=== PATIENT | female | born 1945 | race African-American/Black ===

== ENCOUNTER 2018-05-08 02:23 | Inpatient (IN) | payer OTHER ==
--- NOTE | 2018-05-08 02:56 | PDOC ---
Attending Attestation - Resident Resident Name: Ashok Azulth - ED Attending Attestation I have performed the following: I have examined & evaluated the patient, The case was reviewed & discussed with the resident, I agree w/resident's findings & plan - HPI HPI: 05/08/18 04:59 Pt had an unwitnessed fall at the [facility]. WBC is slightly elevated UA and chem are pending. CT head and CT facial bones normal - Physicial Exam PE: 05/08/18 05:00 Agree with resident exam - Medical Decision Making 05/08/18 04:58 Patient Name: IRMA BONDS THIS IS A PRELIMINARY REPORT FROM [facility] DATE OF SERVICE: 2018-05-08 03:46:21 IMAGES: [id number] EXAM: FACIAL BONES CT W/O CONTRAST HISTORY: Status post fall COMPARISON: None. FINDINGS: The intraorbital contents are intact. The sinuses and visualized mastoid air cells are well aerated. There is a fracture of the floor of the left orbit without entrapment inferior rectus muscle. This may be an old fracture. No definite acute fractures. The patient is edentulous. There is anterior subluxation of the bilateral temporomandibular joints, without dislocation. IMPRESSION: Suspected old fracture of the floor the left orbit without definite evidence of acute fracture. Anterior subluxation of the bilateral temporomandibular joints 05/08/18 04:59 Patient Name: IRMA BONDS THIS IS A PRELIMINARY REPORT FROM [facility] DATE OF SERVICE: 2018-05-08 03:44:39 IMAGES: [id number] EXAM: HEAD CT WITHOUT CONTRAST HISTORY: Status post fall COMPARISON: None. FINDINGS: The ventricular system is midline and nondilated. There is mild cortical atrophy and small vessel ischemic disease. There is no bleed, mass, extra-axial fluid collection or mass effect. No skull fracture or skull lesion is identified. The visualized paranasal sinuses and mastoid air cells are clear. IMPRESSION: No evidence of acute pathology. 05/08/18 05:00 If labs are normal, pt will go back to the [facility]. 05/08/18 05:00 Pt is receiving 1L NSS bolus 05/08/18 05:18 Pt has cellulitis of her bilateral legs. Pt also has elevated BUN and Cr. I called [facility]; last BUN/Cr done there was on January 25 and her BUN was 21 and cr was 1.2; now BUN and cr are double. 05/08/18 05:19 05/08/18 06:28 Pt will be admitted to the hospitalist.
[2018-05-08] MEDS ORDERED: ACETAMINOPHEN 1000 MG/100 ML VIAL (NON FORMULARY) IVPB ONE (03:20)
[2018-05-08] MEDS ORDERED: SODIUM CHLORIDE 1,000 ML IV STA (03:20)
[2018-05-08] MEDS ORDERED: ACETAMINOPHEN INJECTION 100 ML IVPB ONE (03:28)
[2018-05-08 03:34] LABS: BASO % 1.4 % (0-2.0); HEMATOCRIT 30.6 % (32.4-45.2); HEMOGLOBIN 9.7 GM/dL (10.7-15.3); LYMPH % 33.1 % (8-40); MCH 28.2 pg (25.7-33.7); MCHC 31.9 g/dl (32.0-36.0); MEAN CELL VOLUME 88.4 fl (80-96); NEUT % 53.5 % (42.8-82.8); PLATELET COUNT 302 K/MM3 (134-434); RBC 3.46 M/mm3 (3.60-5.2); WHITE BLOOD COUNT 13.2 K/mm3 (4.0-10.0)
[2018-05-08 04:46] LABS: URINE APPEARANCE CLEAR; URINE BILIRUBIN NEGATIVE (<2.0 mg/dL); URINE GLUCOSE (UA) NEGATIVE (NEGATIVE); URINE KETONE NEGATIVE (NEGATIVE); URINE LEUK ESTERASE NEGATIVE (NEGATIVE); URINE NITRITE NEGATIVE (NEGATIVE); URINE PROTEIN NEGATIVE (NEGATIVE)
[2018-05-08 05:00] LABS: URINE COLOR DK YELLOW
[2018-05-08 05:03] LABS: ALBUMIN 2.4 g/dl (3.4-5.0); ALK PHOS 51 U/L (45-117); ANION GAP 5 MMOL/L (8-16); BILIRUBIN,TOTAL 0.3 mg/dL (0.2-1); BLOOD UREA NITROGEN 38 mg/dL (7-18); CALCIUM 7.5 mg/dL (8.5-10.1); CHLORIDE 108 mmol/L (98-107); CO2 27 mmol/L (21-32); GLUCOSE,RANDOM 108 mg/dL (74-106); POTASSIUM 4.8 mmol/L (3.5-5.1); SGOT/AST 15 U/L (15-37); SGPT/ALT 11 U/L (13-61); SODIUM 140 mmol/L (136-145); TOT PROT 6.4 g/dl (6.4-8.2)
--- NOTE | 2018-05-08 05:10 | PDOC ---
History of Present Illness - General Chief Complaint: Injury Stated Complaint: FALL Time Seen by Provider: 05/08/18 02:55 - History of Present Illness Initial Comments: 72yo F with history of asthma, COPD, DM, HTN, CHF presenting after a fall. Patient brought in from [facility]. Patient had been recently treated for cellulitis in her legs, having finished a course of antibiotics yesterday. She reports that the bindings on her legs were too tight, causing her to fall when getting out of bed. The episode was unwitnessed, but staff came to her aid immediately. Patient denies loss of consciousness, nausea or vomiting. Denies urinary or fecal incontinence during/after the episode. No history of seizures or arrhythmia. She has swelling on her forehead. Endorses shortness of breath which she attributes to her asthma and COPD. Denies fever, chills, chest pain, or abdominal pain. Past History - Past Medical History Allergies/Adverse Reactions: Allergies Allergy/AdvReac Type Severity Reaction Status Date / Time penicillin G Allergy Intermediate Hives Verified 05/08/18 02:35 benzathine Allergy Mild Rash Uncoded 05/08/18 02:35 tomatoes Allergy Mild Rash Uncoded 05/08/18 02:35 Home Medications: Ambulatory Orders Albuterol 0.083% Nebulizer Maribel [Ventolin 0.083% Nebulizer Soln -] 2.5 mg PRN 12/13 Amlodipine Besylate [Norvasc -] 10 mg PO DAILY 10/01/17 Aspirin [Adult Aspirin Regimen] 81 mg PO DAILY 10/01/17 Baclofen 10 mg PO TID 10/01/17 Docusate Sodium [Colace] 100 mg PO HS 10/01/17 Furosemide [Lasix] 40 mg PO DAILY 10/01/17 Gabapentin 100 mg PO BID 10/01/17 Hydralazine HCl 100 mg PO TID 10/01/17 Insulin Lispro Protamin/Lispro [Humalog Mix 75-25 Vial] 36 units SCJ BID Lisinopril 20 mg PO BID 10/01/17 Metoprolol Tartrate 25 mg PO BID 10/01/17 Oxybutynin Chloride [Ditropan Xl] 10 mg PO DAILY 10/01/17 Tiotropium [place] [Spiriva] 18 mcg IH DAILY 10/01/17 Asthma: Yes COPD: Yes CHF: Yes Diabetes: Yes HTN: Yes Psychiatric Problems: Yes - Immunization History Immunization Up to Date: No - Suicide/Smoking/Psychosocial Hx Smoking Status: No Smoking History: Unknown if ever smoked Have you smoked in the past 12 months: No Number of Cigarettes Smoked Daily: 1 Information on smoking cessation initiated: No Hx Alcohol Use: No Drug/Substance Use Hx: No Substance Use Type: None Hx Substance Use Treatment: (UNKNOWN) Review of Systems - Review of Systems Comments:: Constitutional: no fever, no chills HEENT: no throat pain, no dysphagia Cardiovascular: no chest pain, no palpitations Respiratory: no cough, +shortness of breath Gastrointestinal: no abdominal pain, no nausea, no vomiting Genitourinary: no dysuria, no frequency Musculoskeletal: no myalgia, no arthralgia Skin: +forehead swelling, no itching Neurologic: +headache, no dizziness *Physical Exam - Vital Signs Last Vital Signs Temp Pulse Resp BP Pulse Ox 98.9 F 64 18 109/51 L 95 05/08/18 02:35 05/08/18 02:35 05/08/18 02:35 05/08/18 02:35 05/08/18 02:35 - Physical Exam Comments: General: Awake, alert, and fully oriented, in no acute distress Head: Soft tissue swelling on forehead; swollen lower lip Eyes: EOMI, sclera anicteric ENT: Dry mucus membranes Neck: Normal ROM, supple Lungs: Crackles at right lung base Cardio: Regular rhythm, S1 and S2 present Abdomen: Soft, nontender. No guarding, no rebound, no masses Extremities: Normal range of motion, Distal pulses present, Legs very dry and cracking SKIN: Warm, Dry, normal turgor Neurologic: Cranial nerves II through XII grossly intact. Normal speech ED Treatment Course - LABORATORY CBC & Chemistry Diagram: 05/08/18 03:25 05/08/18 04:26 - ADDITIONAL ORDERS Additional order review: Laboratory Results 05/08/18 05/08/18 05/08/18 04:38 04:26 03:25 Sodium 140 Cancelled Potassium 4.8 Cancelled Chloride 108 H Cancelled Carbon Dioxide 27 Cancelled Anion Gap 5 L Cancelled BUN 38 H Cancelled Creatinine 2.0 H Cancelled Creat Clearance w eGFR 24.56 Cancelled Random Glucose 108 H Cancelled Calcium 7.5 L Cancelled Total Bilirubin 0.3 Cancelled AST 15 Cancelled ALT 11 L Cancelled Alkaline Phosphatase 51 Cancelled Troponin I < 0.02 Cancelled Total Protein 6.4 Cancelled Albumin 2.4 L Cancelled Urine Color Dk yellow Urine Appearance Clear Urine pH 5.0 Ur Specific [place] 1.017 Urine Protein Negative Urine Glucose (UA) Negative Urine Ketones Negative Urine Blood Negative Urine Nitrite Negative Urine Bilirubin Negative Urine Urobilinogen 2.0 H Ur Leukocyte Esterase Negative 05/08/18 03:25 RBC 3.46 L MCV 88.4 MCHC 31.9 L RDW 16.0 H MPV 9.0 Neutrophils % 53.5 Lymphocytes % 33.1 D Monocytes % 9.0 Eosinophils % 3.0 D Basophils % 1.4 - RADIOLOGY Radiology Studies Ordered: Category Date Time Status FACIAL BONES CT W/O CONTRAST [CT] Stat CT Scan 05/08/18 03:[address] WITHOUT CONTRAST [CT] Stat CT Scan 05/08/18 03:23 Taken CHEST X-RAY PORTABLE* [RAD] Stat Radiology 05/08/18 03:21 Ordered - Medications Given in the ED: ED Medications Discontinued Medications Generic Name Dose Route Start Last Admin Trade Name Freq PRN Reason Stop Dose Admin Acetaminophen 1,000 mg 05/08/18 03:20 05/08/18 03:24 Ofirmev Injection - IVPB 05/08/18 03:21 1,000 mg ONCE ONE Administration Sodium Chloride 1,000 mls @ 1,000 mls/hr 05/08/18 03:20 05/08/18 03:24 Normal Saline - IV 05/08/18 04:19 1,000 mls/hr ASDIR STA Administration Medical Decision Making - Medical Decision Making 72yo F with history of asthma, COPD, DM, HTN, CHF presenting after a fall. -CT head and face: negative for acute pathology -1L NS, 1g Ofirmev -EKG: rate 66, QTc 452, NSR -Labs: elevated BUN=38 and Cr=2.0 WBC=13.2, UA negative -Dr. De Jesus spoke with [facility] regarding patient's recent lab values, BUN=21, Cr= 1.2 on 01/25/18 -Levaquin ordered for cellulitis -CXR looks worsened with increased pulmonary infiltrates (my impression), indicative of CHF exacerbation -Plan to admit for unwitnessed fall, DEE, CHF exacerbation, cellulitis 05/08/18 05:12 Discussed case with inpatient team who accepted patient for admission under attending, Dr. Sorenson 05/08/18 05:50 *DC/Admit/Observation/Transfer Diagnosis at time of Disposition: Cellulitis, Fall, DEE (acute kidney injury) - Discharge Dispostion Condition at time of disposition: Guarded Decision to Admit order: Yes - Referrals Referrals: Duane Davidson MD [Primary Care Provider] - - Patient Instructions - Post Discharge Activity
--- NOTE | 2018-05-08 06:20 | HP ---
Admitting History and Physical - Primary Care Physician PCP: Duane Davidson - Admission Chief Complaint: s/p Fall History of Present Illness: This is a 72 y/o woman from [facility] with a past medical history of HTN, DM, COPD, Asthma, Cellulitis of B/L lower extremities completed ABX yesterday. Who presents to the ED s/p mechanical fall with facial and body pain. Patient reports having leg bandages that were on tightly making her legs feel weak. She states " I slipped and fell forward hitting my forehead". Patient denies dizziness, CP, palpitations. Patient reports having SOB which is chronic. Patient denies fever, N/V/D, constipation, dysuria. History Source: Patient, Medical Record, Transfer Record Limitations to Obtaining History: No Limitations - Past Medical History Cardiovascular: Yes: HTN Pulmonary: Yes: Asthma, COPD Endocrine: Yes: Diabetes Mellitus - Advance Directives Advance Directives: Yes: Health Care Proxy - Smoking History Smoking history: Unknown if ever smoked Have you smoked in the past 12 months: No Aproximately how many cigarettes per day: 1 - Alcohol/Substance Use Hx Alcohol Use: No History of Substance Use: reports: None - Social History Usual Living Arrangement: Yes: Retirement ADL: Support Services History of Recent Travel: No Home Medications - Allergies Allergies/Adverse Reactions: Allergies Allergy/AdvReac Type Severity Reaction Status Date / Time penicillin G Allergy Intermediate Hives Verified 05/08/18 02:35 benzathine Allergy Mild Rash Uncoded 05/08/18 02:35 tomatoes Allergy Mild Rash Uncoded 05/08/18 02:35 - Home Medications Home Medications: Ambulatory Orders Albuterol 0.083% Nebulizer Maribel [Ventolin 0.083% Nebulizer Soln -] 2.5 mg PRN 12/13 Amlodipine Besylate [Norvasc -] 10 mg PO DAILY 10/01/17 Aspirin [Adult Aspirin Regimen] 81 mg PO DAILY 10/01/17 Baclofen 10 mg PO BID 10/01/17 Docusate Sodium [Colace] 200 mg PO HS 10/01/17 Furosemide [Lasix] 40 mg PO DAILY 10/01/17 Gabapentin 100 mg PO BID 10/01/17 Hydralazine HCl 100 mg PO TID 10/01/17 Insulin Lispro Protamin/Lispro [Humalog Mix 75-25 Vial] 36 units SCJ BID Lisinopril 20 mg PO BID 10/01/17 Metoprolol Tartrate 25 mg PO BID 10/01/17 Oxybutynin Chloride [Ditropan Xl] 10 mg PO DAILY 10/01/17 Tiotropium [place] [Spiriva] 18 mcg IH DAILY 10/01/17 Acetaminophen 650 mg PO Q6H 05/08/18 Acetaminophen W/ Codeine #3 [Tylenol # 3 -] 1 tab PO BID PRN 05/08/18 Fosamprenavir Calcium 70 mg PO WEEKLY 05/08/18 Insulin Lispro [Humalog] 0 unit SQ ASDIR 05/08/18 Menthol [Bengay Ultra Strength] 1 each TP BID 05/08/18 Mineral Oil/Pet Hy-Phl [Aquaphor] 1 applic TP DAILY 05/08/18 Sertraline HCl [Zoloft] 25 mg PO DAILY 05/08/18 Simvastatin 20 mg PO DAILY 05/08/18 Sodium Phosphate,[place]-Dibasic [Fleet Enema] 133 ml RC ASDIR 05/08/18 Vit A/Vitamin D3/E/Aloe V/Zinc [Periguard Ointment] 1 applic TP TID 05/08/18 metFORMIN HCL [Metformin HCl] 500 mg PO BID 05/08/18 Family Disease History - Family Disease History Family History: Unable to Obtain Review of Systems - Review of Systems Constitutional: reports: Chills, Weakness Eyes: reports: No Symptoms HENT: reports: Other (facial pain) Neck: reports: No Symptoms Cardiovascular: reports: Shortness of Breath Respiratory: reports: SOB Gastrointestinal: reports: No Symptoms Genitourinary: reports: No Symptoms Breasts: reports: No Symptoms Reported Musculoskeletal: reports: Extremity Pain Integumentary: reports: Other (venous stasis ulcers) Neurological: reports: Numbness (lower legs/feet), Weakness Endocrine: reports: No Symptoms Hematology/Lymphatic: reports: No Symptoms Psychiatric: reports: No Symptoms Pain Intensity: 5 Physical Examination Vital Signs: Vital Signs Temperature 98.9 F 05/08/18 02:35 Pulse Rate 64 05/08/18 02:35 Respiratory Rate 18 05/08/18 02:35 Blood Pressure 109/51 L 05/08/18 02:35 O2 Sat by Pulse Oximetry (%) 95 05/08/18 02:35 Constitutional: Yes: No Distress, Calm, Obese Eyes: Yes: Conjunctiva Clear, EOM Intact, PERRL HENT: Yes: WNL, Normocephalic, Other (frontal TN, hematoma) Neck: Yes: WNL, Supple, Trachea Midline Cardiovascular: Yes: Pulse Irregular, S1, S2 Respiratory: Yes: Diminished, Rhonchi Gastrointestinal: Yes: Normal Bowel Sounds, Soft, Abdomen, Obese ...Rectal Exam: Yes: Deferred Renal/: Yes: Incontinence Breast(s): Yes: WNL Musculoskeletal: Yes: WNL Edema: Yes (non-pitting to LE) Peripheral Pulses WNL: Yes Integumentary: Yes: Venous Stasis Changes Neurological: Yes: Alert, Oriented, Cran Nerves II-XII Intact ...Motor Strength: WNL Psychiatric: Yes: WNL, Alert, Oriented Labs: CBC, BMP 05/08/18 03:25 05/08/18 04:26 Laboratory Results - last 24 hr 05/08/18 05/08/18 05/08/18 03:25 03:25 04:26 WBC 13.2 H RBC 3.46 L Hgb 9.7 L Hct 30.6 L D MCV 88.4 MCH 28.2 D MCHC 31.9 L RDW 16.0 H Plt Count 302 D MPV 9.0 Absolute Neuts (auto) 7.1 Neutrophils % 53.5 Lymphocytes % 33.1 D Monocytes % 9.0 Eosinophils % 3.0 D Basophils % 1.4 Nucleated RBC % 0 Sodium Cancelled 140 Potassium Cancelled 4.8 Chloride Cancelled 108 H Carbon Dioxide Cancelled 27 Anion Gap Cancelled 5 L BUN Cancelled 38 H Creatinine Cancelled 2.0 H Creat Clearance w eGFR Cancelled 24.56 Random Glucose Cancelled 108 H Calcium Cancelled 7.5 L Total Bilirubin Cancelled 0.3 AST Cancelled 15 ALT Cancelled 11 L Alkaline Phosphatase Cancelled 51 Troponin I Cancelled < 0.02 Total Protein Cancelled 6.4 Albumin Cancelled 2.4 L Urine Color Urine Appearance Urine pH Ur Specific [place] Urine Protein Urine Glucose (UA) Urine Ketones Urine Blood Urine Nitrite Urine Bilirubin Urine Urobilinogen Ur Leukocyte Esterase 05/08/18 04:38 WBC RBC Hgb Hct MCV MCH MCHC RDW Plt Count MPV Absolute Neuts (auto) Neutrophils % Lymphocytes % Monocytes % Eosinophils % Basophils % Nucleated RBC % Sodium Potassium Chloride Carbon Dioxide Anion Gap BUN Creatinine Creat Clearance w eGFR Random Glucose Calcium Total Bilirubin AST ALT Alkaline Phosphatase Troponin I Total Protein Albumin Urine Color Dk yellow Urine Appearance Clear Urine pH 5.0 Ur Specific [place] 1.017 Urine Protein Negative Urine Glucose (UA) Negative Urine Ketones Negative Urine Blood Negative Urine Nitrite Negative Urine Bilirubin Negative Urine Urobilinogen 2.0 H Ur Leukocyte Esterase Negative Current Medications Generic Name Dose Route Start Last Admin Trade Name Freq PRN Reason Stop Dose Admin Albuterol Sulfate 1 amp 05/08/18 07:45 Ventolin 0.083% Nebulizer Soln - NEB Q6H PRN SHORT OF BREATH/WHEEZING Amlodipine Besylate 10 mg 05/08/18 10:00 Norvasc - PO DAILY [facility] Aspirin 81 mg 05/08/18 10:00 Ecotrin - PO DAILY [facility] Baclofen 10 mg 05/08/18 10:00 Lioresal - PO BID [facility] Docusate Sodium 100 mg 05/08/18 10:00 Colace - PO BID [facility] Furosemide 40 mg 05/08/18 10:00 Lasix - PO DAILY [facility] Gabapentin 200 mg 05/08/18 10:00 Neurontin - PO BID [facility] Hydralazine HCl 100 mg 05/08/18 14:00 Apresoline - PO TID [facility] Metoprolol Tartrate 12.5 mg 05/08/18 10:00 Lopressor - PO BID [facility] Solifenacin 5 mg 05/08/18 10:00 Vesicare - PO DAILY [facility] Tiotropium [place] 2 puff 05/08/18 10:00 Spiriva Respimat IH DAILY [facility] Problem List - Problems (1) DEE (acute kidney injury) Code(s): N17.9 - ACUTE KIDNEY FAILURE, UNSPECIFIED (2) Fall Code(s): W19.XXXA - UNSPECIFIED FALL, INITIAL ENCOUNTER (3) Alcohol dependence Code(s): F10.20 - ALCOHOL DEPENDENCE, UNCOMPLICATED (4) HTN (hypertension) Code(s): I10 - ESSENTIAL (PRIMARY) HYPERTENSION (5) Non-pressure chronic ulcer of other part of unspecified lower leg limited to breakdown of skin Code(s): L97.801 - NON-PRS CHR ULCER OTH PRT UNSP LOW LEG LMT TO BRKDWN SKIN (6) Type 2 diabetes mellitus Code(s): E11.9 - TYPE 2 DIABETES MELLITUS WITHOUT COMPLICATIONS (7) Dyslipidemia Code(s): E78.5 - HYPERLIPIDEMIA, UNSPECIFIED Assessment/Plan This is a 72 y/o woman PMHx of Asthma, COPD, HTN, HLD, DM, recent treatment of Cellulitis to B/L legs completed ABX yesterday. Placed in Tele Observation for CHF Exacerbation, DEE, s/p Mechanical Fall for further evaluation of their emergent condition. Plan: 1.Acute CHF Exacerbation: Will place in Tele Observation Cardiac Monitoring Serial Enzymes Appreciate Cardiology consult Chest xray image- cardiomegaly, bibasilar atelectasis awaiting official report NS bolus given in ED Will place on fluid restrictions strict INOs daily weights Continue Lasix cautiously monitor renal function 2.Acute Kidney Injury: Likely due to Dehydration vs CHF vs Medication NS bolus given in ED Monitor BMP 3. Mechanical Fall: Head CT- neg ICH Facial Bones CT- no acute process Fall Precautions 4. Cellulitis of Lower Extermities WBC 13,000 likely inflammatory vs infectious Patient does not appear septic, afebrile not hypotensive Levaquin given for Cellulitis, will defer to ID Appreciate ID consult Blood Cultures x2 ordered for this am Elevate extremities 5. Anemia Likely secondary to Renal Insufficiency vs Hypothyroidism vs former Alcohol Abuse vs GI Bleed Will transfuse if Hgb is < 7.0 Fe, TIBC, Ferritin levels-pending Stool Occult-pending f/u with Hematology outpatient 6. Asthma, COPD: Continue Albuterol Neb Continue Spiriva, Symbicort Peak Flows O2 7. Hypertension: Controlled Monitor BP Continue Norvasc, Metoprolol, Hydralazine with parameters Will hold Lisinopril secondary to DEE Monitor Renal Function 8. Hyperlipidemia: Simvastatin NF changed to Lipitor 10mg Low Cholesterol diet 9. IDDM: Stable BGMs ISS Hold Metformin secondary to DEE FEN Fluid Restriction 1L Replete lytes prn Low Na, Low Cholesterol, Diabetic Diet DVT ppx OOB Heparin SQ Code Status:Full Code, HCP [place] Hogan (brother) [phone] Dispo: Tele Observation Visit type - Emergency Visit Emergency Visit: Yes ED Registration Date: 05/08/18 Care time: The patient presented to the Emergency Department on the above date and was hospitalized for further evaluation of their emergent condition. - New Patient This patient is new to me today: Yes Date on this admission: 05/08/18 - Critical Care Critical Care patient: No
[2018-05-08] MEDS ORDERED: ALBUTEROL SO4 0.083% IH SOL 2.5 MG/3 ML VIAL.NEB. NEB PRN (07:45)
[2018-05-08] MEDS ORDERED: FUROSEMIDE 40 MG TABLET (FP) PO SCH (10:00)
[2018-05-08] MEDS ORDERED: LORATADINE 10 MG TABLET ONE (10:28)
[2018-05-08] MEDS ORDERED: SERTRALINE HCL 50 MG TABLET (FP) ONE (10:28)
[2018-05-08] MEDS ORDERED: HEPARIN NA (PORCINE) 5,000 UNITS/ML 1ML VIAL ONE (10:28)
[2018-05-08] MEDS: DOCUSATE SODIUM 100 MG CAPSULE (FP) PO SCH ×2 (10:43→22:08)
[2018-05-08] MEDS: ASPIRIN COATED 81 MG TABLET.EC PO SCH (10:43)
[2018-05-08] MEDS: LORATADINE 10 MG TABLET PO SCH (10:43)
[2018-05-08] MEDS: BACLOFEN 10 MG TABLET (FP) PO SCH ×2 (10:44→22:08)
[2018-05-08] MEDS: HEPARIN NA (PORCINE) 5,000 UNITS/ML 1ML VIAL SQ SCH ×2 (10:44→22:09)
[2018-05-08] MEDS: amLODIPine BESYLATE 10 MG TABLET (FP) PO SCH (10:44)
[2018-05-08] MEDS: SOLIFENACIN SUCCINATE 5 MG TAB (FP) PO SCH (10:44)
[2018-05-08] MEDS: SERTRALINE HCL 25 MG TABLET (FP) PO SCH (10:44)
[2018-05-08] MEDS: METOPROLOL TARTRATE 25 MG TABLET (FP) PO SCH ×2 (10:44→22:08)
[2018-05-08] MEDS: GABAPENTIN 100 MG CAPSULE (FP) PO SCH ×2 (10:44→22:07)
[2018-05-08] MEDS: BUDESONIDE/FORMETEROL FUMARATE 160/4.5 mcg INHALER IH SCH ×2 (11:28→22:09)
[2018-05-08] MEDS: MINERAL OIL/PET HY-PHL TOPICAL OINTMENT 454 GM JAR TP SCH (11:28)
[2018-05-08] MEDS: TIOTROPIUM BROMIDE 2.5 MCG (SPIRIVA) RESPIMAT INHALER IH SCH (11:28)
[2018-05-08 11:33] LABS: MAGNESIUM 1.9 mg/dL (1.8-2.4); PHOSPHOROUS 4.4 mg/dL (2.5-4.9)
[2018-05-08] MEDS: INSULIN SLIDING SCALE (NOVOLOG) 1 VIAL SQ SCH ×2 (12:26→22:07)
[2018-05-08] MEDS ORDERED: FUROSEMIDE 40 MG/4 ML INJECTABLE VIAL IVPUSH ONE (13:00)
--- NOTE | 2018-05-08 13:05 | CON.CARD ---
Cardiology Consult (text) - Consultation Consultation Note: cc: fall hpi: 72 f hx copd, htn, dm, here s/p fall at NH. Pt was trying to get from bed to wheelchair and chair slid and she fell. No prodrome sxs, no loc. No cp sob palps dizzy loc pnd orthopnea. Chronic le edema. Recent abx for le cellulitis. pmh: per hpi psh: nc social: no tob fam: no premature cad, scd ros: per hpi; no fever nvd gib hematuria dysuria wt loss meds: Home Medications Medication Instructions Recorded Albuterol 0.083% Nebulizer Maribel 2.5 mg PRN 10/01/17 [Ventolin 0.083% Nebulizer Soln -] Amlodipine Besylate [Norvasc -] 10 mg PO DAILY 10/01/17 Aspirin [Adult Aspirin Regimen] 81 mg PO DAILY 10/01/17 Baclofen 10 mg PO BID 10/01/17 Docusate Sodium [Colace] 200 mg PO HS 10/01/17 Furosemide [Lasix] 40 mg PO DAILY 10/01/17 Gabapentin 100 mg PO BID 10/01/17 Hydralazine HCl 100 mg PO TID 10/01/17 Insulin Lispro Protamin/Lispro 36 units SCJ BID 10/01/17 [Humalog Mix 75-25 Vial] Lisinopril 20 mg PO BID 10/01/17 Metoprolol Tartrate 25 mg PO BID 10/01/17 Oxybutynin Chloride [Ditropan Xl] 10 mg PO DAILY 10/01/17 Tiotropium [place] [Spiriva] 18 mcg IH DAILY 10/01/17 Acetaminophen 650 mg PO Q6H 05/08/18 Acetaminophen W/ Codeine #3 1 tab PO BID PRN 05/08/18 [Tylenol # 3 -] Fosamprenavir Calcium 70 mg PO WEEKLY 05/08/18 Insulin Lispro [Humalog] 0 unit SQ ASDIR 05/08/18 Menthol [[place] Ultra Strength] 1 each TP BID 05/08/18 Mineral Oil/Pet Hy-Phl [Aquaphor] 1 applic TP DAILY 05/08/18 Sertraline HCl [Zoloft] 25 mg PO DAILY 05/08/18 Simvastatin 20 mg PO DAILY 05/08/18 Sodium Phosphate,[place]-Dibasic 133 ml RC ASDIR 05/08/18 [Fleet Enema] Vit A/Vitamin D3/E/Aloe V/Zinc 1 applic TP TID 05/08/18 [Periguard Ointment] metFORMIN HCL [Metformin HCl] 500 mg PO BID 05/08/18 pe: Vital Signs Period Temp Pulse Resp BP Sys/Gates Pulse Ox Last 24 Hr 98 F-98.9 F 61-71 18-18 109-123/51-68 95-98 nad no jvd rrr s1s2 no mrg crackles at bases, nl eff aaox3 chronic venous stasis changes le bl, non pitting edema abd nt nd pos bs no jaundice diaphoresis pos dp pt no carotid bruits Laboratory Last Values WBC 13.2 K/mm3 (4.0-10.0) H 05/08/18 03:25 RBC 3.46 M/mm3 (3.60-5.2) L 05/08/18 03:25 Hgb 9.7 GM/dL (10.7-15.3) L 05/08/18 03:25 Hct 30.6 % (32.4-45.2) L D 05/08/18 03:25 MCV 88.4 fl (80-96) 05/08/18 03:25 MCH 28.2 pg (25.7-33.7) D 05/08/18 03:25 MCHC 31.9 g/dl (32.0-36.0) L 05/08/18 03:25 RDW 16.0 % (11.6-15.6) H 05/08/18 03:25 Plt Count 302 K/MM3 (134-434) D 05/08/18 03:25 MPV 9.0 fl (7.5-11.1) 05/08/18 03:25 Absolute Neuts (auto) 7.1 K/mm3 (1.5-8.0) 05/08/18 03:25 Neutrophils % 53.5 % (42.8-82.8) 05/08/18 03:25 Lymphocytes % 33.1 % (8-40) D 05/08/18 03:25 Monocytes % 9.0 % (3.8-10.2) 05/08/18 03:25 Eosinophils % 3.0 % (0-4.5) D 05/08/18 03:25 Basophils % 1.4 % (0-2.0) 05/08/18 03:25 Nucleated RBC % 0 % (0-0) 05/08/18 03:25 Sodium 140 mmol/L (136-145) 05/08/18 04:26 Potassium 4.8 mmol/L (3.5-5.1) 05/08/18 04:26 Chloride 108 mmol/L (98-107) H 05/08/18 04:26 Carbon Dioxide 27 mmol/L (21-32) 05/08/18 04:26 Anion Gap 5 MMOL/L (8-16) L 05/08/18 04:26 BUN 38 mg/dL (7-18) H 05/08/18 04:26 Creatinine 2.0 mg/dL (0.55-1.3) H 05/08/18 04:26 Creat Clearance w eGFR 24.56 (>60) 05/08/18 04:26 POC Glucometer 132.38753 UNITS (80-120) 05/08/18 12:25 Random Glucose 108 mg/dL (74-106) H 05/08/18 04:26 Calcium 7.5 mg/dL (8.5-10.1) L 05/08/18 04:26 Phosphorus 4.4 mg/dL (2.5-4.9) 05/08/18 10:32 Magnesium 1.9 mg/dL (1.8-2.4) 05/08/18 10:32 Ferritin 41.9 ng/ml (8-388) 05/08/18 10:32 Total Bilirubin 0.3 mg/dL (0.2-1) 05/08/18 04:26 AST 15 U/L (15-37) 05/08/18 04:26 ALT 11 U/L (13-61) L 05/08/18 04:26 Alkaline Phosphatase 51 U/L (45-117) 05/08/18 04:26 Troponin I < 0.02 ng/ml (0.00-0.05) 05/08/18 10:32 Total Protein 6.4 g/dl (6.4-8.2) 05/08/18 04:26 Albumin 2.4 g/dl (3.4-5.0) L 05/08/18 04:26 Urine Color Dk yellow 05/08/18 04:38 Urine Appearance Clear 05/08/18 04:38 Urine pH 5.0 (5.0-8.0) 05/08/18 04:38 Ur Specific [place] 1.017 (1.010-1.035) 05/08/18 04:38 Urine Protein Negative (NEGATIVE) 05/08/18 04:38 Urine Glucose (UA) Negative (NEGATIVE) 05/08/18 04:38 Urine Ketones Negative (NEGATIVE) 05/08/18 04:38 Urine Blood Negative (NEGATIVE) 05/08/18 04:38 Urine Nitrite Negative (NEGATIVE) 05/08/18 04:38 Urine Bilirubin Negative (<2.0 mg/dL) 05/08/18 04:38 Urine Urobilinogen 2.0 mg/dL (0.2-1.0) H 05/08/18 04:38 Ur Leukocyte Esterase Negative (NEGATIVE) 05/08/18 04:38 cxr: chf ecg: sr,nl intervals, no ischemci changes mibi 2011: no ischemia, nl lvef echo 03/2014: lvh, nl lv/rv, lae, no sig valve path a/p: 72 f hx copd, htn, dm, here s/p fall [place]. acute diastolic chf: -no signs acs -cr up from baseline but appears volume up with pulm congestion so will give test dose of lasix 40 iv x1 and monitor labs/vol tomorrow -check updated echo htn: -cont home meds hld: -cont statin isabel: -cr 2 now, cr was 1.2 on 12/2017 from [facility] records -possibly cardiorenal, plan as above fall: -mechanical, no indication of cardiac etiology
[2018-05-08] MEDS ORDERED: FUROSEMIDE 40 MG/4 ML INJECTABLE VIAL ONE (14:52)
[2018-05-08] MEDS: hydrALAZINE HCL 50 MG TABLET (FP) PO SCH ×2 (15:00→22:07)
--- NOTE | 2018-05-08 18:28 | CON.ID ---
Consult Consult Specialty:: infectious diseases Reason for Consultation:: cellulitis of the legs - History of Present Illness Chief Complaint: pain in the legs b/l History of Present Illness: 72 y/o woman from [facility] with a past medical history of HTN, DM, COPD, Asthma, Cellulitis of B/L lower extremities completed ABX yesterday. Who presents to the ED s/p mechanical fall with facial and body pain. Patient reports having leg bandages that were on tightly making her legs feel weak. She states " I slipped and fell forward hitting my forehead". Patient denies dizziness, CP, palpitations. Patient reports having SOB which is chronic. Patient denies fever, N/V/D, constipation, dysuria. patient is now c/o of swelling of both legs and tenderness of both legs - History Source History Provided By: Patient Limitations to Obtaining History: Poor Historian - Past Medical History Cardio/Vascular: Yes: HTN Pulmonary: Yes: Asthma, COPD Endocrine: Yes: Diabetes Mellitus - Alcohol/Substance Use Hx Alcohol Use: No History of Substance Use: reports: None - Smoking History Smoking history: Unknown if ever smoked Have you smoked in the past 12 months: No Aproximately how many cigarettes per day: 1 - Social History ADL: Support Services History of Recent Travel: No Home Medications - Allergies Allergies/Adverse Reactions: Allergies Allergy/AdvReac Type Severity Reaction Status Date / Time penicillin G Allergy Intermediate Hives Verified 05/08/18 02:35 benzathine Allergy Mild Rash Uncoded 05/08/18 02:35 tomatoes Allergy Mild Rash Uncoded 05/08/18 02:35 - Home Medications Home Medications: Ambulatory Orders Amlodipine Besylate [Norvasc -] 10 mg PO DAILY 10/01/17 Aspirin [Adult Aspirin Regimen] 81 mg PO DAILY 10/01/17 Docusate Sodium [Colace] 200 mg PO HS 10/01/17 Furosemide [Lasix] 40 mg PO DAILY 10/01/17 Insulin Lispro Protamin/Lispro [Humalog Mix 75-25 Vial] 36 units SCJ BID Oxybutynin Chloride [Ditropan Xl] 10 mg PO DAILY 10/01/17 RX: Albuterol 0.083% Nebulizer Maribel [Ventolin 0.083% Nebulizer Soln -] 2.5 mg PRN 10/01/17 RX: Baclofen 10 mg PO BID 10/01/17 RX: Gabapentin 100 mg PO BID 10/01/17 RX: Hydralazine HCl 100 mg PO TID 10/01/17 RX: Lisinopril 20 mg PO BID 10/01/17 RX: Metoprolol Tartrate 25 mg PO BID 10/01/17 Tiotropium [place] [Spiriva] 18 mcg IH DAILY 10/01/17 Acetaminophen W/ Codeine #3 [Tylenol # 3 -] 1 tab PO BID PRN 05/08/18 Insulin Lispro [Humalog] 0 unit SQ ASDIR 05/08/18 Menthol [Bengay Ultra Strength] 1 each TP BID 05/08/18 Mineral Oil/Pet Hy-Phl [Aquaphor] 1 applic TP DAILY 05/08/18 RX: Acetaminophen 650 mg PO Q6H 05/08/18 RX: Fosamprenavir Calcium 70 mg PO WEEKLY 05/08/18 RX: Simvastatin 20 mg PO DAILY 05/08/18 Sertraline HCl [Zoloft] 25 mg PO DAILY 05/08/18 Sodium Phosphate,Dickens-Dibasic [Fleet Enema] 133 ml RC ASDIR 05/08/18 Vit A/Vitamin D3/E/Aloe V/Zinc [Periguard Ointment] 1 applic TP TID 05/08/18 metFORMIN HCL [Metformin HCl] 500 mg PO BID 05/08/18 Review of Systems - Review of Systems Constitutional: reports: Weakness Eyes: reports: No Symptoms HENT: reports: No Symptoms Neck: reports: No Symptoms Cardiovascular: reports: No Symptoms Respiratory: reports: No Symptoms Gastrointestinal: reports: No Symptoms Genitourinary: reports: No Symptoms Musculoskeletal: reports: Extremity Pain, Muscle Pain Integumentary: reports: Change in Color, Erythema (b/l lower legs) Neurological: reports: No Symptoms Endocrine: reports: No Symptoms Hematology/Lymphatic: reports: No Symptoms Psychiatric: reports: No Symptoms Physical Exam Vital Signs: Vital Signs Temperature 98 F 05/08/18 16:54 Pulse Rate 63 05/08/18 16:54 Respiratory Rate 18 05/08/18 16:54 Blood Pressure 109/60 05/08/18 16:54 O2 Sat by Pulse Oximetry (%) 98 05/08/18 16:54 Constitutional: Yes: Well Nourished, Calm, Mild Distress Eyes: Yes: Conjunctiva Clear HENT: Yes: Atraumatic, Normocephalic Neck: Yes: Supple, Trachea Midline Cardiovascular: Yes: Regular Rate and Rhythm Respiratory: Yes: Regular, CTA Bilaterally Gastrointestinal: Yes: Normal Bowel Sounds, Soft Musculoskeletal: Yes: Muscle Pain Extremities: Yes: Other (b/l swelling of the legs) Integumentary: Yes: Erythema, Other (flaky skin) Wound/Incision: Yes: Clean/Dry Neurological: Yes: Alert, Oriented Psychiatric: Yes: Alert, Oriented Labs: CBC, BMP 05/08/18 03:25 05/08/18 04:26 Imaging - Results Chest X-ray: Report Reviewed, Image Reviewed Cat Scan: Report Reviewed, Image Reviewed Assessment/Plan Problem List - Problems (1) DEE (acute kidney injury) Code(s): N17.9 - ACUTE KIDNEY FAILURE, UNSPECIFIED (2) Fall Code(s): W19.XXXA - UNSPECIFIED FALL, INITIAL ENCOUNTER (3) Cellulitis of both lower extremities Code(s): L03.115 - CELLULITIS OF RIGHT LOWER LIMB; L03.116 - CELLULITIS OF LEFT LOWER LIMB (4) HTN (hypertension) Code(s): I10 - ESSENTIAL (PRIMARY) HYPERTENSION (5) Type 2 diabetes mellitus Code(s): E11.9 - TYPE 2 DIABETES MELLITUS WITHOUT COMPLICATIONS 6 b/l cellulittis of the legs leukocytosis plan will start patient on clinda and zosyn elevation of the legs rest as per the team
[2018-05-08 18:32] VITALS: BMI 35.9
[2018-05-08] MEDS: CLINDAMYCIN 300 MG PREMIX IVPB 300 MG/50 ML BAG IVPB SCH (22:06)
[2018-05-08] MEDS: AZTREONAM 1 GM in DEXTROSE 5%-WATER - 50 ML IVPB SCH (22:07)
[2018-05-08] MEDS: ATORVASTATIN CA 10 MG TABLET (FP) PO SCH (22:08)
[2018-05-08] MEDS: ACETAMINOPHEN 325 MG TABLET (FP) PO PRN (22:08)
[2018-05-09] MEDS: AZTREONAM 1 GM in DEXTROSE 5%-WATER - 50 ML IVPB SCH ×3 (02:59→18:26)
[2018-05-09] MEDS: CLINDAMYCIN 300 MG PREMIX IVPB 300 MG/50 ML BAG IVPB SCH ×3 (02:59→18:26)
[2018-05-09] MEDS: hydrALAZINE HCL 50 MG TABLET (FP) PO SCH ×3 (05:50→22:24)
[2018-05-09 06:47] LABS: BASO % 0.8 % (0-2.0); HEMATOCRIT 29.2 % (32.4-45.2); LYMPH % 39.1 % (8-40); MCH 27.3 pg (25.7-33.7); MCHC 30.9 g/dl (32.0-36.0); MEAN CELL VOLUME 88.4 fl (80-96); MONO % 9.8 % (3.8-10.2); NEUT % 47.3 % (42.8-82.8); PLATELET COUNT 262 K/MM3 (134-434); RDW 16.1 % (11.6-15.6); WHITE BLOOD COUNT 9.8 K/mm3 (4.0-10.0)
[2018-05-09 06:53] LABS: ANION GAP 5 MMOL/L (8-16); BLOOD UREA NITROGEN 44 mg/dL (7-18); CALCIUM 7.5 mg/dL (8.5-10.1); CHLORIDE 110 mmol/L (98-107); CO2 26 mmol/L (21-32); CREATININE 1.6 mg/dL (0.55-1.3); GLUCOSE,RANDOM 102 mg/dL (74-106); POTASSIUM 5.5 mmol/L (3.5-5.1); SODIUM 140 mmol/L (136-145)
[2018-05-09 08:05] LABS: SERUM IRON SATURATION 9 % (15-55); TOTAL IRON BINDING CAPACITY 282 ug/dL (250-450); UIBC 256 ug/dL (118-369)
--- NOTE | 2018-05-09 09:39 | PN ---
Progress Note, Physician Chief Complaint: sob History of Present Illness: no more sob today. had xiphoid area cp for about an hour she thinks, earlier today--worse with breathing, ? acid/burning feature she thinks. legs feel swollen no palpit - Current Medication List Current Medications: Active Medications Acetaminophen (Tylenol -) 650 mg PO Q6H PRN PRN Reason: PAIN OR FEVER Last Admin: 05/08/18 22:08 Dose: 650 mg Albuterol Sulfate (Ventolin 0.083% Nebulizer Soln -) 1 amp NEB Q6H PRN PRN Reason: SHORT OF BREATH/WHEEZING Amlodipine Besylate (Norvasc -) 10 mg PO DAILY [facility] Last Admin: 05/08/18 10:44 Dose: 10 mg Aspirin (Ecotrin -) 81 mg PO DAILY [facility] Last Admin: 05/08/18 10:43 Dose: 81 mg Atorvastatin Calcium (Lipitor -) 10 mg PO HS [facility] Last Admin: 05/08/18 22:08 Dose: 10 mg Baclofen (Lioresal -) 10 mg PO BID [facility] Last Admin: 05/08/18 22:08 Dose: 10 mg Budesonide/Formoterol Fumarate (Symbicort 160/4.5mcg -) 2 puff IH BID [facility] Last Admin: 05/08/18 22:09 Dose: 2 puff Docusate Sodium (Colace -) 100 mg PO BID [facility] Last Admin: 05/08/18 22:08 Dose: 100 mg Emollient Ointment (Aquaphor -) 1 applic TP DAILY [facility] Last Admin: 05/08/18 11:28 Dose: Not Given Gabapentin (Neurontin -) 200 mg PO BID [facility] Last Admin: 05/08/18 22:07 Dose: 200 mg Heparin Sodium (Porcine) (Heparin -) 5,000 unit SQ BID [facility] Last Admin: 05/08/18 22:09 Dose: 5,000 unit Hydralazine HCl (Apresoline -) 100 mg PO TID [facility] Last Admin: 05/09/18 05:50 Dose: 100 mg Aztreonam 1 gm/ Dextrose 50 mls @ 100 mls/hr IVPB Q8H-IV [facility]; Protocol Last Admin: 05/09/18 02:59 Dose: 100 mls/hr Clindamycin Phosphate (Cleocin 300 Mg Premix Ivpb) 300 mg in 50 mls @ 100 mls/ hr IVPB Q8H-IV [facility]; Protocol Last Admin: 05/09/18 02:59 Dose: 100 mls/hr Insulin Aspart (Novolog Vial Sliding Scale -) 1 vial SQ ACHS [facility]; Protocol Last Admin: 05/08/18 22:07 Dose: 2 units Loratadine (Claritin -) 10 mg PO DAILY [facility] Last Admin: 05/08/18 10:43 Dose: 10 mg Metoprolol Tartrate (Lopressor -) 12.5 mg PO BID [facility] Last Admin: 05/08/18 22:08 Dose: 12.5 mg Sertraline HCl (Zoloft -) 25 mg PO DAILY [facility] Last Admin: 05/08/18 10:44 Dose: 25 mg Solifenacin (Vesicare -) 5 mg PO DAILY [facility] Last Admin: 05/08/18 10:44 Dose: 5 mg Tiotropium [place] (Spiriva Respimat) 2 puff IH DAILY [facility] Last Admin: 05/08/18 11:28 Dose: 2 puff - Objective Vital Signs: Vital Signs Temperature 97.9 F 05/09/18 09:00 Pulse Rate 65 05/09/18 09:00 Respiratory Rate 20 05/09/18 09:00 Blood Pressure 122/57 L 05/09/18 09:00 O2 Sat by Pulse Oximetry (%) 96 05/09/18 09:00 Constitutional: Yes: No Distress, Calm, Obese Cardiovascular: Yes: Regular Rate and Rhythm (decr intensity sounds (habitus)), JVD (probable (L neck)), S1, S2. No: Gallop, Murmur Respiratory: Yes: Regular, CTA Bilaterally. No: Accessory Muscle Use, Rales, Wheezes Extremities: No: Cold Edema: No Neurological: Yes: Alert. No: Seizure Psychiatric: No: Agitated Labs: CBC, BMP 05/09/18 05:30 05/09/18 05:30 Assessment/Plan cxr: chf ecg: sr,nl intervals, no ischemci changes mibi 2011: no ischemia, nl lvef echo 03/2014: lvh, nl lv/rv, lae, no sig valve path a/p: 72 f hx copd, htn, dm, here s/p fall at NH. acute diastolic chf: -no signs acs -cr initially up from baseline--given test dose lasix 40 iv x1 on HD#1 and renal fxn improved -bedscale wts only -05/09: sob resolved. suspect JVD present. will repeat lasix 40 iv today, recheck labs and CXR in am (phys exam tds sec to habitus) -check updated echo htn: -bp stable -cont home meds isabel: -cr 2 now, cr was 1.2 on 12/2017 from de records -possibly cardiorenal, plan as above -trend labs daily while diuresing fall: -mechanical, no indication of cardiac etiology D/C TELE
[2018-05-09] MEDS: HEPARIN NA (PORCINE) 5,000 UNITS/ML 1ML VIAL SQ SCH ×2 (10:40→22:24)
[2018-05-09] MEDS: GABAPENTIN 100 MG CAPSULE (FP) PO SCH ×2 (10:41→22:25)
[2018-05-09] MEDS: SOLIFENACIN SUCCINATE 5 MG TAB (FP) PO SCH (10:41)
[2018-05-09] MEDS: METOPROLOL TARTRATE 25 MG TABLET (FP) PO SCH ×2 (10:41→22:24)
[2018-05-09] MEDS: BACLOFEN 10 MG TABLET (FP) PO SCH ×2 (10:43→22:23)
[2018-05-09] MEDS: ASPIRIN COATED 81 MG TABLET.EC PO SCH (10:43)
[2018-05-09] MEDS: SERTRALINE HCL 25 MG TABLET (FP) PO SCH (10:43)
[2018-05-09] MEDS: LORATADINE 10 MG TABLET PO SCH (10:43)
[2018-05-09] MEDS: DOCUSATE SODIUM 100 MG CAPSULE (FP) PO SCH ×2 (10:43→22:23)
[2018-05-09] MEDS: amLODIPine BESYLATE 10 MG TABLET (FP) PO SCH (10:43)
[2018-05-09] MEDS: BUDESONIDE/FORMETEROL FUMARATE 160/4.5 mcg INHALER IH SCH ×2 (11:09→22:34)
[2018-05-09] MEDS: TIOTROPIUM BROMIDE 2.5 MCG (SPIRIVA) RESPIMAT INHALER IH SCH (11:11)
--- NOTE | 2018-05-09 11:31 | CONSULT ---
Consultation: CONSULT REQUEST: Nephrology Resident HISTORY OF PRESENT ILLNESS: 72yo F with h/o HTN, DM, and chronic cellulitis who presented to the hospital from [facility] s/p mechanical fall. Pt was seen here and noted that her cellulitis has not improved despite finishing her ABX course. We were asked to medically evaluate her due to increasing Cr and DEE. Pt reports never being told that she has had renal dysfunction before. She has never been on dialysis and does not take a lot of NSAIDs. She reports currently her legs hurt and that she has no other problems. Denies any fever/chills, shortness of breath, chest pain, discomfort, back pain, abdominal pain, urinary difficulties including polyuria, dysuria, and hematuria. Of note: pt has not been using oxygen [facility]. PMHx: HTN DM COPD Chronic b/l extremity cellulities PSHx: SoHx: Tobacco: Current; smokes 1 cigarette per day as is allowed in [place] Alcohol: Denies Drugs: Denies Lives at [facility] Allergies: Penicillin (angioedema) Tomatoes REVIEW OF SYSTEMS: CONSTITUTIONAL: Absent: fever, chills, diaphoresis, generalized weakness, malaise, loss of appetite HEENT: Absent: throat pain, throat swelling, difficulty swallowing, mouth swelling, ear pain, eye pain, visual changes CARDIOVASCULAR: Absent: chest pain, syncope, palpitations, irregular heart rate, lightheadedness , peripheral edema RESPIRATORY: Absent: cough, shortness of breath, dyspnea with exertion, orthopnea, wheezing GASTROINTESTINAL: Absent: abdominal pain, abdominal distension, nausea, vomiting, diarrhea, constipation GENITOURINARY: Absent: dysuria, frequency, urgency, hesitancy, hematuria, flank pain MUSCULOSKELETAL: Present: Leg pain Absent: myalgia, arthralgia, joint swelling, back pain, neck pain SKIN: Absent: pallor ENDOCRINE: Absent: unexplained weight gain, unexplained weight loss, heat intolerance, cold intolerance NEUROLOGIC: Absent: headache, focal weakness or paresthesias, dizziness, unsteady gait, seizure, mental status changes, bladder or bowel incontinence PSYCHIATRIC: Absent: anxiety, depression, PHYSICAL EXAMINATION Vital Signs - 24 hr 05/08/18 05/08/18 05/08/18 15:00 16:54 18:23 Temperature 98.1 F 98 F 98 F Pulse Rate 85 Pulse Rate [ 63 63 Left Radial] Respiratory 18 18 18 Rate Blood Pressure 127/51 L Blood Pressure 119/60 109/60 [Right Arm] O2 Sat by Pulse 98 98 Oximetry (%) 05/08/18 05/09/18 05/09/18 21:00 01:00 05:00 Temperature 98.2 F 98.9 F 98.1 F Pulse Rate 84 69 72 Pulse Rate [ Left Radial] Respiratory 20 20 20 Rate Blood Pressure 128/54 L 104/43 L 117/58 L Blood Pressure [Right Arm] O2 Sat by Pulse 94 L Oximetry (%) 05/09/18 09:00 Temperature 97.9 F Pulse Rate 65 Pulse Rate [ Left Radial] Respiratory 20 Rate Blood Pressure 122/57 L Blood Pressure [Right Arm] O2 Sat by Pulse 96 Oximetry (%) GENERAL: NAD, awake, alert, and fully oriented, sitting in bed HEENT: NC, facial structure stable, BAN, EOMI, [id number] MM NECK: No JVD, soft, no pain upon palpation LUNGS: CTA bilaterally. No wheezes, and no crackles. No accessory muscle use. On 2LNC HEART: RRR, normal S1 and S2 without murmur ABDOMEN: Soft, obese, NT/ND, normoactive distant bowel sounds, no guarding MUSCULOSKELETAL: No CVA tenderness. UPPER EXTREMITIES: 1+ DP pulses/1+ PT pulses, warm, multiple open areas on b/l lower extremities from cracking skin, no peripheral edema currently. PSYCHIATRIC: Cooperative. Good eye contact. Appropriate mood and affect. SKIN: Warm, b/l venous stasis changes noted to mid lower extremity, as above very dry with cracked areas, some open areas without any purulence or drainage at this time Laboratory Results - last 24 hr 05/09/18 05/09/18 05/09/18 05:30 05:30 05:55 WBC 9.8 RBC 3.30 L Hgb 9.0 L Hct 29.2 L MCV 88.4 MCH 27.3 MCHC 30.9 L RDW 16.1 H Plt Count 262 MPV 9.0 Absolute Neuts (auto) 4.6 Neutrophils % 47.3 Lymphocytes % 39.1 Monocytes % 9.8 Eosinophils % 3.0 Basophils % 0.8 Nucleated RBC % 0 Sodium 140 Potassium 5.5 H Chloride 110 H Carbon Dioxide 26 Anion Gap 5 L BUN 44 H Creatinine 1.6 H Creat Clearance w eGFR 31.78 POC Glucometer 117 Random Glucose 102 Calcium 7.5 L Phosphorus Magnesium Iron TIBC Iron Saturation Ferritin Troponin I Active Medications Generic Name Dose Route Start Last Admin Trade Name Greg PRN Reason Stop Dose Admin Acetaminophen 650 mg 05/08/18 10:00 05/08/18 22:08 Tylenol - PO 650 mg Q6H PRN Administration PAIN OR FEVER Albuterol Sulfate 1 amp 05/08/18 07:45 Ventolin 0.083% Nebulizer Soln - NEB Q6H PRN SHORT OF BREATH/WHEEZING Amlodipine Besylate 10 mg 05/08/18 10:00 05/09/18 10:43 Norvasc - PO 10 mg DAILY [facility] Administration Aspirin 81 mg 05/08/18 10:00 05/09/18 10:43 Ecotrin - PO 81 mg DAILY [facility] Administration Atorvastatin Calcium 10 mg 05/08/18 22:00 05/08/18 22:08 Lipitor - PO 10 mg HS [facility] Administration Baclofen 10 mg 05/08/18 10:00 05/09/18 10:43 Lioresal - PO 10 mg BID [facility] Administration Budesonide/Formoterol Fumarate 2 puff 05/08/18 10:00 05/09/18 11:09 Symbicort 160/4.5mcg - IH 2 puff BID [facility] Administration Docusate Sodium 100 mg 05/08/18 10:00 05/09/18 10:43 Colace - PO 100 mg BID [facility] Administration Emollient Ointment 1 applic 05/08/18 10:00 05/08/18 11:28 Aquaphor - TP Not Given DAILY [facility] Gabapentin 200 mg 05/08/18 10:00 05/09/18 10:41 Neurontin - PO 200 mg BID [facility] Administration Heparin Sodium (Porcine) 5,000 unit 05/08/18 10:00 05/09/18 10:40 Heparin - SQ 5,000 unit BID [facility] Administration Hydralazine HCl 100 mg 05/08/18 14:00 05/09/18 05:50 Apresoline - PO 100 mg TID [facility] Administration Aztreonam 1 gm/ Dextrose 50 mls @ 100 mls/hr 05/08/18 18:45 05/09/18 11:10 IVPB 100 mls/hr Q8H-IV [facility] Administration Protocol Clindamycin Phosphate 300 mg in 50 mls @ 100 mls/hr 05/08/18 18:45 05/09/18 11:10 Cleocin 300 Mg Premix Ivpb IVPB 100 mls/hr Q8H-IV [facility] Administration Protocol Insulin Aspart 1 vial 05/08/18 11:00 05/08/18 22:07 Novolog Vial Sliding Scale - SQ 2 units ACHS [facility] Administration Protocol Loratadine 10 mg 05/08/18 10:00 05/09/18 10:43 Claritin - PO 10 mg DAILY [facility] Administration Metoprolol Tartrate 12.5 mg 05/08/18 10:00 05/09/18 10:41 Lopressor - PO 12.5 mg BID [facility] Administration Sertraline HCl 25 mg 05/08/18 10:00 05/09/18 10:43 Zoloft - PO 25 mg DAILY [facility] Administration Solifenacin 5 mg 05/08/18 10:00 05/09/18 10:41 Vesicare - PO 5 mg DAILY [facility] Administration Tiotropium [place] 2 puff 05/08/18 10:00 05/09/18 11:11 Spiriva Respimat IH 2 puff DAILY [facility] Administration ASSESSMENT/PLAN: Acute renal insufficiency Acute on chronic cellulitis b/l lower extremities HTN COPD DM DEE with high suspicion of pre-renal causes vs. overdiuresis from Lasix home dose vs. CRS Type 1 however cannot r/o other etiologies --Will order Urine Urea and UCr to evaluate FeUrea due to lasix use previously --Suspected pt has been overloaded in the past, however currently seems dry --Renal U/S ordered --Monitor Cr --Will hold lasix for now and monitor daily weights Continue Norvasc 10mg qDaily, Hydralazine 100mg TID, Lopressor 12.5mg BID PO for control of BP as it allows Antibiotics per ID and primary teams; pt is penicillin allergic Dispo: ABX mgmt and awaiting renal studies. Thank you for this consultative opportunity Case discussed with Dr. Akhil Harkins, DO - IM PGY-2 Visit type - Emergency Visit Emergency Visit: Yes ED Registration Date: 05/08/18 Care time: The patient presented to the Emergency Department on the above date and was hospitalized for further evaluation of their emergent condition. - New Patient This patient is new to me today: Yes Date on this admission: 05/09/18 - Critical Care Critical Care patient: No
[2018-05-09] MEDS: MINERAL OIL/PET HY-PHL TOPICAL OINTMENT 454 GM JAR TP SCH (11:38)
--- NOTE | 2018-05-09 11:51 | PN ---
Progress Note (short form) - Note Progress Note: pt seen/ examined chart reviewed awake/ comfortable feels better chronic ill appearance all f/u noted/ appreciated on broad spectrum abx renal consult appreciated and also discussed with Dr. Godoy Vital Signs Temp 97.9 F 05/09/18 09:00 Pulse 65 05/09/18 09:00 Resp 20 05/09/18 09:00 BP 122/57 L 05/09/18 09:00 Pulse Ox 96 05/09/18 09:00 Intake & Output 05/08/18 05/08/18 05/09/18 11:59 23:59 11:59 Intake Total 120 360 400 Output Total 200 Balance 120 160 400 Weight 270 lb 258 lb 258 lb Intake: IVPB 150 Oral 120 360 250 Output: Urine 200 Void 200 Other: Voiding Method Bedpan Bedpan Diaper # Unmeasured Voids Void 3 1 Height 5 ft 11 in 5 ft 11 in Body Mass Index (BMI) 37.6 35.9 Weight Measurement Method [facility]ated by [facility] Measurement Method Est/Stated by Patient Active Medications Acetaminophen (Tylenol -) 650 mg PO Q6H PRN PRN Reason: PAIN OR FEVER Last Admin: 05/08/18 22:08 Dose: 650 mg Albuterol Sulfate (Ventolin 0.083% Nebulizer Soln -) 1 amp NEB Q6H PRN PRN Reason: SHORT OF BREATH/WHEEZING Amlodipine Besylate (Norvasc -) 10 mg PO DAILY [facility] Last Admin: 05/09/18 10:43 Dose: 10 mg Aspirin (Ecotrin -) 81 mg PO DAILY [facility] Last Admin: 05/09/18 10:43 Dose: 81 mg Atorvastatin Calcium (Lipitor -) 10 mg PO HS [facility] Last Admin: 05/08/18 22:08 Dose: 10 mg Baclofen (Lioresal -) 10 mg PO BID [facility] Last Admin: 05/09/18 10:43 Dose: 10 mg Budesonide/Formoterol Fumarate (Symbicort 160/4.5mcg -) 2 puff IH BID [facility] Last Admin: 05/09/18 11:09 Dose: 2 puff Docusate Sodium (Colace -) 100 mg PO BID [facility] Last Admin: 05/09/18 10:43 Dose: 100 mg Emollient Ointment (Aquaphor -) 1 applic TP DAILY [facility] Last Admin: 05/09/18 11:38 Dose: 1 applic Gabapentin (Neurontin -) 200 mg PO BID [facility] Last Admin: 05/09/18 10:41 Dose: 200 mg Heparin Sodium (Porcine) (Heparin -) 5,000 unit SQ BID [facility] Last Admin: 05/09/18 10:40 Dose: 5,000 unit Hydralazine HCl (Apresoline -) 100 mg PO TID [facility] Last Admin: 05/09/18 05:50 Dose: 100 mg Aztreonam 1 gm/ Dextrose 50 mls @ 100 mls/hr IVPB Q8H-IV [facility]; Protocol Last Admin: 05/09/18 11:10 Dose: 100 mls/hr Clindamycin Phosphate (Cleocin 300 Mg Premix Ivpb) 300 mg in 50 mls @ 100 mls/ hr IVPB Q8H-IV [facility]; Protocol Last Admin: 05/09/18 11:10 Dose: 100 mls/hr Insulin Aspart (Novolog Vial Sliding Scale -) 1 vial SQ ACHS [facility]; Protocol Last Admin: 05/08/18 22:07 Dose: 2 units Loratadine (Claritin -) 10 mg PO DAILY [facility] Last Admin: 05/09/18 10:43 Dose: 10 mg Metoprolol Tartrate (Lopressor -) 12.5 mg PO BID [facility] Last Admin: 05/09/18 10:41 Dose: 12.5 mg Sertraline HCl (Zoloft -) 25 mg PO DAILY [facility] Last Admin: 05/09/18 10:43 Dose: 25 mg Solifenacin (Vesicare -) 5 mg PO DAILY [facility] Last Admin: 05/09/18 10:41 Dose: 5 mg Tiotropium [place] (Spiriva Respimat) 2 puff IH DAILY [facility] Last Admin: 05/09/18 11:11 Dose: 2 puff CBC, BMP 05/09/18 05:30 05/09/18 05:30 Microbiology 05/08/18 11:18 Blood Culture - Preliminary Blood - Peripheral Venous NO GROWTH OBTAINED AFTER 24 HOURS, INCUBATION TO CONTINUE FOR 4 DAYS. 05/08/18 10:32 Blood Culture - Preliminary Blood - Peripheral Venous NO GROWTH OBTAINED AFTER 24 HOURS, INCUBATION TO CONTINUE FOR 4 DAYS. 05/08/18 04:38 Urine Culture - Final Urine - Urine Clean Catch Contaminated: Please Repeat Physical Exam Awake/ comfortable. Obese heent-no jvd Lungs- crackles at bases cvs-S1, S2 rrr Abd- soft Ext- , chronic venous stasis, inflamed neuro- Alert/ awake Psych- Calm A/p s/p fall Old orbital depressed fracture Chf exac Arf Cellulitis Anemia Diabetes HTN Meds reviewed Continue lasix Echo pending monitor labs Abx f/u cultures will check u/s legs - r/o dvt Monitor bgm/ bp fall precautions will follow Problem List - Problems (1) DEE (acute kidney injury) Code(s): N17.9 - ACUTE KIDNEY FAILURE, UNSPECIFIED (2) Fall Code(s): W19.XXXA - UNSPECIFIED FALL, INITIAL ENCOUNTER (3) Cellulitis of both lower extremities Code(s): L03.115 - CELLULITIS OF RIGHT LOWER LIMB; L03.116 - CELLULITIS OF LEFT LOWER LIMB (4) HTN (hypertension) Code(s): I10 - ESSENTIAL (PRIMARY) HYPERTENSION (5) Type 2 diabetes mellitus Code(s): E11.9 - TYPE 2 DIABETES MELLITUS WITHOUT COMPLICATIONS
--- NOTE | 2018-05-09 12:01 | ECHO ---
Name: IRMA BONDS Exam:Adult Echocardiogram Study Date: 05/09/2018 09:18 AM Age: 72 yrs Reason For Study: chf Height: 71 in Weight: 270 lb BSA: 2.4 m2 MMode/2D Measurements & Calculations IVSd: 1.3 cm Ao root diam: 3.6 cm LVIDd: 4.7 cm LA dimension: 4.2 cm LVIDs: 2.6 cm ACS: 1.8 cm LVPWd: 1.2 cm IVSs: 1.4 cm LVPWs: 1.4 cm EDV(Teich): 104.9 ml ESV(Teich): 24.3 ml Doppler Measurements & Calculations MV E max ok: 105.1 cm/sec Ao V2 max: 167.0 cm/sec MV A max ok: 110.3 cm/sec Ao max P.2 mmHg MV E/A: 0.95 Ao V2 mean: 119.6 cm/sec Ao mean P.6 mmHg Ao V2 VTI: 36.5 cm Med Peak E' Ok: 2.9 cm/sec Med E/e': 36.0 Lat Peak E' Ok: 3.4 cm/sec Lat E/e': 30.8 Procedure The study was technically adequate with some images being suboptimal in quality. Left Ventricle The left ventricle is normal in size. There is mild concentric left ventricular hypertrophy. The left ventricle is hyperdynamic. Ejection Fraction = >70%. Grade I diastolic dysfunction, (abnormal relaxat ion pattern). Right Ventricle The right ventricle is mildly dilated. The right ventricular systolic function is normal. Atria The left atrium is mildly dilated. Right atrium not well visualized. Mitral Valve There is mild mitral annular calcification. There is trace mitral regurgitation. Tricuspid Valve The tricuspid valve is not well visualized. There is trace tricuspid regurgitation. Aortic Valve There is mild aortic sclerosis.;. The aortic valve opens well. No aortic regurgitation is present. Pulmonic Valve The pulmonic valve is not well visualized. Great Vessels The aortic root is normal size. Pericardium/Pleura There is no pericardial effusion. Interpretation Summary Compared to the prior echo report on 03/2014, there is no significant change. The left ventricle is n ormal in size. The left ventricle is hyperdynamic. Ejection Fraction = >70%. The left atrium is mildly dilated. There is mild concentric left ventricular hypertrophy. The right ventricle is mildly dilated. The right ventricular systolic function is normal. There is trace mitral regurgitation. Grade I diastolic dysfunction, (abnormal relaxation pattern). There is trace tricuspid regurgitation. Abner Schumacher MD 05/09/2018 12:01 PM
[2018-05-09] MEDS ORDERED: FUROSEMIDE 40 MG/4 ML INJECTABLE VIAL IVPUSH ONE ×2 (12:27)
--- NOTE | 2018-05-09 12:27 | PN ---
Teaching Attending Note Name of Resident: Bo Harkins (Renal) ATTENDING PHYSICIAN STATEMENT I saw and evaluated the patient. I reviewed the resident's note and discussed the case with the resident. I agree with the resident's findings and plan as documented. Renal Pt is a 72 year old female with pmhx of CHF, COPD, DM and HTN who presents after a fall. She as found to have elevated creatinine and I was called to evaluate her. She does complain of lower ext edema and does get short of breath at times. She was give an dose of lasix and her renal function improved. pmhx dm htn chf allergies pcn, benzathine, tomatoes ros leg pain family hx denies Current Medications Generic Name Dose Route Start Last Admin Trade Name Freq PRN Reason Stop Dose Admin Acetaminophen 650 mg 05/08/18 10:00 05/08/18 22:08 Tylenol - PO 650 mg Q6H PRN Administration PAIN OR FEVER Albuterol Sulfate 1 amp 05/08/18 07:45 Ventolin 0.083% Nebulizer Soln - NEB Q6H PRN SHORT OF BREATH/WHEEZING Amlodipine Besylate 10 mg 05/08/18 10:00 05/09/18 10:43 Norvasc - PO 10 mg DAILY [facility] Administration Aspirin 81 mg 05/08/18 10:00 05/09/18 10:43 Ecotrin - PO 81 mg DAILY [facility] Administration Atorvastatin Calcium 10 mg 05/08/18 22:00 05/08/18 22:08 Lipitor - PO 10 mg HS [facility] Administration Baclofen 10 mg 05/08/18 10:00 05/09/18 10:43 Lioresal - PO 10 mg BID [facility] Administration Budesonide/Formoterol Fumarate 2 puff 05/08/18 10:00 05/09/18 11:09 Symbicort 160/4.5mcg - IH 2 puff BID [facility] Administration Docusate Sodium 100 mg 05/08/18 10:00 05/09/18 10:43 Colace - PO 100 mg BID [facility] Administration Emollient Ointment 1 applic 05/08/18 10:00 05/09/18 11:38 Aquaphor - TP 1 applic DAILY [facility] Administration Gabapentin 200 mg 05/08/18 10:00 05/09/18 10:41 Neurontin - PO 200 mg BID [facility] Administration Heparin Sodium (Porcine) 5,000 unit 05/08/18 10:00 05/09/18 10:40 Heparin - SQ 5,000 unit BID [facility] Administration Hydralazine HCl 100 mg 05/08/18 14:00 05/09/18 05:50 Apresoline - PO 100 mg TID [facility] Administration Aztreonam 1 gm/ Dextrose 50 mls @ 100 mls/hr 05/08/18 18:45 05/09/18 11:10 IVPB 100 mls/hr Q8H-IV [facility] Administration Protocol Clindamycin Phosphate 300 mg in 50 mls @ 100 mls/hr 05/08/18 18:45 05/09/18 11:10 Cleocin 300 Mg Premix Ivpb IVPB 100 mls/hr Q8H-IV [facility] Administration Protocol Insulin Aspart 1 vial 05/08/18 11:00 05/08/18 22:07 Novolog Vial Sliding Scale - SQ 2 units ACHS [facility] Administration Protocol Loratadine 10 mg 05/08/18 10:00 05/09/18 10:43 Claritin - PO 10 mg DAILY [facility] Administration Metoprolol Tartrate 12.5 mg 05/08/18 10:00 05/09/18 10:41 Lopressor - PO 12.5 mg BID [facility] Administration Sertraline HCl 25 mg 05/08/18 10:00 05/09/18 10:43 Zoloft - PO 25 mg DAILY [facility] Administration Solifenacin 5 mg 05/08/18 10:00 05/09/18 10:41 Vesicare - PO 5 mg DAILY [facility] Administration Tiotropium [place] 2 puff 05/08/18 10:00 05/09/18 11:11 Spiriva Respimat IH 2 puff DAILY [facility] Administration Laboratory Tests 04/03/14 04/05/14 04/10/14 08:20 05:50 01:50 Creatinine 0.7 0.8 0.8 Urine Protein Urine Blood 05/08/18 05/08/18 05/09/18 04:26 04:38 05:30 Creatinine 2.0 H 1.6 H Urine Protein Negative Urine Blood Negative Selected Entries 05/09/18 09:00 Blood Pressure 122/57 L cardio s1s2 reg pulm crackles GI soft, obese est edema, chronic venous stasis, cellulitis neuro awake and alert Impression 1. DEE resolving 2. CHF 3. DM 4. HTN 5. cellulitis 6. COPD 7. hyperkalemia Plan - will give a dose of lasix - lasix will help with potassium - cont to monitor renal function - check renal ultrasound - check echo - follow urine lytes - will follow - low potassium diet Dr Landaverde
[2018-05-09] MEDS: INSULIN SLIDING SCALE (NOVOLOG) 1 VIAL SQ SCH ×4 (12:33→22:25)
--- NOTE | 2018-05-09 15:27 | PN ---
Progress Note, Physician History of Present Illness: legs slightly better still very warm and tender small wound noted on the left leg - Current Medication List Current Medications: Active Medications Acetaminophen (Tylenol -) 650 mg PO Q6H PRN PRN Reason: PAIN OR FEVER Last Admin: 05/08/18 22:08 Dose: 650 mg Albuterol Sulfate (Ventolin 0.083% Nebulizer Soln -) 1 amp NEB Q6H PRN PRN Reason: SHORT OF BREATH/WHEEZING Amlodipine Besylate (Norvasc -) 10 mg PO DAILY [facility] Last Admin: 05/09/18 10:43 Dose: 10 mg Aspirin (Ecotrin -) 81 mg PO DAILY [facility] Last Admin: 05/09/18 10:43 Dose: 81 mg Atorvastatin Calcium (Lipitor -) 10 mg PO HS [facility] Last Admin: 05/08/18 22:08 Dose: 10 mg Baclofen (Lioresal -) 10 mg PO BID [facility] Last Admin: 05/09/18 10:43 Dose: 10 mg Budesonide/Formoterol Fumarate (Symbicort 160/4.5mcg -) 2 puff IH BID [facility] Last Admin: 05/09/18 11:09 Dose: 2 puff Docusate Sodium (Colace -) 100 mg PO BID [facility] Last Admin: 05/09/18 10:43 Dose: 100 mg Emollient Ointment (Aquaphor -) 1 applic TP DAILY [facility] Last Admin: 05/09/18 11:38 Dose: 1 applic Gabapentin (Neurontin -) 200 mg PO BID [facility] Last Admin: 05/09/18 10:41 Dose: 200 mg Heparin Sodium (Porcine) (Heparin -) 5,000 unit SQ BID [facility] Last Admin: 05/09/18 10:40 Dose: 5,000 unit Hydralazine HCl (Apresoline -) 100 mg PO TID [facility] Last Admin: 05/09/18 14:12 Dose: 100 mg Aztreonam 1 gm/ Dextrose 50 mls @ 100 mls/hr IVPB Q8H-IV [facility]; Protocol Last Admin: 05/09/18 11:10 Dose: 100 mls/hr Clindamycin Phosphate (Cleocin 300 Mg Premix Ivpb) 300 mg in 50 mls @ 100 mls/ hr IVPB Q8H-IV [facility]; Protocol Last Admin: 05/09/18 11:10 Dose: 100 mls/hr Insulin Aspart (Novolog Vial Sliding Scale -) 1 vial SQ ACHS [facility]; Protocol Last Admin: 05/09/18 12:33 Dose: Not Given Loratadine (Claritin -) 10 mg PO DAILY [facility] Last Admin: 05/09/18 10:43 Dose: 10 mg Metoprolol Tartrate (Lopressor -) 12.5 mg PO BID [facility] Last Admin: 05/09/18 10:41 Dose: 12.5 mg Sertraline HCl (Zoloft -) 25 mg PO DAILY [facility] Last Admin: 05/09/18 10:43 Dose: 25 mg Solifenacin (Vesicare -) 5 mg PO DAILY [facility] Last Admin: 05/09/18 10:41 Dose: 5 mg Tiotropium [place] (Spiriva Respimat) 2 puff IH DAILY [facility] Last Admin: 05/09/18 11:11 Dose: 2 puff - Objective Vital Signs: Vital Signs Temperature 97.9 F 05/09/18 09:00 Pulse Rate 65 05/09/18 09:00 Respiratory Rate 20 05/09/18 09:00 Blood Pressure 122/57 L 05/09/18 09:00 O2 Sat by Pulse Oximetry (%) 96 05/09/18 09:00 Constitutional: Yes: Calm, Mild Distress Cardiovascular: Yes: S1, S2 Respiratory: Yes: Regular, CTA Bilaterally Gastrointestinal: Yes: Normal Bowel Sounds, Soft Musculoskeletal: Yes: WNL Extremities: Yes: Erythema, Other (pain and tenderness with swelling of both b/ l lower ext) Edema: LLE: 1+, RLE: 1+ Integumentary: Yes: Erythema, Other (tenderness of both lower ext) Wound/Incision: Yes: Clean/Dry Neurological: Yes: Alert, Oriented Psychiatric: Yes: Alert, Oriented Labs: CBC, BMP 05/09/18 05:30 05/09/18 05:30 Assessment/Plan Problem List - Problems (1) DEE (acute kidney injury) Code(s): N17.9 - ACUTE KIDNEY FAILURE, UNSPECIFIED (2) Fall Code(s): W19.XXXA - UNSPECIFIED FALL, INITIAL ENCOUNTER (3) Cellulitis of both lower extremities Code(s): L03.115 - CELLULITIS OF RIGHT LOWER LIMB; L03.116 - CELLULITIS OF LEFT LOWER LIMB (4) HTN (hypertension) Code(s): I10 - ESSENTIAL (PRIMARY) HYPERTENSION (5) Type 2 diabetes mellitus Code(s): E11.9 - TYPE 2 DIABETES MELLITUS WITHOUT COMPLICATIONS 6 b/l cellulittis of the legs plan await for cx results abx elevation of the legs rest as per the team
--- NOTE | 2018-05-09 17:51 | PN ---
Progress Note (short form) - Note Progress Note: Laboratory Tests 05/09/18 12:43 Plasma Potassium 4.[address] Landaverde
[2018-05-09] MEDS ORDERED: PT OWN MED DRAWER 7, Y5N ONE ×2 (18:21→22:42)
[2018-05-09] MEDS: ATORVASTATIN CA 10 MG TABLET (FP) PO SCH (22:23)
[2018-05-09] MEDS: ACETAMINOPHEN 325 MG TABLET (FP) PO PRN (22:30)
[2018-05-09] MEDS ORDERED: ALBUTEROL SO4 0.083% IH SOL 2.5 MG/3 ML VIAL.NEB. NEB PRN (22:59)
[2018-05-10] MEDS: CLINDAMYCIN 300 MG PREMIX IVPB 300 MG/50 ML BAG IVPB SCH ×3 (01:11→17:06)
[2018-05-10] MEDS: AZTREONAM 1 GM in DEXTROSE 5%-WATER - 50 ML IVPB SCH ×3 (02:08→17:06)
[2018-05-10] MEDS: ACETAMINOPHEN 325 MG TABLET (FP) PO PRN ×3 (05:32→22:30)
[2018-05-10] MEDS: hydrALAZINE HCL 50 MG TABLET (FP) PO SCH ×3 (05:33→22:41)
[2018-05-10] MEDS ORDERED: PT OWN MED DRAWER 7, Y5N ONE ×2 (05:43→22:27)
[2018-05-10] MEDS: INSULIN SLIDING SCALE (NOVOLOG) 1 VIAL SQ SCH ×5 (06:10→22:50)
[2018-05-10 07:41] LABS: BASO % 1.1 % (0-2.0); HEMATOCRIT 29.4 % (32.4-45.2); HEMOGLOBIN 9.2 GM/dL (10.7-15.3); LYMPH % 40.8 % (8-40); MCH 27.5 pg (25.7-33.7); MCHC 31.2 g/dl (32.0-36.0); MEAN CELL VOLUME 88.3 fl (80-96); MEAN PLT VOLUME 9.2 fl (7.5-11.1); MONO % 11.3 % (3.8-10.2); NEUT % 42.8 % (42.8-82.8); PLATELET COUNT 243 K/MM3 (134-434); RBC 3.33 M/mm3 (3.60-5.2); RDW 15.7 % (11.6-15.6); WHITE BLOOD COUNT 8.5 K/mm3 (4.0-10.0)
[2018-05-10 07:56] LABS: ALBUMIN 2.4 g/dl (3.4-5.0); ALK PHOS 50 U/L (45-117); ANION GAP 4 MMOL/L (8-16); BILIRUBIN,TOTAL 0.5 mg/dL (0.2-1); BLOOD UREA NITROGEN 42 mg/dL (7-18); CHLORIDE 109 mmol/L (98-107); CO2 25 mmol/L (21-32); CREATININE 1.3 mg/dL (0.55-1.3); GLUCOSE,RANDOM 102 mg/dL (74-106); MAGNESIUM 2.1 mg/dL (1.8-2.4); SGOT/AST 17 U/L (15-37); SGPT/ALT 11 U/L (13-61); SODIUM 139 mmol/L (136-145); TOT PROT 6.4 g/dl (6.4-8.2)
--- NOTE | 2018-05-10 09:26 | PN ---
Progress Note, Physician History of Present Illness: patient still with tenderness in the legs improving swelling has decreased tenderness has also improved wounds dry - Current Medication List Current Medications: Active Medications Acetaminophen (Tylenol -) 650 mg PO Q6H PRN PRN Reason: FEVER Last Admin: 05/10/18 05:32 Dose: 650 mg Albuterol Sulfate (Ventolin 0.083% Nebulizer Soln -) 1 amp NEB Q6H PRN PRN Reason: SHORT OF BREATH/WHEEZING Amlodipine Besylate (Norvasc -) 10 mg PO DAILY [facility] Aspirin (Ecotrin -) 81 mg PO DAILY [facility] Atorvastatin Calcium (Lipitor -) 10 mg PO HS [facility] Baclofen (Lioresal -) 10 mg PO BID [facility] Budesonide/Formoterol Fumarate (Symbicort 160/4.5mcg -) 2 puff IH BID [facility] Docusate Sodium (Colace -) 100 mg PO BID [facility] Emollient Ointment (Aquaphor -) 1 applic TP DAILY [facility] Gabapentin (Neurontin -) 200 mg PO BID [facility] Heparin Sodium (Porcine) (Heparin -) 5,000 unit SQ BID [facility] Hydralazine HCl (Apresoline -) 100 mg PO TID [facility] Last Admin: 05/10/18 05:33 Dose: 100 mg Aztreonam 1 gm/ Dextrose 50 mls @ 100 mls/hr IVPB Q8H-IV [facility]; Protocol Last Admin: 05/10/18 02:08 Dose: 100 mls/hr Clindamycin Phosphate (Cleocin 300 Mg Premix Ivpb) 300 mg in 50 mls @ 100 mls/ hr IVPB Q8H-IV [facility]; Protocol Last Admin: 05/10/18 01:11 Dose: 100 mls/hr Insulin Aspart (Novolog Vial Sliding Scale -) 1 vial SQ ACHS [facility]; Protocol Last Admin: 05/10/18 06:10 Dose: Not Given Loratadine (Claritin -) 10 mg PO DAILY [facility] Metoprolol Tartrate (Lopressor -) 12.5 mg PO BID [facility] Sertraline HCl (Zoloft -) 25 mg PO DAILY [facility] Solifenacin (Vesicare -) 5 mg PO DAILY [facility] Tiotropium [place] (Spiriva Respimat) 2 puff IH DAILY [facility] - Objective Vital Signs: Vital Signs Temperature 98.3 F 05/10/18 08:50 Pulse Rate 57 L 05/10/18 08:50 Respiratory Rate 20 05/10/18 08:50 Blood Pressure 120/55 L 05/10/18 08:50 O2 Sat by Pulse Oximetry (%) 93 L 05/10/18 09:00 Constitutional: Yes: Calm, Mild Distress Neck: Yes: Supple, Trachea Midline Cardiovascular: Yes: Regular Rate and Rhythm Respiratory: Yes: Regular, CTA Bilaterally Gastrointestinal: Yes: Normal Bowel Sounds, Soft Musculoskeletal: Yes: Other Extremities: Yes: Other (b/l cellulitits tenderness) Wound/Incision: Yes: Clean/Dry Neurological: Yes: Alert, Oriented Psychiatric: Yes: Alert, Oriented Labs: CBC, BMP 05/10/18 06:30 05/10/18 06:30 Assessment/Plan Problem List - Problems (1) DEE (acute kidney injury) Code(s): N17.9 - ACUTE KIDNEY FAILURE, UNSPECIFIED (2) Fall Code(s): W19.XXXA - UNSPECIFIED FALL, INITIAL ENCOUNTER (3) Cellulitis of both lower extremities Code(s): L03.115 - CELLULITIS OF RIGHT LOWER LIMB; L03.116 - CELLULITIS OF LEFT LOWER LIMB (4) HTN (hypertension) Code(s): I10 - ESSENTIAL (PRIMARY) HYPERTENSION (5) Type 2 diabetes mellitus Code(s): E11.9 - TYPE 2 DIABETES MELLITUS WITHOUT COMPLICATIONS 6 b/l cellulittis of the legs plan will check vanco level abx elevation of the legs rest as per the team
[2018-05-10] MEDS: TIOTROPIUM BROMIDE 2.5 MCG (SPIRIVA) RESPIMAT INHALER IH SCH (10:39)
[2018-05-10] MEDS: HEPARIN NA (PORCINE) 5,000 UNITS/ML 1ML VIAL SQ SCH ×2 (10:42→22:32)
[2018-05-10] MEDS: BUDESONIDE/FORMETEROL FUMARATE 160/4.5 mcg INHALER IH SCH ×2 (10:42→22:31)
[2018-05-10] MEDS: SOLIFENACIN SUCCINATE 5 MG TAB (FP) PO SCH (10:42)
[2018-05-10] MEDS: GABAPENTIN 100 MG CAPSULE (FP) PO SCH ×2 (10:43→22:29)
[2018-05-10] MEDS: LORATADINE 10 MG TABLET PO SCH (10:44)
[2018-05-10] MEDS: SERTRALINE HCL 25 MG TABLET (FP) PO SCH (10:44)
[2018-05-10] MEDS: ASPIRIN COATED 81 MG TABLET.EC PO SCH (10:44)
[2018-05-10] MEDS: amLODIPine BESYLATE 10 MG TABLET (FP) PO SCH (10:44)
[2018-05-10] MEDS: BACLOFEN 10 MG TABLET (FP) PO SCH ×2 (10:44→22:32)
[2018-05-10] MEDS: METOPROLOL TARTRATE 25 MG TABLET (FP) PO SCH ×2 (10:45→22:31)
[2018-05-10] MEDS: DOCUSATE SODIUM 100 MG CAPSULE (FP) PO SCH ×2 (10:45→22:32)
[2018-05-10] MEDS: MINERAL OIL/PET HY-PHL TOPICAL OINTMENT 454 GM JAR TP SCH (10:45)
[2018-05-10] MEDS: FUROSEMIDE 40 MG/4 ML INJECTABLE VIAL IVPUSH SCH (11:11)
--- NOTE | 2018-05-10 12:07 | PN ---
Progress Note (short form) - Note Progress Note: Progress Note, Physician Chief Complaint: sob History of Present Illness: no sob palps dizzy cp legs feel swollen - Current Medication List Current Medications Generic Name Dose Route Start Last Admin Trade Name Freq PRN Reason Stop Dose Admin Acetaminophen 650 mg 05/09/18 22:59 05/10/18 11:35 Tylenol - PO 650 mg Q6H PRN Administration FEVER Albuterol Sulfate 1 amp 05/09/18 22:59 Ventolin 0.083% Nebulizer Soln - NEB Q6H PRN SHORT OF BREATH/WHEEZING Amlodipine Besylate 10 mg 05/10/18 10:00 05/10/18 10:44 Norvasc - PO 10 mg DAILY [facility] Administration Aspirin 81 mg 05/10/18 10:00 05/10/18 10:44 Ecotrin - PO 81 mg DAILY [facility] Administration Atorvastatin Calcium 10 mg 05/10/18 22:00 Lipitor - PO HS [facility] Baclofen 10 mg 05/10/18 10:00 05/10/18 10:44 Lioresal - PO 10 mg BID [facility] Administration Budesonide/Formoterol Fumarate 2 puff 05/10/18 10:00 05/10/18 10:42 Symbicort 160/4.5mcg - IH 2 puff BID [facility] Administration Docusate Sodium 100 mg 05/10/18 10:00 05/10/18 10:45 Colace - PO 100 mg BID [facility] Administration Emollient Ointment 1 applic 05/10/18 10:00 05/10/18 10:45 Aquaphor - TP 1 applic DAILY [facility] Administration Furosemide 40 mg 05/10/18 10:00 05/10/18 11:11 Lasix Injection - IVPUSH 40 mg DAILY [facility] Administration Gabapentin 200 mg 05/10/18 10:00 05/10/18 10:43 Neurontin - PO 200 mg BID [facility] Administration Heparin Sodium (Porcine) 5,000 unit 05/10/18 10:00 05/10/18 10:42 Heparin - SQ 5,000 unit BID [facility] Administration Hydralazine HCl 100 mg 05/10/18 06:00 05/10/18 05:33 Apresoline - PO 100 mg TID [facility] Administration Aztreonam 1 gm/ Dextrose 50 mls @ 100 mls/hr 05/10/18 02:00 05/10/18 10:39 IVPB 100 mls/hr Q8H-IV [facility] Administration Protocol Clindamycin Phosphate 300 mg in 50 mls @ 100 mls/hr 05/10/18 02:00 05/10/18 10:38 Cleocin 300 Mg Premix Ivpb IVPB 100 mls/hr Q8H-IV [facility] Administration Protocol Insulin Aspart 1 vial 05/10/18 07:00 05/10/18 11:31 Novolog Vial Sliding Scale - SQ 2 units ACHS [facility] Administration Protocol Loratadine 10 mg 05/10/18 10:00 05/10/18 10:44 Claritin - PO 10 mg DAILY [facility] Administration Metoprolol Tartrate 12.5 mg 05/10/18 10:00 05/10/18 10:45 Lopressor - PO Not Given BID [facility] Sertraline HCl 25 mg 05/10/18 10:00 05/10/18 10:44 Zoloft - PO 25 mg DAILY [facility] Administration Solifenacin 5 mg 05/10/18 10:00 05/10/18 10:42 Vesicare - PO 5 mg DAILY [facility] Administration Tiotropium [place] 2 puff 05/10/18 10:00 05/10/18 10:39 Spiriva Respimat IH 2 puff DAILY [facility] Administration - Objective Vital Signs: Vital Signs Period Temp Pulse Resp BP Sys/Gates Pulse Ox Last 24 Hr 97.9 F-99.0 F 57-85 17-20 103-125/38-61 93-98 Constitutional: Yes: No Distress, Calm, Obese Cardiovascular: Yes: Regular Rate and Rhythm (decr intensity sounds (habitus)), JVD (probable (L neck)), S1, S2. No: Gallop, Murmur Respiratory: Yes: Regular, CTA Bilaterally. No: Accessory Muscle Use, Rales, Wheezes Extremities: No: Cold Edema: No Neurological: Yes: Alert. No: Seizure Psychiatric: No: Agitated no jaundice diaphoresis Labs: CBC, BMP 05/10/18 06:30 05/10/18 06:30 Assessment/Plan cxr: chf ecg: sr,nl intervals, no ischemci changes mibi 2011: no ischemia, nl lvef echo 03/2014: lvh, nl lv/rv, lae, no sig valve path echo 04/2018: mild lvh, nl lv, mild rve, nl rv fcn, lae, no sig valve path a/p: 72 f hx copd, htn, dm, here s/p fall at NH. acute diastolic chf: -no signs acs -cr initially up from baseline--given test dose lasix 40 iv x1 on HD#1 and renal fxn improved -bedscale wts only -05/09: sob resolved. suspect JVD present. will repeat lasix 40 iv today, recheck labs and CXR in am (phys exam tds sec to habitus) -05/10: wt down, cr improved, cont iv lasix, daily chem7 htn: -bp stable -cont home meds isabel: -cr 2 on admit, cr was 1.2 on 12/2017 from [place] -possibly cardiorenal, plan as above -trend labs daily while diuresing fall: -mechanical, no indication of cardiac etiology
[2018-05-10 12:10] LABS: ERYTHROCYTE SEDIMENTATION RATE 59 mm/hr (0-30)
--- NOTE | 2018-05-10 12:56 | PN ---
Progress Note (short form) - Note Progress Note: Events noted has pain in legs No diarrhea Spoke with ID Vital Signs - 24 hr 05/09/18 05/09/18 05/09/18 15:49 17:00 21:00 Temperature 97.9 F 98.5 F 99.0 F Pulse Rate 67 62 85 Respiratory 17 20 Rate Blood Pressure 108/51 L 103/38 L 125/51 L O2 Sat by Pulse 98 Oximetry (%) 05/10/18 05/10/18 05/10/18 06:17 08:50 09:00 Temperature 98.6 F 98.3 F Pulse Rate 63 57 L Respiratory 20 20 Rate Blood Pressure 123/61 120/55 L O2 Sat by Pulse 93 L Oximetry (%) Current Medications Generic Name Dose Route Start Last Admin Trade Name Freq PRN Reason Stop Dose Admin Acetaminophen 650 mg 05/09/18 22:59 05/10/18 11:35 Tylenol - PO 650 mg Q6H PRN Administration FEVER Albuterol Sulfate 1 amp 05/09/18 22:59 Ventolin 0.083% Nebulizer Soln - NEB Q6H PRN SHORT OF BREATH/WHEEZING Amlodipine Besylate 10 mg 05/10/18 10:00 05/10/18 10:44 Norvasc - PO 10 mg DAILY [facility] Administration Aspirin 81 mg 05/10/18 10:00 05/10/18 10:44 Ecotrin - PO 81 mg DAILY [facility] Administration Atorvastatin Calcium 10 mg 05/10/18 22:00 Lipitor - PO HS [facility] Baclofen 10 mg 05/10/18 10:00 05/10/18 10:44 Lioresal - PO 10 mg BID [facility] Administration Budesonide/Formoterol Fumarate 2 puff 05/10/18 10:00 05/10/18 10:42 Symbicort 160/4.5mcg - IH 2 puff BID [facility] Administration Docusate Sodium 100 mg 05/10/18 10:00 05/10/18 10:45 Colace - PO 100 mg BID [facility] Administration Emollient Ointment 1 applic 05/10/18 10:00 05/10/18 10:45 Aquaphor - TP 1 applic DAILY [facility] Administration Furosemide 40 mg 05/10/18 10:00 05/10/18 11:11 Lasix Injection - IVPUSH 40 mg DAILY [facility] Administration Gabapentin 200 mg 05/10/18 10:00 05/10/18 10:43 Neurontin - PO 200 mg BID [facility] Administration Heparin Sodium (Porcine) 5,000 unit 05/10/18 10:00 05/10/18 10:42 Heparin - SQ 5,000 unit BID [facility] Administration Hydralazine HCl 100 mg 05/10/18 06:00 05/10/18 05:33 Apresoline - PO 100 mg TID [facility] Administration Aztreonam 1 gm/ Dextrose 50 mls @ 100 mls/hr 05/10/18 02:00 05/10/18 10:39 IVPB 100 mls/hr Q8H-IV [facility] Administration Protocol Clindamycin Phosphate 300 mg in 50 mls @ 100 mls/hr 05/10/18 02:00 05/10/18 10:38 Cleocin 300 Mg Premix Ivpb IVPB 100 mls/hr Q8H-IV [facility] Administration Protocol Insulin Aspart 1 vial 05/10/18 07:00 05/10/18 11:31 Novolog Vial Sliding Scale - SQ 2 units ACHS [facility] Administration Protocol Loratadine 10 mg 05/10/18 10:00 05/10/18 10:44 Claritin - PO 10 mg DAILY [facility] Administration Metoprolol Tartrate 12.5 mg 05/10/18 10:00 05/10/18 10:45 Lopressor - PO Not Given BID [facility] Sertraline HCl 25 mg 05/10/18 10:00 05/10/18 10:44 Zoloft - PO 25 mg DAILY [facility] Administration Solifenacin 5 mg 05/10/18 10:00 05/10/18 10:42 Vesicare - PO 5 mg DAILY [facility] Administration Tiotropium [place] 2 puff 05/10/18 10:00 05/10/18 10:39 Spiriva Respimat IH 2 puff DAILY [facility] Administration Abnormal Lab Results 05/10/18 05/10/18 05/10/18 06:30 06:30 12:00 RBC 3.33 L Hgb 9.2 L Hct 29.4 L MCHC 31.2 L RDW 15.7 H Lymphocytes % 40.8 H Monocytes % 11.3 H ESR 59 H Chloride 109 H Anion Gap 4 L BUN 42 H Calcium 8.0 L ALT 11 L Albumin 2.4 L Urine Creatinine 90.0 H Laboratory Results - last 24 hr 05/09/18 05/09/1805/09/18 12:43 16:19 22:22 WBC RBC Hgb Hct MCV MCH MCHC RDW Plt Count MPV Absolute Neuts (auto) Neutrophils % Lymphocytes % Monocytes % Eosinophils % Basophils % Nucleated RBC % ESR Sodium Potassium Plasma Potassium 4.6 Chloride Carbon Dioxide Anion Gap BUN Creatinine Creat Clearance w eGFR POC Glucometer 137 134 Random Glucose Hemoglobin A1c % Calcium Magnesium Total Bilirubin AST ALT Alkaline Phosphatase Total Protein Albumin Ur Random Urea Nitrogn Urine Creatinine Stool Occult Blood 05/10/18 05/10/18 05/10/18 05:27 06:30 06:30 WBC 8.5 RBC 3.33 L Hgb 9.2 L Hct 29.4 L MCV 88.3 MCH 27.5 MCHC 31.2 L RDW 15.7 H Plt Count 243 MPV 9.2 Absolute Neuts (auto) 3.6 Neutrophils % 42.8 Lymphocytes % 40.8 H Monocytes % 11.3 H Eosinophils % 4.0 Basophils % 1.1 Nucleated RBC % 0 ESR 59 H Sodium 139 Potassium 5.0 Plasma Potassium Chloride 109 H Carbon Dioxide 25 Anion Gap 4 L BUN 42 H Creatinine 1.3 Creat Clearance w eGFR 40.38 POC Glucometer 115 Random Glucose 102 Hemoglobin A1c % Calcium 8.0 L Magnesium 2.1 Total Bilirubin 0.5 AST 17 ALT 11 L Alkaline Phosphatase 50 Total Protein 6.4 Albumin 2.4 L Ur Random Urea Nitrogn Urine Creatinine Stool Occult Blood 05/10/18 05/10/18 05/10/18 06:30 11:27 12:00 WBC RBC Hgb Hct MCV MCH MCHC RDW Plt Count MPV Absolute Neuts (auto) Neutrophils % Lymphocytes % Monocytes % Eosinophils % Basophils % Nucleated RBC % ESR Sodium Potassium Plasma Potassium Chloride Carbon Dioxide Anion Gap BUN Creatinine Creat Clearance w eGFR POC Glucometer 151 Random Glucose Hemoglobin A1c % 5.7 Calcium Magnesium Total Bilirubin AST ALT Alkaline Phosphatase Total Protein Albumin Ur Random Urea Nitrogn Urine Creatinine Stool Occult Blood Positive 05/10/18 05/10/18 12:00 12:00 WBC RBC Hgb Hct MCV MCH MCHC RDW Plt Count MPV Absolute Neuts (auto) Neutrophils % Lymphocytes % Monocytes % Eosinophils % Basophils % Nucleated RBC % ESR Sodium Potassium Plasma Potassium Chloride Carbon Dioxide Anion Gap BUN Creatinine Creat Clearance w eGFR POC Glucometer Random Glucose Hemoglobin A1c % Calcium Magnesium Total Bilirubin AST ALT Alkaline Phosphatase Total Protein Albumin Ur Random Urea Nitrogn 636 Urine Creatinine 90.0 H Stool Occult Blood S1 S2 RRR Lungs clear Abd- soft, obese, Nt edema+, tender+hyperpigmented skin+ PLAN IV antibiotics pain control add bacid continue with meds monitor renal function Problem List - Problems (1) DEE (acute kidney injury) Code(s): N17.9 - ACUTE KIDNEY FAILURE, UNSPECIFIED (2) Cellulitis Code(s): L03.90 - CELLULITIS, UNSPECIFIED (3) Cellulitis of both lower extremities Code(s): L03.115 - CELLULITIS OF RIGHT LOWER LIMB; L03.116 - CELLULITIS OF LEFT LOWER LIMB (4) HTN (hypertension) Code(s): I10 - ESSENTIAL (PRIMARY) HYPERTENSION (5) Type 2 diabetes mellitus Code(s): E11.9 - TYPE 2 DIABETES MELLITUS WITHOUT COMPLICATIONS
[2018-05-10] MEDS ORDERED: INSULIN (NOVOLOG) ASPART 100 UNITS/ML 10ML VIAL ONE (13:24)
[2018-05-10] MEDS: LACTOBACILLUS ACIDOPHILUS 1 TABLET PO SCH (14:49)
[2018-05-10] MEDS ORDERED: traMADol HCL 50 MG TABLET PO ONE (15:30)
--- NOTE | 2018-05-10 16:02 | PN ---
Progress Note, Physician History of Present Illness: Pt seen and examined at bedside. She is awake and appears comfortable. She is off of oxygen. She feels that her breathing is better today. - Current Medication List Current Medications: Active Medications Acetaminophen (Tylenol -) 650 mg PO Q6H PRN PRN Reason: FEVER Last Admin: 05/10/18 11:35 Dose: 650 mg Albuterol Sulfate (Ventolin 0.083% Nebulizer Soln -) 1 amp NEB Q6H PRN PRN Reason: SHORT OF BREATH/WHEEZING Amlodipine Besylate (Norvasc -) 10 mg PO DAILY [facility] Last Admin: 05/10/18 10:44 Dose: 10 mg Aspirin (Ecotrin -) 81 mg PO DAILY [facility] Last Admin: 05/10/18 10:44 Dose: 81 mg Atorvastatin Calcium (Lipitor -) 10 mg PO HS [facility] Baclofen (Lioresal -) 10 mg PO BID [facility] Last Admin: 05/10/18 10:44 Dose: 10 mg Budesonide/Formoterol Fumarate (Symbicort 160/4.5mcg -) 2 puff IH BID [facility] Last Admin: 05/10/18 10:42 Dose: 2 puff Docusate Sodium (Colace -) 100 mg PO BID [facility] Last Admin: 05/10/18 10:45 Dose: 100 mg Emollient Ointment (Aquaphor -) 1 applic TP DAILY [facility] Last Admin: 05/10/18 10:45 Dose: 1 applic Furosemide (Lasix Injection -) 40 mg IVPUSH DAILY [facility] Last Admin: 05/10/18 11:11 Dose: 40 mg Gabapentin (Neurontin -) 200 mg PO BID [facility] Last Admin: 05/10/18 10:43 Dose: 200 mg Heparin Sodium (Porcine) (Heparin -) 5,000 unit SQ BID [facility] Last Admin: 05/10/18 10:42 Dose: 5,000 unit Hydralazine HCl (Apresoline -) 100 mg PO TID [facility] Last Admin: 05/10/18 14:49 Dose: 100 mg Aztreonam 1 gm/ Dextrose 50 mls @ 100 mls/hr IVPB Q8H-IV [facility]; Protocol Last Admin: 05/10/18 10:39 Dose: 100 mls/hr Clindamycin Phosphate (Cleocin 300 Mg Premix Ivpb) 300 mg in 50 mls @ 100 mls/ hr IVPB Q8H-IV [facility]; Protocol Last Admin: 05/10/18 10:38 Dose: 100 mls/hr Insulin Aspart (Novolog Vial Sliding Scale -) 1 vial SQ ACHS [facility]; Protocol Last Admin: 05/10/18 11:31 Dose: 2 units Lactobacillus Acidophilus (Bacid -) 1 tab PO DAILY [facility] Last Admin: 05/10/18 14:49 Dose: 1 tab Loratadine (Claritin -) 10 mg PO DAILY [facility] Last Admin: 05/10/18 10:44 Dose: 10 mg Metoprolol Tartrate (Lopressor -) 12.5 mg PO BID [facility] Last Admin: 05/10/18 10:45 Dose: Not Given Sertraline HCl (Zoloft -) 25 mg PO DAILY [facility] Last Admin: 05/10/18 10:44 Dose: 25 mg Solifenacin (Vesicare -) 5 mg PO DAILY [facility] Last Admin: 05/10/18 10:42 Dose: 5 mg Tiotropium [place] (Spiriva Respimat) 2 puff IH DAILY [facility] Last Admin: 05/10/18 10:39 Dose: 2 puff - Objective Vital Signs: Vital Signs Temperature 98.9 F 05/10/18 14:49 Pulse Rate 60 05/10/18 14:49 Respiratory Rate 20 05/10/18 08:50 Blood Pressure 155/64 05/10/18 14:49 O2 Sat by Pulse Oximetry (%) 93 L 05/10/18 09:00 Constitutional: Yes: Calm Eyes: Yes: Conjunctiva Clear HENT: Yes: Atraumatic Neck: Yes: Supple Cardiovascular: Yes: S1, S2 Respiratory: Yes: Rhonchi, SOB on Exertion Gastrointestinal: Yes: Soft Genitourinary: Yes: WNL Edema: Yes Edema: LLE: 1+, RLE: 1+ Neurological: Yes: Oriented Psychiatric: Yes: Oriented Labs: CBC, BMP 05/10/18 06:30 05/10/18 06:30 Problem List - Problems (1) DEE (acute kidney injury) Code(s): N17.9 - ACUTE KIDNEY FAILURE, UNSPECIFIED (2) Cellulitis Code(s): L03.90 - CELLULITIS, UNSPECIFIED Assessment/Plan Current Medications Generic Name Dose Route Start Last Admin Trade Name Freq PRN Reason Stop Dose Admin Acetaminophen 650 mg 05/09/18 22:59 05/10/18 11:35 Tylenol - PO 650 mg Q6H PRN Administration FEVER Albuterol Sulfate 1 amp 05/09/18 22:59 Ventolin 0.083% Nebulizer Soln - NEB Q6H PRN SHORT OF BREATH/WHEEZING Amlodipine Besylate 10 mg 05/10/18 10:00 05/10/18 10:44 Norvasc - PO 10 mg DAILY [facility] Administration Aspirin 81 mg 05/10/18 10:00 05/10/18 10:44 Ecotrin - PO 81 mg DAILY [facility] Administration Atorvastatin Calcium 10 mg 05/10/18 22:00 Lipitor - PO HS [facility] Baclofen 10 mg 05/10/18 10:00 05/10/18 10:44 Lioresal - PO 10 mg BID [facility] Administration Budesonide/Formoterol Fumarate 2 puff 05/10/18 10:00 05/10/18 10:42 Symbicort 160/4.5mcg - IH 2 puff BID [facility] Administration Docusate Sodium 100 mg 05/10/18 10:00 05/10/18 10:45 Colace - PO 100 mg BID [facility] Administration Emollient Ointment 1 applic 05/10/18 10:00 05/10/18 10:45 Aquaphor - TP 1 applic DAILY [facility] Administration Furosemide 40 mg 05/10/18 10:00 05/10/18 11:11 Lasix Injection - IVPUSH 40 mg DAILY [facility] Administration Gabapentin 200 mg 05/10/18 10:00 05/10/18 10:43 Neurontin - PO 200 mg BID [facility] Administration Heparin Sodium (Porcine) 5,000 unit 05/10/18 10:00 05/10/18 10:42 Heparin - SQ 5,000 unit BID [facility] Administration Hydralazine HCl 100 mg 05/10/18 06:00 05/10/18 14:49 Apresoline - PO 100 mg TID [facility] Administration Aztreonam 1 gm/ Dextrose 50 mls @ 100 mls/hr 05/10/18 02:00 05/10/18 10:39 IVPB 100 mls/hr Q8H-IV [facility] Administration Protocol Clindamycin Phosphate 300 mg in 50 mls @ 100 mls/hr 05/10/18 02:00 05/10/18 10:38 Cleocin 300 Mg Premix Ivpb IVPB 100 mls/hr Q8H-IV [facility] Administration Protocol Insulin Aspart 1 vial 05/10/18 07:00 05/10/18 11:31 Novolog Vial Sliding Scale - SQ 2 units ACHS [facility] Administration Protocol Lactobacillus Acidophilus 1 tab 05/10/18 13:15 05/10/18 14:49 Bacid - PO 1 tab DAILY [facility] Administration Loratadine 10 mg 05/10/18 10:00 05/10/18 10:44 Claritin - PO 10 mg DAILY [facility] Administration Metoprolol Tartrate 12.5 mg 05/10/18 10:00 05/10/18 10:45 Lopressor - PO Not Given BID [facility] Sertraline HCl 25 mg 05/10/18 10:00 05/10/18 10:44 Zoloft - PO 25 mg DAILY [facility] Administration Solifenacin 5 mg 05/10/18 10:00 05/10/18 10:42 Vesicare - PO 5 mg DAILY [facility] Administration Tiotropium [place] 2 puff 05/10/18 10:00 05/10/18 10:39 Spiriva Respimat IH 2 puff DAILY [facility] Administration Impression 1. DEE resolving 2. CHF 3. DM 4. HTN 5. cellulitis 6. COPD 7. hyperkalemia Plan - cont with IV lasix - cxr reviewed - u/s reviewed - likely cardiorenal - repeat labs in am - monitor lytes - low potassium diet
[2018-05-10] MEDS: ATORVASTATIN CA 10 MG TABLET (FP) PO SCH (22:31)
[2018-05-11] MEDS: AZTREONAM 1 GM in DEXTROSE 5%-WATER - 50 ML IVPB SCH ×3 (01:06→17:22)
[2018-05-11] MEDS: CLINDAMYCIN 300 MG PREMIX IVPB 300 MG/50 ML BAG IVPB SCH ×3 (01:56→17:22)
[2018-05-11] MEDS: hydrALAZINE HCL 50 MG TABLET (FP) PO SCH ×3 (05:52→21:12)
[2018-05-11] MEDS: ACETAMINOPHEN 325 MG TABLET (FP) PO PRN ×2 (05:53→18:49)
[2018-05-11] MEDS: INSULIN SLIDING SCALE (NOVOLOG) 1 VIAL SQ SCH ×4 (06:09→21:14)
[2018-05-11 07:58] LABS: BASO % 0.7 % (0-2.0); EOS % 3.8 % (0-4.5); HEMATOCRIT 30.7 % (32.4-45.2); HEMOGLOBIN 9.7 GM/dL (10.7-15.3); LYMPH % 42.3 % (8-40); MCH 27.8 pg (25.7-33.7); MCHC 31.5 g/dl (32.0-36.0); MEAN CELL VOLUME 88.3 fl (80-96); MEAN PLT VOLUME 9.3 fl (7.5-11.1); MONO % 10.6 % (3.8-10.2); NEUT % 42.6 % (42.8-82.8); PLATELET COUNT 266 K/MM3 (134-434); RBC 3.48 M/mm3 (3.60-5.2); RDW 15.7 % (11.6-15.6); WHITE BLOOD COUNT 8.3 K/mm3 (4.0-10.0)
[2018-05-11 08:42] LABS: ANION GAP 6 MMOL/L (8-16); BLOOD UREA NITROGEN 38 mg/dL (7-18); CALCIUM 8.2 mg/dL (8.5-10.1); CHLORIDE 107 mmol/L (98-107); CO2 26 mmol/L (21-32); CREATININE 1.2 mg/dL (0.55-1.3); GLUCOSE,RANDOM 110 mg/dL (74-106); POTASSIUM 5.2 mmol/L (3.5-5.1); SODIUM 138 mmol/L (136-145)
[2018-05-11] MEDS ORDERED: PT OWN MED DRAWER 7, Y5N ONE ×2 (09:12→20:48)
[2018-05-11] MEDS: BACLOFEN 10 MG TABLET (FP) PO SCH ×2 (09:24→21:12)
[2018-05-11] MEDS: amLODIPine BESYLATE 10 MG TABLET (FP) PO SCH (09:24)
[2018-05-11] MEDS: SOLIFENACIN SUCCINATE 5 MG TAB (FP) PO SCH (09:24)
[2018-05-11] MEDS: MINERAL OIL/PET HY-PHL TOPICAL OINTMENT 454 GM JAR TP SCH (09:24)
[2018-05-11] MEDS: GABAPENTIN 100 MG CAPSULE (FP) PO SCH ×2 (09:24→21:14)
[2018-05-11] MEDS: LORATADINE 10 MG TABLET PO SCH (09:24)
[2018-05-11] MEDS: FUROSEMIDE 40 MG/4 ML INJECTABLE VIAL IVPUSH SCH ×2 (09:24→14:28)
[2018-05-11] MEDS: BUDESONIDE/FORMETEROL FUMARATE 160/4.5 mcg INHALER IH SCH ×2 (09:24→21:14)
[2018-05-11] MEDS: ASPIRIN COATED 81 MG TABLET.EC PO SCH (09:24)
[2018-05-11] MEDS: SERTRALINE HCL 25 MG TABLET (FP) PO SCH (09:24)
[2018-05-11] MEDS: DOCUSATE SODIUM 100 MG CAPSULE (FP) PO SCH ×2 (09:24→21:14)
[2018-05-11] MEDS: LACTOBACILLUS ACIDOPHILUS 1 TABLET PO SCH (09:24)
[2018-05-11] MEDS: TIOTROPIUM BROMIDE 2.5 MCG (SPIRIVA) RESPIMAT INHALER IH SCH (09:25)
[2018-05-11] MEDS: METOPROLOL TARTRATE 25 MG TABLET (FP) PO SCH ×2 (09:25→21:12)
[2018-05-11] MEDS: HEPARIN NA (PORCINE) 5,000 UNITS/ML 1ML VIAL SQ SCH ×2 (09:25→21:14)
[2018-05-11] MEDS ORDERED: INSULIN (NOVOLOG) ASPART 100 UNITS/ML 10ML VIAL ONE ×2 (11:29→17:13)
[2018-05-11] MEDS ORDERED: SODIUM POLYSTYRENE SULFONATE 15 GM/60 ML BOTTLE PO ONE (11:35)
--- NOTE | 2018-05-11 11:36 | PN ---
Progress Note (short form) - Note Progress Note: c/o legs to be sore no fever no SOB Vital Signs - 24 hr 05/10/18 05/10/18 05/10/18 14:49 17:10 21:00 Temperature 98.9 F 98.6 F 98.6 F Pulse Rate 60 62 71 Respiratory 18 20 Rate Blood Pressure 155/64 146/68 138/71 O2 Sat by Pulse 94 L Oximetry (%) 05/11/18 05/11/18 05/11/18 02:00 05:43 08:53 Temperature 98.5 F 98.3 F 98.5 F Pulse Rate 61 64 65 Respiratory 17 18 20 Rate Blood Pressure 135/61 140/67 124/42 L O2 Sat by Pulse Oximetry (%) 05/11/18 09:00 Temperature Pulse Rate Respiratory Rate Blood Pressure O2 Sat by Pulse 92 L Oximetry (%) Current Medications Generic Name Dose Route Start Last Admin Trade Name Freq PRN Reason Stop Dose Admin Acetaminophen 650 mg 05/09/18 22:59 05/11/18 05:53 Tylenol - PO 650 mg Q6H PRN Administration FEVER Albuterol Sulfate 1 amp 05/09/18 22:59 Ventolin 0.083% Nebulizer Soln - NEB Q6H PRN SHORT OF BREATH/WHEEZING Amlodipine Besylate 10 mg 05/10/18 10:00 05/11/18 09:24 Norvasc - PO 10 mg DAILY [facility] Administration Aspirin 81 mg 05/10/18 10:00 05/11/18 09:24 Ecotrin - PO 81 mg DAILY [facility] Administration Atorvastatin Calcium 10 mg 05/10/18 22:00 05/10/18 22:31 Lipitor - PO 10 mg HS [facility] Administration Baclofen 10 mg 05/10/18 10:00 05/11/18 09:24 Lioresal - PO 10 mg BID [facility] Administration Budesonide/Formoterol Fumarate 2 puff 05/10/18 10:00 05/11/18 09:24 Symbicort 160/4.5mcg - IH 2 puff BID [facility] Administration Docusate Sodium 100 mg 05/10/18 10:00 05/11/18 09:24 Colace - PO 100 mg BID [facility] Administration Emollient Ointment 1 applic 05/10/18 10:00 05/11/18 09:24 Aquaphor - TP 1 applic DAILY [facility] Administration Furosemide 40 mg 05/10/18 10:00 05/11/18 09:24 Lasix Injection - IVPUSH 40 mg DAILY [facility] Administration Gabapentin 200 mg 05/10/18 10:00 05/11/18 09:24 Neurontin - PO 200 mg BID [facility] Administration Heparin Sodium (Porcine) 5,000 unit 05/10/18 10:00 05/11/18 09:25 Heparin - SQ 5,000 unit BID [facility] Administration Hydralazine HCl 100 mg 05/10/18 06:00 05/11/18 05:52 Apresoline - PO 100 mg TID [facility] Administration Aztreonam 1 gm/ Dextrose 50 mls @ 100 mls/hr 05/10/18 02:00 05/11/18 09:25 IVPB 100 mls/hr Q8H-IV [facility] Administration Protocol Clindamycin Phosphate 300 mg in 50 mls @ 100 mls/hr 05/10/18 02:00 05/11/18 09:24 Cleocin 300 Mg Premix Ivpb IVPB 100 mls/hr Q8H-IV [facility] Administration Protocol Insulin Aspart 1 vial 05/10/18 07:00 05/11/18 06:09 Novolog Vial Sliding Scale - SQ Not Given ACHS [facility] Protocol Lactobacillus Acidophilus 1 tab 05/10/18 13:15 05/11/18 09:24 Bacid - PO 1 tab DAILY [facility] Administration Loratadine 10 mg 05/10/18 10:00 05/11/18 09:24 Claritin - PO 10 mg DAILY [facility] Administration Metoprolol Tartrate 12.5 mg 05/10/18 10:00 05/11/18 09:25 Lopressor - PO Not Given BID [facility] Sertraline HCl 25 mg 05/10/18 10:00 05/11/18 09:24 Zoloft - PO 25 mg DAILY [facility] Administration Sodium Polystyrene Sulfonate 30 gm 05/11/18 11:35 Kayexalate - PO 05/11/18 11:36 ONCE ONE Solifenacin 5 mg 05/10/18 10:00 05/11/18 09:24 Vesicare - PO 5 mg DAILY [facility] Administration Tiotropium [place] 2 puff 05/10/18 10:00 05/11/18 09:25 Spiriva Respimat IH 2 puff DAILY [facility] Administration Laboratory Results - last 24 hr 05/10/18 05/10/18 05/10/18 06:30 11:27 12:00 WBC RBC Hgb Hct MCV MCH MCHC RDW Plt Count MPV Absolute Neuts (auto) Neutrophils % Lymphocytes % Monocytes % Eosinophils % Basophils % Nucleated RBC % ESR 59 H Sodium Potassium Chloride Carbon Dioxide Anion Gap BUN Creatinine Creat Clearance w eGFR POC Glucometer 151 Random Glucose Calcium Ur Random Urea Nitrogn Urine Creatinine Stool Occult Blood Positive 05/10/18 05/10/18 05/10/18 12:00 12:00 17:00 WBC RBC Hgb Hct MCV MCH MCHC RDW Plt Count MPV Absolute Neuts (auto) Neutrophils % Lymphocytes % Monocytes % Eosinophils % Basophils % Nucleated RBC % ESR Sodium Potassium Chloride Carbon Dioxide Anion Gap BUN Creatinine Creat Clearance w eGFR POC Glucometer 142 Random Glucose Calcium Ur Random Urea Nitrogn 636 Urine Creatinine 90.0 H Stool Occult Blood 05/10/18 05/11/18 05/11/18 22:49 05:54 06:30 WBC 8.3 RBC 3.48 L Hgb 9.7 L Hct 30.7 L MCV 88.3 MCH 27.8 MCHC 31.5 L RDW 15.7 H Plt Count 266 MPV 9.3 Absolute Neuts (auto) 3.5 Neutrophils % 42.6 L Lymphocytes % 42.3 H Monocytes % 10.6 H Eosinophils % 3.8 Basophils % 0.7 Nucleated RBC % 0 ESR Sodium Potassium Chloride Carbon Dioxide Anion Gap BUN Creatinine Creat Clearance w eGFR POC Glucometer 132 123 Random Glucose Calcium Ur Random Urea Nitrogn Urine Creatinine Stool Occult Blood 05/11/18 06:30 WBC RBC Hgb Hct MCV MCH MCHC RDW Plt Count MPV Absolute Neuts (auto) Neutrophils % Lymphocytes % Monocytes % Eosinophils % Basophils % Nucleated RBC % ESR Sodium 138 Potassium 5.2 H Chloride 107 Carbon Dioxide 26 Anion Gap 6 L BUN 38 H Creatinine 1.2 Creat Clearance w eGFR 44.29 POC Glucometer Random Glucose 110 H Calcium 8.2 L Ur Random Urea Nitrogn Urine Creatinine Stool Occult Blood S1 S2 RRR Lungs clear Abd- soft, obese, Nt edema+, tender+hyperpigmented skin+, warm+ PLAN IV antibiotics pain control start kayexalate continue with meds monitor renal function Problem List - Problems (1) DEE (acute kidney injury) Code(s): N17.9 - ACUTE KIDNEY FAILURE, UNSPECIFIED (2) Cellulitis Code(s): L03.90 - CELLULITIS, UNSPECIFIED (3) Cellulitis of both lower extremities Code(s): L03.115 - CELLULITIS OF RIGHT LOWER LIMB; L03.116 - CELLULITIS OF LEFT LOWER LIMB (4) HTN (hypertension) Code(s): I10 - ESSENTIAL (PRIMARY) HYPERTENSION (5) Type 2 diabetes mellitus Code(s): E11.9 - TYPE 2 DIABETES MELLITUS WITHOUT COMPLICATIONS
--- NOTE | 2018-05-11 12:06 | PN ---
Progress Note, Physician History of Present Illness: patient stable no new issues leg tenderness better swelling improved - Current Medication List Current Medications: Active Medications Acetaminophen (Tylenol -) 650 mg PO Q6H PRN PRN Reason: FEVER Last Admin: 05/11/18 05:53 Dose: 650 mg Albuterol Sulfate (Ventolin 0.083% Nebulizer Soln -) 1 amp NEB Q6H PRN PRN Reason: SHORT OF BREATH/WHEEZING Amlodipine Besylate (Norvasc -) 10 mg PO DAILY [facility] Last Admin: 05/11/18 09:24 Dose: 10 mg Aspirin (Ecotrin -) 81 mg PO DAILY [facility] Last Admin: 05/11/18 09:24 Dose: 81 mg Atorvastatin Calcium (Lipitor -) 10 mg PO HS [facility] Last Admin: 05/10/18 22:31 Dose: 10 mg Baclofen (Lioresal -) 10 mg PO BID [facility] Last Admin: 05/11/18 09:24 Dose: 10 mg Budesonide/Formoterol Fumarate (Symbicort 160/4.5mcg -) 2 puff IH BID [facility] Last Admin: 05/11/18 09:24 Dose: 2 puff Docusate Sodium (Colace -) 100 mg PO BID [facility] Last Admin: 05/11/18 09:24 Dose: 100 mg Emollient Ointment (Aquaphor -) 1 applic TP DAILY [facility] Last Admin: 05/11/18 09:24 Dose: 1 applic Furosemide (Lasix Injection -) 40 mg IVPUSH DAILY [facility] Last Admin: 05/11/18 09:24 Dose: 40 mg Gabapentin (Neurontin -) 200 mg PO BID [facility] Last Admin: 05/11/18 09:24 Dose: 200 mg Heparin Sodium (Porcine) (Heparin -) 5,000 unit SQ BID [facility] Last Admin: 05/11/18 09:25 Dose: 5,000 unit Hydralazine HCl (Apresoline -) 100 mg PO TID [facility] Last Admin: 05/11/18 05:52 Dose: 100 mg Aztreonam 1 gm/ Dextrose 50 mls @ 100 mls/hr IVPB Q8H-IV [facility]; Protocol Last Admin: 05/11/18 09:25 Dose: 100 mls/hr Clindamycin Phosphate (Cleocin 300 Mg Premix Ivpb) 300 mg in 50 mls @ 100 mls/ hr IVPB Q8H-IV [facility]; Protocol Last Admin: 05/11/18 09:24 Dose: 100 mls/hr Insulin Aspart (Novolog Vial Sliding Scale -) 1 vial SQ ACHS [facility]; Protocol Last Admin: 05/11/18 11:42 Dose: 2 units Lactobacillus Acidophilus (Bacid -) 1 tab PO DAILY [facility] Last Admin: 05/11/18 09:24 Dose: 1 tab Loratadine (Claritin -) 10 mg PO DAILY [facility] Last Admin: 05/11/18 09:24 Dose: 10 mg Metoprolol Tartrate (Lopressor -) 12.5 mg PO BID [facility] Last Admin: 05/11/18 09:25 Dose: Not Given Sertraline HCl (Zoloft -) 25 mg PO DAILY [facility] Last Admin: 05/11/18 09:24 Dose: 25 mg Solifenacin (Vesicare -) 5 mg PO DAILY [facility] Last Admin: 05/11/18 09:24 Dose: 5 mg Tiotropium [place] (Spiriva Respimat) 2 puff IH DAILY [facility] Last Admin: 05/11/18 09:25 Dose: 2 puff - Objective Vital Signs: Vital Signs Temperature 98.5 F 05/11/18 08:53 Pulse Rate 65 05/11/18 08:53 Respiratory Rate 20 05/11/18 08:53 Blood Pressure 124/42 L 05/11/18 08:53 O2 Sat by Pulse Oximetry (%) 92 L 05/11/18 09:00 Constitutional: Yes: Calm, Mild Distress Cardiovascular: Yes: Regular Rate and Rhythm Respiratory: Yes: Regular, CTA Bilaterally Gastrointestinal: Yes: Normal Bowel Sounds, Soft Musculoskeletal: Yes: Other Extremities: Yes: Other Edema: LLE: Trace, RLE: Trace Integumentary: Yes: Erythema (improving b/l legs) Wound/Incision: Yes: Clean/Dry Neurological: Yes: Alert, Oriented Psychiatric: Yes: Alert, Oriented Labs: CBC, BMP 05/11/18 06:30 05/11/18 06:30 Assessment/Plan Problem List - Problems (1) DEE (acute kidney injury) Code(s): N17.9 - ACUTE KIDNEY FAILURE, UNSPECIFIED (2) Fall Code(s): W19.XXXA - UNSPECIFIED FALL, INITIAL ENCOUNTER (3) Cellulitis of both lower extremities Code(s): L03.115 - CELLULITIS OF RIGHT LOWER LIMB; L03.116 - CELLULITIS OF LEFT LOWER LIMB (4) HTN (hypertension) Code(s): I10 - ESSENTIAL (PRIMARY) HYPERTENSION (5) Type 2 diabetes mellitus Code(s): E11.9 - TYPE 2 DIABETES MELLITUS WITHOUT COMPLICATIONS 6 b/l cellulittis of the legs leukocytosis plan continue current abx improving elevation of the legs rest as per the team
--- NOTE | 2018-05-11 12:37 | PN ---
Progress Note, Physician History of Present Illness: Pt seen and examined at bedside. She is awake and alert. She complains of lower ext edema. - Current Medication List Current Medications: Active Medications Acetaminophen (Tylenol -) 650 mg PO Q6H PRN PRN Reason: FEVER Last Admin: 05/11/18 05:53 Dose: 650 mg Albuterol Sulfate (Ventolin 0.083% Nebulizer Soln -) 1 amp NEB Q6H PRN PRN Reason: SHORT OF BREATH/WHEEZING Amlodipine Besylate (Norvasc -) 10 mg PO DAILY [facility] Last Admin: 05/11/18 09:24 Dose: 10 mg Aspirin (Ecotrin -) 81 mg PO DAILY [facility] Last Admin: 05/11/18 09:24 Dose: 81 mg Atorvastatin Calcium (Lipitor -) 10 mg PO HS [facility] Last Admin: 05/10/18 22:31 Dose: 10 mg Baclofen (Lioresal -) 10 mg PO BID [facility] Last Admin: 05/11/18 09:24 Dose: 10 mg Budesonide/Formoterol Fumarate (Symbicort 160/4.5mcg -) 2 puff IH BID [facility] Last Admin: 05/11/18 09:24 Dose: 2 puff Docusate Sodium (Colace -) 100 mg PO BID [facility] Last Admin: 05/11/18 09:24 Dose: 100 mg Emollient Ointment (Aquaphor -) 1 applic TP DAILY [facility] Last Admin: 05/11/18 09:24 Dose: 1 applic Furosemide (Lasix Injection -) 40 mg IVPUSH DAILY [facility] Last Admin: 05/11/18 09:24 Dose: 40 mg Gabapentin (Neurontin -) 200 mg PO BID [facility] Last Admin: 05/11/18 09:24 Dose: 200 mg Heparin Sodium (Porcine) (Heparin -) 5,000 unit SQ BID [facility] Last Admin: 05/11/18 09:25 Dose: 5,000 unit Hydralazine HCl (Apresoline -) 100 mg PO TID [facility] Last Admin: 05/11/18 05:52 Dose: 100 mg Aztreonam 1 gm/ Dextrose 50 mls @ 100 mls/hr IVPB Q8H-IV [facility]; Protocol Last Admin: 05/11/18 09:25 Dose: 100 mls/hr Clindamycin Phosphate (Cleocin 300 Mg Premix Ivpb) 300 mg in 50 mls @ 100 mls/ hr IVPB Q8H-IV [facility]; Protocol Last Admin: 05/11/18 09:24 Dose: 100 mls/hr Insulin Aspart (Novolog Vial Sliding Scale -) 1 vial SQ ACHS [facility]; Protocol Last Admin: 05/11/18 11:42 Dose: 2 units Lactobacillus Acidophilus (Bacid -) 1 tab PO DAILY [facility] Last Admin: 05/11/18 09:24 Dose: 1 tab Loratadine (Claritin -) 10 mg PO DAILY [facility] Last Admin: 05/11/18 09:24 Dose: 10 mg Metoprolol Tartrate (Lopressor -) 12.5 mg PO BID [facility] Last Admin: 05/11/18 09:25 Dose: Not Given Sertraline HCl (Zoloft -) 25 mg PO DAILY [facility] Last Admin: 05/11/18 09:24 Dose: 25 mg Solifenacin (Vesicare -) 5 mg PO DAILY [facility] Last Admin: 05/11/18 09:24 Dose: 5 mg Tiotropium [place] (Spiriva Respimat) 2 puff IH DAILY [facility] Last Admin: 05/11/18 09:25 Dose: 2 puff - Objective Vital Signs: Vital Signs Temperature 98.5 F 05/11/18 08:53 Pulse Rate 65 05/11/18 08:53 Respiratory Rate 20 05/11/18 08:53 Blood Pressure 124/42 L 05/11/18 08:53 O2 Sat by Pulse Oximetry (%) 92 L 05/11/18 09:00 Constitutional: Yes: Calm Eyes: Yes: Conjunctiva Clear HENT: Yes: Atraumatic Neck: Yes: Supple Cardiovascular: Yes: S1, S2 Respiratory: Yes: CTA Bilaterally Gastrointestinal: Yes: Soft, Abdomen, Obese Genitourinary: Yes: WNL Musculoskeletal: Yes: WNL Edema: Yes Edema: LLE: 1+, RLE: 1+ Neurological: Yes: Oriented Psychiatric: Yes: Oriented Labs: CBC, BMP 05/11/18 06:30 05/11/18 06:30 Problem List - Problems (1) DEE (acute kidney injury) Code(s): N17.9 - ACUTE KIDNEY FAILURE, UNSPECIFIED (2) Cellulitis Code(s): L03.90 - CELLULITIS, UNSPECIFIED Assessment/Plan Current Medications Generic Name Dose Route Start Last Admin Trade Name Freq PRN Reason Stop Dose Admin Acetaminophen 650 mg 05/09/18 22:59 05/11/18 05:53 Tylenol - PO 650 mg Q6H PRN Administration FEVER Albuterol Sulfate 1 amp 05/09/18 22:59 Ventolin 0.083% Nebulizer Soln - NEB Q6H PRN SHORT OF BREATH/WHEEZING Amlodipine Besylate 10 mg 05/10/18 10:00 05/11/18 09:24 Norvasc - PO 10 mg DAILY [facility] Administration Aspirin 81 mg 05/10/18 10:00 05/11/18 09:24 Ecotrin - PO 81 mg DAILY [facility] Administration Atorvastatin Calcium 10 mg 05/10/18 22:00 05/10/18 22:31 Lipitor - PO 10 mg HS [facility] Administration Baclofen 10 mg 05/10/18 10:00 05/11/18 09:24 Lioresal - PO 10 mg BID [facility] Administration Budesonide/Formoterol Fumarate 2 puff 05/10/18 10:00 05/11/18 09:24 Symbicort 160/4.5mcg - IH 2 puff BID [facility] Administration Docusate Sodium 100 mg 05/10/18 10:00 05/11/18 09:24 Colace - PO 100 mg BID [facility] Administration Emollient Ointment 1 applic 05/10/18 10:00 05/11/18 09:24 Aquaphor - TP 1 applic DAILY [facility] Administration Furosemide 40 mg 05/10/18 10:00 05/11/18 09:24 Lasix Injection - IVPUSH 40 mg DAILY [facility] Administration Gabapentin 200 mg 05/10/18 10:00 05/11/18 09:24 Neurontin - PO 200 mg BID [facility] Administration Heparin Sodium (Porcine) 5,000 unit 05/10/18 10:00 05/11/18 09:25 Heparin - SQ 5,000 unit BID [facility] Administration Hydralazine HCl 100 mg 05/10/18 06:00 05/11/18 05:52 Apresoline - PO 100 mg TID [facility] Administration Aztreonam 1 gm/ Dextrose 50 mls @ 100 mls/hr 05/10/18 02:00 05/11/18 09:25 IVPB 100 mls/hr Q8H-IV [facility] Administration Protocol Clindamycin Phosphate 300 mg in 50 mls @ 100 mls/hr 05/10/18 02:00 05/11/18 09:24 Cleocin 300 Mg Premix Ivpb IVPB 100 mls/hr Q8H-IV [facility] Administration Protocol Insulin Aspart 1 vial 05/10/18 07:00 05/11/18 11:42 Novolog Vial Sliding Scale - SQ 2 units ACHS [facility] Administration Protocol Lactobacillus Acidophilus 1 tab 05/10/18 13:15 05/11/18 09:24 Bacid - PO 1 tab DAILY [facility] Administration Loratadine 10 mg 05/10/18 10:00 05/11/18 09:24 Claritin - PO 10 mg DAILY [facility] Administration Metoprolol Tartrate 12.5 mg 05/10/18 10:00 05/11/18 09:25 Lopressor - PO Not Given BID [facility] Sertraline HCl 25 mg 05/10/18 10:00 05/11/18 09:24 Zoloft - PO 25 mg DAILY [facility]AW[facility] Administration Solifenacin 5 mg 05/10/18 10:00 05/11/18 09:24 Vesicare - PO 5 mg DAILY SHAWNA Administration Tiotropium [place] 2 puff 05/10/18 10:00 05/11/18 09:25 Spiriva Respimat IH 2 puff DAILY SHAWNA Administration Impression 1. DEE resolving 2. CHF 3. DM 4. HTN 5. cellulitis 6. COPD 7. hyperkalemia Plan - increase lasix to bid dosing, 40 mg bid - repeat labs in am - renal function is stable - likely cardiorenal - monitor lytes - low potassium diet - lasix will also help with potassium
--- NOTE | 2018-05-11 12:47 | EKG ---
Test Reason : Blood Pressure : / mmHG Vent. Rate : 066 BPM Atrial Rate : 066 BPM P-R Int : 162 ms QRS Dur : 076 ms QT Int : 432 ms P-R-T Axes : 067 -02 066 degrees QTc Int : 452 ms POOR DATA QUALITY, INTERPRETATION MAY BE ADVERSELY AFFECTED NORMAL SINUS RHYTHM NORMAL ECG WHEN COMPARED WITH ECG OF 10-APR-2014 02:07, VENT. RATE HAS DECREASED BY 47 BPM NON-SPECIFIC CHANGE IN ST SEGMENT IN LATERAL LEADS Confirmed by PATRICIA LEON, GERALD ([id number]) on 05/11/2018 12:47:02 PM Referred By: Confirmed By:GERALD GOMEZ MD
--- NOTE | 2018-05-11 17:12 | PN ---
Progress Note (short form) - Note Progress Note: Progress Note, Physician Chief Complaint: sob History of Present Illness: no sob palps dizzy cp legs feel swollen but better Current Medications Generic Name Dose Route Start Last Admin Trade Name Freholly PRN Reason Stop Dose Admin Acetaminophen 650 mg 05/09/18 22:59 05/11/18 05:53 Tylenol - PO 650 mg Q6H PRN Administration FEVER Albuterol Sulfate 1 amp 05/09/18 22:59 Ventolin 0.083% Nebulizer Soln - NEB Q6H PRN SHORT OF BREATH/WHEEZING Amlodipine Besylate 10 mg 05/10/18 10:00 05/11/18 09:24 Norvasc - PO 10 mg DAILY [facility] Administration Aspirin 81 mg 05/10/18 10:00 05/11/18 09:24 Ecotrin - PO 81 mg DAILY [facility] Administration Atorvastatin Calcium 10 mg 05/10/18 22:00 05/10/18 22:31 Lipitor - PO 10 mg HS [facility] Administration Baclofen 10 mg 05/10/18 10:00 05/11/18 09:24 Lioresal - PO 10 mg BID [facility] Administration Budesonide/Formoterol Fumarate 2 puff 05/10/18 10:00 05/11/18 09:24 Symbicort 160/4.5mcg - IH 2 puff BID [facility] Administration Docusate Sodium 100 mg 05/10/18 10:00 05/11/18 09:24 Colace - PO 100 mg BID [facility] Administration Emollient Ointment 1 applic 05/10/18 10:00 05/11/18 09:24 Aquaphor - TP 1 applic DAILY [facility] Administration Furosemide 40 mg 05/11/18 14:00 05/11/18 14:28 Lasix Injection - IVPUSH 40 mg BID@0600,1400 [facility] Administration Gabapentin 200 mg 05/10/18 10:00 05/11/18 09:24 Neurontin - PO 200 mg BID [facility] Administration Heparin Sodium (Porcine) 5,000 unit 05/10/18 10:00 05/11/18 09:25 Heparin - SQ 5,000 unit BID [facility] Administration Hydralazine HCl 100 mg 05/10/18 06:00 05/11/18 14:28 Apresoline - PO 100 mg TID [facility] Administration Aztreonam 1 gm/ Dextrose 50 mls @ 100 mls/hr 05/10/18 02:00 05/11/18 09:25 IVPB 100 mls/hr Q8H-IV [facility] Administration Protocol Clindamycin Phosphate 300 mg in 50 mls @ 100 mls/hr 05/10/18 02:00 05/11/18 09:24 Cleocin 300 Mg Premix Ivpb IVPB 100 mls/hr Q8H-IV [facility] Administration Protocol Insulin Aspart 1 vial 05/10/18 07:00 05/11/18 16:56 Novolog Vial Sliding Scale - SQ 2 units ACHS [facility] Administration Protocol Lactobacillus Acidophilus 1 tab 05/10/18 13:15 05/11/18 09:24 Bacid - PO 1 tab DAILY [facility] Administration Loratadine 10 mg 05/10/18 10:00 05/11/18 09:24 Claritin - PO 10 mg DAILY [facility] Administration Metoprolol Tartrate 12.5 mg 05/10/18 10:00 05/11/18 09:25 Lopressor - PO Not Given BID [facility] Sertraline HCl 25 mg 05/10/18 10:00 05/11/18 09:24 Zoloft - PO 25 mg DAILY [facility] Administration Solifenacin 5 mg 05/10/18 10:00 05/11/18 09:24 Vesicare - PO 5 mg DAILY [facility] Administration Tiotropium [place] 2 puff 05/10/18 10:00 05/11/18 09:25 Spiriva Respimat IH 2 puff DAILY [facility] Administration - Objective Vital Signs: Vital Signs Period Temp Pulse Resp BP Sys/Gates Pulse Ox Last 24 Hr 98.3 F-99.0 F 61-71 17-20 124-147/42-71 92-94 Constitutional: Yes: No Distress, Calm, Obese Cardiovascular: Yes: Regular Rate and Rhythm (decr intensity sounds (habitus)), JVD (probable (L neck)), S1, S2. No: Gallop, Murmur Respiratory: Yes: Regular, CTA Bilaterally. No: Accessory Muscle Use, Rales, Wheezes Extremities: No: Cold Edema: No Neurological: Yes: Alert. No: Seizure Psychiatric: No: Agitated no jaundice diaphoresis Labs: CBC, BMP 05/11/18 06:30 05/11/18 06:30 cxr: chf ecg: sr,nl intervals, no ischemci changes mibi 2011: no ischemia, nl lvef echo 03/2014: lvh, nl lv/rv, lae, no sig valve path echo 04/2018: mild lvh, nl lv, mild rve, nl rv fcn, lae, no sig valve path a/p: 72 f hx copd, htn, dm, here s/p fall at NH. acute diastolic chf: -no signs acs -cr initially up from baseline--given test dose lasix 40 iv x1 on HD#1 and renal fxn improved -bedscale wts only -05/09: sob resolved. suspect JVD present. will repeat lasix 40 iv today, recheck labs and CXR in am (phys exam tds sec to habitus) -05/10: wt down, cr improved, cont iv lasix, daily chem7 -05/11: cont iv lasix, cr stable htn: -bp stable -cont home meds isabel: -cr 2 on admit, cr was 1.2 on 12/2017 [facility] -possibly cardiorenal, plan as above -trend labs daily while diuresing fall: -mechanical, no indication of cardiac etiology le cellulitis: -abx per ID
[2018-05-11] MEDS: ATORVASTATIN CA 10 MG TABLET (FP) PO SCH (21:12)
[2018-05-12] MEDS ORDERED: PT OWN MED DRAWER 7, Y5N ONE ×9 (01:11→17:45)
[2018-05-12] MEDS: CLINDAMYCIN 300 MG PREMIX IVPB 300 MG/50 ML BAG IVPB SCH ×3 (01:13→17:43)
[2018-05-12] MEDS: AZTREONAM 1 GM in DEXTROSE 5%-WATER - 50 ML IVPB SCH ×3 (01:46→17:43)
[2018-05-12] MEDS: FUROSEMIDE 40 MG/4 ML INJECTABLE VIAL IVPUSH SCH ×2 (05:50→13:42)
[2018-05-12] MEDS: hydrALAZINE HCL 50 MG TABLET (FP) PO SCH ×4 (05:50→22:00)
[2018-05-12] MEDS: INSULIN SLIDING SCALE (NOVOLOG) 1 VIAL SQ SCH ×4 (06:20→22:14)
[2018-05-12 08:02] LABS: BASO % 1.1 % (0-2.0); EOS % 4.1 % (0-4.5); HEMATOCRIT 32.9 % (32.4-45.2); HEMOGLOBIN 10.2 GM/dL (10.7-15.3); LYMPH % 43.3 % (8-40); MCH 27.4 pg (25.7-33.7); MCHC 31.2 g/dl (32.0-36.0); MEAN PLT VOLUME 9.3 fl (7.5-11.1); MONO % 10.2 % (3.8-10.2); NEUT % 41.3 % (42.8-82.8); PLATELET COUNT 250 K/MM3 (134-434); RBC 3.73 M/mm3 (3.60-5.2); RDW 15.8 % (11.6-15.6); WHITE BLOOD COUNT 7.6 K/mm3 (4.0-10.0)
[2018-05-12 08:21] LABS: ALBUMIN 2.5 g/dl (3.4-5.0); ALK PHOS 53 U/L (45-117); ANION GAP 7 MMOL/L (8-16); BILIRUBIN,TOTAL 0.6 mg/dL (0.2-1); BLOOD UREA NITROGEN 31 mg/dL (7-18); CHLORIDE 106 mmol/L (98-107); CO2 27 mmol/L (21-32); GLUCOSE,RANDOM 106 mg/dL (74-106); POTASSIUM 5.3 mmol/L (3.5-5.1); SGOT/AST 27 U/L (15-37); SGPT/ALT 12 U/L (13-61); SODIUM 140 mmol/L (136-145); TOT PROT 7.1 g/dl (6.4-8.2)
[2018-05-12] MEDS: amLODIPine BESYLATE 10 MG TABLET (FP) PO SCH (09:37)
[2018-05-12] MEDS: ASPIRIN COATED 81 MG TABLET.EC PO SCH (09:37)
[2018-05-12] MEDS: METOPROLOL TARTRATE 25 MG TABLET (FP) PO SCH ×2 (09:37→22:00)
[2018-05-12] MEDS: GABAPENTIN 100 MG CAPSULE (FP) PO SCH ×2 (09:37→21:59)
[2018-05-12] MEDS: SOLIFENACIN SUCCINATE 5 MG TAB (FP) PO SCH (09:37)
[2018-05-12] MEDS: DOCUSATE SODIUM 100 MG CAPSULE (FP) PO SCH ×2 (09:37→23:13)
[2018-05-12] MEDS: BACLOFEN 10 MG TABLET (FP) PO SCH ×2 (09:37→22:00)
[2018-05-12] MEDS: HEPARIN NA (PORCINE) 5,000 UNITS/ML 1ML VIAL SQ SCH ×2 (09:38→22:01)
[2018-05-12] MEDS: TIOTROPIUM BROMIDE 2.5 MCG (SPIRIVA) RESPIMAT INHALER IH SCH (09:38)
[2018-05-12] MEDS: BUDESONIDE/FORMETEROL FUMARATE 160/4.5 mcg INHALER IH SCH ×2 (09:38→23:13)
[2018-05-12] MEDS: SERTRALINE HCL 25 MG TABLET (FP) PO SCH (09:38)
--- NOTE | 2018-05-12 10:44 | PN ---
Progress Note, Physician History of Present Illness: improving still with left ext swelling rt leg looking better - Current Medication List Current Medications: Active Medications Acetaminophen (Tylenol -) 650 mg PO Q6H PRN PRN Reason: FEVER Last Admin: 05/11/18 18:49 Dose: 650 mg Albuterol Sulfate (Ventolin 0.083% Nebulizer Soln -) 1 amp NEB Q6H PRN PRN Reason: SHORT OF BREATH/WHEEZING Amlodipine Besylate (Norvasc -) 10 mg PO DAILY [facility] Last Admin: 05/12/18 09:37 Dose: 10 mg Aspirin (Ecotrin -) 81 mg PO DAILY [facility] Last Admin: 05/12/18 09:37 Dose: 81 mg Atorvastatin Calcium (Lipitor -) 10 mg PO HS [facility] Last Admin: 05/11/18 21:12 Dose: 10 mg Baclofen (Lioresal -) 10 mg PO BID [facility] Last Admin: 05/12/18 09:37 Dose: 10 mg Budesonide/Formoterol Fumarate (Symbicort 160/4.5mcg -) 2 puff IH BID [facility] Last Admin: 05/12/18 09:38 Dose: 2 puff Docusate Sodium (Colace -) 100 mg PO BID [facility] Last Admin: 05/12/18 09:37 Dose: 100 mg Emollient Ointment (Aquaphor -) 1 applic TP DAILY [facility] Last Admin: 05/11/18 09:24 Dose: 1 applic Furosemide (Lasix Injection -) 40 mg IVPUSH BID@0600,1400 [facility] Last Admin: 05/12/18 05:50 Dose: 40 mg Gabapentin (Neurontin -) 200 mg PO BID [facility] Last Admin: 05/12/18 09:37 Dose: 200 mg Heparin Sodium (Porcine) (Heparin -) 5,000 unit SQ BID [facility] Last Admin: 05/12/18 09:38 Dose: 5,000 unit Hydralazine HCl (Apresoline -) 100 mg PO TID [facility] Last Admin: 05/12/18 05:50 Dose: 100 mg Aztreonam 1 gm/ Dextrose 50 mls @ 100 mls/hr IVPB Q8H-IV [facility]; Protocol Last Admin: 05/12/18 09:37 Dose: 100 mls/hr Clindamycin Phosphate (Cleocin 300 Mg Premix Ivpb) 300 mg in 50 mls @ 100 mls/ hr IVPB Q8H-IV [facility]; Protocol Last Admin: 05/12/18 09:17 Dose: 100 mls/hr Insulin Aspart (Novolog Vial Sliding Scale -) 1 vial SQ ACHS [facility]; Protocol Last Admin: 05/12/18 06:20 Dose: Not Given Lactobacillus Acidophilus (Bacid -) 1 tab PO DAILY [facility] Last Admin: 05/11/18 09:24 Dose: 1 tab Loratadine (Claritin -) 10 mg PO DAILY [facility] Last Admin: 05/11/18 09:24 Dose: 10 mg Metoprolol Tartrate (Lopressor -) 12.5 mg PO BID [facility] Last Admin: 05/12/18 09:37 Dose: 12.5 mg Sertraline HCl (Zoloft -) 25 mg PO DAILY [facility] Last Admin: 05/12/18 09:38 Dose: 25 mg Solifenacin (Vesicare -) 5 mg PO DAILY [facility] Last Admin: 05/12/18 09:37 Dose: 5 mg Tiotropium [place] (Spiriva Respimat) 2 puff IH DAILY [facility] Last Admin: 05/12/18 09:38 Dose: 2 puff - Objective Vital Signs: Vital Signs Temperature 98.6 F 05/12/18 05:28 Pulse Rate 60 05/12/18 05:28 Respiratory Rate 20 05/12/18 05:28 Blood Pressure 143/68 05/12/18 05:28 O2 Sat by Pulse Oximetry (%) 94 L 05/11/18 20:36 Constitutional: Yes: No Distress, Calm Cardiovascular: Yes: S1, S2 Respiratory: Yes: Regular, CTA Bilaterally Gastrointestinal: Yes: Normal Bowel Sounds, Soft Musculoskeletal: Yes: Other Edema: LLE: 1+, RLE: 1+ Integumentary: Yes: Erythema, Other Wound/Incision: Yes: Clean/Dry Neurological: Yes: Alert, Oriented Psychiatric: Yes: Alert, Oriented Labs: CBC, BMP 05/12/18 06:30 05/12/18 06:30 Assessment/Plan Problem List - Problems (1) DEE (acute kidney injury) Code(s): N17.9 - ACUTE KIDNEY FAILURE, UNSPECIFIED (2) Fall Code(s): W19.XXXA - UNSPECIFIED FALL, INITIAL ENCOUNTER (3) Cellulitis of both lower extremities Code(s): L03.115 - CELLULITIS OF RIGHT LOWER LIMB; L03.116 - CELLULITIS OF LEFT LOWER LIMB (4) HTN (hypertension) Code(s): I10 - ESSENTIAL (PRIMARY) HYPERTENSION (5) Type 2 diabetes mellitus Code(s): E11.9 - TYPE 2 DIABETES MELLITUS WITHOUT COMPLICATIONS 6 b/l cellulittis of the legs leukocytosis plan continue current abx improving elevation of the legs rest as per the team rt leg coke still cleaner but improved
[2018-05-12] MEDS: LORATADINE 10 MG TABLET PO SCH (10:45)
[2018-05-12] MEDS: LACTOBACILLUS ACIDOPHILUS 1 TABLET PO SCH (10:46)
[2018-05-12] MEDS: MINERAL OIL/PET HY-PHL TOPICAL OINTMENT 454 GM JAR TP SCH (10:49)
--- NOTE | 2018-05-12 11:41 | PN ---
Progress Note (short form) - Note Progress Note: c/o legs to be sore no fever no SOB Vital Signs - 24 hr Vital Signs - 24 hr 05/11/18 05/11/18 05/11/18 12:49 15:19 18:00 Temperature 98.4 F 99.0 F 98.6 F Pulse Rate 66 64 60 Respiratory 20 20 20 Rate Blood Pressure 142/51 L 147/63 129/43 L O2 Sat by Pulse Oximetry (%) 05/11/18 05/12/18 05/12/18 20:36 05:28 09:00 Temperature 98.6 F Pulse Rate 60 Respiratory 20 18 Rate Blood Pressure 143/68 O2 Sat by Pulse 94 L 94 L Oximetry (%) 05/12/18 10:00 Temperature 98.7 F Pulse Rate 68 Respiratory 20 Rate Blood Pressure 141/58 L O2 Sat by Pulse Oximetry (%) Current Medications Generic Name Dose Route Start Last Admin Trade Name Freq PRN Reason Stop Dose Admin Acetaminophen 650 mg 05/09/18 22:59 05/11/18 18:49 Tylenol - PO 650 mg Q6H PRN Administration FEVER Albuterol Sulfate 1 amp 05/09/18 22:59 Ventolin 0.083% Nebulizer Soln - NEB Q6H PRN SHORT OF BREATH/WHEEZING Amlodipine Besylate 10 mg 05/10/18 10:00 05/12/18 09:37 Norvasc - PO 10 mg DAILY [facility] Administration Aspirin 81 mg 05/10/18 10:00 05/12/18 09:37 Ecotrin - PO 81 mg DAILY [facility] Administration Atorvastatin Calcium 10 mg 05/10/18 22:00 05/11/18 21:12 Lipitor - PO 10 mg HS [facility] Administration Baclofen 10 mg 05/10/18 10:00 05/12/18 09:37 Lioresal - PO 10 mg BID [facility] Administration Budesonide/Formoterol Fumarate 2 puff 05/10/18 10:00 05/12/18 09:38 Symbicort 160/4.5mcg - IH 2 puff BID [facility] Administration Docusate Sodium 100 mg 05/10/18 10:00 05/12/18 09:37 Colace - PO 100 mg BID [facility] Administration Emollient Ointment 1 applic 05/10/18 10:00 05/12/18 10:49 Aquaphor - TP 1 applic DAILY [facility] Administration Furosemide 40 mg 05/11/18 14:00 05/12/18 05:50 Lasix Injection - IVPUSH 40 mg BID@0600,1400 [facility] Administration Gabapentin 200 mg 05/10/18 10:00 05/12/18 09:37 Neurontin - PO 200 mg BID [facility] Administration Heparin Sodium (Porcine) 5,000 unit 05/10/18 10:00 05/12/18 09:38 Heparin - SQ 5,000 unit BID [facility] Administration Hydralazine HCl 100 mg 05/10/18 06:00 05/12/18 05:50 Apresoline - PO 100 mg TID [facility] Administration Aztreonam 1 gm/ Dextrose 50 mls @ 100 mls/hr 05/10/18 02:00 05/12/18 09:37 IVPB 100 mls/hr Q8H-IV [facility] Administration Protocol Clindamycin Phosphate 300 mg in 50 mls @ 100 mls/hr 05/10/18 02:00 05/12/18 09:17 Cleocin 300 Mg Premix Ivpb IVPB 100 mls/hr Q8H-IV [facility] Administration Protocol Insulin Aspart 1 vial 05/10/18 07:00 05/12/18 11:29 Novolog Vial Sliding Scale - SQ 2 units ACHS [facility] Administration Protocol Lactobacillus Acidophilus 1 tab 05/10/18 13:15 05/12/18 10:46 Bacid - PO 1 tab DAILY [facility] Administration Loratadine 10 mg 05/10/18 10:00 05/12/18 10:45 Claritin - PO 10 mg DAILY [facility] Administration Metoprolol Tartrate 12.5 mg 05/10/18 10:00 05/12/18 09:37 Lopressor - PO 12.5 mg BID [facility] Administration Sertraline HCl 25 mg 05/10/18 10:00 05/12/18 09:38 Zoloft - PO 25 mg DAILY [facility] Administration Sodium Polystyrene Sulfonate 30 gm 05/12/18 11:42 Kayexalate - PO 05/12/18 11:43 ONCE ONE Solifenacin 5 mg 05/10/18 10:00 05/12/18 09:37 Vesicare - PO 5 mg DAILY [facility] Administration Tiotropium [place] 2 puff 05/10/18 10:00 05/12/18 09:38 Spiriva Respimat IH 2 puff DAILY [facility] Administration Laboratory Results - last 24 hr 11/14/18 11/14/18 11/14/18 11:23 16:53 21:10 WBC RBC Hgb Hct MCV MCH MCHC RDW Plt Count MPV Absolute Neuts (auto) Neutrophils % Lymphocytes % Monocytes % Eosinophils % Basophils % Nucleated RBC % Sodium Potassium Chloride Carbon Dioxide Anion Gap BUN Creatinine Creat Clearance w eGFR POC Glucometer 198 163 144 Random Glucose Calcium Total Bilirubin AST ALT Alkaline Phosphatase Total Protein Albumin 05/12/18 05/12/18 05/12/18 05:48 06:30 06:30 WBC 7.6 RBC 3.73 Hgb 10.2 L Hct 32.9 MCV 88.0 MCH 27.4 MCHC 31.2 L RDW 15.8 H Plt Count 250 MPV 9.3 Absolute Neuts (auto) 3.1 Neutrophils % 41.3 L Lymphocytes % 43.3 H Monocytes % 10.2 Eosinophils % 4.1 Basophils % 1.1 Nucleated RBC % 0 Sodium 140 Potassium 5.3 H Chloride 106 Carbon Dioxide 27 Anion Gap 7 L BUN 31 H Creatinine 1.0 Creat Clearance w eGFR 54.66 POC Glucometer 126 Random Glucose 106 Calcium 8.0 L Total Bilirubin 0.6 AST 27 ALT 12 L Alkaline Phosphatase 53 Total Protein 7.1 Albumin 2.5 L 05/12/18 11:23 WBC RBC Hgb Hct MCV MCH MCHC RDW Plt Count MPV Absolute Neuts (auto) Neutrophils % Lymphocytes % Monocytes % Eosinophils % Basophils % Nucleated RBC % Sodium Potassium Chloride Carbon Dioxide Anion Gap BUN Creatinine Creat Clearance w eGFR POC Glucometer 160 Random Glucose Calcium Total Bilirubin AST ALT Alkaline Phosphatase Total Protein Albumin S1 S2 RRR Lungs clear Abd- soft, obese, Nt edema+, tender+hyperpigmented skin+, warm+ PLAN IV antibiotics pain control kayexalate today on Lasix BID continue with meds monitor renal function Problem List - Problems (1) DEE (acute kidney injury) Code(s): N17.9 - ACUTE KIDNEY FAILURE, UNSPECIFIED (2) Cellulitis Code(s): L03.90 - CELLULITIS, UNSPECIFIED (3) Cellulitis of both lower extremities Code(s): L03.115 - CELLULITIS OF RIGHT LOWER LIMB; L03.116 - CELLULITIS OF LEFT LOWER LIMB (4) HTN (hypertension) Code(s): I10 - ESSENTIAL (PRIMARY) HYPERTENSION (5) Type 2 diabetes mellitus Code(s): E11.9 - TYPE 2 DIABETES MELLITUS WITHOUT COMPLICATIONS
[2018-05-12] MEDS ORDERED: SODIUM POLYSTYRENE SULFONATE 15 GM/60 ML BOTTLE PO ONE (12:30)
[2018-05-12] MEDS ORDERED: METOLAZONE 2.5 MG TABLET (FP) PO ONE (15:58)
--- NOTE | 2018-05-12 15:58 | PN ---
Progress Note, Physician History of Present Illness: Pt seen and examined at bedside. She feels that her breathing is improved. - Current Medication List Current Medications: Active Medications Acetaminophen (Tylenol -) 650 mg PO Q6H PRN PRN Reason: FEVER Last Admin: 05/11/18 18:49 Dose: 650 mg Albuterol Sulfate (Ventolin 0.083% Nebulizer Soln -) 1 amp NEB Q6H PRN PRN Reason: SHORT OF BREATH/WHEEZING Amlodipine Besylate (Norvasc -) 10 mg PO DAILY [facility] Last Admin: 05/12/18 09:37 Dose: 10 mg Aspirin (Ecotrin -) 81 mg PO DAILY [facility] Last Admin: 05/12/18 09:37 Dose: 81 mg Atorvastatin Calcium (Lipitor -) 10 mg PO HS [facility] Last Admin: 05/11/18 21:12 Dose: 10 mg Baclofen (Lioresal -) 10 mg PO BID [facility] Last Admin: 05/12/18 09:37 Dose: 10 mg Budesonide/Formoterol Fumarate (Symbicort 160/4.5mcg -) 2 puff IH BID [facility] Last Admin: 05/12/18 09:38 Dose: 2 puff Docusate Sodium (Colace -) 100 mg PO BID [facility] Last Admin: 05/12/18 09:37 Dose: 100 mg Emollient Ointment (Aquaphor -) 1 applic TP DAILY [facility] Last Admin: 05/12/18 10:49 Dose: 1 applic Furosemide (Lasix Injection -) 40 mg IVPUSH BID@0600,1400 [facility] Last Admin: 05/12/18 05:50 Dose: 40 mg Gabapentin (Neurontin -) 200 mg PO BID [facility] Last Admin: 05/12/18 09:37 Dose: 200 mg Heparin Sodium (Porcine) (Heparin -) 5,000 unit SQ BID [facility] Last Admin: 05/12/18 09:38 Dose: 5,000 unit Hydralazine HCl (Apresoline -) 100 mg PO TID [facility] Last Admin: 05/12/18 13:49 Dose: 100 mg Aztreonam 1 gm/ Dextrose 50 mls @ 100 mls/hr IVPB Q8H-IV [facility]; Protocol Last Admin: 05/12/18 09:37 Dose: 100 mls/hr Clindamycin Phosphate (Cleocin 300 Mg Premix Ivpb) 300 mg in 50 mls @ 100 mls/ hr IVPB Q8H-IV [facility]; Protocol Last Admin: 05/12/18 09:17 Dose: 100 mls/hr Insulin Aspart (Novolog Vial Sliding Scale -) 1 vial SQ ACHS [facility]; Protocol Last Admin: 05/12/18 11:29 Dose: 2 units Lactobacillus Acidophilus (Bacid -) 1 tab PO DAILY [facility] Last Admin: 05/12/18 10:46 Dose: 1 tab Loratadine (Claritin -) 10 mg PO DAILY [facility] Last Admin: 05/12/18 10:45 Dose: 10 mg Metoprolol Tartrate (Lopressor -) 12.5 mg PO BID [facility] Last Admin: 05/12/18 09:37 Dose: 12.5 mg Sertraline HCl (Zoloft -) 25 mg PO DAILY [facility] Last Admin: 05/12/18 09:38 Dose: 25 mg Solifenacin (Vesicare -) 5 mg PO DAILY [facility] Last Admin: 05/12/18 09:37 Dose: 5 mg Tiotropium [place] (Spiriva Respimat) 2 puff IH DAILY [facility] Last Admin: 05/12/18 09:38 Dose: 2 puff - Objective Vital Signs: Vital Signs Temperature 98.5 F 05/12/18 15:46 Pulse Rate 58 L 05/12/18 15:46 Respiratory Rate 20 05/12/18 10:00 Blood Pressure 158/74 05/12/18 15:46 O2 Sat by Pulse Oximetry (%) 94 L 05/12/18 09:00 Constitutional: Yes: Calm Eyes: Yes: Conjunctiva Clear HENT: Yes: Atraumatic Neck: Yes: Supple Cardiovascular: Yes: S1, S2 Respiratory: Yes: CTA Bilaterally Gastrointestinal: Yes: Soft Edema: Yes Edema: LLE: 1+, RLE: 1+ Integumentary: Yes: Venous Stasis Changes Neurological: Yes: Oriented Psychiatric: Yes: Oriented Labs: CBC, BMP 05/12/18 06:30 05/12/18 06:30 Problem List - Problems (1) DEE (acute kidney injury) Code(s): N17.9 - ACUTE KIDNEY FAILURE, UNSPECIFIED (2) Cellulitis Code(s): L03.90 - CELLULITIS, UNSPECIFIED Assessment/Plan Current Medications Generic Name Dose Route Start Last Admin Trade Name Freq PRN Reason Stop Dose Admin Acetaminophen 650 mg 11/12/18 22:59 05/11/18 18:49 Tylenol - PO 650 mg Q6H PRN Administration FEVER Albuterol Sulfate 1 amp 05/09/18 22:59 Ventolin 0.083% Nebulizer Soln - NEB Q6H PRN SHORT OF BREATH/WHEEZING Amlodipine Besylate 10 mg 05/10/18 10:00 05/12/18 09:37 Norvasc - PO 10 mg DAILY [facility] Administration Aspirin 81 mg 05/10/18 10:00 05/12/18 09:37 Ecotrin - PO 81 mg DAILY [facility] Administration Atorvastatin Calcium 10 mg 05/10/18 22:00 05/11/18 21:12 Lipitor - PO 10 mg HS [facility] Administration Baclofen 10 mg 05/10/18 10:00 05/12/18 09:37 Lioresal - PO 10 mg BID [facility] Administration Budesonide/Formoterol Fumarate 2 puff 05/10/18 10:00 05/12/18 09:38 Symbicort 160/4.5mcg - IH 2 puff BID [facility] Administration Docusate Sodium 100 mg 05/10/18 10:00 05/12/18 09:37 Colace - PO 100 mg BID [facility] Administration Emollient Ointment 1 applic 05/10/18 10:00 05/12/18 10:49 Aquaphor - TP 1 applic DAILY [facility] Administration Furosemide 40 mg 05/11/18 14:00 05/12/18 05:50 Lasix Injection - IVPUSH 40 mg BID@0600,1400 [facility] Administration Gabapentin 200 mg 05/10/18 10:00 05/12/18 09:37 Neurontin - PO 200 mg BID [facility] Administration Heparin Sodium (Porcine) 5,000 unit 05/10/18 10:00 05/12/18 09:38 Heparin - SQ 5,000 unit BID [facility] Administration Hydralazine HCl 100 mg 05/10/18 06:00 05/12/18 13:49 Apresoline - PO 100 mg TID [facility] Administration Aztreonam 1 gm/ Dextrose 50 mls @ 100 mls/hr 05/10/18 02:00 05/12/18 09:37 IVPB 100 mls/hr Q8H-IV [facility] Administration Protocol Clindamycin Phosphate 300 mg in 50 mls @ 100 mls/hr 05/10/18 02:00 05/12/18 09:17 Cleocin 300 Mg Premix Ivpb IVPB 100 mls/hr Q8H-IV [facility] Administration Protocol Insulin Aspart 1 vial 05/10/18 07:00 05/12/18 11:29 Novolog Vial Sliding Scale - SQ 2 units ACHS [facility] Administration Protocol Lactobacillus Acidophilus 1 tab 05/10/18 13:15 05/12/18 10:46 Bacid - PO 1 tab DAILY [facility] Administration Loratadine 10 mg 05/10/18 10:00 05/12/18 10:45 Claritin - PO 10 mg DAILY [facility] Administration Metoprolol Tartrate 12.5 mg 05/10/18 10:00 05/12/18 09:37 Lopressor - PO 12.5 mg BID [facility] Administration Sertraline HCl 25 mg 05/10/18 10:00 05/12/18 09:38 Zoloft - PO 25 mg DAILY [facility] Administration Solifenacin 5 mg 05/10/18 10:00 05/12/18 09:37 Vesicare - PO 5 mg DAILY [facility] Administration Tiotropium [place] 2 puff 05/10/18 10:00 05/12/18 09:38 Spiriva Respimat IH 2 puff DAILY [facility] Administration Impression 1. DEE resolving 2. CHF 3. DM 4. HTN 5. cellulitis 6. COPD 7. hyperkalemia Plan - cont lasix IV BID - will also give a dose of metolazone - pt did get kayexyalte for potassium - likely cardiorenal - monitor lytes - low potassium diet
[2018-05-12] MEDS: ATORVASTATIN CA 10 MG TABLET (FP) PO SCH (22:00)
[2018-05-13] MEDS ORDERED: PT OWN MED DRAWER 7, Y5N ONE ×5 (01:49→21:37)
[2018-05-13] MEDS: CLINDAMYCIN 300 MG PREMIX IVPB 300 MG/50 ML BAG IVPB SCH ×3 (01:52→17:02)
[2018-05-13] MEDS: AZTREONAM 1 GM in DEXTROSE 5%-WATER - 50 ML IVPB SCH ×3 (02:29→17:02)
[2018-05-13] MEDS: hydrALAZINE HCL 50 MG TABLET (FP) PO SCH ×3 (05:45→22:17)
[2018-05-13] MEDS: FUROSEMIDE 40 MG/4 ML INJECTABLE VIAL IVPUSH SCH ×2 (05:46→13:15)
[2018-05-13] MEDS: INSULIN SLIDING SCALE (NOVOLOG) 1 VIAL SQ SCH ×4 (06:41→22:25)
[2018-05-13 08:50] LABS: ALBUMIN 2.6 g/dl (3.4-5.0); ALK PHOS 55 U/L (45-117); ANION GAP 8 MMOL/L (8-16); BILIRUBIN,TOTAL 0.3 mg/dL (0.2-1); BLOOD UREA NITROGEN 25 mg/dL (7-18); CALCIUM 8.5 mg/dL (8.5-10.1); CHLORIDE 105 mmol/L (98-107); CO2 26 mmol/L (21-32); GLUCOSE,RANDOM 123 mg/dL (74-106); SGOT/AST 24 U/L (15-37); SGPT/ALT 14 U/L (13-61); SODIUM 139 mmol/L (136-145)
[2018-05-13] MEDS: SERTRALINE HCL 25 MG TABLET (FP) PO SCH (09:33)
[2018-05-13] MEDS: GABAPENTIN 100 MG CAPSULE (FP) PO SCH ×2 (09:33→22:17)
[2018-05-13] MEDS: SOLIFENACIN SUCCINATE 5 MG TAB (FP) PO SCH (09:33)
[2018-05-13] MEDS: METOPROLOL TARTRATE 25 MG TABLET (FP) PO SCH ×2 (09:34→22:18)
[2018-05-13] MEDS: ASPIRIN COATED 81 MG TABLET.EC PO SCH (09:34)
[2018-05-13] MEDS: BACLOFEN 10 MG TABLET (FP) PO SCH ×2 (09:34→22:18)
[2018-05-13] MEDS: LACTOBACILLUS ACIDOPHILUS 1 TABLET PO SCH (09:34)
[2018-05-13] MEDS: LORATADINE 10 MG TABLET PO SCH (09:34)
[2018-05-13] MEDS: TIOTROPIUM BROMIDE 2.5 MCG (SPIRIVA) RESPIMAT INHALER IH SCH (09:35)
[2018-05-13] MEDS: BUDESONIDE/FORMETEROL FUMARATE 160/4.5 mcg INHALER IH SCH ×2 (09:35→22:19)
[2018-05-13] MEDS: DOCUSATE SODIUM 100 MG CAPSULE (FP) PO SCH ×2 (10:00→22:19)
[2018-05-13] MEDS: HEPARIN NA (PORCINE) 5,000 UNITS/ML 1ML VIAL SQ SCH ×2 (10:00→22:19)
[2018-05-13] MEDS: MINERAL OIL/PET HY-PHL TOPICAL OINTMENT 454 GM JAR TP SCH (10:10)
--- NOTE | 2018-05-13 10:38 | PN ---
Progress Note, Physician History of Present Illness: patients legs continue to improve still with swelling tenderness much better - Current Medication List Current Medications: Active Medications Acetaminophen (Tylenol -) 650 mg PO Q6H PRN PRN Reason: FEVER Last Admin: 05/11/18 18:49 Dose: 650 mg Albuterol Sulfate (Ventolin 0.083% Nebulizer Soln -) 1 amp NEB Q6H PRN PRN Reason: SHORT OF BREATH/WHEEZING Amlodipine Besylate (Norvasc -) 10 mg PO DAILY [facility] Last Admin: 05/12/18 09:37 Dose: 10 mg Aspirin (Ecotrin -) 81 mg PO DAILY [facility] Last Admin: 05/13/18 09:34 Dose: 81 mg Atorvastatin Calcium (Lipitor -) 10 mg PO HS [facility] Last Admin: 05/12/18 22:00 Dose: 10 mg Baclofen (Lioresal -) 10 mg PO BID [facility] Last Admin: 05/13/18 09:34 Dose: 10 mg Budesonide/Formoterol Fumarate (Symbicort 160/4.5mcg -) 2 puff IH BID [facility] Last Admin: 05/13/18 09:35 Dose: 2 puff Docusate Sodium (Colace -) 100 mg PO BID [facility] Last Admin: 05/12/18 23:13 Dose: 100 mg Emollient Ointment (Aquaphor -) 1 applic TP DAILY [facility] Last Admin: 05/12/18 10:49 Dose: 1 applic Furosemide (Lasix Injection -) 40 mg IVPUSH BID@0600,1400 [facility] Last Admin: 05/13/18 05:46 Dose: 40 mg Gabapentin (Neurontin -) 200 mg PO BID [facility] Last Admin: 05/13/18 09:33 Dose: 200 mg Heparin Sodium (Porcine) (Heparin -) 5,000 unit SQ BID [facility] Last Admin: 05/12/18 22:01 Dose: 5,000 unit Hydralazine HCl (Apresoline -) 100 mg PO TID [facility] Last Admin: 05/13/18 05:45 Dose: 100 mg Aztreonam 1 gm/ Dextrose 50 mls @ 100 mls/hr IVPB Q8H-IV [facility]; Protocol Last Admin: 05/13/18 09:35 Dose: 100 mls/hr Clindamycin Phosphate (Cleocin 300 Mg Premix Ivpb) 300 mg in 50 mls @ 100 mls/ hr IVPB Q8H-IV [facility]; Protocol Last Admin: 05/13/18 09:34 Dose: 100 mls/hr Insulin Aspart (Novolog Vial Sliding Scale -) 1 vial SQ ACHS [facility]; Protocol Last Admin: 05/13/18 06:41 Dose: Not Given Lactobacillus Acidophilus (Bacid -) 1 tab PO DAILY [facility] Last Admin: 05/13/18 09:34 Dose: 1 tab Loratadine (Claritin -) 10 mg PO DAILY [facility] Last Admin: 05/13/18 09:34 Dose: 10 mg Metoprolol Tartrate (Lopressor -) 12.5 mg PO BID [facility] Last Admin: 05/13/18 09:34 Dose: 12.5 mg Sertraline HCl (Zoloft -) 25 mg PO DAILY [facility] Last Admin: 05/13/18 09:33 Dose: 25 mg Solifenacin (Vesicare -) 5 mg PO DAILY [facility] Last Admin: 05/13/18 09:33 Dose: 5 mg Tiotropium [place] (Spiriva Respimat) 2 puff IH DAILY [facility] Last Admin: 05/13/18 09:35 Dose: 2 puff - Objective Vital Signs: Vital Signs Temperature 98.8 F 05/12/18 21:00 Pulse Rate 69 05/13/18 04:49 Respiratory Rate 20 05/12/18 21:00 Blood Pressure 139/65 05/13/18 04:49 O2 Sat by Pulse Oximetry (%) 94 L 05/12/18 21:00 Constitutional: Yes: No Distress, Calm Cardiovascular: Yes: S1, S2 Respiratory: Yes: Regular, CTA Bilaterally Gastrointestinal: Yes: Normal Bowel Sounds, Soft Musculoskeletal: Yes: WNL Extremities: Yes: Erythema (improving), Other (swelling improving) Neurological: Yes: Alert, Oriented Psychiatric: Yes: Alert, Oriented Labs: CBC, BMP 05/12/18 06:30 05/13/18 07:25 Assessment/Plan Problem List - Problems (1) DEE (acute kidney injury) Code(s): N17.9 - ACUTE KIDNEY FAILURE, UNSPECIFIED (2) Fall Code(s): W19.XXXA - UNSPECIFIED FALL, INITIAL ENCOUNTER (3) Cellulitis of both lower extremities Code(s): L03.115 - CELLULITIS OF RIGHT LOWER LIMB; L03.116 - CELLULITIS OF LEFT LOWER LIMB (4) HTN (hypertension) Code(s): I10 - ESSENTIAL (PRIMARY) HYPERTENSION (5) Type 2 diabetes mellitus Code(s): E11.9 - TYPE 2 DIABETES MELLITUS WITHOUT COMPLICATIONS 6 b/l cellulittis of the legs leukocytosis plan continue current abx improving elevation of the legs rest 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
[2018-05-13] MEDS: amLODIPine BESYLATE 10 MG TABLET (FP) PO SCH (11:47)
--- NOTE | 2018-05-13 11:56 | PN ---
Progress Note (short form) - Note Progress Note: pt seen/ examined chart reviewed awake/ comfortable legs much better Vital Signs Temp 98.8 F 05/12/18 21:00 Pulse 69 05/13/18 04:49 Resp 20 05/13/18 09:00 BP 139/65 05/13/18 04:49 Pulse Ox 94 L 05/13/18 09:00 Intake & Output 05/12/18 05/12/18 05/13/18 11:59 23:59 11:59 Intake Total 305 1125 350 Balance 305 1125 350 Weight 247 lb 230 lb 1 oz 245 lb 2 oz Intake: IVPB 50 100 100 Oral 255 1025 250 Other: Voiding Method Diaper Diaper Incontinent # Unmeasured Voids Void 1 2 1 Bowel Movement No Yes # Bowel Movements 6 Weight Measurement Method Built in Bedscale Built in Bedscale Built in Bedscale Active Medications Acetaminophen (Tylenol -) 650 mg PO Q6H PRN PRN Reason: FEVER Last Admin: 05/11/18 18:49 Dose: 650 mg Albuterol Sulfate (Ventolin 0.083% Nebulizer Soln -) 1 amp NEB Q6H PRN PRN Reason: SHORT OF BREATH/WHEEZING Amlodipine Besylate (Norvasc -) 10 mg PO DAILY [facility] Last Admin: 05/13/18 11:47 Dose: 10 mg Aspirin (Ecotrin -) 81 mg PO DAILY [facility] Last Admin: 05/13/18 09:34 Dose: 81 mg Atorvastatin Calcium (Lipitor -) 10 mg PO HS [facility] Last Admin: 05/12/18 22:00 Dose: 10 mg Baclofen (Lioresal -) 10 mg PO BID [facility] Last Admin: 05/13/18 09:34 Dose: 10 mg Budesonide/Formoterol Fumarate (Symbicort 160/4.5mcg -) 2 puff IH BID [facility] Last Admin: 05/13/18 09:35 Dose: 2 puff Docusate Sodium (Colace -) 100 mg PO BID [facility] Last Admin: 05/13/18 10:00 Dose: 100 mg Emollient Ointment (Aquaphor -) 1 applic TP DAILY [facility] Last Admin: 05/12/18 10:49 Dose: 1 applic Furosemide (Lasix Injection -) 40 mg IVPUSH BID@0600,1400 [facility] Last Admin: 05/13/18 05:46 Dose: 40 mg Gabapentin (Neurontin -) 200 mg PO BID [facility] Last Admin: 05/13/18 09:33 Dose: 200 mg Heparin Sodium (Porcine) (Heparin -) 5,000 unit SQ BID [facility] Last Admin: 05/13/18 10:00 Dose: 5,000 unit Hydralazine HCl (Apresoline -) 100 mg PO TID [facility] Last Admin: 05/13/18 05:45 Dose: 100 mg Aztreonam 1 gm/ Dextrose 50 mls @ 100 mls/hr IVPB Q8H-IV [facility]; Protocol Last Admin: 05/13/18 09:35 Dose: 100 mls/hr Clindamycin Phosphate (Cleocin 300 Mg Premix Ivpb) 300 mg in 50 mls @ 100 mls/ hr IVPB Q8H-IV [facility]; Protocol Last Admin: 05/13/18 09:34 Dose: 100 mls/hr Insulin Aspart (Novolog Vial Sliding Scale -) 1 vial SQ ACHS [facility]; Protocol Last Admin: 05/13/18 06:41 Dose: Not Given Lactobacillus Acidophilus (Bacid -) 1 tab PO DAILY [facility] Last Admin: 05/13/18 09:34 Dose: 1 tab Loratadine (Claritin -) 10 mg PO DAILY [facility] Last Admin: 05/13/18 09:34 Dose: 10 mg Metoprolol Tartrate (Lopressor -) 12.5 mg PO BID [facility] Last Admin: 05/13/18 09:34 Dose: 12.5 mg Sertraline HCl (Zoloft -) 25 mg PO DAILY [facility] Last Admin: 05/13/18 09:33 Dose: 25 mg Solifenacin (Vesicare -) 5 mg PO DAILY [facility] Last Admin: 05/13/18 09:33 Dose: 5 mg Tiotropium [place] (Spiriva Respimat) 2 puff IH DAILY [facility] Last Admin: 05/13/18 09:35 Dose: 2 puff CBC, BMP 05/12/18 06:30 05/13/18 07:25 Microbiology 05/08/18 11:18 Blood Culture - Final Blood - Peripheral Venous NO GROWTH AFTER 5 DAYS INCUBATION 05/08/18 10:32 Blood Culture - Final Blood - Peripheral Venous NO GROWTH AFTER 5 DAYS INCUBATION Physical Exam. Alert/awake S1 S2 RRR Lungs clear Abd- soft, obese, Nt Ext-- Decreased erythema / reddness / swelling PLAN Better IV antibiotics-- as per i/d pain under control continue with meds monitor renal function Physical therapy will follow Problem List - Problems (1) DEE (acute kidney injury) Code(s): N17.9 - ACUTE KIDNEY FAILURE, UNSPECIFIED (2) Fall Code(s): W19.XXXA - UNSPECIFIED FALL, INITIAL ENCOUNTER (3) Cellulitis of both lower extremities Code(s): L03.115 - CELLULITIS OF RIGHT LOWER LIMB; L03.116 - CELLULITIS OF LEFT LOWER LIMB (4) HTN (hypertension) Code(s): I10 - ESSENTIAL (PRIMARY) HYPERTENSION (5) Type 2 diabetes mellitus Code(s): E11.9 - TYPE 2 DIABETES MELLITUS WITHOUT COMPLICATIONS
[2018-05-13] MEDS: ACETAMINOPHEN 325 MG TABLET (FP) PO PRN (13:11)
--- NOTE | 2018-05-13 17:37 | PN ---
Progress Note (short form) - Note Progress Note: 1. DEE resolving 2. CHF 3. DM 4. HTN 5. cellulitis 6. COPD 7. hyperkalemia Current Medications Acetaminophen (Tylenol -) 650 mg PO Q6H PRN PRN Reason: FEVER Last Admin: 05/13/18 13:11 Dose: 650 mg Albuterol Sulfate (Ventolin 0.083% Nebulizer Soln -) 1 amp NEB Q6H PRN PRN Reason: SHORT OF BREATH/WHEEZING Amlodipine Besylate (Norvasc -) 10 mg PO DAILY [facility] Last Admin: 05/13/18 11:47 Dose: 10 mg Aspirin (Ecotrin -) 81 mg PO DAILY [facility] Last Admin: 05/13/18 09:34 Dose: 81 mg Atorvastatin Calcium (Lipitor -) 10 mg PO HS [facility] Last Admin: 05/12/18 22:00 Dose: 10 mg Baclofen (Lioresal -) 10 mg PO BID [facility] Last Admin: 05/13/18 09:34 Dose: 10 mg Budesonide/Formoterol Fumarate (Symbicort 160/4.5mcg -) 2 puff IH BID [facility] Last Admin: 05/13/18 09:35 Dose: 2 puff Docusate Sodium (Colace -) 100 mg PO BID [facility] Last Admin: 05/13/18 10:00 Dose: 100 mg Emollient Ointment (Aquaphor -) 1 applic TP DAILY [facility] Last Admin: 05/13/18 10:10 Dose: 1 applic Furosemide (Lasix Injection -) 40 mg IVPUSH BID@0600,1400 [facility] Last Admin: 05/13/18 13:15 Dose: 40 mg Gabapentin (Neurontin -) 200 mg PO BID [facility] Last Admin: 05/13/18 09:33 Dose: 200 mg Heparin Sodium (Porcine) (Heparin -) 5,000 unit SQ BID [facility] Last Admin: 05/13/18 10:00 Dose: 5,000 unit Hydralazine HCl (Apresoline -) 100 mg PO TID [facility] Last Admin: 05/13/18 13:13 Dose: 100 mg Aztreonam 1 gm/ Dextrose 50 mls @ 100 mls/hr IVPB Q8H-IV [facility]; Protocol Last Admin: 05/13/18 17:02 Dose: 100 mls/hr Clindamycin Phosphate (Cleocin 300 Mg Premix Ivpb) 300 mg in 50 mls @ 100 mls/ hr IVPB Q8H-IV [facility]; Protocol Last Admin: 05/13/18 17:02 Dose: 100 mls/hr Insulin Aspart (Novolog Vial Sliding Scale -) 1 vial SQ ACHS [facility]; Protocol Last Admin: 05/13/18 17:03 Dose: 2 units Lactobacillus Acidophilus (Bacid -) 1 tab PO DAILY [facility] Last Admin: 05/13/18 09:34 Dose: 1 tab Loratadine (Claritin -) 10 mg PO DAILY [facility] Last Admin: 05/13/18 09:34 Dose: 10 mg Metoprolol Tartrate (Lopressor -) 12.5 mg PO BID [facility] Last Admin: 05/13/18 09:34 Dose: 12.5 mg Sertraline HCl (Zoloft -) 25 mg PO DAILY [facility] Last Admin: 05/13/18 09:33 Dose: 25 mg Solifenacin (Vesicare -) 5 mg PO DAILY [facility] Last Admin: 05/13/18 09:33 Dose: 5 mg Tiotropium [place] (Spiriva Respimat) 2 puff IH DAILY [facility] Last Admin: 05/13/18 09:35 Dose: 2 puff Last Vital Signs Temp Pulse Resp BP Pulse Ox 98.7 F 61 20 152/53 L 94 L 05/13/18 13:55 05/13/18 13:55 05/13/18 09:00 05/13/18 13:55 05/13/18 09:00 CBC, BMP 05/12/18 06:30 05/13/18 07:25
[2018-05-13] MEDS ORDERED: INSULIN (NOVOLOG) ASPART 100 UNITS/ML 10ML VIAL ONE (21:37)
[2018-05-13] MEDS: ATORVASTATIN CA 10 MG TABLET (FP) PO SCH (22:19)
[2018-05-14] MEDS ORDERED: PT OWN MED DRAWER 7, Y5N ONE ×4 (01:40→21:28)
[2018-05-14] MEDS: AZTREONAM 1 GM in DEXTROSE 5%-WATER - 50 ML IVPB SCH ×3 (01:45→17:08)
[2018-05-14] MEDS: CLINDAMYCIN 300 MG PREMIX IVPB 300 MG/50 ML BAG IVPB SCH ×3 (01:45→17:08)
[2018-05-14] MEDS: ACETAMINOPHEN 325 MG TABLET (FP) PO PRN (03:36)
[2018-05-14] MEDS: FUROSEMIDE 40 MG/4 ML INJECTABLE VIAL IVPUSH SCH ×2 (06:47→14:40)
[2018-05-14] MEDS: hydrALAZINE HCL 50 MG TABLET (FP) PO SCH ×3 (06:47→21:44)
[2018-05-14] MEDS: INSULIN SLIDING SCALE (NOVOLOG) 1 VIAL SQ SCH ×4 (06:49→21:44)
[2018-05-14] MEDS: MINERAL OIL/PET HY-PHL TOPICAL OINTMENT 454 GM JAR TP SCH (10:00)
[2018-05-14] MEDS: HEPARIN NA (PORCINE) 5,000 UNITS/ML 1ML VIAL SQ SCH ×2 (10:00→21:44)
[2018-05-14] MEDS: SERTRALINE HCL 25 MG TABLET (FP) PO SCH (10:04)
[2018-05-14] MEDS: BACLOFEN 10 MG TABLET (FP) PO SCH ×2 (10:04→21:44)
[2018-05-14] MEDS: GABAPENTIN 100 MG CAPSULE (FP) PO SCH ×2 (10:04→21:43)
[2018-05-14] MEDS: LORATADINE 10 MG TABLET PO SCH (10:04)
[2018-05-14] MEDS: DOCUSATE SODIUM 100 MG CAPSULE (FP) PO SCH ×2 (10:05→21:44)
[2018-05-14] MEDS: ASPIRIN COATED 81 MG TABLET.EC PO SCH (10:05)
[2018-05-14] MEDS: amLODIPine BESYLATE 10 MG TABLET (FP) PO SCH (10:05)
[2018-05-14] MEDS: METOPROLOL TARTRATE 25 MG TABLET (FP) PO SCH ×2 (10:05→21:43)
[2018-05-14] MEDS: LACTOBACILLUS ACIDOPHILUS 1 TABLET PO SCH (10:06)
[2018-05-14] MEDS: SOLIFENACIN SUCCINATE 5 MG TAB (FP) PO SCH (10:10)
[2018-05-14] MEDS ORDERED: INSULIN (NOVOLOG) ASPART 100 UNITS/ML 10ML VIAL ONE ×2 (11:47→21:26)
[2018-05-14] MEDS: BUDESONIDE/FORMETEROL FUMARATE 160/4.5 mcg INHALER IH SCH ×2 (11:57→21:43)
[2018-05-14] MEDS: TIOTROPIUM BROMIDE 2.5 MCG (SPIRIVA) RESPIMAT INHALER IH SCH (11:57)
--- NOTE | 2018-05-14 12:24 | PN ---
Progress Note (short form) - Note Progress Note: legs better, decreased pain no fever no SOB Vital Signs - 24 hr 05/13/18 05/13/18 05/13/18 13:55 17:00 19:09 Temperature 98.7 F 98.7 F 98.8 F Pulse Rate 61 61 74 Respiratory 20 Rate Blood Pressure 152/53 L 152/53 L 146/76 O2 Sat by Pulse Oximetry (%) 05/13/18 05/14/18 05/14/18 21:00 06:00 09:22 Temperature 98.7 F 98.7 F Pulse Rate 66 77 Respiratory 18 Rate Blood Pressure 148/62 104/50 L O2 Sat by Pulse 97 93 L Oximetry (%) Current Medications Generic Name Dose Route Start Last Admin Trade Name Freq PRN Reason Stop Dose Admin Acetaminophen 650 mg 05/09/18 22:59 05/14/18 03:36 Tylenol - PO 650 mg Q6H PRN Administration FEVER Albuterol Sulfate 1 amp 05/09/18 22:59 Ventolin 0.083% Nebulizer Soln - NEB Q6H PRN SHORT OF BREATH/WHEEZING Amlodipine Besylate 10 mg 05/10/18 10:00 05/14/18 10:05 Norvasc - PO 10 mg DAILY [facility] Administration Aspirin 81 mg 05/10/18 10:00 05/14/18 10:05 Ecotrin - PO 81 mg DAILY [facility] Administration Atorvastatin Calcium 10 mg 05/10/18 22:00 05/13/18 22:19 Lipitor - PO 10 mg HS [facility] Administration Baclofen 10 mg 05/10/18 10:00 05/14/18 10:04 Lioresal - PO 10 mg BID [facility] Administration Budesonide/Formoterol Fumarate 2 puff 05/10/18 10:00 05/14/18 11:57 Symbicort 160/4.5mcg - IH Not Given BID [facility] Docusate Sodium 100 mg 05/10/18 10:00 05/14/18 10:05 Colace - PO 100 mg BID [facility] Administration Emollient Ointment 1 applic 05/10/18 10:00 05/14/18 10:00 Aquaphor - TP 1 applic DAILY [facility] Administration Furosemide 40 mg 05/11/18 14:00 05/14/18 06:47 Lasix Injection - IVPUSH 40 mg BID@0600,1400 [facility] Administration Gabapentin 200 mg 05/10/18 10:00 05/14/18 10:04 Neurontin - PO 200 mg BID [facility] Administration Heparin Sodium (Porcine) 5,000 unit 05/10/18 10:00 05/14/18 10:00 Heparin - SQ 5,000 unit BID [facility] Administration Hydralazine HCl 100 mg 05/10/18 06:00 05/14/18 06:47 Apresoline - PO 100 mg TID [facility] Administration Aztreonam 1 gm/ Dextrose 50 mls @ 100 mls/hr 05/10/18 02:00 05/14/18 10:06 IVPB 100 mls/hr Q8H-IV [facility] Administration Protocol Clindamycin Phosphate 300 mg in 50 mls @ 100 mls/hr 05/10/18 02:00 05/14/18 10:06 Cleocin 300 Mg Premix Ivpb IVPB 100 mls/hr Q8H-IV [facility] Administration Protocol Insulin Aspart 1 vial 05/10/18 07:00 05/14/18 11:54 Novolog Vial Sliding Scale - SQ 2 units ACHS [facility] Administration Protocol Lactobacillus Acidophilus 1 tab 05/10/18 13:15 05/14/18 10:06 Bacid - PO 1 tab DAILY [facility] Administration Loratadine 10 mg 05/10/18 10:00 05/14/18 10:04 Claritin - PO 10 mg DAILY [facility] Administration Metoprolol Tartrate 12.5 mg 05/10/18 10:00 05/14/18 10:05 Lopressor - PO 12.5 mg BID [facility] Administration Sertraline HCl 25 mg 05/10/18 10:00 05/14/18 10:04 Zoloft - PO 25 mg DAILY [facility] Administration Solifenacin 5 mg 05/10/18 10:00 05/14/18 10:10 Vesicare - PO 5 mg DAILY [facility] Administration Tiotropium [place] 2 puff 05/10/18 10:00 05/14/18 11:57 Spiriva Respimat IH Not Given DAILY [facility] Laboratory Results - last 24 hr 05/13/18 05/13/18 05/14/18 16:46 22:23 06:46 POC Glucometer 160 158 136 05/14/18 11:10 POC Glucometer 170 S1 S2 RRR Lungs clear Abd- soft, obese, Nt edema+, tender+hyperpigmented skin+, warm+ PLAN IV antibiotics pain control recheck BMP on Lasix BID continue with meds monitor renal function Problem List - Problems (1) DEE (acute kidney injury) Code(s): N17.9 - ACUTE KIDNEY FAILURE, UNSPECIFIED (2) Cellulitis Code(s): L03.90 - CELLULITIS, UNSPECIFIED (3) Cellulitis of both lower extremities Code(s): L03.115 - CELLULITIS OF RIGHT LOWER LIMB; L03.116 - CELLULITIS OF LEFT LOWER LIMB (4) HTN (hypertension) Code(s): I10 - ESSENTIAL (PRIMARY) HYPERTENSION (5) Type 2 diabetes mellitus Code(s): E11.9 - TYPE 2 DIABETES MELLITUS WITHOUT COMPLICATIONS
[2018-05-14 13:44] LABS: ANION GAP 7 MMOL/L (8-16); BLOOD UREA NITROGEN 33 mg/dL (7-18); CALCIUM 8.3 mg/dL (8.5-10.1); CHLORIDE 102 mmol/L (98-107); CO2 30 mmol/L (21-32); CREATININE 1.2 mg/dL (0.55-1.3); GLUCOSE,RANDOM 128 mg/dL (74-106); POTASSIUM 3.5 mmol/L (3.5-5.1); SODIUM 139 mmol/L (136-145)
--- NOTE | 2018-05-14 13:49 | PN ---
Progress Note, Physician History of Present Illness: improving legs better pain and swelling better tenderness better - Current Medication List Current Medications: Active Medications Acetaminophen (Tylenol -) 650 mg PO Q6H PRN PRN Reason: FEVER Last Admin: 05/14/18 03:36 Dose: 650 mg Albuterol Sulfate (Ventolin 0.083% Nebulizer Soln -) 1 amp NEB Q6H PRN PRN Reason: SHORT OF BREATH/WHEEZING Amlodipine Besylate (Norvasc -) 10 mg PO DAILY [facility] Last Admin: 05/14/18 10:05 Dose: 10 mg Aspirin (Ecotrin -) 81 mg PO DAILY [facility] Last Admin: 05/14/18 10:05 Dose: 81 mg Atorvastatin Calcium (Lipitor -) 10 mg PO HS [facility] Last Admin: 05/13/18 22:19 Dose: 10 mg Baclofen (Lioresal -) 10 mg PO BID [facility] Last Admin: 05/14/18 10:04 Dose: 10 mg Budesonide/Formoterol Fumarate (Symbicort 160/4.5mcg -) 2 puff IH BID [facility] Last Admin: 05/14/18 11:57 Dose: Not Given Docusate Sodium (Colace -) 100 mg PO BID [facility] Last Admin: 05/14/18 10:05 Dose: 100 mg Emollient Ointment (Aquaphor -) 1 applic TP DAILY [facility] Last Admin: 05/14/18 10:00 Dose: 1 applic Furosemide (Lasix Injection -) 40 mg IVPUSH BID@0600,1400 [facility] Last Admin: 05/14/18 06:47 Dose: 40 mg Gabapentin (Neurontin -) 200 mg PO BID [facility] Last Admin: 05/14/18 10:04 Dose: 200 mg Heparin Sodium (Porcine) (Heparin -) 5,000 unit SQ BID [facility] Last Admin: 05/14/18 10:00 Dose: 5,000 unit Hydralazine HCl (Apresoline -) 100 mg PO TID [facility] Last Admin: 05/14/18 06:47 Dose: 100 mg Aztreonam 1 gm/ Dextrose 50 mls @ 100 mls/hr IVPB Q8H-IV [facility]; Protocol Last Admin: 05/14/18 10:06 Dose: 100 mls/hr Clindamycin Phosphate (Cleocin 300 Mg Premix Ivpb) 300 mg in 50 mls @ 100 mls/ hr IVPB Q8H-IV [facility]; Protocol Last Admin: 05/14/18 10:06 Dose: 100 mls/hr Insulin Aspart (Novolog Vial Sliding Scale -) 1 vial SQ ACHS [facility]; Protocol Last Admin: 05/14/18 11:54 Dose: 2 units Lactobacillus Acidophilus (Bacid -) 1 tab PO DAILY [facility] Last Admin: 05/14/18 10:06 Dose: 1 tab Loratadine (Claritin -) 10 mg PO DAILY [facility] Last Admin: 05/14/18 10:04 Dose: 10 mg Metoprolol Tartrate (Lopressor -) 12.5 mg PO BID [facility] Last Admin: 05/14/18 10:05 Dose: 12.5 mg Sertraline HCl (Zoloft -) 25 mg PO DAILY [facility] Last Admin: 05/14/18 10:04 Dose: 25 mg Solifenacin (Vesicare -) 5 mg PO DAILY [facility] Last Admin: 05/14/18 10:10 Dose: 5 mg Tiotropium [place] (Spiriva Respimat) 2 puff IH DAILY [facility] Last Admin: 05/14/18 11:57 Dose: Not Given - Objective Vital Signs: Vital Signs Temperature 98.7 F 05/14/18 09:22 Pulse Rate 77 05/14/18 09:22 Respiratory Rate 18 05/14/18 09:22 Blood Pressure 104/50 L 05/14/18 09:22 O2 Sat by Pulse Oximetry (%) 93 L 05/14/18 09:22 Constitutional: Yes: No Distress, Calm Cardiovascular: Yes: S1, S2 Respiratory: Yes: Regular, CTA Bilaterally Gastrointestinal: Yes: Normal Bowel Sounds, Soft Musculoskeletal: Yes: Other Extremities: Yes: Other Edema: LLE: 1+, RLE: 1+ Integumentary: Yes: Erythema (improving) Neurological: Yes: Alert, Oriented Psychiatric: Yes: Alert, Oriented Labs: CBC, BMP 05/12/18 06:30 05/14/18 12:50 Assessment/Plan Problem List - Problems (1) DEE (acute kidney injury) Code(s): N17.9 - ACUTE KIDNEY FAILURE, UNSPECIFIED (2) Fall Code(s): W19.XXXA - UNSPECIFIED FALL, INITIAL ENCOUNTER (3) Cellulitis of both lower extremities Code(s): L03.115 - CELLULITIS OF RIGHT LOWER LIMB; L03.116 - CELLULITIS OF LEFT LOWER LIMB (4) HTN (hypertension) Code(s): I10 - ESSENTIAL (PRIMARY) HYPERTENSION (5) Type 2 diabetes mellitus Code(s): E11.9 - TYPE 2 DIABETES MELLITUS WITHOUT COMPLICATIONS 6 b/l cellulittis of the legs leukocytosis plan continue current abx improving elevation of the legs rest as per the team rt leg flaker tender but improved will be able to switch to oral by wednesday if continues to improve
--- NOTE | 2018-05-14 15:09 | PN ---
Progress Note (short form) - Note Progress Note: 1. DEE resolving 2. CHF 3. DM 4. HTN 5. cellulitis 6. COPD 7. hyperkalemia Current Medications Acetaminophen (Tylenol -) 650 mg PO Q6H PRN PRN Reason: FEVER Last Admin: 05/14/18 03:36 Dose: 650 mg Albuterol Sulfate (Ventolin 0.083% Nebulizer Soln -) 1 amp NEB Q6H PRN PRN Reason: SHORT OF BREATH/WHEEZING Amlodipine Besylate (Norvasc -) 10 mg PO DAILY [facility] Last Admin: 05/14/18 10:05 Dose: 10 mg Aspirin (Ecotrin -) 81 mg PO DAILY [facility] Last Admin: 05/14/18 10:05 Dose: 81 mg Atorvastatin Calcium (Lipitor -) 10 mg PO HS [facility] Last Admin: 05/13/18 22:19 Dose: 10 mg Baclofen (Lioresal -) 10 mg PO BID [facility] Last Admin: 05/14/18 10:04 Dose: 10 mg Budesonide/Formoterol Fumarate (Symbicort 160/4.5mcg -) 2 puff IH BID [facility] Last Admin: 05/14/18 11:57 Dose: Not Given Docusate Sodium (Colace -) 100 mg PO BID [facility] Last Admin: 05/14/18 10:05 Dose: 100 mg Emollient Ointment (Aquaphor -) 1 applic TP DAILY [facility] Last Admin: 05/14/18 10:00 Dose: 1 applic Furosemide (Lasix Injection -) 40 mg IVPUSH BID@0600,1400 [facility] Last Admin: 05/14/18 14:40 Dose: 40 mg Gabapentin (Neurontin -) 200 mg PO BID [facility] Last Admin: 05/14/18 10:04 Dose: 200 mg Heparin Sodium (Porcine) (Heparin -) 5,000 unit SQ BID [facility] Last Admin: 05/14/18 10:00 Dose: 5,000 unit Hydralazine HCl (Apresoline -) 100 mg PO TID [facility] Last Admin: 05/14/18 14:40 Dose: 100 mg Aztreonam 1 gm/ Dextrose 50 mls @ 100 mls/hr IVPB Q8H-IV [facility]; Protocol Last Admin: 05/14/18 10:06 Dose: 100 mls/hr Clindamycin Phosphate (Cleocin 300 Mg Premix Ivpb) 300 mg in 50 mls @ 100 mls/ hr IVPB Q8H-IV [facility]; Protocol Last Admin: 05/14/18 10:06 Dose: 100 mls/hr Insulin Aspart (Novolog Vial Sliding Scale -) 1 vial SQ ACHS [facility]; Protocol Last Admin: 05/14/18 11:54 Dose: 2 units Lactobacillus Acidophilus (Bacid -) 1 tab PO DAILY [facility] Last Admin: 05/14/18 10:06 Dose: 1 tab Loratadine (Claritin -) 10 mg PO DAILY [facility] Last Admin: 05/14/18 10:04 Dose: 10 mg Metoprolol Tartrate (Lopressor -) 12.5 mg PO BID [facility] Last Admin: 05/14/18 10:05 Dose: 12.5 mg Sertraline HCl (Zoloft -) 25 mg PO DAILY [facility] Last Admin: 05/14/18 10:04 Dose: 25 mg Solifenacin (Vesicare -) 5 mg PO DAILY [facility] Last Admin: 05/14/18 10:10 Dose: 5 mg Tiotropium [place] (Spiriva Respimat) 2 puff IH DAILY [facility] Last Admin: 05/14/18 11:57 Dose: Not Given Last Vital Signs Temp Pulse Resp BP Pulse Ox 98.7 F 77 18 104/50 L 93 L 05/14/18 09:22 05/14/18 09:22 05/14/18 09:22 05/14/18 09:22 05/14/18 09:22 BMP 05/14/18 12:50 CBC, BMP 05/12/18 06:30 05/13/18 07:25 cardiorenal stable serum creat
[2018-05-14] MEDS: ATORVASTATIN CA 10 MG TABLET (FP) PO SCH (21:44)
[2018-05-15] MEDS: CLINDAMYCIN 300 MG PREMIX IVPB 300 MG/50 ML BAG IVPB SCH ×3 (02:38→17:37)
[2018-05-15] MEDS: AZTREONAM 1 GM in DEXTROSE 5%-WATER - 50 ML IVPB SCH ×3 (02:38→17:38)
[2018-05-15] MEDS: FUROSEMIDE 40 MG/4 ML INJECTABLE VIAL IVPUSH SCH ×2 (06:06→14:30)
[2018-05-15] MEDS: hydrALAZINE HCL 50 MG TABLET (FP) PO SCH ×3 (06:06→21:16)
[2018-05-15] MEDS: INSULIN SLIDING SCALE (NOVOLOG) 1 VIAL SQ SCH ×4 (06:08→22:17)
[2018-05-15] MEDS ORDERED: INSULIN (NOVOLOG) ASPART 100 UNITS/ML 10ML VIAL ONE ×2 (06:27→20:36)
[2018-05-15 08:49] LABS: ANION GAP 10 MMOL/L (8-16); BLOOD UREA NITROGEN 40 mg/dL (7-18); CALCIUM 8.4 mg/dL (8.5-10.1); CHLORIDE 101 mmol/L (98-107); CO2 28 mmol/L (21-32); CREATININE 1.3 mg/dL (0.55-1.3); GLUCOSE,RANDOM 125 mg/dL (74-106); POTASSIUM 3.9 mmol/L (3.5-5.1); SODIUM 138 mmol/L (136-145)
[2018-05-15] MEDS: TIOTROPIUM BROMIDE 2.5 MCG (SPIRIVA) RESPIMAT INHALER IH SCH (10:00)
[2018-05-15] MEDS: HEPARIN NA (PORCINE) 5,000 UNITS/ML 1ML VIAL SQ SCH ×2 (10:00→21:16)
[2018-05-15] MEDS: MINERAL OIL/PET HY-PHL TOPICAL OINTMENT 454 GM JAR TP SCH (10:00)
[2018-05-15] MEDS: BUDESONIDE/FORMETEROL FUMARATE 160/4.5 mcg INHALER IH SCH ×2 (10:00→21:17)
[2018-05-15] MEDS: DOCUSATE SODIUM 100 MG CAPSULE (FP) PO SCH ×2 (11:00→21:16)
[2018-05-15] MEDS: ASPIRIN COATED 81 MG TABLET.EC PO SCH (11:00)
[2018-05-15] MEDS: BACLOFEN 10 MG TABLET (FP) PO SCH ×2 (11:00→21:16)
[2018-05-15] MEDS: SERTRALINE HCL 25 MG TABLET (FP) PO SCH (11:00)
[2018-05-15] MEDS: amLODIPine BESYLATE 10 MG TABLET (FP) PO SCH (11:00)
[2018-05-15] MEDS: GABAPENTIN 100 MG CAPSULE (FP) PO SCH ×2 (11:00→21:16)
[2018-05-15] MEDS: LACTOBACILLUS ACIDOPHILUS 1 TABLET PO SCH (11:00)
[2018-05-15] MEDS: LORATADINE 10 MG TABLET PO SCH (11:00)
[2018-05-15] MEDS: METOPROLOL TARTRATE 25 MG TABLET (FP) PO SCH ×2 (11:01→21:16)
[2018-05-15] MEDS: SOLIFENACIN SUCCINATE 5 MG TAB (FP) PO SCH (11:02)
--- NOTE | 2018-05-15 13:07 | PN ---
Progress Note, Physician History of Present Illness: legs continue to improve still has pain better erythema and tenderness definitively decreased patient comfortable - Current Medication List Current Medications: Active Medications Acetaminophen (Tylenol -) 650 mg PO Q6H PRN PRN Reason: FEVER Last Admin: 05/14/18 03:36 Dose: 650 mg Amlodipine Besylate (Norvasc -) 10 mg PO DAILY [facility] Last Admin: 05/15/18 11:00 Dose: 10 mg Aspirin (Ecotrin -) 81 mg PO DAILY [facility] Last Admin: 05/15/18 11:00 Dose: 81 mg Atorvastatin Calcium (Lipitor -) 10 mg PO HS [facility] Last Admin: 05/14/18 21:44 Dose: 10 mg Baclofen (Lioresal -) 10 mg PO BID [facility] Last Admin: 05/15/18 11:00 Dose: 10 mg Budesonide/Formoterol Fumarate (Symbicort 160/4.5mcg -) 2 puff IH BID [facility] Last Admin: 05/14/18 21:43 Dose: 2 puff Docusate Sodium (Colace -) 100 mg PO BID [facility] Last Admin: 05/15/18 11:00 Dose: 100 mg Emollient Ointment (Aquaphor -) 1 applic TP DAILY [facility] Last Admin: 05/14/18 10:00 Dose: 1 applic Furosemide (Lasix Injection -) 40 mg IVPUSH BID@0600,1400 [facility] Last Admin: 05/15/18 06:06 Dose: 40 mg Gabapentin (Neurontin -) 200 mg PO BID [facility] Last Admin: 05/15/18 11:00 Dose: 200 mg Heparin Sodium (Porcine) (Heparin -) 5,000 unit SQ BID [facility] Last Admin: 05/14/18 21:44 Dose: 5,000 unit Hydralazine HCl (Apresoline -) 100 mg PO TID [facility] Last Admin: 05/15/18 06:06 Dose: 100 mg Aztreonam 1 gm/ Dextrose 50 mls @ 100 mls/hr IVPB Q8H-IV [facility]; Protocol Last Admin: 05/15/18 11:02 Dose: 100 mls/hr Clindamycin Phosphate (Cleocin 300 Mg Premix Ivpb) 300 mg in 50 mls @ 100 mls/ hr IVPB Q8H-IV [facility]; Protocol Last Admin: 05/15/18 11:00 Dose: 100 mls/hr Insulin Aspart (Novolog Vial Sliding Scale -) 1 vial SQ ACHS [facility]; Protocol Last Admin: 05/15/18 12:30 Dose: 2 units Lactobacillus Acidophilus (Bacid -) 1 tab PO DAILY [facility] Last Admin: 05/15/18 11:00 Dose: 1 tab Loratadine (Claritin -) 10 mg PO DAILY [facility] Last Admin: 05/15/18 11:00 Dose: 10 mg Metoprolol Tartrate (Lopressor -) 12.5 mg PO BID [facility] Last Admin: 05/15/18 11:01 Dose: 12.5 mg Sertraline HCl (Zoloft -) 25 mg PO DAILY [facility] Last Admin: 05/15/18 11:00 Dose: 25 mg Solifenacin (Vesicare -) 5 mg PO DAILY [facility] Last Admin: 05/15/18 11:02 Dose: 5 mg Tiotropium Aurora (Spiriva Respimat) 2 puff IH DAILY [facility] Last Admin: 05/14/18 11:57 Dose: Not Given - Objective Vital Signs: Vital Signs Temperature 98.0 F 05/15/18 06:00 Pulse Rate 71 05/15/18 06:00 Respiratory Rate 18 05/15/18 06:00 Blood Pressure 136/62 05/15/18 06:00 O2 Sat by Pulse Oximetry (%) 95 05/14/18 22:00 Constitutional: Yes: No Distress, Calm Cardiovascular: Yes: Regular Rate and Rhythm Respiratory: Yes: Regular, CTA Bilaterally Gastrointestinal: Yes: Normal Bowel Sounds, Soft Musculoskeletal: Yes: Other Extremities: Yes: Other Neurological: Yes: Alert, Oriented Psychiatric: Yes: Alert, Oriented Labs: CBC, BMP 05/12/18 06:30 05/15/18 07:30 Assessment/Plan Problem List - Problems (1) DEE (acute kidney injury) Code(s): N17.9 - ACUTE KIDNEY FAILURE, UNSPECIFIED (2) Fall Code(s): W19.XXXA - UNSPECIFIED FALL, INITIAL ENCOUNTER (3) Cellulitis of both lower extremities Code(s): L03.115 - CELLULITIS OF RIGHT LOWER LIMB; L03.116 - CELLULITIS OF LEFT LOWER LIMB (4) HTN (hypertension) Code(s): I10 - ESSENTIAL (PRIMARY) HYPERTENSION (5) Type 2 diabetes mellitus Code(s): E11.9 - TYPE 2 DIABETES MELLITUS WITHOUT COMPLICATIONS 6 b/l cellulittis of the legs leukocytosis plan continue current abx improving elevation of the legs rest as per the team rt leg stitch bonding machine tender helper but improved will be able to switch to oral tomorrow
--- NOTE | 2018-05-15 16:24 | PN ---
Progress Note (short form) - Note Progress Note: 1. DEE resolving 2. CHF 3. DM 4. HTN 5. cellulitis 6. COPD 7. hyperkalemia Current Medications Acetaminophen (Tylenol -) 650 mg PO Q6H PRN PRN Reason: FEVER Last Admin: 05/14/18 03:36 Dose: 650 mg Amlodipine Besylate (Norvasc -) 10 mg PO DAILY [facility] Last Admin: 05/15/18 11:00 Dose: 10 mg Aspirin (Ecotrin -) 81 mg PO DAILY [facility] Last Admin: 05/15/18 11:00 Dose: 81 mg Atorvastatin Calcium (Lipitor -) 10 mg PO HS [facility] Last Admin: 05/14/18 21:44 Dose: 10 mg Baclofen (Lioresal -) 10 mg PO BID [facility] Last Admin: 05/15/18 11:00 Dose: 10 mg Budesonide/Formoterol Fumarate (Symbicort 160/4.5mcg -) 2 puff IH BID [facility] Last Admin: 05/15/18 10:00 Dose: Not Given Docusate Sodium (Colace -) 100 mg PO BID [facility] Last Admin: 05/15/18 11:00 Dose: 100 mg Emollient Ointment (Aquaphor -) 1 applic TP DAILY [facility] Last Admin: 05/15/18 10:00 Dose: 1 applic Furosemide (Lasix Injection -) 40 mg IVPUSH BID@0600,1400 [facility] Last Admin: 05/15/18 14:30 Dose: 40 mg Gabapentin (Neurontin -) 200 mg PO BID [facility] Last Admin: 05/15/18 11:00 Dose: 200 mg Heparin Sodium (Porcine) (Heparin -) 5,000 unit SQ BID [facility] Last Admin: 05/15/18 10:00 Dose: 5,000 unit Hydralazine HCl (Apresoline -) 100 mg PO TID [facility] Last Admin: 05/15/18 14:30 Dose: 100 mg Aztreonam 1 gm/ Dextrose 50 mls @ 100 mls/hr IVPB Q8H-IV [facility]; Protocol Last Admin: 05/15/18 11:02 Dose: 100 mls/hr Clindamycin Phosphate (Cleocin 300 Mg Premix Ivpb) 300 mg in 50 mls @ 100 mls/ hr IVPB Q8H-IV [facility]; Protocol Last Admin: 05/15/18 11:00 Dose: 100 mls/hr Insulin Aspart (Novolog Vial Sliding Scale -) 1 vial SQ ACHS [facility]; Protocol Last Admin: 05/15/18 12:30 Dose: 2 units Lactobacillus Acidophilus (Bacid -) 1 tab PO DAILY [facility] Last Admin: 05/15/18 11:00 Dose: 1 tab Loratadine (Claritin -) 10 mg PO DAILY [facility] Last Admin: 05/15/18 11:00 Dose: 10 mg Metoprolol Tartrate (Lopressor -) 12.5 mg PO BID [facility] Last Admin: 05/15/18 11:01 Dose: 12.5 mg Sertraline HCl (Zoloft -) 25 mg PO DAILY [facility] Last Admin: 05/15/18 11:00 Dose: 25 mg Solifenacin (Vesicare -) 5 mg PO DAILY [facility] Last Admin: 05/15/18 11:02 Dose: 5 mg Tiotropium [place] (Spiriva Respimat) 2 puff IH DAILY [facility] Last Admin: 05/15/18 10:00 Dose: Not Given Last Vital Signs Temp Pulse Resp BP Pulse Ox 98.8 F 62 20 116/46 L 96 05/15/18 14:00 05/15/18 14:00 05/15/18 14:00 05/15/18 14:00 05/15/18 09:00 alert in nad no sob lying flat Lungs clear Heart reg Abd soft nontender Ext no edema CBC, BMP 05/15/18 07:30 BMP 05/14/18 12:50 CBC, BMP 05/12/18 06:30 05/13/18 07:25 cardiorenal s/p DEE Prerenal azotemia stable serum creat Continue to monitor eenal function here no new intervention
[2018-05-15] MEDS: ATORVASTATIN CA 10 MG TABLET (FP) PO SCH (21:16)
--- NOTE | 2018-05-15 23:32 | PN ---
Progress Note (short form) - Note Progress Note: legs better, decreased pain no fever Vital Signs - 24 hr 05/15/18 05/15/18 05/15/18 02:00 06:00 09:00 Temperature 98.1 F 98.0 F Pulse Rate 60 71 Respiratory 18 18 Rate Blood Pressure 133/52 L 136/62 O2 Sat by Pulse 96 Oximetry (%) 05/15/18 05/15/18 05/15/18 10:00 14:00 18:00 Temperature 98.5 F 98.8 F 98.4 F Pulse Rate 63 62 62 Respiratory 20 20 20 Rate Blood Pressure 115/60 116/46 L 116/46 L O2 Sat by Pulse Oximetry (%) 05/15/18 21:23 Temperature 98.0 F Pulse Rate 72 Respiratory 19 Rate Blood Pressure 136/62 O2 Sat by Pulse Oximetry (%) Current Medications Generic Name Dose Route Start Last Admin Trade Name Freq PRN Reason Stop Dose Admin Acetaminophen 650 mg 05/09/18 22:59 05/14/18 03:36 Tylenol - PO 650 mg Q6H PRN Administration FEVER Amlodipine Besylate 10 mg 05/10/18 10:00 05/15/18 11:00 Norvasc - PO 10 mg DAILY [facility] Administration Aspirin 81 mg 05/10/18 10:00 05/15/18 11:00 Ecotrin - PO 81 mg DAILY [facility] Administration Atorvastatin Calcium 10 mg 05/10/18 22:00 05/15/18 21:16 Lipitor - PO 10 mg HS [facility] Administration Baclofen 10 mg 05/10/18 10:00 05/15/18 21:16 Lioresal - PO 10 mg BID [facility] Administration Budesonide/Formoterol Fumarate 2 puff 05/10/18 10:00 05/15/18 21:17 Symbicort 160/4.5mcg - IH Not Given BID [facility] Docusate Sodium 100 mg 05/10/18 10:00 05/15/18 21:16 Colace - PO 100 mg BID [facility] Administration Emollient Ointment 1 applic 05/10/18 10:00 05/15/18 10:00 Aquaphor - TP 1 applic DAILY [facility] Administration Furosemide 40 mg 05/11/18 14:00 05/15/18 14:30 Lasix Injection - IVPUSH 40 mg BID@0600,1400 [facility] Administration Gabapentin 200 mg 05/10/18 10:00 05/15/18 21:16 Neurontin - PO 200 mg BID [facility] Administration Heparin Sodium (Porcine) 5,000 unit 05/10/18 10:00 05/15/18 21:16 Heparin - SQ 5,000 unit BID [facility] Administration Hydralazine HCl 100 mg 05/10/18 06:00 05/15/18 21:16 Apresoline - PO 100 mg TID [facility] Administration Aztreonam 1 gm/ Dextrose 50 mls @ 100 mls/hr 05/10/18 02:00 05/15/18 17:38 IVPB 100 mls/hr Q8H-IV [facility] Administration Protocol Clindamycin Phosphate 300 mg in 50 mls @ 100 mls/hr 05/10/18 02:00 05/15/18 17:37 Cleocin 300 Mg Premix Ivpb IVPB 100 mls/hr Q8H-IV [facility] Administration Protocol Insulin Aspart 1 vial 05/10/18 07:00 05/15/18 22:17 Novolog Vial Sliding Scale - SQ 2 units ACHS [facility] Administration Protocol Lactobacillus Acidophilus 1 tab 05/10/18 13:15 05/15/18 11:00 Bacid - PO 1 tab DAILY [facility] Administration Loratadine 10 mg 05/10/18 10:00 05/15/18 11:00 Claritin - PO 10 mg DAILY [facility] Administration Metoprolol Tartrate 12.5 mg 05/10/18 10:00 05/15/18 21:16 Lopressor - PO 12.5 mg BID [facility] Administration Sertraline HCl 25 mg 05/10/18 10:00 05/15/18 11:00 Zoloft - PO 25 mg DAILY [facility] Administration Solifenacin 5 mg 05/10/18 10:00 05/15/18 11:02 Vesicare - PO 5 mg DAILY [facility] Administration Tiotropium [place] 2 puff 05/10/18 10:00 05/15/18 10:00 Spiriva Respimat IH Not Given DAILY [facility] Laboratory Results - last 24 hr 05/15/18 05/15/18 05/15/18 06:07 07:30 12:33 Sodium 138 Potassium 3.9 Chloride 101 Carbon Dioxide 28 Anion Gap 10 BUN 40 H Creatinine 1.3 Creat Clearance w eGFR 40.38 POC Glucometer 127 169 Random Glucose 125 H Calcium 8.4 L 05/15/18 05/15/18 17:09 22:17 Sodium Potassium Chloride Carbon Dioxide Anion Gap BUN Creatinine Creat Clearance w eGFR POC Glucometer 117 160 Random Glucose Calcium S1 S2 RRR Lungs clear Abd- soft, obese, Nt edema+, tender+hyperpigmented skin+, warm+ PLAN IV antibiotics pain control clinically better on Lasix BID continue with meds monitor renal function Problem List - Problems (1) DEE (acute kidney injury) Code(s): N17.9 - ACUTE KIDNEY FAILURE, UNSPECIFIED (2) Cellulitis Code(s): L03.90 - CELLULITIS, UNSPECIFIED (3) Cellulitis of both lower extremities Code(s): L03.115 - CELLULITIS OF RIGHT LOWER LIMB; L03.116 - CELLULITIS OF LEFT LOWER LIMB (4) HTN (hypertension) Code(s): I10 - ESSENTIAL (PRIMARY) HYPERTENSION (5) Type 2 diabetes mellitus Code(s): E11.9 - TYPE 2 DIABETES MELLITUS WITHOUT COMPLICATIONS
[2018-05-16] MEDS: CLINDAMYCIN 300 MG PREMIX IVPB 300 MG/50 ML BAG IVPB SCH ×3 (01:56→17:10)
[2018-05-16] MEDS: AZTREONAM 1 GM in DEXTROSE 5%-WATER - 50 ML IVPB SCH ×3 (02:25→17:10)
[2018-05-16] MEDS: hydrALAZINE HCL 50 MG TABLET (FP) PO SCH ×3 (05:50→21:41)
[2018-05-16] MEDS: FUROSEMIDE 40 MG/4 ML INJECTABLE VIAL IVPUSH SCH ×2 (05:50→14:49)
[2018-05-16] MEDS: INSULIN SLIDING SCALE (NOVOLOG) 1 VIAL SQ SCH ×4 (06:13→23:02)
[2018-05-16] MEDS ORDERED: PT OWN MED DRAWER 7, Y5N ONE (06:20)
[2018-05-16] MEDS ORDERED: INSULIN (NOVOLOG) ASPART 100 UNITS/ML 10ML VIAL ONE ×2 (06:20→11:28)
--- NOTE | 2018-05-16 10:14 | PN ---
Progress Note (short form) - Note Progress Note: pt seen/ examined chart reviewed awake/ comfortable no distress afebrile +ve oozing blood from the legs Vital Signs Temp 98.4 F 05/16/18 09:27 Pulse 69 05/16/18 09:27 Resp 20 05/16/18 09:27 BP 132/54 L 05/16/18 09:27 Pulse Ox 94 L 05/15/18 22:00 Intake & Output 05/15/18 05/15/18 05/16/18 11:59 23:59 11:59 Intake Total 100 750 100 Balance 100 750 100 Weight 245 lb 2 oz 242 lb Intake: IVPB 100 150 100 Oral 600 Other: Voiding Method Toilet # Unmeasured Voids Void 4 3 Bowel Movement No No Weight Measurement Method Built in Bedscale Built in Bedscale Active Medications Acetaminophen (Tylenol -) 650 mg PO Q6H PRN PRN Reason: FEVER Last Admin: 05/14/18 03:36 Dose: 650 mg Amlodipine Besylate (Norvasc -) 10 mg PO DAILY [facility] Last Admin: 05/15/18 11:00 Dose: 10 mg Aspirin (Ecotrin -) 81 mg PO DAILY [facility] Last Admin: 05/15/18 11:00 Dose: 81 mg Atorvastatin Calcium (Lipitor -) 10 mg PO HS [facility] Last Admin: 05/15/18 21:16 Dose: 10 mg Baclofen (Lioresal -) 10 mg PO BID [facility] Last Admin: 05/15/18 21:16 Dose: 10 mg Budesonide/Formoterol Fumarate (Symbicort 160/4.5mcg -) 2 puff IH BID [facility] Last Admin: 05/15/18 21:17 Dose: Not Given Docusate Sodium (Colace -) 100 mg PO BID [facility] Last Admin: 05/15/18 21:16 Dose: 100 mg Emollient Ointment (Aquaphor -) 1 applic TP DAILY [facility] Last Admin: 05/15/18 10:00 Dose: 1 applic Furosemide (Lasix Injection -) 40 mg IVPUSH BID@0600,1400 [facility] Last Admin: 05/16/18 05:50 Dose: 40 mg Gabapentin (Neurontin -) 200 mg PO BID [facility] Last Admin: 05/15/18 21:16 Dose: 200 mg Heparin Sodium (Porcine) (Heparin -) 5,000 unit SQ BID [facility] Last Admin: 05/15/18 21:16 Dose: 5,000 unit Hydralazine HCl (Apresoline -) 100 mg PO TID [facility] Last Admin: 05/16/18 05:50 Dose: 100 mg Aztreonam 1 gm/ Dextrose 50 mls @ 100 mls/hr IVPB Q8H-IV [facility]; Protocol Last Admin: 05/16/18 02:25 Dose: 100 mls/hr Clindamycin Phosphate (Cleocin 300 Mg Premix Ivpb) 300 mg in 50 mls @ 100 mls/ hr IVPB Q8H-IV [facility]; Protocol Last Admin: 05/16/18 01:56 Dose: 100 mls/hr Insulin Aspart (Novolog Vial Sliding Scale -) 1 vial SQ ACHS [facility]; Protocol Last Admin: 05/16/18 06:13 Dose: Not Given Lactobacillus Acidophilus (Bacid -) 1 tab PO DAILY [facility] Last Admin: 05/15/18 11:00 Dose: 1 tab Loratadine (Claritin -) 10 mg PO DAILY [facility] Last Admin: 05/15/18 11:00 Dose: 10 mg Metoprolol Tartrate (Lopressor -) 12.5 mg PO BID [facility] Last Admin: 05/15/18 21:16 Dose: 12.5 mg Sertraline HCl (Zoloft -) 25 mg PO DAILY [facility] Last Admin: 05/15/18 11:00 Dose: 25 mg Solifenacin (Vesicare -) 5 mg PO DAILY [facility] Last Admin: 05/15/18 11:02 Dose: 5 mg Tiotropium [place] (Spiriva Respimat) 2 puff IH DAILY [facility] Last Admin: 05/15/18 10:00 Dose: Not Given CBC, BMP 05/12/18 06:30 05/15/18 07:30 Physical Exam Awake/ comfortable S1 S2 RRR Lungs clear Abd- soft, obese, Nt edema+, tender+hyperpigmented skin+, warm+ + oozing blood from legs PLAN IV antibiotics-- per i/d local care pain control continue with meds monitor renal function f/u labs today monitor bgm will follow Problem List - Problems (1) DEE (acute kidney injury) Code(s): N17.9 - ACUTE KIDNEY FAILURE, UNSPECIFIED (2) Fall Code(s): W19.XXXA - UNSPECIFIED FALL, INITIAL ENCOUNTER (3) Cellulitis of both lower extremities Code(s): L03.115 - CELLULITIS OF RIGHT LOWER LIMB; L03.116 - CELLULITIS OF LEFT LOWER LIMB (4) HTN (hypertension) Code(s): I10 - ESSENTIAL (PRIMARY) HYPERTENSION (5) Type 2 diabetes mellitus Code(s): E11.9 - TYPE 2 DIABETES MELLITUS WITHOUT COMPLICATIONS
[2018-05-16] MEDS: BUDESONIDE/FORMETEROL FUMARATE 160/4.5 mcg INHALER IH SCH ×2 (10:52→21:42)
[2018-05-16] MEDS: METOPROLOL TARTRATE 25 MG TABLET (FP) PO SCH ×2 (10:53→21:40)
[2018-05-16] MEDS: TIOTROPIUM BROMIDE 2.5 MCG (SPIRIVA) RESPIMAT INHALER IH SCH (10:53)
[2018-05-16] MEDS: LORATADINE 10 MG TABLET PO SCH (11:01)
[2018-05-16] MEDS: SERTRALINE HCL 25 MG TABLET (FP) PO SCH (11:01)
[2018-05-16] MEDS: ASPIRIN COATED 81 MG TABLET.EC PO SCH (11:01)
[2018-05-16] MEDS: DOCUSATE SODIUM 100 MG CAPSULE (FP) PO SCH ×2 (11:01→21:41)
[2018-05-16] MEDS: amLODIPine BESYLATE 10 MG TABLET (FP) PO SCH (11:01)
[2018-05-16] MEDS: SOLIFENACIN SUCCINATE 5 MG TAB (FP) PO SCH (11:01)
[2018-05-16] MEDS: HEPARIN NA (PORCINE) 5,000 UNITS/ML 1ML VIAL SQ SCH ×2 (11:01→21:41)
[2018-05-16] MEDS: LACTOBACILLUS ACIDOPHILUS 1 TABLET PO SCH (11:01)
[2018-05-16] MEDS: GABAPENTIN 100 MG CAPSULE (FP) PO SCH ×2 (11:01→21:41)
[2018-05-16] MEDS: BACLOFEN 10 MG TABLET (FP) PO SCH ×2 (11:01→21:41)
[2018-05-16] MEDS: MINERAL OIL/PET HY-PHL TOPICAL OINTMENT 454 GM JAR TP SCH (11:02)
[2018-05-16 11:12] LABS: BASO % 0.7 % (0-2.0); EOS % 3.6 % (0-4.5); HEMATOCRIT 31.4 % (32.4-45.2); HEMOGLOBIN 10.5 GM/dL (10.7-15.3); LYMPH % 32.5 % (8-40); MCH 28.8 pg (25.7-33.7); MCHC 33.4 g/dl (32.0-36.0); MEAN CELL VOLUME 86.1 fl (80-96); MEAN PLT VOLUME 8.7 fl (7.5-11.1); MONO % 12.3 % (3.8-10.2); NEUT % 50.9 % (42.8-82.8); PLATELET COUNT 286 K/MM3 (134-434); RBC 3.64 M/mm3 (3.60-5.2); RDW 15.7 % (11.6-15.6); WHITE BLOOD COUNT 9.4 K/mm3 (4.0-10.0)
--- NOTE | 2018-05-16 11:20 | PN ---
Progress Note, Physician History of Present Illness: stable legs still swollen erythema has decreased tenderness has decreased - Current Medication List Current Medications: Active Medications Acetaminophen (Tylenol -) 650 mg PO Q6H PRN PRN Reason: FEVER Last Admin: 05/14/18 03:36 Dose: 650 mg Amlodipine Besylate (Norvasc -) 10 mg PO DAILY [facility] Last Admin: 05/16/18 11:01 Dose: 10 mg Aspirin (Ecotrin -) 81 mg PO DAILY [facility] Last Admin: 05/16/18 11:01 Dose: 81 mg Atorvastatin Calcium (Lipitor -) 10 mg PO HS [facility] Last Admin: 05/15/18 21:16 Dose: 10 mg Baclofen (Lioresal -) 10 mg PO BID [facility] Last Admin: 05/16/18 11:01 Dose: 10 mg Budesonide/Formoterol Fumarate (Symbicort 160/4.5mcg -) 2 puff IH BID [facility] Last Admin: 05/16/18 10:52 Dose: 2 puff Docusate Sodium (Colace -) 100 mg PO BID [facility] Last Admin: 05/16/18 11:01 Dose: 100 mg Emollient Ointment (Aquaphor -) 1 applic TP DAILY [facility] Last Admin: 05/16/18 11:02 Dose: 1 applic Furosemide (Lasix Injection -) 40 mg IVPUSH BID@0600,1400 [facility] Last Admin: 05/16/18 05:50 Dose: 40 mg Gabapentin (Neurontin -) 200 mg PO BID [facility] Last Admin: 05/16/18 11:01 Dose: 200 mg Heparin Sodium (Porcine) (Heparin -) 5,000 unit SQ BID [facility] Last Admin: 05/16/18 11:01 Dose: 5,000 unit Hydralazine HCl (Apresoline -) 100 mg PO TID [facility] Last Admin: 05/16/18 05:50 Dose: 100 mg Aztreonam 1 gm/ Dextrose 50 mls @ 100 mls/hr IVPB Q8H-IV [facility]; Protocol Last Admin: 05/16/18 10:52 Dose: 100 mls/hr Clindamycin Phosphate (Cleocin 300 Mg Premix Ivpb) 300 mg in 50 mls @ 100 mls/ hr IVPB Q8H-IV [facility]; Protocol Last Admin: 05/16/18 10:52 Dose: 100 mls/hr Insulin Aspart (Novolog Vial Sliding Scale -) 1 vial SQ ACHS [facility]; Protocol Last Admin: 05/16/18 06:13 Dose: Not Given Lactobacillus Acidophilus (Bacid -) 1 tab PO DAILY [facility] Last Admin: 05/16/18 11:01 Dose: 1 tab Loratadine (Claritin -) 10 mg PO DAILY [facility] Last Admin: 05/16/18 11:01 Dose: 10 mg Metoprolol Tartrate (Lopressor -) 12.5 mg PO BID [facility] Last Admin: 05/16/18 10:53 Dose: 12.5 mg Sertraline HCl (Zoloft -) 25 mg PO DAILY [facility] Last Admin: 05/16/18 11:01 Dose: 25 mg Solifenacin (Vesicare -) 5 mg PO DAILY [facility] Last Admin: 05/16/18 11:01 Dose: 5 mg Tiotropium [place] (Spiriva Respimat) 2 puff IH DAILY [facility] Last Admin: 05/16/18 10:53 Dose: 2 puff - Objective Vital Signs: Vital Signs Temperature 98.4 F 05/16/18 09:27 Pulse Rate 69 05/16/18 09:27 Respiratory Rate 20 05/16/18 09:27 Blood Pressure 132/54 L 05/16/18 09:27 O2 Sat by Pulse Oximetry (%) 94 L 05/15/18 22:00 Constitutional: Yes: No Distress, Calm Cardiovascular: Yes: Regular Rate and Rhythm Respiratory: Yes: Regular, CTA Bilaterally Gastrointestinal: Yes: Normal Bowel Sounds, Soft Musculoskeletal: Yes: WNL Extremities: Yes: Erythema (resolved), Other Neurological: Yes: Alert, Oriented Psychiatric: Yes: Alert, Oriented Labs: CBC, BMP 05/16/18 10:59 Assessment/Plan Problem List - Problems (1) DEE (acute kidney injury) Code(s): N17.9 - ACUTE KIDNEY FAILURE, UNSPECIFIED (2) Fall Code(s): W19.XXXA - UNSPECIFIED FALL, INITIAL ENCOUNTER (3) Cellulitis of both lower extremities Code(s): L03.115 - CELLULITIS OF RIGHT LOWER LIMB; L03.116 - CELLULITIS OF LEFT LOWER LIMB (4) HTN (hypertension) Code(s): I10 - ESSENTIAL (PRIMARY) HYPERTENSION (5) Type 2 diabetes mellitus Code(s): E11.9 - TYPE 2 DIABETES MELLITUS WITHOUT COMPLICATIONS 6 b/l cellulittis of the legs leukocytosis plan will stop iv continue oral clinda elevation of the legs rest as per the team
[2018-05-16 12:15] LABS: ALBUMIN 2.7 g/dl (3.4-5.0); ALK PHOS 55 U/L (45-117); ANION GAP 10 MMOL/L (8-16); BILIRUBIN,TOTAL 0.4 mg/dL (0.2-1); BLOOD UREA NITROGEN 50 mg/dL (7-18); CALCIUM 8.2 mg/dL (8.5-10.1); CHLORIDE 99 mmol/L (98-107); CO2 27 mmol/L (21-32); CREATININE 1.4 mg/dL (0.55-1.3); GLUCOSE,RANDOM 170 mg/dL (74-106); POTASSIUM 3.7 mmol/L (3.5-5.1); SGOT/AST 29 U/L (15-37); SGPT/ALT 19 U/L (13-61); SODIUM 137 mmol/L (136-145); TOT PROT 7.3 g/dl (6.4-8.2)
--- NOTE | 2018-05-16 16:19 | PN ---
Progress Note, Physician History of Present Illness: Pt seen and examined at bedside. She is awake and appears comfortable. She feels that her lower ext edema is starting to improve. - Current Medication List Current Medications: Active Medications Acetaminophen (Tylenol -) 650 mg PO Q6H PRN PRN Reason: FEVER Last Admin: 05/14/18 03:36 Dose: 650 mg Amlodipine Besylate (Norvasc -) 10 mg PO DAILY [facility] Last Admin: 05/16/18 11:01 Dose: 10 mg Aspirin (Ecotrin -) 81 mg PO DAILY [facility] Last Admin: 05/16/18 11:01 Dose: 81 mg Atorvastatin Calcium (Lipitor -) 10 mg PO HS [facility] Last Admin: 05/15/18 21:16 Dose: 10 mg Baclofen (Lioresal -) 10 mg PO BID [facility] Last Admin: 05/16/18 11:01 Dose: 10 mg Budesonide/Formoterol Fumarate (Symbicort 160/4.5mcg -) 2 puff IH BID [facility] Last Admin: 05/16/18 10:52 Dose: 2 puff Docusate Sodium (Colace -) 100 mg PO BID [facility] Last Admin: 05/16/18 11:01 Dose: 100 mg Emollient Ointment (Aquaphor -) 1 applic TP DAILY [facility] Last Admin: 05/16/18 11:02 Dose: 1 applic Furosemide (Lasix Injection -) 40 mg IVPUSH BID@0600,1400 [facility] Last Admin: 05/16/18 14:49 Dose: 40 mg Gabapentin (Neurontin -) 200 mg PO BID [facility] Last Admin: 05/16/18 11:01 Dose: 200 mg Heparin Sodium (Porcine) (Heparin -) 5,000 unit SQ BID [facility] Last Admin: 05/16/18 11:01 Dose: 5,000 unit Hydralazine HCl (Apresoline -) 100 mg PO TID [facility] Last Admin: 05/16/18 14:49 Dose: 100 mg Aztreonam 1 gm/ Dextrose 50 mls @ 100 mls/hr IVPB Q8H-IV [facility]; Protocol Last Admin: 05/16/18 10:52 Dose: 100 mls/hr Clindamycin Phosphate (Cleocin 300 Mg Premix Ivpb) 300 mg in 50 mls @ 100 mls/ hr IVPB Q8H-IV [facility]; Protocol Last Admin: 05/16/18 10:52 Dose: 100 mls/hr Insulin Aspart (Novolog Vial Sliding Scale -) 1 vial SQ ACHS [facility]; Protocol Last Admin: 05/16/18 11:40 Dose: 4 units Lactobacillus Acidophilus (Bacid -) 1 tab PO DAILY [facility] Last Admin: 05/16/18 11:01 Dose: 1 tab Loratadine (Claritin -) 10 mg PO DAILY [facility] Last Admin: 05/16/18 11:01 Dose: 10 mg Metoprolol Tartrate (Lopressor -) 12.5 mg PO BID [facility] Last Admin: 05/16/18 10:53 Dose: 12.5 mg Sertraline HCl (Zoloft -) 25 mg PO DAILY [facility] Last Admin: 05/16/18 11:01 Dose: 25 mg Solifenacin (Vesicare -) 5 mg PO DAILY [facility] Last Admin: 05/16/18 11:01 Dose: 5 mg Tiotropium [place] (Spiriva Respimat) 2 puff IH DAILY [facility] Last Admin: 05/16/18 10:53 Dose: 2 puff - Objective Vital Signs: Vital Signs Temperature 98.6 F 05/16/18 15:14 Pulse Rate 62 05/16/18 15:14 Respiratory Rate 20 05/16/18 15:14 Blood Pressure 137/57 L 05/16/18 15:14 O2 Sat by Pulse Oximetry (%) 92 L 05/16/18 09:00 Constitutional: Yes: Calm Eyes: Yes: Conjunctiva Clear HENT: Yes: Atraumatic Cardiovascular: Yes: S1, S2 Respiratory: Yes: CTA Bilaterally Gastrointestinal: Yes: Soft Genitourinary: Yes: WNL Musculoskeletal: Yes: Muscle Weakness Edema: Yes Edema: LLE: 1+, RLE: 1+ Neurological: Yes: Oriented Psychiatric: Yes: Oriented Labs: CBC, BMP 05/16/18 10:59 05/16/18 10:59 Problem List - Problems (1) DEE (acute kidney injury) Code(s): N17.9 - ACUTE KIDNEY FAILURE, UNSPECIFIED (2) Cellulitis Code(s): L03.90 - CELLULITIS, UNSPECIFIED Assessment/Plan Current Medications Generic Name Dose Route Start Last Admin Trade Name Freq PRN Reason Stop Dose Admin Acetaminophen 650 mg 05/09/18 22:59 05/14/18 03:36 Tylenol - PO 650 mg Q6H PRN Administration FEVER Amlodipine Besylate 10 mg 05/10/18 10:00 05/16/18 11:01 Norvasc - PO 10 mg DAILY [facility] Administration Aspirin 81 mg 05/10/18 10:00 05/16/18 11:01 Ecotrin - PO 81 mg DAILY [facility] Administration Atorvastatin Calcium 10 mg 05/10/18 22:00 05/15/18 21:16 Lipitor - PO 10 mg HS [facility] Administration Baclofen 10 mg 05/10/18 10:00 05/16/18 11:01 Lioresal - PO 10 mg BID [facility] Administration Budesonide/Formoterol Fumarate 2 puff 05/10/18 10:00 05/16/18 10:52 Symbicort 160/4.5mcg - IH 2 puff BID [facility] Administration Docusate Sodium 100 mg 05/10/18 10:00 05/16/18 11:01 Colace - PO 100 mg BID [facility] Administration Emollient Ointment 1 applic 05/10/18 10:00 05/16/18 11:02 Aquaphor - TP 1 applic DAILY [facility] Administration Furosemide 40 mg 05/11/18 14:00 05/16/18 14:49 Lasix Injection - IVPUSH 40 mg BID@0600,1400 [facility] Administration Gabapentin 200 mg 05/10/18 10:00 05/16/18 11:01 Neurontin - PO 200 mg BID [facility] Administration Heparin Sodium (Porcine) 5,000 unit 05/10/18 10:00 05/16/18 11:01 Heparin - SQ 5,000 unit BID [facility] Administration Hydralazine HCl 100 mg 05/10/18 06:00 05/16/18 14:49 Apresoline - PO 100 mg TID [facility] Administration Aztreonam 1 gm/ Dextrose 50 mls @ 100 mls/hr 05/10/18 02:00 05/16/18 10:52 IVPB 100 mls/hr Q8H-IV [facility] Administration Protocol Clindamycin Phosphate 300 mg in 50 mls @ 100 mls/hr 05/10/18 02:00 05/16/18 10:52 Cleocin 300 Mg Premix Ivpb IVPB 100 mls/hr Q8H-IV [facility] Administration Protocol Insulin Aspart 1 vial 05/10/18 07:00 05/16/18 11:40 Novolog Vial Sliding Scale - SQ 4 units ACHS [facility] Administration Protocol Lactobacillus Acidophilus 1 tab 05/10/18 13:15 05/16/18 11:01 Bacid - PO 1 tab DAILY [facility] Administration Loratadine 10 mg 05/10/18 10:00 05/16/18 11:01 Claritin - PO 10 mg DAILY [facility] Administration Metoprolol Tartrate 12.5 mg 05/10/18 10:00 05/16/18 10:53 Lopressor - PO 12.5 mg BID [facility] Administration Sertraline HCl 25 mg 05/10/18 10:00 05/16/18 11:01 Zoloft - PO 25 mg DAILY [facility] Administration Solifenacin 5 mg 05/10/18 10:00 05/16/18 11:01 Vesicare - PO 5 mg DAILY [facility] Administration Tiotropium [place] 2 puff 05/10/18 10:00 05/16/18 10:53 Spiriva Respimat IH 2 puff DAILY [facility] Administration Impression 1. DEE resolving 2. CHF 3. DM 4. HTN 5. cellulitis 6. COPD 7. hyperkalemia Plan - cont lasix - repeat labs in am - monitor lytes - monitor volume status - discussed diet with pt - skin care to legs
--- NOTE | 2018-05-16 18:03 | PN ---
Progress Note (short form) - Note Progress Note: Chief Complaint: sob History of Present Illness: no sob palps dizzy cp. edema improving Current Medications Acetaminophen (Tylenol -) 650 mg PO Q6H PRN PRN Reason: FEVER Last Admin: 05/14/18 03:36 Dose: 650 mg Amlodipine Besylate (Norvasc -) 10 mg PO DAILY [facility] Last Admin: 05/16/18 11:01 Dose: 10 mg Aspirin (Ecotrin -) 81 mg PO DAILY [facility] Last Admin: 05/16/18 11:01 Dose: 81 mg Atorvastatin Calcium (Lipitor -) 10 mg PO HS [facility] Last Admin: 05/15/18 21:16 Dose: 10 mg Baclofen (Lioresal -) 10 mg PO BID [facility] Last Admin: 05/16/18 11:01 Dose: 10 mg Budesonide/Formoterol Fumarate (Symbicort 160/4.5mcg -) 2 puff IH BID [facility] Last Admin: 05/16/18 10:52 Dose: 2 puff Docusate Sodium (Colace -) 100 mg PO BID [facility] Last Admin: 05/16/18 11:01 Dose: 100 mg Emollient Ointment (Aquaphor -) 1 applic TP DAILY [facility] Last Admin: 05/16/18 11:02 Dose: 1 applic Furosemide (Lasix Injection -) 40 mg IVPUSH BID@0600,1400 [facility] Last Admin: 05/16/18 14:49 Dose: 40 mg Gabapentin (Neurontin -) 200 mg PO BID [facility] Last Admin: 05/16/18 11:01 Dose: 200 mg Heparin Sodium (Porcine) (Heparin -) 5,000 unit SQ BID [facility] Last Admin: 05/16/18 11:01 Dose: 5,000 unit Hydralazine HCl (Apresoline -) 100 mg PO TID [facility] Last Admin: 05/16/18 14:49 Dose: 100 mg Aztreonam 1 gm/ Dextrose 50 mls @ 100 mls/hr IVPB Q8H-IV [facility]; Protocol Last Admin: 05/16/18 17:10 Dose: 100 mls/hr Clindamycin Phosphate (Cleocin 300 Mg Premix Ivpb) 300 mg in 50 mls @ 100 mls/ hr IVPB Q8H-IV [facility]; Protocol Last Admin: 05/16/18 17:10 Dose: 100 mls/hr Insulin Aspart (Novolog Vial Sliding Scale -) 1 vial SQ ACHS [facility]; Protocol Last Admin: 05/16/18 16:38 Dose: 2 units Lactobacillus Acidophilus (Bacid -) 1 tab PO DAILY [facility] Last Admin: 05/16/18 11:01 Dose: 1 tab Loratadine (Claritin -) 10 mg PO DAILY [facility] Last Admin: 05/16/18 11:01 Dose: 10 mg Metoprolol Tartrate (Lopressor -) 12.5 mg PO BID [facility] Last Admin: 05/16/18 10:53 Dose: 12.5 mg Sertraline HCl (Zoloft -) 25 mg PO DAILY [facility] Last Admin: 05/16/18 11:01 Dose: 25 mg Solifenacin (Vesicare -) 5 mg PO DAILY [facility] Last Admin: 05/16/18 11:01 Dose: 5 mg Tiotropium [place] (Spiriva Respimat) 2 puff IH DAILY [facility] Last Admin: 05/16/18 10:53 Dose: 2 puff - Objective Vital Signs: Vital Signs Period Temp Pulse Resp BP Sys/Gates Pulse Ox Last 24 Hr 98.0 F-98.6 F 60-72 19-20 130-138/54-62 92-94 Constitutional: Yes: No Distress, Calm, Obese Cardiovascular: Yes: Regular Rate and Rhythm (decr intensity sounds (habitus)), +JVD, S1, S2. No: Gallop, Murmur Respiratory: Yes: Regular, CTA Bilaterally. No: Accessory Muscle Use, Rales, Wheezes Extremities: No: Cold Edema: No Neurological: Yes: Alert. No: Seizure Psychiatric: No: Agitated no jaundice diaphoresis cxr: chf ecg: sr,nl intervals, no ischemci changes mibi 2011: no ischemia, nl lvef echo 03/2014: lvh, nl lv/rv, lae, no sig valve path echo 04/2018: mild lvh, nl lv, mild rve, nl rv fcn, lae, no sig valve path a/p: 72 f hx copd, htn, dm, here s/p fall at NH. acute diastolic chf: -no signs acs -cr initially up from baseline--given test dose lasix 40 iv x1 on HD#1 and renal fxn improved -bedscale wts only -05/09: sob resolved. suspect JVD present. will repeat lasix 40 iv today, recheck labs and CXR in am (phys exam tds sec to habitus) -05/10: wt down, cr improved, cont iv lasix, daily chem7 -05/11: cont iv lasix, cr stable -05/16: Cr stable, improving edema however still with edema on exam, JVD. continue lasix 40 mg IV BID htn: -bp stable -cont home meds isabel: -cr 2 on admit, cr was 1.2 on 12/2017 [place] -possibly cardiorenal, plan as above -trend labs daily while diuresing - renal following fall: -mechanical, no indication of cardiac etiology le cellulitis: -abx per ID
[2018-05-16] MEDS: ATORVASTATIN CA 10 MG TABLET (FP) PO SCH (21:40)
[2018-05-17] MEDS: ACETAMINOPHEN 325 MG TABLET (FP) PO PRN (05:56)
[2018-05-17] MEDS: FUROSEMIDE 40 MG/4 ML INJECTABLE VIAL IVPUSH SCH (05:57)
[2018-05-17] MEDS: hydrALAZINE HCL 50 MG TABLET (FP) PO SCH ×2 (05:57→13:26)
[2018-05-17] MEDS: INSULIN SLIDING SCALE (NOVOLOG) 1 VIAL SQ SCH ×3 (06:04→17:18)
[2018-05-17] MEDS ORDERED: PT OWN MED DRAWER 7, Y5N ONE (09:38)
[2018-05-17] MEDS: SERTRALINE HCL 25 MG TABLET (FP) PO SCH (09:41)
[2018-05-17] MEDS: GABAPENTIN 100 MG CAPSULE (FP) PO SCH (09:41)
[2018-05-17] MEDS: METOPROLOL TARTRATE 25 MG TABLET (FP) PO SCH (09:42)
[2018-05-17] MEDS: amLODIPine BESYLATE 10 MG TABLET (FP) PO SCH (09:42)
[2018-05-17] MEDS: SOLIFENACIN SUCCINATE 5 MG TAB (FP) PO SCH (09:42)
[2018-05-17] MEDS: LACTOBACILLUS ACIDOPHILUS 1 TABLET PO SCH (09:42)
[2018-05-17] MEDS: ASPIRIN COATED 81 MG TABLET.EC PO SCH (09:42)
[2018-05-17] MEDS: LORATADINE 10 MG TABLET PO SCH (09:42)
[2018-05-17] MEDS: BACLOFEN 10 MG TABLET (FP) PO SCH (09:42)
[2018-05-17] MEDS: HEPARIN NA (PORCINE) 5,000 UNITS/ML 1ML VIAL SQ SCH (09:43)
[2018-05-17] MEDS: DOCUSATE SODIUM 100 MG CAPSULE (FP) PO SCH (09:43)
[2018-05-17] MEDS: MINERAL OIL/PET HY-PHL TOPICAL OINTMENT 454 GM JAR TP SCH (09:47)
[2018-05-17] MEDS: TIOTROPIUM BROMIDE 2.5 MCG (SPIRIVA) RESPIMAT INHALER IH SCH (10:50)
[2018-05-17] MEDS: BUDESONIDE/FORMETEROL FUMARATE 160/4.5 mcg INHALER IH SCH (10:55)
[2018-05-17] MEDS ORDERED: INSULIN (NOVOLOG) ASPART 100 UNITS/ML 10ML VIAL ONE ×2 (11:48→17:16)
--- NOTE | 2018-05-17 12:04 | PN ---
Problem List - Problems (1) DEE (acute kidney injury) Code(s): N17.9 - ACUTE KIDNEY FAILURE, UNSPECIFIED (2) Cellulitis Code(s): L03.90 - CELLULITIS, UNSPECIFIED (3) Cellulitis of both lower extremities Code(s): L03.115 - CELLULITIS OF RIGHT LOWER LIMB; L03.116 - CELLULITIS OF LEFT LOWER LIMB (4) HTN (hypertension) Code(s): I10 - ESSENTIAL (PRIMARY) HYPERTENSION (5) Type 2 diabetes mellitus Code(s): E11.9 - TYPE 2 DIABETES MELLITUS WITHOUT COMPLICATIONS
--- NOTE | 2018-05-17 12:15 | DS ---
Physical Examination Vital Signs: Vital Signs Temperature 99.0 F 05/17/18 05:50 Pulse Rate 75 05/17/18 05:50 Respiratory Rate 18 05/17/18 05:50 Blood Pressure 146/69 05/17/18 05:50 O2 Sat by Pulse Oximetry (%) 95 05/16/18 21:00 Constitutional: Yes: No Distress, Calm Cardiovascular: Yes: Regular Rate and Rhythm Respiratory: Yes: CTA Bilaterally Gastrointestinal: Yes: Normal Bowel Sounds, Soft, Abdomen, Obese. No: Tenderness Extremities: Yes: Other (warm, tender+, decreased) Edema: Yes (decreased) Labs: CBC, BMP 05/16/18 10:59 05/16/18 10:59 Discharge Summary Reason For Visit: ACUTE KIDNEY INJURY,ACUTE ON CHRONIC CONGESTIVE HE Current Active Problems DEE (acute kidney injury) (Acute) Cellulitis (Acute) Fall (Acute) Hospital Course: Admitted for CHF, cellulitis Seen by cardiology, ID and Renal Started on IV lasix BID and IV antibiotics cultures negative labs better clinically stable completed antibiotics Lasix changed to PO stable for dc to [facility] Condition: Improved - Instructions Referrals: Duane Davidson MD [Primary Care Provider] - Disposition: CARE HOME FACILITY - Home Medications Comprehensive Discharge Medication List: Ambulatory Orders Albuterol 0.083% Nebulizer Maribel [Ventolin 0.083% Nebulizer Soln -] 2.5 mg PRN 12/13 Amlodipine Besylate [Norvasc -] 10 mg PO DAILY 10/01/17 Aspirin [Adult Aspirin Regimen] 81 mg PO DAILY 10/01/17 Baclofen 10 mg PO BID 10/01/17 Docusate Sodium [Colace] 200 mg PO HS 10/01/17 Furosemide [Lasix] 40 mg PO DAILY 10/01/17 Gabapentin 100 mg PO BID 10/01/17 Hydralazine HCl 100 mg PO TID 10/01/17 Insulin Lispro Protamin/Lispro [Humalog Mix 75-25 Vial] 36 units SCJ BID Lisinopril 20 mg PO BID 10/01/17 Metoprolol Tartrate 25 mg PO BID 10/01/17 Oxybutynin Chloride [Ditropan Xl] 10 mg PO DAILY 10/01/17 Tiotropium [place] [Spiriva] 18 mcg IH DAILY 10/01/17 Acetaminophen 650 mg PO Q6H 05/08/18 Acetaminophen W/ Codeine #3 [Tylenol # 3 -] 1 tab PO BID PRN 05/08/18 Fosamprenavir Calcium 70 mg PO WEEKLY 05/08/18 Insulin Lispro [Humalog] 0 unit SQ ASDIR 05/08/18 Menthol [[place]ay Ultra Strength] 1 each TP BID 05/08/18 Mineral Oil/Pet Hy-Phl [Aquaphor] 1 applic TP DAILY 05/08/18 Sertraline HCl [Zoloft] 25 mg PO DAILY 05/08/18 Simvastatin 20 mg PO DAILY 05/08/18 Sodium Phosphate,[place]-Dibasic [Fleet Enema] 133 ml RC ASDIR 05/08/18 Vit A/Vitamin D3/E/Aloe V/Zinc [Periguard Ointment] 1 applic TP TID 05/08/18 metFORMIN HCL [Metformin HCl] 500 mg PO BID 05/08/18
--- NOTE | 2018-05-17 12:56 | PN ---
Progress Note, Physician History of Present Illness: stable legs still swollen erythema has decreased tenderness has decreased - Current Medication List Current Medications: Active Medications Acetaminophen (Tylenol -) 650 mg PO Q6H PRN PRN Reason: FEVER Last Admin: 05/17/18 05:56 Dose: 650 mg Amlodipine Besylate (Norvasc -) 10 mg PO DAILY [facility] Last Admin: 05/17/18 09:42 Dose: 10 mg Aspirin (Ecotrin -) 81 mg PO DAILY [facility] Last Admin: 05/17/18 09:42 Dose: 81 mg Atorvastatin Calcium (Lipitor -) 10 mg PO HS [facility] Last Admin: 05/16/18 21:40 Dose: 10 mg Baclofen (Lioresal -) 10 mg PO BID [facility] Last Admin: 05/17/18 09:42 Dose: 10 mg Budesonide/Formoterol Fumarate (Symbicort 160/4.5mcg -) 2 puff IH BID [facility] Last Admin: 05/16/18 21:42 Dose: 2 puff Clindamycin HCl (Cleocin -) 300 mg PO TID [facility] Docusate Sodium (Colace -) 100 mg PO BID [facility] Last Admin: 05/17/18 09:43 Dose: 100 mg Emollient Ointment (Aquaphor -) 1 applic TP DAILY [facility] Last Admin: 05/17/18 09:47 Dose: 1 applic Furosemide (Lasix -) 40 mg PO DAILY [facility] Gabapentin (Neurontin -) 200 mg PO BID [facility] Last Admin: 05/17/18 09:41 Dose: 200 mg Hydralazine HCl (Apresoline -) 100 mg PO TID [facility] Last Admin: 05/17/18 05:57 Dose: 100 mg Insulin Aspart (Novolog Vial Sliding Scale -) 1 vial SQ ACHS [facility]; Protocol Last Admin: 05/17/18 11:49 Dose: 2 units Lactobacillus Acidophilus (Bacid -) 1 tab PO DAILY [facility] Last Admin: 05/17/18 09:42 Dose: 1 tab Loratadine (Claritin -) 10 mg PO DAILY [facility] Last Admin: 05/17/18 09:42 Dose: 10 mg Metoprolol Tartrate (Lopressor -) 12.5 mg PO BID [facility] Last Admin: 05/17/18 09:42 Dose: 12.5 mg Sertraline HCl (Zoloft -) 25 mg PO DAILY [facility] Last Admin: 05/17/18 09:41 Dose: 25 mg Solifenacin (Vesicare -) 5 mg PO DAILY [facility] Last Admin: 05/17/18 09:42 Dose: 5 mg Tiotropium [place] (Spiriva Respimat) 2 puff IH DAILY [facility] Last Admin: 05/16/18 10:53 Dose: 2 puff - Objective Vital Signs: Vital Signs Temperature 98.1 F 05/17/18 09:00 Pulse Rate 66 05/17/18 09:00 Respiratory Rate 18 05/17/18 09:00 Blood Pressure 133/57 L 05/17/18 09:00 O2 Sat by Pulse Oximetry (%) 98 05/17/18 09:00 Constitutional: Yes: Calm, Mild Distress Cardiovascular: Yes: S1, S2 Respiratory: Yes: Regular, CTA Bilaterally Gastrointestinal: Yes: Normal Bowel Sounds, Soft Musculoskeletal: Yes: WNL Extremities: Yes: Other Integumentary: Yes: Venous Stasis Changes, Other Neurological: Yes: Alert, Oriented Psychiatric: Yes: Alert, Oriented Labs: CBC, BMP 05/16/18 10:59 05/16/18 10:59 Assessment/Plan Problem List - Problems (1) DEE (acute kidney injury) Code(s): N17.9 - ACUTE KIDNEY FAILURE, UNSPECIFIED (2) Fall Code(s): W19.XXXA - UNSPECIFIED FALL, INITIAL ENCOUNTER (3) Cellulitis of both lower extremities Code(s): L03.115 - CELLULITIS OF RIGHT LOWER LIMB; L03.116 - CELLULITIS OF LEFT LOWER LIMB (4) HTN (hypertension) Code(s): I10 - ESSENTIAL (PRIMARY) HYPERTENSION (5) Type 2 diabetes mellitus Code(s): E11.9 - TYPE 2 DIABETES MELLITUS WITHOUT COMPLICATIONS 6 b/l cellulittis of the legs leukocytosis plan will stop iv continue oral clinda elevation of the legs rest as per the team
--- NOTE | 2018-05-17 13:34 | PN ---
Progress Note, Physician History of Present Illness: Pt seen and examined at bedside. She feels that her edema is improving. - Current Medication List Current Medications: Active Medications Acetaminophen (Tylenol -) 650 mg PO Q6H PRN PRN Reason: FEVER Last Admin: 05/17/18 05:56 Dose: 650 mg Amlodipine Besylate (Norvasc -) 10 mg PO DAILY [facility] Last Admin: 05/17/18 09:42 Dose: 10 mg Aspirin (Ecotrin -) 81 mg PO DAILY [facility] Last Admin: 05/17/18 09:42 Dose: 81 mg Atorvastatin Calcium (Lipitor -) 10 mg PO HS [facility] Last Admin: 05/16/18 21:40 Dose: 10 mg Baclofen (Lioresal -) 10 mg PO BID [facility] Last Admin: 05/17/18 09:42 Dose: 10 mg Budesonide/Formoterol Fumarate (Symbicort 160/4.5mcg -) 2 puff IH BID [facility] Last Admin: 05/17/18 10:55 Dose: 2 puff Clindamycin HCl (Cleocin -) 300 mg PO TID [facility] Last Admin: 05/17/18 13:25 Dose: 300 mg Docusate Sodium (Colace -) 100 mg PO BID [facility] Last Admin: 05/17/18 09:43 Dose: 100 mg Emollient Ointment (Aquaphor -) 1 applic TP DAILY [facility] Last Admin: 05/17/18 09:47 Dose: 1 applic Furosemide (Lasix -) 40 mg PO DAILY [facility] Gabapentin (Neurontin -) 200 mg PO BID [facility] Last Admin: 05/17/18 09:41 Dose: 200 mg Hydralazine HCl (Apresoline -) 100 mg PO TID [facility] Last Admin: 05/17/18 13:26 Dose: 100 mg Insulin Aspart (Novolog Vial Sliding Scale -) 1 vial SQ ACHS [facility]; Protocol Last Admin: 05/17/18 11:49 Dose: 2 units Lactobacillus Acidophilus (Bacid -) 1 tab PO DAILY [facility] Last Admin: 05/17/18 09:42 Dose: 1 tab Loratadine (Claritin -) 10 mg PO DAILY [facility] Last Admin: 05/17/18 09:42 Dose: 10 mg Metoprolol Tartrate (Lopressor -) 12.5 mg PO BID [facility] Last Admin: 05/17/18 09:42 Dose: 12.5 mg Sertraline HCl (Zoloft -) 25 mg PO DAILY [facility] Last Admin: 05/17/18 09:41 Dose: 25 mg Solifenacin (Vesicare -) 5 mg PO DAILY [facility] Last Admin: 05/17/18 09:42 Dose: 5 mg Tiotropium [place] (Spiriva Respimat) 2 puff IH DAILY [facility] Last Admin: 05/17/18 10:50 Dose: 2 puff - Objective Vital Signs: Vital Signs Temperature 98.1 F 05/17/18 09:00 Pulse Rate 66 05/17/18 09:00 Respiratory Rate 18 05/17/18 09:00 Blood Pressure 133/57 L 05/17/18 09:00 O2 Sat by Pulse Oximetry (%) 98 05/17/18 09:00 Constitutional: Yes: Calm Eyes: Yes: Conjunctiva Clear HENT: Yes: Atraumatic Neck: Yes: Supple Cardiovascular: Yes: S1, S2 Respiratory: Yes: CTA Bilaterally Gastrointestinal: Yes: Normal Bowel Sounds, Soft Genitourinary: Yes: WNL Musculoskeletal: Yes: WNL Edema: Yes Edema: LLE: Trace, RLE: Trace Neurological: Yes: Oriented Psychiatric: Yes: Oriented Labs: CBC, BMP 05/16/18 10:59 05/16/18 10:59 Problem List - Problems (1) DEE (acute kidney injury) Code(s): N17.9 - ACUTE KIDNEY FAILURE, UNSPECIFIED (2) Cellulitis Code(s): L03.90 - CELLULITIS, UNSPECIFIED Assessment/Plan Current Medications Generic Name Dose Route Start Last Admin Trade Name Freq PRN Reason Stop Dose Admin Acetaminophen 650 mg 05/09/18 22:59 05/17/18 05:56 Tylenol - PO 650 mg Q6H PRN Administration FEVER Amlodipine Besylate 10 mg 05/10/18 10:00 05/17/18 09:42 Norvasc - PO 10 mg DAILY [facility] Administration Aspirin 81 mg 05/10/18 10:00 05/17/18 09:42 Ecotrin - PO 81 mg DAILY [facility] Administration Atorvastatin Calcium 10 mg 05/10/18 22:00 05/16/18 21:40 Lipitor - PO 10 mg HS [facility] Administration Baclofen 10 mg 05/10/18 10:00 05/17/18 09:42 Lioresal - PO 10 mg BID [facility] Administration Budesonide/Formoterol Fumarate 2 puff 05/10/18 10:00 05/17/18 10:55 Symbicort 160/4.5mcg - IH 2 puff BID [facility] Administration Clindamycin HCl 300 mg 05/17/18 14:00 05/17/18 13:25 Cleocin - PO 300 mg TID [facility] Administration Docusate Sodium 100 mg 05/10/18 10:00 05/17/18 09:43 Colace - PO 100 mg BID [facility] Administration Emollient Ointment 1 applic 05/10/18 10:00 05/17/18 09:47 Aquaphor - TP 1 applic DAILY [facility] Administration Furosemide 40 mg 05/18/18 10:00 Lasix - PO DAILY [facility] Gabapentin 200 mg 05/10/18 10:00 05/17/18 09:41 Neurontin - PO 200 mg BID [facility] Administration Hydralazine HCl 100 mg 05/10/18 06:00 05/17/18 13:26 Apresoline - PO 100 mg TID [facility] Administration Insulin Aspart 1 vial 05/10/18 07:00 05/17/18 11:49 Novolog Vial Sliding Scale - SQ 2 units ACHS [facility] Administration Protocol Lactobacillus Acidophilus 1 tab 05/10/18 13:15 05/17/18 09:42 Bacid - PO 1 tab DAILY [facility] Administration Loratadine 10 mg 05/10/18 10:00 05/17/18 09:42 Claritin - PO 10 mg DAILY [facility] Administration Metoprolol Tartrate 12.5 mg 05/10/18 10:00 05/17/18 09:42 Lopressor - PO 12.5 mg BID [facility] Administration Sertraline HCl 25 mg 05/10/18 10:00 05/17/18 09:41 Zoloft - PO 25 mg DAILY [facility] Administration Solifenacin 5 mg 05/10/18 10:00 05/17/18 09:42 Vesicare - PO 5 mg DAILY [facility] Administration Tiotropium [place] 2 puff 05/10/18 10:00 05/17/18 10:50 Spiriva Respimat IH 2 puff DAILY [facility] Administration Impression 1. DEE resolving 2. CHF 3. DM 4. HTN 5. cellulitis 6. COPD 7. hyperkalemia Plan - volume status is improving - cont with lasix - repeat labs in am - will need outpt follow up if discharged - discussed low salt diet and fluid intake with pt at length - skin care to legs
[2018-05-17] MEDS ORDERED: CLINDAMYCIN HCL 150 MG CAPSULE (FP) PO SCH (14:00)
[2018-05-17 14:13] VITALS: BP 136/57; PULSE 65; TEMP 98
--- NOTE | 2018-05-17 17:04 | PN ---
Progress Note, Physician Chief Complaint: sob, swelling History of Present Illness: legs still swollen. sob improving no cp, palpit - Current Medication List Current Medications: Active Medications Acetaminophen (Tylenol -) 650 mg PO Q6H PRN PRN Reason: FEVER Last Admin: 05/17/18 05:56 Dose: 650 mg Amlodipine Besylate (Norvasc -) 10 mg PO DAILY [facility] Last Admin: 05/17/18 09:42 Dose: 10 mg Aspirin (Ecotrin -) 81 mg PO DAILY [facility] Last Admin: 05/17/18 09:42 Dose: 81 mg Atorvastatin Calcium (Lipitor -) 10 mg PO HS [facility] Last Admin: 05/16/18 21:40 Dose: 10 mg Baclofen (Lioresal -) 10 mg PO BID [facility] Last Admin: 05/17/18 09:42 Dose: 10 mg Budesonide/Formoterol Fumarate (Symbicort 160/4.5mcg -) 2 puff IH BID [facility] Last Admin: 05/17/18 10:55 Dose: 2 puff Clindamycin HCl (Cleocin -) 300 mg PO TID [facility] Last Admin: 05/17/18 13:25 Dose: 300 mg Docusate Sodium (Colace -) 100 mg PO BID [facility] Last Admin: 05/17/18 09:43 Dose: 100 mg Emollient Ointment (Aquaphor -) 1 applic TP DAILY [facility] Last Admin: 05/17/18 09:47 Dose: 1 applic Furosemide (Lasix -) 40 mg PO DAILY [facility] Gabapentin (Neurontin -) 200 mg PO BID [facility] Last Admin: 05/17/18 09:41 Dose: 200 mg Hydralazine HCl (Apresoline -) 100 mg PO TID [facility] Last Admin: 05/17/18 13:26 Dose: 100 mg Insulin Aspart (Novolog Vial Sliding Scale -) 1 vial SQ ACHS [facility]; Protocol Last Admin: 05/17/18 11:49 Dose: 2 units Lactobacillus Acidophilus (Bacid -) 1 tab PO DAILY [facility] Last Admin: 05/17/18 09:42 Dose: 1 tab Loratadine (Claritin -) 10 mg PO DAILY [facility] Last Admin: 05/17/18 09:42 Dose: 10 mg Metoprolol Tartrate (Lopressor -) 12.5 mg PO BID [facility] Last Admin: 05/17/18 09:42 Dose: 12.5 mg Sertraline HCl (Zoloft -) 25 mg PO DAILY [facility] Last Admin: 05/17/18 09:41 Dose: 25 mg Solifenacin (Vesicare -) 5 mg PO DAILY [facility] Last Admin: 05/17/18 09:42 Dose: 5 mg Tiotropium [place] (Spiriva Respimat) 2 puff IH DAILY [facility] Last Admin: 05/17/18 10:50 Dose: 2 puff - Objective Vital Signs: Vital Signs Temperature 98.0 F 05/17/18 14:00 Pulse Rate 65 05/17/18 14:00 Respiratory Rate 20 05/17/18 14:00 Blood Pressure 136/57 L 05/17/18 14:00 O2 Sat by Pulse Oximetry (%) 98 05/17/18 09:00 Constitutional: Yes: No Distress, Calm, Obese Cardiovascular: Yes: Regular Rate and Rhythm, S1, S2. No: Gallop, Murmur Respiratory: Yes: Regular, CTA Bilaterally, Rales. No: Accessory Muscle Use, Wheezes Extremities: No: Cold Edema: Yes (trace pretib) Peripheral Pulses: Right Dorsalis Pedis: 0 Neurological: Yes: Alert. No: Seizure Psychiatric: No: Agitated Labs: CBC, BMP 05/16/18 10:59 05/16/18 10:59 Assessment/Plan cxr: chf ecg: sr,nl intervals, no ischemci changes mibi 2011: no ischemia, nl lvef echo 03/2014: lvh, nl lv/rv, lae, no sig valve path echo 04/2018: mild lvh, nl lv, mild rve, nl rv fcn, lae, no sig valve path a/p: 72 f hx copd, htn, dm, here s/p fall at NH. acute diastolic chf: -no signs acs -cr initially up from baseline--given test dose lasix 40 iv x1 on HD#1 and renal fxn improved -bedscale wts only -05/09: sob resolved. suspect JVD present. will repeat lasix 40 iv today, recheck labs and CXR in am (phys exam tds sec to habitus) -05/10: wt down, cr improved, cont iv lasix, daily chem7 -05/11: cont iv lasix, cr stable -05/16: Cr stable, improving edema however still with edema on exam, JVD. continue lasix 40 mg IV BID -05/17: sx's improving not resolved. bedscale wts only. same lasix. rpt CXR in am. assess sob with oob/ambulation. bmp in am htn: -bp stable -cont home meds isabel: -cr 2 on admit, cr was 1.2 on 12/2017 from tx records -possibly cardiorenal, plan as above -trend labs daily while diuresing -renal following fall: -mechanical, no indication of cardiac etiology le cellulitis: -abx per ID
[2018-05-18] MEDS ORDERED: FUROSEMIDE 40 MG TABLET (FP) PO SCH (10:00)
== END 2018-05-17 18:32 | DRG 682 ==
LOC: JER 02:23 → JERBED 05:31 → J4W 18:28 → OBSVTOIN 05-09 12:56 → J6S 05-09 22:56
PROVIDERS: ADMIT Internal Medicine; ATTEND Internal Medicine
DX: N17.9 Acute kidney failure, unspecified (principal); I50.31 Acute diastolic (congestive) heart failure; L03.116 Cellulitis of left lower limb; L03.115 Cellulitis of right lower limb; J44.9 Chronic obstructive pulmonary disease, unspecified; I11.0 Hypertensive heart disease with heart failure; E11.9 Type 2 diabetes mellitus without complications; D64.9 Anemia, unspecified; E78.5 Hyperlipidemia, unspecified; F17.210 Nicotine dependence, cigarettes, uncomplicated; E66.9 Obesity, unspecified; E87.5 Hyperkalemia; Z88.0 Allergy status to penicillin; S02.82XD Fracture of other specified skull and facial bones, left side, subsequent encounter for fracture with routine healing; W18.39XA Other fall on same level, initial encounter; Y92.098 Other place in other non-institutional residence as the place of occurrence of the external cause; Z68.34 Body mass index [BMI] 34.0-34.9, adult
CPT/HCPCS: 36415; 70450-TC; 70486-TC; 71045-TC-FY; 76775-TC; 80048; 80053; 81003; 82272; 82570; 82728; 82962; 83036; 83540; 83550; 83735; 84100; 84132; 84484; 84540; 85025; 85651; 87040; 87081; 87086; 93005; 93010; 93306-TC; 93970-TC; 97116-GP; 97161-GP; 99285-25; G0378; J0131; J0475; J1644; J7030

== ENCOUNTER 2018-07-08 17:05 | Inpatient (IN) | payer OTHER ==
[2018-07-08] MEDS ORDERED: ASPIRIN 81 MG CHEWABLE TABLETS PO ONE (19:16)
--- NOTE | 2018-07-08 19:16 | PDOC ---
History of Present Illness - General Chief Complaint: Chest Pain Stated Complaint: CHEST PAIN Time Seen by Provider: 07/08/18 18:57 History Source: Patient Exam Limitations: No Limitations - History of Present Illness Initial Comments: 72 y/o F from [facility] with a past medical history of FL's, HTN, DM, COPD, Asthma, Cellulitis of B/L lower extremities, and CHF presents to the ER with 1 day of left sided chest pain rated as 10/10 which she describes as pressure like in nature. The pain does not radiate to her face, arms, jaw, or back. The pain came on while she was at rest but she says she has had multiple heart attacks in the past and her current pain feels similar to how they felt in the past. The pain is not associated with any nausea, vomiting, or diaphoresis. She states she is also having some shortness of breath and difficulty breathing. She does not feel like she is having an asthma exacerbation. Never been intubated or gone to ICU for asthma. She states that she had a COPD exacerbation recently but is not sure of the date. She also has significant lower extremity pain, redness, and swelling which she states is much worse than her usual state. She denies recent fevers, chills, infections, abdominal pain, headache, nausea, vomiting, diarrhea, constipation, dysuria, frequency, urgency. PCP: Duane Davidson PSH: Appendectomy, tonsillectomy Social Hx: Smokes 1 cigarette per day, denies drinking, or other substance usage. Former heavy smoker. Allergies: Penicillin, tomatoes Past History - Past Medical History Allergies/Adverse Reactions: Allergies Allergy/AdvReac Type Severity Reaction Status Date / Time penicillin G Allergy Intermediate Hives Verified 07/08/18 17:20 benzathine Allergy Mild Rash Uncoded 07/08/18 17:20 tomatoes Allergy Mild Rash Uncoded 07/08/18 17:20 Home Medications: Ambulatory Orders Acetaminophen W/ Codeine #3 [Tylenol # 3 -] 1 tab PO Q4H 07/08/18 Acetaminophen [Acetaminophen ER] 650 mg PO QID 07/08/18 Albuterol 0.083% Nebulizer Maribel [Ventolin 0.083%] 1 neb NEB QID 07/08/18 Amlodipine Besylate [Norvasc -] 10 mg PO DAILY 07/08/18 Aspirin 81 mg PO DAILY 07/08/18 Baclofen 10 mg PO BID 07/08/18 Budesonide/Formeterol Fumarate [SYMBICORT 160/4.5mcg -] 1 inh PO BID 07/08/18 Docusate Sodium [Colace] 100 mg PO DAILY 07/08/18 Furosemide [Lasix] 40 mg PO DAILY 07/08/18 Gabapentin 100 mg PO BID 07/08/18 Hydralazine HCl 100 mg PO TID 07/08/18 Insulin Lispro [Humalog] 100 unit SQ ASDIR 07/08/18 Metoprolol Tartrate 25 mg PO DAILY 07/08/18 Mineral Oil/Pet Hy-Phl [Aquaphor] 1 applic TP DAILY 07/08/18 Oxybutynin Chloride [Ditropan Xl] 10 mg PO DAILY 07/08/18 Sertraline HCl [Zoloft] 25 mg PO DAILY 07/08/18 Simvastatin 20 mg PO DAILY 07/08/18 Sodium Phosphate,[place]-Dibasic [Fleet Enema] 133 ml RC TID 07/08/18 Tiotropium [place] [Spiriva] 1 inh PO DAILY 07/08/18 Vit A/Vitamin D3/E/Aloe V/Zinc [Periguard Ointment] 100 gm TP TID 07/08/18 Asthma: Yes COPD: Yes CHF: Yes Diabetes: Yes HTN: Yes Psychiatric Problems: Yes - Immunization History Immunization Up to Date: No - Suicide/Smoking/Psychosocial Hx Smoking Status: No Smoking History: Former smoker Have you smoked in the past 12 months: No Number of Cigarettes Smoked Daily: 1 Information on smoking cessation initiated: No 'Breaking Loose' booklet given: 05/08/18 Hx Alcohol Use: No Drug/Substance Use Hx: No Substance Use Type: None Hx Substance Use Treatment: No Review of Systems - Review of Systems Able to Perform ROS?: Yes Comments:: CONSTITUTIONAL: Present: Fatigue Absent: fever, no chills EYES: Absent: visual changes ENT: Absent: ear pain, no sore throat CARDIOVASCULAR: Present: Chest pain Absent: no palpitations RESPIRATORY: Present: cough, no SOB GI: Absent: abdominal pain, no nausea, no vomiting, no constipation, no diarrhea GENITOURINARY: Absent: dysuria, no frequency, no hematuria MUSKULOSKELETAL: Present: Back pain, arthralgia Absent: no myalgia SKIN: Present: rash NEURO: Absent: headache *Physical Exam - Vital Signs Last Vital Signs Temp Pulse Resp BP Pulse Ox 98.5 F 63 22 H 134/76 100 07/08/18 17:20 07/08/18 17:20 07/08/18 17:20 07/08/18 17:20 07/08/18 17:20 - Physical Exam General Appearance: Yes: Nourished, Appropriately Dressed, Disheveled, Obese. No: Apparent Distress HEENT: positive: EOMI, MATTHEW, Normal Voice. negative: Normal ENT Inspection ( Swollen lips and tongue) Neck: positive: Supple. negative: Rigid, Lymphadenopathy (R), Lymphadenopathy ( L) Respiratory/Chest: positive: Lungs Clear, Respiratory Distress, Rapid RR, Decreased Breath Sounds, Wheezing. negative: Normal Breath Sounds, Accessory Muscle Use, Labored Respiration, Crackles, Rales, Rhonchi, Stridor Cardiovascular: positive: Regular Rhythm, Regular Rate, S1, S2, Edema. negative : JVD Vascular Pulses: Dorsalis-Pedis (R): 1+, Doralis-Pedis (L): 1+ Gastrointestinal/Abdominal: positive: Normal Bowel Sounds. negative: Flat, Distended, Guarding, Rebound, Tenderness Rectal Exam: positive: deferred Lymphatic: negative: Adenopathy Musculoskeletal: positive: Normal Inspection, Decreased Range of Motion. negative: CVA Tenderness Extremity: positive: Delayed Capillary Refill, Pedal Edema, Swelling, Calf Tenderness, Erythema, Inflammation. 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 negative: Confused, Disoriented Moderate Sedation - Procedure Monitoring Vital Signs: Procedure Monitoring Vital Signs Temperature 98.5 F 07/08/18 17:20 Pulse Rate 63 07/08/18 17:20 Respiratory Rate 22 H 07/08/18 17:20 Blood Pressure 134/76 07/08/18 17:20 O2 Sat by Pulse Oximetry (%) 100 07/08/18 17:20 ED Treatment Course - LABORATORY CBC & Chemistry Diagram: 07/08/18 21:24 07/08/18 21:24 - ADDITIONAL ORDERS Additional order review: Laboratory Results 07/08/18 07/08/1807/08/19 21:24 21:24 20:47 PT with INR 13.30 H INR 1.13 H PTT (Actin FS) 36.7 H Sodium Cancelled 142 Potassium Cancelled 4.7 Chloride Cancelled 108 H Carbon Dioxide Cancelled 29 Anion Gap Cancelled 5 L BUN Cancelled 27 H Creatinine Cancelled 1.1 Creat Clearance w eGFR Cancelled 48.96 Random Glucose Cancelled 60 L Calcium Cancelled 7.7 L Magnesium 2.2 Total Bilirubin Cancelled 0.4 AST Cancelled 23 ALT Cancelled 12 L Alkaline Phosphatase Cancelled 71 Troponin I Cancelled 0.02 B-Natriuretic Peptide Cancelled 5774.1 H Total Protein Cancelled 7.1 Albumin Cancelled 2.7 L 07/08/18 20:47 PT with INR Cancelled INR Cancelled PTT (Actin FS) Cancelled Sodium Potassium Chloride Carbon Dioxide Anion Gap BUN Creatinine Creat Clearance w eGFR Random Glucose Calcium Magnesium Total Bilirubin AST ALT Alkaline Phosphatase Troponin I B-Natriuretic Peptide Total Protein Albumin 07/08/18 07/08/18 21:24 20:47 RBC 2.93 L 3.02 L MCV 80.2 80.6 MCHC 31.6 L 31.2 L RDW 18.1 H 18.2 H MPV 7.9 8.6 Neutrophils % 59.3 61.8 D Lymphocytes % 28.4 26.5 Monocytes % 9.7 8.8 Eosinophils % 1.8 1.6 Basophils % 0.8 1.3 - RADIOLOGY Radiology Studies Ordered: Category Date Time Status CHEST X-RAY PORTABLE* [RAD] Stat Radiology 07/08/18 19:16 Completed - Medications Given in the ED: ED Medications Discontinued Medications Generic Name Dose Route Start Last Admin Trade Name Freq PRN Reason Stop Dose Admin Aspirin 162 mg 07/08/18 19:16 07/08/18 20:10 Asa - PO 07/08/18 19:17 162 mg ONCE ONE Administration Medical Decision Making - Medical Decision Making 72 y/o F from [facility] with a past medical history of FL's, HTN, DM, COPD, Asthma, Cellulitis of B/L lower extremities, and CHF presents to the ER with 1 day of left sided chest pain rated as 10/10 which she describes as pressure like in nature. The pain does not radiate to her face, arms, jaw, or back. The pain came on while she was at rest but she says she has had multiple heart attacks in the past and her current pain feels similar to how they felt in the past. The pain is not associated with any nausea, vomiting, or diaphoresis. She states she is also having some shortness of breath and difficulty breathing. She does not feel like she is having an asthma exacerbation. Never been intubated or gone to ICU for asthma. She states that she had a COPD exacerbation recently but is not sure of the date. She also has significant lower extremity pain, redness, and swelling which she states is much worse than her usual state. Vitals wnl other than tachypnea to 22 DDx IBNLT: ACS, FL, Asthma/OPD exacerbation, cellulitis, CHF, PNA, UTI, pleural effusion. Plan: Labs, CXR, EKG, analgesia, cardiac monitoring, oxygen, re-assess. BNP elevated, she is having SOB, CXR shows congestion. I suspect she is suffering from CHF. - Will start patient on lasix and admit her for further care. Patient is also stating she is in extreme leg pain. It is erythematous, edemetous and painful to touch. It is difficult to assess how much of this is chronic venous stasis dermatitis vs cellulitis. Will give patient one dose on vancomycin in ED. *DC/Admit/Observation/Transfer Diagnosis at time of Disposition: CHF (congestive heart failure), Venous insufficiency - Discharge Dispostion Decision to Admit order: Yes Decision to Admit order Date/Time: Decision to Admit Order Category Date Time Status Decision to Admit to Hospital Routine Admission 07/08/18 23:01 Active - Referrals Referrals: Duane Davidson MD [Primary Care Provider] - - Patient Instructions - Post Discharge Activity
[2018-07-08] MEDS ORDERED: ASPIRIN 81 MG CHEWABLE TABLETS ONE (19:52)
[2018-07-08 21:07] LABS: BASO % 1.3 % (0-2.0); EOS % 1.6 % (0-4.5); HEMATOCRIT 24.3 % (32.4-45.2); HEMOGLOBIN 7.6 GM/dL (10.7-15.3); LYMPH % 26.5 % (8-40); MCH 25.1 pg (25.7-33.7); MCHC 31.2 g/dl (32.0-36.0); MEAN CELL VOLUME 80.6 fl (80-96); MEAN PLT VOLUME 8.6 fl (7.5-11.1); MONO % 8.8 % (3.8-10.2); NEUT % 61.8 % (42.8-82.8); PLATELET COUNT 386 K/MM3 (134-434); RBC 3.02 M/mm3 (3.60-5.2); RDW 18.2 % (11.6-15.6); WHITE BLOOD COUNT 11.2 K/mm3 (4.0-10.0)
[2018-07-08 21:33] LABS: BASO % 0.8 % (0-2.0); EOS % 1.8 % (0-4.5); HEMATOCRIT 23.5 % (32.4-45.2); HEMOGLOBIN 7.4 GM/dL (10.7-15.3); LYMPH % 28.4 % (8-40); MCH 25.3 pg (25.7-33.7); MCHC 31.6 g/dl (32.0-36.0); MEAN CELL VOLUME 80.2 fl (80-96); MEAN PLT VOLUME 7.9 fl (7.5-11.1); MONO % 9.7 % (3.8-10.2); NEUT % 59.3 % (42.8-82.8); PLATELET COUNT 403 K/MM3 (134-434); RBC 2.93 M/mm3 (3.60-5.2); RDW 18.1 % (11.6-15.6); WHITE BLOOD COUNT 11.5 K/mm3 (4.0-10.0)
[2018-07-08 21:54] LABS: INR 1.13 (0.83-1.09); PROTHROMBIN TIME (PATIENT) 13.3 SEC (9.7-13.0)
[2018-07-08 21:57] LABS: ACTIVATED PTT 36.7 SECONDS (25.2-36.5)
[2018-07-08 22:22] LABS: ALBUMIN 2.7 g/dl (3.4-5.0); ALK PHOS 71 U/L (45-117); ANION GAP 5 MMOL/L (8-16); BILIRUBIN,TOTAL 0.4 mg/dL (0.2-1); BLOOD UREA NITROGEN 27 mg/dL (7-18); CALCIUM 7.7 mg/dL (8.5-10.1); CHLORIDE 108 mmol/L (98-107); CO2 29 mmol/L (21-32); CREATININE 1.1 mg/dL (0.55-1.3); GLUCOSE,RANDOM 60 mg/dL (74-106); MAGNESIUM 2.2 mg/dL (1.8-2.4); N-TERMINAL BNP 5774.1 pg/ml (5-125); POTASSIUM 4.7 mmol/L (3.5-5.1); SGOT/AST 23 U/L (15-37); SGPT/ALT 12 U/L (13-61); SODIUM 142 mmol/L (136-145); TOT PROT 7.1 g/dl (6.4-8.2)
--- NOTE | 2018-07-08 22:52 | PDOC ---
Attending Attestation - Resident Resident Name: Nahum Hedrick - ED Attending Attestation I have performed the following: I have examined & evaluated the patient, The case was reviewed & discussed with the resident, I agree w/resident's findings & plan, Exceptions are as noted - HPI HPI: 07/08/18 22:48 The patient is a 72 year old Male with a significant past medical history of NM' s, HTN, DM, COPD, Asthma, Cellulitis of B/L lower extremities, and CHF who presents to the ER from [facility] with 1 day of left sided chest pain and associated SOB. He reports the pain is localized to the left chest, 10/10 in severity, and pressure-like. She states her current pain does not feel like her prior NM. Pt also reports significant lower extremity pain, redness, and swelling which she states is much worse than her usual state. She denies recent fevers, chills, infections, abdominal pain, headache, nausea, vomiting, diarrhea, constipation, dysuria, frequency, urgency. PCP: Duane Davidson PSH: Appendectomy, tonsillectomy Social Hx: Smokes 1 cigarette per day, denies drinking, or other substance usage. Former heavy smoker. Allergies: Penicillin, tomatoes - Physicial Exam PE: 07/08/18 22:50 GENERAL: Awake, alert, and fully oriented, in no acute distress. HEAD: No signs of trauma EYES: PERRLA, EOMI, sclera anicteric, conjunctiva clear ENT: Auricles normal inspection, hearing grossly normal, nares patent, oropharynx clear without exudates. Moist mucosa NECK: Nontender, no stepoffs, Normal ROM, supple, no lymphadenopathy, JVD, or masses LUNGS: + diffuse rhonchi, no wheezing HEART: Regular rate and rhythm, normal S1 and S2, no murmurs, rubs or gallops ABDOMEN: Soft, nontender, normoactive bowel sounds. No guarding, no rebound. No masses EXTREMITIES: + 2 PE BLE, + erythema, No clubbing or cyanosis. No cords NEUROLOGICAL: Cranial nerves II through XII intact. 5/5 strength and sensation in all extremities, Normal speech, normal gait, normal cerebellar function SKIN: Warm, Dry, normal turgor, no rashes or lesions noted. - Medical Decision Making 07/08/18 22:51 72 F with CP and SOB. Clinically appears volume overloaded. Pt with no ischemic changes on EKG to suggest ACS. Pt also appears to have lower extremity cellulitis. - Labs, trop, BNP - CXR - Diuresis - Abx 07/08/18 23:56 Pt admitted to hospitalist
[2018-07-08] MEDS ORDERED: FUROSEMIDE 40 MG/4 ML INJECTABLE VIAL IVPUSH ONE (22:53)
[2018-07-08] MEDS ORDERED: VANCOMYCIN 1,000 MG in DEXTROSE 5%-WATER - 250 ML IVPB ONE (22:59)
[2018-07-08] MEDS ORDERED: FUROSEMIDE 40 MG/4 ML INJECTABLE VIAL ONE (23:07)
[2018-07-08] MEDS ORDERED: METOPROLOL TARTRATE 50 MG TABLET (FP) ONE (23:07)
[2018-07-08] MEDS ORDERED: VANCOMYCIN 1 GRAM (PRE-DOCKED) 1,000 MG/250 ML BAG IVPB ONE (23:07)
--- NOTE | 2018-07-09 00:47 | HP ---
CHIEF COMPLAINT: PCP: Dr Davidson (Seen by Dr. Tucker here; patient of [facility]) HISTORY OF PRESENT ILLNESS: Seen and examined; thank you Dr. Tucker for allowing us to help take care of your patient. Patient presents from [facility] with a CC of 1 day of L-sided CP and SOB reminiscent of her asthma exacerbation; she is concerned she is having a AL as this is the same sx she aparently had in the past. She furthermore has chronic LE edema and is listed on EMR as seeing Dr. Dominguez for this. No recent arterial duplex studies; was on a course of PO clindamycin with Dr. Breen during her last admission in April. She is hemodynamically stable and afebrile. Given lasix in ER as BNP is elevated alongside a dose of vanco. She is afebrile and though the legs have risk for being infected appear to be much more consistent with PAD picture, especially given their b/l symmetry. No documented followup with ID, etc. She is CP free at this juncture. Saw Dr. 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, PAD, DM on MTF, HTN, Falls PAST SURGICAL HISTORY: Reviewed Social History: Smoking: Yes; allowed to at [place] Alcohol: Denies Drugs: Denies Family History: Asked and noncontributory Allergies penicillin G Allergy (Intermediate, Verified 07/08/18 17:20) Hives benzathine Allergy (Mild, Uncoded 07/08/18 17:20) Rash tomatoes Allergy (Mild, Uncoded 07/08/18 17:20) Rash HOME MEDICATIONS: Home Medications Medication Instructions Recorded Acetaminophen W/ Codeine #3 1 tab PO Q4H 07/08/18 [Tylenol # 3 -] Acetaminophen [Acetaminophen ER] 650 mg PO QID 07/08/18 Albuterol 0.083% Nebulizer Maribel 1 neb NEB QID 07/08/18 [Ventolin 0.083%] Amlodipine Besylate [Norvasc -] 10 mg PO DAILY 07/08/18 Aspirin 81 mg PO DAILY 07/08/18 Baclofen 10 mg PO BID 07/08/18 Budesonide/Formeterol Fumarate 1 inh PO BID 07/08/18 [SYMBICORT 160/4.5mcg -] Docusate Sodium [Colace] 100 mg PO DAILY 07/08/18 Furosemide [Lasix] 40 mg PO DAILY 07/08/18 Gabapentin 100 mg PO BID 07/08/18 Hydralazine HCl 100 mg PO TID 07/08/18 Insulin Lispro [Humalog] 100 unit SQ ASDIR 07/08/18 Metoprolol Tartrate 25 mg PO DAILY 07/08/18 Mineral Oil/Pet Hy-Phl [Aquaphor] 1 applic TP DAILY 07/08/18 Oxybutynin Chloride [Ditropan Xl] 10 mg PO DAILY 07/08/18 Sertraline HCl [Zoloft] 25 mg PO DAILY 07/08/18 Simvastatin 20 mg PO DAILY 07/08/18 Sodium Phosphate,[place]-Dibasic 133 ml RC TID 07/08/18 [Fleet Enema] Tiotropium [place] [Spiriva] 1 inh PO DAILY 07/08/18 Vit A/Vitamin D3/E/Aloe V/Zinc 100 gm TP TID 07/08/18 [Periguard Ointment] REVIEW OF SYSTEMS 10 sys ROS done and negative aside from HPI PHYSICAL EXAMINATION Vital Signs - 24 hr 07/08/18 17:20 Temperature 98.5 F Pulse Rate 63 Respiratory 22 H Rate Blood Pressure 134/76 O2 Sat by Pulse 100 Oximetry (%) GENERAL: Awake, alert, and fully oriented, in no acute distress. HEAD: Normal with no signs of trauma. EYES: Pupils equal, round and reactive to light, extraocular movements intact, EARS, NOSE, THROAT: Ears normal, nares patent, oropharynx clear without exudates NECK: Normal range of motion, supple without lymphadenopathy, JVD, or masses. LUNGS: Breath sounds equal, scattered crackles b/l HEART: Regular rate and rhythm, normal S1 and S2 without murmur, rub or gallop. ABDOMEN: Soft, nontender, not distended, normoactive bowel sound MUSCULOSKELETAL: Normal range of motion at all joints. NEUROLOGICAL: Cranial nerves II-XII intact. Normal speech. Normal gait. PSYCHIATRIC: Cooperative. Good eye contact. Appropriate mood and affect. SKIN: Warm, dry, normal turgor, no rashes or lesions noted, normal capillary refill. Stereotyped PVD/PAD changes on b/l LE symmetrical and tender to palpatation but no reji induration more consistent with a vascular disease picture Laboratory Results - last 24 hr 07/08/18 07/08/18 07/08/18 20:47 20:47 20:47 WBC 11.2 H RBC 3.02 L Hgb 7.6 L Hct 24.3 L D MCV 80.6 MCH 25.1 L D MCHC 31.2 L RDW 18.2 H Plt Count 386 D MPV 8.6 Absolute Neuts (auto) 6.9 Neutrophils % 61.8 D Lymphocytes % 26.5 Monocytes % 8.8 Eosinophils % 1.6 Basophils % 1.3 Nucleated RBC % 0 PT with INR Cancelled INR Cancelled PTT (Actin FS) Cancelled Sodium 142 Potassium 4.7 Chloride 108 H Carbon Dioxide 29 Anion Gap 5 L BUN 27 H Creatinine 1.1 Creat Clearance w eGFR 48.96 Random Glucose 60 L Calcium 7.7 L Magnesium 2.2 Total Bilirubin 0.4 AST 23 ALT 12 L Alkaline Phosphatase 71 Troponin I 0.02 B-Natriuretic Peptide 5774.1 H Total Protein 7.1 Albumin 2.7 L Blood Type Antibody Screen 07/08/18 07/08/18 07/08/18 21:24 21:24 21:24 WBC 11.5 H RBC 2.93 L Hgb 7.4 L Hct 23.5 L MCV 80.2 MCH 25.3 L MCHC 31.6 L RDW 18.1 H Plt Count 403 MPV 7.9 Absolute Neuts (auto) 6.8 Neutrophils % 59.3 Lymphocytes % 28.4 Monocytes % 9.7 Eosinophils % 1.8 Basophils % 0.8 Nucleated RBC % 0 PT with INR INR PTT (Actin FS) Sodium Cancelled Potassium Cancelled Chloride Cancelled Carbon Dioxide Cancelled Anion Gap Cancelled BUN Cancelled Creatinine Cancelled Creat Clearance w eGFR Cancelled Random Glucose Cancelled Calcium Cancelled Magnesium Total Bilirubin Cancelled AST Cancelled ALT Cancelled Alkaline Phosphatase Cancelled Troponin I Cancelled B-Natriuretic Peptide Cancelled Total Protein Cancelled Albumin Cancelled Blood Type A POSITIVE Antibody Screen Negative 07/08/18 21:24 WBC RBC Hgb Hct MCV MCH MCHC RDW Plt Count MPV Absolute Neuts (auto) Neutrophils % Lymphocytes % Monocytes % Eosinophils % Basophils % Nucleated RBC % PT with INR 13.30 H INR 1.13 H PTT (Actin FS) 36.7 H Sodium Potassium Chloride Carbon Dioxide Anion Gap BUN Creatinine Creat Clearance w eGFR Random Glucose Calcium Magnesium Total Bilirubin AST ALT Alkaline Phosphatase Troponin I B-Natriuretic Peptide Total Protein Albumin Blood Type Antibody Screen MIBI 2011 reviewed 04/2018 reviewed: LVH and nl LV with mild lve, lae Venous dopplers done 04/2018; no DVT; reviewed CXR reviewed with progressive CHF/Infiltrative changes CT chest pending ASSESSMENT/PLAN: Mrs. Yeung presents with CP/SOB and elevated BNP. She has acute on chronic LE pain. She is an active smoker with known COPD and has known D-CHF. She has been seen here by Dr. Breen, Dr. Nunez/Dr. Joseph in the past. She sees Dr. Dominguez as an OP for her legs. 1) Acute SOB -May be multifactorial; CXR changes noted; furthermore there is risks for COPD exacerbations with active smoking. D-CHF with elevated BNP compared to prior issues. -Checking CT chest with IV contrast to better elucidate. No fevers or productive sputum so less likely PNA. -Monitoring on telemetry; will discuss each factor separately 2) D-CHF exacerbation -Noted elevated BNP and prior CV history with increased effusion size, etc. -Monitor BMP and optimize elytes, QD weights, strict is and os. Monitor on telemetry -Consulting Cardiology; hold PO lasix and place on IV lasix 40 QD. Further management deferred to CV. Could be playing a role in her CP -04/2018 echo reviewed; will not reorder at this juncture 3) Acute COPD exacerbation -Given smoking history, etc. -ATC duonebs q6h, placing her on solumedrol 60 q8h, incentive spirometry. PRN albuterol -Consulting pulmonary; will need OP PFTs, etc. 4) Chest pain with h/o CAD -Trending troponin, admitting to telemetry, consulted CV. Will defer further workup and treatment to their service -Continue home CAD medications (ASA, statin, BB). 5) Chronic LE changes with acute pain, ?Cellulitis -Less likely cellulitis but has been actively infected in the past and was seen by Dr. Breen for this. She tolerated PO clinda. Would avoid vancomycin given her underlying CKD. -Placing on PO clinda and will consult Dr. Breen to see her. -Checking peripheral arterial dopplers to ensure no worsening vascular disease -She sees Dr. Dominguez in the past; will have him see her for wound care 6) CKD -Avoid nephrotoxins; QD BMP and check Is and Os 7) DM with hypoglycemia -60s in the ER; PO intervention -AC+HS with low SSI; hold home MTF 8) Peripheral Vascular disease -04/2018 venous dopplers reviewed; checking arterial dopplers 9) Hx HTN -Continue her norvasc, hydralazine, MT 25 BID. Need to check with her pharmacy if she is still gettng Lpril 20 (was on DC meds but not on rec completed today) FENA -PO; 2L restriction -PRN replete; optimize Mg and K -CV diet -As tolerated with fall precautions Full Code (HCP brother) Visit type - Emergency Visit Emergency Visit: Yes ED Registration Date: 07/08/18 Care time: The patient presented to the Emergency Department on the above date and was hospitalized for further evaluation of their emergent condition. - New Patient This patient is new to me today: Yes Date on this admission: 07/18/18 - Critical Care Critical Care patient: No
[2018-07-09 01:03] LABS: URINE APPEARANCE SLCLOUDY; URINE BILIRUBIN NEGATIVE (<2.0 mg/dL); URINE COLOR YELLOW; URINE GLUCOSE (UA) NEGATIVE (NEGATIVE); URINE KETONE NEGATIVE (NEGATIVE); URINE LEUK ESTERASE 2+ (NEGATIVE); URINE NITRITE NEGATIVE (NEGATIVE); URINE PROTEIN NEGATIVE (NEGATIVE); URINE UROBILINOGEN NEGATIVE mg/dL (0.2-1.0)
[2018-07-09 01:06] LABS: EPI CELLS MODERATE /HPF (FEW); URINE HYALINE CAST 6 /lpf; URINE MUCUS RARE
[2018-07-09 01:36] LABS: MAGNESIUM 2.2 mg/dL (1.8-2.4)
[2018-07-09] MEDS: hydrALAZINE HCL 50 MG TABLET (FP) PO SCH ×3 (06:00→23:34)
[2018-07-09] MEDS: INSULIN SLIDING SCALE (NOVOLOG) 1 VIAL SQ SCH ×4 (07:57→22:35)
[2018-07-09] MEDS ORDERED: ALBUTEROL SO4 0.083% IH SOL 2.5 MG/3 ML VIAL.NEB. NEB ONE (07:58)
[2018-07-09] MEDS: ALBUTEROL SO4 0.083% IH SOL 2.5 MG/3 ML VIAL.NEB. NEB SCH ×2 (07:58→12:32)
--- NOTE | 2018-07-09 08:37 | EKG ---
Test Reason : Blood Pressure : / mmHG Vent. Rate : 073 BPM Atrial Rate : 073 BPM P-R Int : 154 ms QRS Dur : 084 ms QT Int : 426 ms P-R-T Axes : 000 156 110 degrees QTc Int : 469 ms SUSPECT ARM LEAD REVERSAL, INTERPRETATION ASSUMES NO REVERSAL NORMAL SINUS RHYTHM LOW VOLTAGE QRS LATERAL INFARCT (CITED ON OR BEFORE 08-JUL-2018) ABNORMAL ECG WHEN COMPARED WITH ECG OF 08-JUL-2018 17:49, QRS AXIS SHIFTED RIGHT QUESTIONABLE CHANGE IN INITIAL FORCES OF LATERAL LEADS Confirmed by PATRICIA LEON, GERALD ([id number]) on 07/09/2018 8:37:21 AM Referred By: Confirmed By:GERALD GOMEZ MD
--- NOTE | 2018-07-09 08:41 | EKG ---
Test Reason : Blood Pressure : / mmHG Vent. Rate : 064 BPM Atrial Rate : 064 BPM P-R Int : 152 ms QRS Dur : 076 ms QT Int : 456 ms P-R-T Axes : 045 003 081 degrees QTc Int : 470 ms NORMAL SINUS RHYTHM ANTERIOR INFARCT , AGE UNDETERMINED ABNORMAL ECG WHEN COMPARED WITH ECG OF 08-MAY-2018 04:50, NO SIGNIFICANT CHANGE WAS FOUND Confirmed by PATRICIA LEON, GERALD ([id number]) on 07/09/2018 8:41:37 AM Referred By: Confirmed By:GERALD GOMEZ MD
[2018-07-09] MEDS: DOCUSATE SODIUM 100 MG CAPSULE (FP) PO SCH (09:49)
[2018-07-09] MEDS: ASPIRIN 81 MG CHEWABLE TABLETS PO SCH (09:49)
[2018-07-09] MEDS: BACLOFEN 10 MG TABLET (FP) PO SCH ×2 (09:49→23:34)
[2018-07-09] MEDS: TIOTROPIUM BROMIDE 2.5 MCG (SPIRIVA) RESPIMAT INHALER IH SCH (09:50)
[2018-07-09] MEDS: BUDESONIDE/FORMETEROL FUMARATE 160/4.5 mcg INHALER IH SCH (09:50)
[2018-07-09] MEDS: SOLIFENACIN SUCCINATE 5 MG TAB (FP) PO SCH (09:50)
[2018-07-09] MEDS: GABAPENTIN 100 MG CAPSULE (FP) PO SCH ×2 (09:50→23:34)
[2018-07-09] MEDS: METOPROLOL TARTRATE 25 MG TABLET (FP) PO SCH (09:50)
[2018-07-09] MEDS: amLODIPine BESYLATE 10 MG TABLET (FP) PO SCH (09:50)
[2018-07-09] MEDS: SERTRALINE HCL 25 MG TABLET (FP) PO SCH (09:50)
[2018-07-09] MEDS ORDERED: FUROSEMIDE 40 MG/4 ML INJECTABLE VIAL ONE (09:51)
[2018-07-09] MEDS: FUROSEMIDE 40 MG/4 ML INJECTABLE VIAL IVPUSH SCH (10:03)
--- NOTE | 2018-07-09 10:51 | CON.CARD ---
Cardiology Consult (text) - Consultation Consultation Note: cc: sob, cp hpi: 72 f hx copd, htn, dm, here with sob, cp. Central sharp cp, intermittent, at rest. Worse with deep breaths and palpation. Also with sob. No palps dizzy loc pnd orthopnea. Chronic le edema. pmh: per hpi psh: nc social: no tob fam: no premature cad, scd ros: per hpi; no fever nvd gib hematuria dysuria wt loss meds: Home Medications Medication Instructions Recorded Acetaminophen W/ Codeine #3 1 tab PO Q4H 07/08/18 [Tylenol # 3 -] Acetaminophen [Acetaminophen ER] 650 mg PO QID 07/08/18 Albuterol 0.083% Nebulizer Maribel 1 neb NEB QID 07/08/18 [Ventolin 0.083%] Amlodipine Besylate [Norvasc -] 10 mg PO DAILY 07/08/18 Aspirin 81 mg PO DAILY 07/08/18 Baclofen 10 mg PO BID 07/08/18 Budesonide/Formeterol Fumarate 1 inh PO BID 07/08/18 [SYMBICORT 160/4.5mcg -] Docusate Sodium [Colace] 100 mg PO DAILY 07/08/18 Furosemide [Lasix] 40 mg PO DAILY 07/08/18 Gabapentin 100 mg PO BID 07/08/18 Hydralazine HCl 100 mg PO TID 07/08/18 Insulin Lispro [Humalog] 100 unit SQ ASDIR 07/08/18 Metoprolol Tartrate 25 mg PO DAILY 07/08/18 Mineral Oil/Pet Hy-Phl [Aquaphor] 1 applic TP DAILY 07/08/18 Oxybutynin Chloride [Ditropan Xl] 10 mg PO DAILY 07/08/18 Sertraline HCl [Zoloft] 25 mg PO DAILY 07/08/18 Simvastatin 20 mg PO DAILY 07/08/18 Sodium Phosphate,[place]-Dibasic 133 ml RC TID 07/08/18 [Fleet Enema] Tiotropium [place] [Spiriva] 1 inh PO DAILY 07/08/18 Vit A/Vitamin D3/E/Aloe V/Zinc 100 gm TP TID 07/08/18 [Periguard Ointment] Current Medications Generic Name Dose Route Start Last Admin Trade Name Freq PRN Reason Stop Dose Admin Acetaminophen 650 mg 07/09/18 10:00 Tylenol - PO Q6H PRN PAIN LEVEL 1-5 OR FEVER Albuterol Sulfate 1 amp 07/09/18 08:00 07/09/18 07:58 Ventolin 0.083% Nebulizer Soln - NEB 1 amp RQID [facility] Administration Amlodipine Besylate 10 mg 07/09/18 10:00 07/09/18 09:50 Norvasc - PO 10 mg DAILY [facility] Administration Aspirin 81 mg 07/09/18 10:00 07/09/18 09:49 Asa - PO 81 mg DAILY [facility] Administration Atorvastatin Calcium 10 mg 07/09/18 22:00 Lipitor - PO HS [facility] Baclofen 10 mg 07/09/18 10:00 07/09/18 09:49 Lioresal - PO 10 mg BID [facility] Administration Budesonide/Formoterol Fumarate 1 puff 07/09/18 10:00 07/09/18 09:50 Symbicort 160/4.5mcg - IH Not Given BID [facility] Docusate Sodium 100 mg 07/09/18 10:00 07/09/18 09:49 Colace - PO 100 mg DAILY [facility] Administration Furosemide 40 mg 07/09/18 10:00 07/09/18 10:03 Lasix Injection - IVPUSH 40 mg DAILY [facility] Administration Gabapentin 100 mg 07/09/18 10:00 07/09/18 09:50 Neurontin - PO 100 mg BID [facility] Administration Hydralazine HCl 100 mg 07/09/18 06:00 07/09/18 06:00 Apresoline - PO 100 mg TID [facility] Administration Insulin Aspart 1 vial 07/09/18 07:00 07/09/18 07:57 Novolog Vial Sliding Scale - SQ Not Given ACHS [facility] Protocol Metoprolol Tartrate 25 mg 07/09/18 10:00 07/09/18 09:50 Lopressor - PO 25 mg DAILY [facility] Administration Sertraline HCl 25 mg 07/09/18 10:00 07/09/18 09:50 Zoloft - PO 25 mg DAILY [facility] Administration Solifenacin 5 mg 07/09/18 10:00 07/09/18 09:50 Vesicare - PO 5 mg DAILY [facility] Administration Tiotropium [place] 2 puff 07/09/18 10:00 07/09/18 09:50 Spiriva Respimat IH Not Given DAILY [facility] pe: Vital Signs Period Temp Pulse Resp BP Sys/Gates Pulse Ox Last 24 Hr 98.4 F-98.5 F 63-83 18-22 134-151/56-76 94-100 nad no jvd rrr s1s2 no mrg crackles at bases, nl eff aaox3 chronic venous stasis changes le bl, non pitting edema abd nt nd pos bs no jaundice diaphoresis pos dp pt no carotid bruits +chest wall tenderness Laboratory Last Values WBC 11.5 K/mm3 (4.0-10.0) H 07/08/18 21:24 RBC 2.93 M/mm3 (3.60-5.2) L 07/08/18 21:24 Hgb 7.4 GM/dL (10.7-15.3) L 07/08/18 21:24 Hct 23.5 % (32.4-45.2) L 07/08/18 21:24 MCV 80.2 fl (80-96) 07/08/18 21:24 MCH 25.3 pg (25.7-33.7) L 07/08/18 21:24 MCHC 31.6 g/dl (32.0-36.0) L 07/08/18 21:24 RDW 18.1 % (11.6-15.6) H 07/08/18 21:24 Plt Count 403 K/MM3 (134-434) 07/08/18 21:24 MPV 7.9 fl (7.5-11.1) 07/08/18 21:24 Absolute Neuts (auto) 6.8 K/mm3 (1.5-8.0) 07/08/18 21:24 Neutrophils % 59.3 % (42.8-82.8) 07/08/18 21:24 Lymphocytes % 28.4 % (8-40) 07/08/18 21:24 Monocytes % 9.7 % (3.8-10.2) 07/08/18 21:24 Eosinophils % 1.8 % (0-4.5) 07/08/18 21:24 Basophils % 0.8 % (0-2.0) 07/08/18 21:24 Nucleated RBC % 0 % (0-0) 07/08/18 21:24 PT with INR 13.30 SEC (9.7-13.0) H 07/08/18 21:24 INR 1.13 (0.83-1.09) H 07/08/18 21:24 PTT (Actin FS) 36.7 SECONDS (25.2-36.5) H 07/08/18 21:24 Sodium Cancelled 07/08/18 21:24 Potassium Cancelled 07/08/18 21:24 Chloride Cancelled 07/08/18 21:24 Carbon Dioxide Cancelled 07/08/18 21:24 Anion Gap Cancelled 07/08/18 21:24 BUN Cancelled 07/08/18 21:24 Creatinine Cancelled 07/08/18 21:24 Creat Clearance w eGFR Cancelled 07/08/18 21:24 POC Glucometer 221.30222 UNITS (80-120) 07/09/18 07:45 Random Glucose Cancelled 07/08/18 21:24 Calcium Cancelled 07/08/18 21:24 Magnesium 2.2 mg/dL (1.8-2.4) 07/09/18 00:43 Total Bilirubin Cancelled 07/08/18 21:24 AST Cancelled 07/08/18 21:24 ALT Cancelled 07/08/18 21:24 Alkaline Phosphatase Cancelled 07/08/18 21:24 Creatine Kinase 146 IU/L (26-192) 07/09/18 00:43 Troponin I < 0.02 ng/ml (0.00-0.05) 07/09/18 00:43 B-Natriuretic Peptide Cancelled 07/08/18 21:24 Total Protein Cancelled 07/08/18 21:24 Albumin Cancelled 07/08/18 21:24 Urine Color Yellow 07/09/18 00:43 Urine Appearance Slcloudy 07/09/18 00:43 Urine pH 5.0 (5.0-8.0) 07/09/18 00:43 Ur Specific [place] 1.010 (1.010-1.035) 07/09/18 00:43 Urine Protein Negative (NEGATIVE) 07/09/18 00:43 Urine Glucose (UA) Negative (NEGATIVE) 07/09/18 00:43 Urine Ketones Negative (NEGATIVE) 07/09/18 00:43 Urine Blood Negative (NEGATIVE) 07/09/18 00:43 Urine Nitrite Negative (NEGATIVE) 07/09/18 00:43 Urine Bilirubin Negative (<2.0 mg/dL) 07/09/18 00:43 Urine Urobilinogen Negative mg/dL (0.2-1.0) 07/09/18 00:43 Ur Leukocyte Esterase 2+ (NEGATIVE) H 07/09/18 00:43 Urine WBC (Auto) 36 /hpf (3-5) 07/09/18 00:43 Urine RBC (Auto) 1 /hpf (0-3) 07/09/18 00:43 Ur Epithelial Cells Moderate /HPF (FEW) 07/09/18 00:43 Hyaline Casts 6 /lpf 07/09/18 00:43 Urine Mucus Rare 07/09/18 00:43 Blood Type A POSITIVE 07/09/18 00:43 Antibody Screen Negative 07/08/18 21:24 cxr: chf ecg: sr,nl intervals, no ischemic changes mibi 2011: no ischemia, nl lvef echo 03/2014: lvh, nl lv/rv, lae, no sig valve path echo 04/2018: mild lvh, nl lv, mild rve, nl rv fcn, lae, no sig valve path a/p: 72 f hx copd, htn, dm, here with sob, cp. acute diastolic chf, sob: -cont lasix 40 iv qd -monitor daily wt, cr, lytes htn: -bp stable -cont home meds cp: -atypical cp -ecg benign -trops negx3 -no signs acs -seems more msk
--- NOTE | 2018-07-09 12:39 | PN ---
Progress Note (short form) - Note Progress Note: pt seen/ examined in er chart reviewed. awake. chronic ill appearance no distress obese denies cp mild sob + Vital Signs Temp 98.4 F 07/09/18 06:09 Pulse 83 07/09/18 10:10 Resp 18 07/09/18 10:10 BP 151/56 L 07/09/18 10:10 Pulse Ox 96 07/09/18 10:10 Intake & Output 07/08/18 07/09/18 07/09/18 23:59 11:59 23:59 Weight 253 lb Other: Voiding Method Bedpan Height 5 ft 11 in Body Mass Index (BMI) 35.2 Weight Measurement Method Est/Stated by Patient Active Medications Acetaminophen (Tylenol -) 650 mg PO Q6H PRN PRN Reason: PAIN LEVEL 1-5 OR FEVER Albuterol Sulfate (Ventolin 0.083% Nebulizer Soln -) 1 amp NEB RQID [facility] Last Admin: 07/09/18 12:32 Dose: 1 amp Amlodipine Besylate (Norvasc -) 10 mg PO DAILY [facility] Last Admin: 07/09/18 09:50 Dose: 10 mg Aspirin (Asa -) 81 mg PO DAILY [facility] Last Admin: 07/09/18 09:49 Dose: 81 mg Atorvastatin Calcium (Lipitor -) 10 mg PO HS [facility] Baclofen (Lioresal -) 10 mg PO BID [facility] Last Admin: 07/09/18 09:49 Dose: 10 mg Budesonide/Formoterol Fumarate (Symbicort 160/4.5mcg -) 1 puff IH BID [facility] Last Admin: 07/09/18 09:50 Dose: Not Given Docusate Sodium (Colace -) 100 mg PO DAILY [facility] Last Admin: 07/09/18 09:49 Dose: 100 mg Enoxaparin Sodium (Lovenox -) 40 mg SQ DAILY [facility] Furosemide (Lasix Injection -) 40 mg IVPUSH DAILY [facility] Last Admin: 07/09/18 10:03 Dose: 40 mg Gabapentin (Neurontin -) 100 mg PO BID [facility] Last Admin: 07/09/18 09:50 Dose: 100 mg Hydralazine HCl (Apresoline -) 100 mg PO TID [facility] Last Admin: 07/09/18 06:00 Dose: 100 mg Insulin Aspart (Novolog Vial Sliding Scale -) 1 vial SQ ACHS [facility]; Protocol Last Admin: 07/09/18 11:32 Dose: Not Given Insulin Detemir (Levemir Vial) 10 units SQ HS [facility] Metoprolol Tartrate (Lopressor -) 25 mg PO DAILY [facility] Last Admin: 07/09/18 09:50 Dose: 25 mg Sertraline HCl (Zoloft -) 25 mg PO DAILY [facility] Last Admin: 07/09/18 09:50 Dose: 25 mg Solifenacin (Vesicare -) 5 mg PO DAILY [facility] Last Admin: 07/09/18 09:50 Dose: 5 mg Tiotropium [place] (Spiriva Respimat) 2 puff IH DAILY [facility] Last Admin: 07/09/18 09:50 Dose: Not Given CBC, BMP 07/08/18 21:24 07/08/18 21:24 cxr - noted/reviewed Physical Exam. awake/ obese/ no distress/ chronic ill appearance . heent- no jvd lungs- diminished cvs- s1, s2 rrr abd- soft/ obese ext- chronic venous stasis neuro- aox3 A/P Meds / labs reviewed will transfuse decrease in h/h no obvious bleeding will transfuse as pt mildly sob check stool for occult blood iv antibiotics - per i/d add basal insulin pulmonary/ i/d to follow cardiology consult noted may transfer to floor Dvt prophylaxis will follow Problem List - Problems (1) Anemia Code(s): D64.9 - ANEMIA, UNSPECIFIED (2) CHF (congestive heart failure) Code(s): I50.9 - HEART FAILURE, UNSPECIFIED (3) COPD (chronic obstructive pulmonary disease) Code(s): J44.9 - CHRONIC OBSTRUCTIVE PULMONARY DISEASE, UNSPECIFIED (4) Venous insufficiency Code(s): I87.2 - VENOUS INSUFFICIENCY (CHRONIC) (PERIPHERAL) (5) HTN (hypertension) Code(s): I10 - ESSENTIAL (PRIMARY) HYPERTENSION (6) Type 2 diabetes mellitus Code(s): E11.9 - TYPE 2 DIABETES MELLITUS WITHOUT COMPLICATIONS
--- NOTE | 2018-07-09 15:27 | CON.ID ---
Consult Consult Specialty:: infectious diseases Referred by:: [facility] Reason for Consultation:: sepsis,chest pain - History of Present Illness Chief Complaint: leg hurts History of Present Illness: Patient presents from [facility] with a CC of 1 day of L-sided CP and SOB r she is concerned she is having a WA as this is the same sx she apparently had in the past. patient came in with the above symptoms but now says her main issues her legs are bothering her and they are pain ful patient otherwise has no complaints now patient was given vanco in the er - History Source History Provided By: Patient Limitations to Obtaining History: No Limitations - Past Medical History Cardio/Vascular: Yes: HTN Pulmonary: Yes: Asthma, COPD Endocrine: Yes: Diabetes Mellitus - Alcohol/Substance Use Hx Alcohol Use: No History of Substance Use: reports: None - Smoking History Smoking history: Former smoker Have you smoked in the past 12 months: No Aproximately how many cigarettes per day: 1 - Social History ADL: Support Services History of Recent Travel: No Home Medications - Allergies Allergies/Adverse Reactions: Allergies Allergy/AdvReac Type Severity Reaction Status Date / Time penicillin G Allergy Intermediate Hives Verified 07/08/18 17:20 benzathine Allergy Mild Rash Uncoded 07/08/18 17:20 tomatoes Allergy Mild Rash Uncoded 07/08/18 17:20 - Home Medications Home Medications: Ambulatory Orders Acetaminophen W/ Codeine #3 [Tylenol # 3 -] 1 tab PO Q4H 07/08/18 Acetaminophen [Acetaminophen ER] 650 mg PO QID 07/08/18 Albuterol 0.083% Nebulizer Maribel [Ventolin 0.083%] 1 neb NEB QID 07/08/18 Amlodipine Besylate [Norvasc -] 10 mg PO DAILY 07/08/18 Aspirin 81 mg PO DAILY 07/08/18 Baclofen 10 mg PO BID 07/08/18 Budesonide/Formeterol Fumarate [SYMBICORT 160/4.5mcg -] 1 inh PO BID 07/08/18 Docusate Sodium [Colace] 100 mg PO DAILY 07/08/18 Furosemide [Lasix] 40 mg PO DAILY 07/08/18 Gabapentin 100 mg PO BID 07/08/18 Hydralazine HCl 100 mg PO TID 07/08/18 Insulin Lispro [Humalog] 100 unit SQ ASDIR 07/08/18 Metoprolol Tartrate 25 mg PO DAILY 07/08/18 Mineral Oil/Pet Hy-Phl [Aquaphor] 1 applic TP DAILY 07/08/18 Oxybutynin Chloride [Ditropan Xl] 10 mg PO DAILY 07/08/18 Sertraline HCl [Zoloft] 25 mg PO DAILY 07/08/18 Simvastatin 20 mg PO DAILY 07/08/18 Sodium Phosphate,[place]-Dibasic [Fleet Enema] 133 ml RC TID 07/08/18 Tiotropium [place] [Spiriva] 1 inh PO DAILY 07/08/18 Vit A/Vitamin D3/E/Aloe V/Zinc [Periguard Ointment] 100 gm TP TID 07/08/18 Review of Systems - Review of Systems Constitutional: reports: No Symptoms Eyes: reports: No Symptoms HENT: reports: No Symptoms Neck: reports: No Symptoms Cardiovascular: reports: Chest Pain Respiratory: reports: SOB Gastrointestinal: reports: No Symptoms Genitourinary: reports: No Symptoms Musculoskeletal: reports: Other Integumentary: reports: Other Neurological: reports: No Symptoms Endocrine: reports: No Symptoms Hematology/Lymphatic: reports: No Symptoms Psychiatric: reports: No Symptoms Physical Exam Vital Signs: Vital Signs Temperature 98.4 F 07/09/18 06:09 Pulse Rate 83 07/09/18 10:10 Respiratory Rate 18 07/09/18 10:10 Blood Pressure 151/56 L 07/09/18 10:10 O2 Sat by Pulse Oximetry (%) 96 07/09/18 10:10 Constitutional: Yes: Well Nourished, No Distress, Calm Cardiovascular: Yes: Regular Rate and Rhythm Respiratory: Yes: Regular, CTA Bilaterally Gastrointestinal: Yes: Normal Bowel Sounds, Soft Musculoskeletal: Yes: WNL Extremities: Yes: Erythema (mild on both legs), Other Neurological: Yes: Alert, Oriented Psychiatric: Yes: Alert Labs: CBC, BMP 07/08/18 21:24 07/08/18 21:24 Imaging - Results Chest X-ray: Report Reviewed, Image Reviewed X-ray: Report Reviewed, Image Reviewed Cat Scan: Report Reviewed, Image Reviewed Ultrasound: Report Reviewed, Image Reviewed Assessment/Plan Problem List - Problems (1) Anemia Code(s): D64.9 - ANEMIA, UNSPECIFIED (2) CHF (congestive heart failure) Code(s): I50.9 - HEART FAILURE, UNSPECIFIED (3) COPD (chronic obstructive pulmonary disease) Code(s): J44.9 - CHRONIC OBSTRUCTIVE PULMONARY DISEASE, UNSPECIFIED (4) Venous insufficiency Code(s): I87.2 - VENOUS INSUFFICIENCY (CHRONIC) (PERIPHERAL) (5) HTN (hypertension) Code(s): I10 - ESSENTIAL (PRIMARY) HYPERTENSION (6) Type 2 diabetes mellitus Code(s): E11.9 - TYPE 2 DIABETES MELLITUS WITHOUT COMPLICATIONS 7 mild cellulitis of the leg plan will stop vanco will cover with azactam leg rest rest as per the team
--- NOTE | 2018-07-09 18:06 | PN ---
Progress Note (short form) - Note Progress Note: PULMONARY CONSULTATION DICTATED 07/09/18 IMP ACUTE HYPOXEMIC RESPIRATORY FAILURE ACUTE ON CHRONIC CHF RUL PNEUMONIA CHEST PAIN ANEMIA COPD ASHD S/P NV HTN DM CKD LIKELY OSAS PLAN LASIX ABX INHALED BRONCHODILATORS O2 DAILY WT NORMAL TRANSFUSION PROTOCOL MONITOR LYTES,RENAL FUNCTION ECHO F/U CHEST X-RAYS F/U CHEST CT 4-[address] THOMAS Problem List - Problems (1) COPD (chronic obstructive pulmonary disease) Code(s): J44.9 - CHRONIC OBSTRUCTIVE PULMONARY DISEASE, UNSPECIFIED (2) CHF (congestive heart failure) Code(s): I50.9 - HEART FAILURE, UNSPECIFIED (3) Venous insufficiency Code(s): I87.2 - VENOUS INSUFFICIENCY (CHRONIC) (PERIPHERAL) (4) HTN (hypertension) Code(s): I10 - ESSENTIAL (PRIMARY) HYPERTENSION (5) Diabetes Code(s): E11.9 - TYPE 2 DIABETES MELLITUS WITHOUT COMPLICATIONS (6) Dyslipidemia Code(s): E78.5 - HYPERLIPIDEMIA, UNSPECIFIED (7) Pneumonia Code(s): J18.9 - PNEUMONIA, UNSPECIFIED ORGANISM (8) Tobacco abuse Code(s): Z72.0 - TOBACCO USE (9) Tobacco abuse counseling Code(s): Z71.6 - TOBACCO ABUSE COUNSELING (10) Anemia Code(s): D64.9 - ANEMIA, UNSPECIFIED
[2018-07-09] MEDS: AZTREONAM 1 GM in DEXTROSE 5%-WATER - 50 ML IVPB SCH (18:07)
--- NOTE | 2018-07-09 18:29 | CONS ---
DATE OF CONSULTATION: 07/09/2018 REFERRING PHYSICIAN: Cassie Tucker MD HISTORY: The patient is a 72-year-old black female with extensive past medical history that includes ASHD status post IA, hypertension, COPD, diabetes mellitus , diastolic heart failure, cellulitis, bilateral lower extremity edema, CHF resident of [facility] transferred to [facility] with the complaint of a 1-day history of left-sided chest pain associated with shortness of breath. The patient states that she had a fever and a cough, which was nonproductive. She denies any nausea, vomiting, or diaphoresis. She stated on admission chest pain was 10/10 in severity and pressure like. On admission, she underwent a CTA of the chest, which revealed no evidence of pulmonary emboli and large pulmonary arteries consistent with pulmonary hypertension, mild cardiomegaly as well as patchy right upper lobe infiltrate, bibasilar infiltrates, and small bibasilar pleural effusions. On admission, in the ER she was treated with antibiotics as well as IV Lasix with good clinical response. This patient has a history of tobacco use. She previously smoked 3 packs per day and currently smokes a few cigarettes a day. She denies any recent weight loss or night sweats. She denies hemoptysis. She denies any history of occupational exposure to chemicals or fumes. PAST MEDICAL HISTORY: Again includes diastolic heart failure, COPD, ASHD status post IA, chronic kidney disease, PAD, diabetes, hypertension. REVIEW OF SYSTEMS: Positive dyspnea, positive orthopnea, positive chest pain. No fever, no chills, no hemoptysis, no abdominal pain. Positive lower extremity edema. CURRENT MEDICATIONS: Include Lovenox, Neurontin, Zoloft, Spiriva, albuterol, Lopressor, Norvasc, Apresoline, Vesicare, Lipitor, Lasix, and aspirin. PHYSICAL EXAMINATION: General: The patient is a morbidly obese black female well developed, awake, alert in no acute respiratory distress. Vital Signs: She is afebrile. Blood pressure is 131/70, respiratory rate 18, O2 saturation 96% on 3 L. HEENT: Normocephalic and atraumatic. Neck: Supple. Heart: Regular with S1, S2. Chest: bilateral crackles. Abdomen: Soft. Bowel sounds positive. Extremities: Bilateral lower extremity edema. LABORATORIES: WBC 11.5, hemoglobin 7.4, hematocrit 23.5, BUN 27, creatinine 1.1 , BNP 5777. Chest CT reveals patchy infiltrate right upper lobe, bilateral pleural effusions , possible bilateral patchy lower lobe infiltrates. IMPRESSION: 1. Acute hypoxemic respiratory failure secondary to likely multiple factors. 2. Acute on chronic congestive heart failure. 3. Right upper lobe opacity, bibasilar infiltrates likely pneumonia 4. Severe anemia. 5. Chronic kidney disease. 6. Peripheral vascular disease. 7. Chronic obstructive pulmonary disease. 8. Hypertension. 9. Likely obstructive sleep apnea. PLAN: IV Lasix. Supplemental O2. Inhaled bronchodilators. Antibiotic therapy. Obtain follow up chest CT in 4-6 weeks to document resolution of infiltrates. Obtain sleep screen. Normal transfusion protocol. Strict inputs and outputs. Daily weighs.Echocardiogram TEETEE THOMAS M.D. PATRICK/[id number] MTDD
[2018-07-09 18:59] LABS: BASO % 1.1 % (0-2.0); EOS % 1.6 % (0-4.5); HEMATOCRIT 24.2 % (32.4-45.2); HEMOGLOBIN 7.6 GM/dL (10.7-15.3); LYMPH % 22.9 % (8-40); MCH 25.2 pg (25.7-33.7); MCHC 31.2 g/dl (32.0-36.0); MEAN CELL VOLUME 80.6 fl (80-96); MEAN PLT VOLUME 8.2 fl (7.5-11.1); MONO % 10.3 % (3.8-10.2); NEUT % 64.1 % (42.8-82.8); PLATELET COUNT 365 K/MM3 (134-434); RBC 3.01 M/mm3 (3.60-5.2); RDW 18.4 % (11.6-15.6); WHITE BLOOD COUNT 10.1 K/mm3 (4.0-10.0)
[2018-07-09] MEDS: INSULIN (LEVEMIR) 100 UNITS/ML UNITS SQ SCH (22:34)
[2018-07-09] MEDS ORDERED: BACLOFEN 10 MG TABLET (FP) ONE (23:12)
[2018-07-09] MEDS ORDERED: GABAPENTIN 100 MG CAPSULE (FP) ONE ×2 (23:12→23:13)
[2018-07-09] MEDS ORDERED: ATORVASTATIN CA 10 MG TABLET (FP) ONE (23:12)
[2018-07-09] MEDS ORDERED: hydrALAZINE HCL 25 MG TABLET (FP) ONE (23:12)
[2018-07-09] MEDS: ATORVASTATIN CA 10 MG TABLET (FP) PO SCH (23:34)
[2018-07-10] MEDS: BUDESONIDE/FORMETEROL FUMARATE 160/4.5 mcg INHALER IH SCH ×3 (00:21→23:00)
[2018-07-10] MEDS: AZTREONAM 1 GM in DEXTROSE 5%-WATER - 50 ML IVPB SCH ×3 (02:27→18:18)
[2018-07-10] MEDS: INSULIN SLIDING SCALE (NOVOLOG) 1 VIAL SQ SCH ×4 (06:39→22:59)
[2018-07-10] MEDS: hydrALAZINE HCL 50 MG TABLET (FP) PO SCH ×3 (06:50→22:58)
[2018-07-10 08:26] LABS: BASO % 0.6 % (0-2.0); EOS % 1.3 % (0-4.5); HEMATOCRIT 23.7 % (32.4-45.2); HEMOGLOBIN 7.5 GM/dL (10.7-15.3); LYMPH % 24.6 % (8-40); MCH 25.3 pg (25.7-33.7); MCHC 31.6 g/dl (32.0-36.0); MEAN CELL VOLUME 79.9 fl (80-96); MEAN PLT VOLUME 8.3 fl (7.5-11.1); MONO % 9.9 % (3.8-10.2); NEUT % 63.6 % (42.8-82.8); PLATELET COUNT 372 K/MM3 (134-434); RBC 2.96 M/mm3 (3.60-5.2); WHITE BLOOD COUNT 10.3 K/mm3 (4.0-10.0)
[2018-07-10 08:38] LABS: ALBUMIN 2.7 g/dl (3.4-5.0); ALK PHOS 72 U/L (45-117); ANION GAP 6 MMOL/L (8-16); BILIRUBIN,TOTAL 0.4 mg/dL (0.2-1); BLOOD UREA NITROGEN 27 mg/dL (7-18); CALCIUM 7.7 mg/dL (8.5-10.1); CHLORIDE 106 mmol/L (98-107); CHOLESTEROL 80 mg/dL (50-200); CO2 28 mmol/L (21-32); CREATININE 1.3 mg/dL (0.55-1.3); GLUCOSE,RANDOM 150 mg/dL (74-106); HDL CHOLESTEROL 37 mg/dL (40-60); POTASSIUM 4.7 mmol/L (3.5-5.1); SGOT/AST 16 U/L (15-37); SGPT/ALT 13 U/L (13-61); SODIUM 140 mmol/L (136-145); TOT PROT 7.1 g/dl (6.4-8.2); TRIGLYCERIDES 85 mg/dL (0-150)
--- NOTE | 2018-07-10 11:06 | PN ---
Progress Note (short form) - Note Progress Note: s: no cp sob palps dizzy o: Vital Signs Period Temp Pulse Resp BP Sys/Gates Pulse Ox Last 24 Hr 98 F-98.6 F 60-75 18-19 116-145/52-98 100-100 nad no jvd rrr s1s2 no mrg crackles at bases, nl eff chronic venous stasis changes le bl, non pitting edema abd nt nd pos bs no jaundice diaphoresis pos dp pt no carotid bruits +chest wall tenderness Current Medications Generic Name Dose Route Start Last Admin Trade Name Freq PRN Reason Stop Dose Admin Acetaminophen 650 mg 07/09/18 10:00 Tylenol - PO Q6H PRN PAIN LEVEL 1-5 OR FEVER Albuterol Sulfate 1 amp 07/09/18 08:00 07/09/18 12:32 Ventolin 0.083% Nebulizer Soln - NEB 1 amp RQID [facility] Administration Amlodipine Besylate 10 mg 07/09/18 10:00 07/09/18 09:50 Norvasc - PO 10 mg DAILY [facility] Administration Aspirin 81 mg 07/09/18 10:00 07/09/18 09:49 Asa - PO 81 mg DAILY [facility] Administration Atorvastatin Calcium 10 mg 07/09/18 22:00 07/09/18 23:34 Lipitor - PO 10 mg HS [facility] Administration Baclofen 10 mg 07/09/18 10:00 07/09/18 23:34 Lioresal - PO 10 mg BID [facility] Administration Budesonide/Formoterol Fumarate 1 puff 07/09/18 10:00 07/10/18 00:21 Symbicort 160/4.5mcg - IH 1 puff BID [facility] Administration Docusate Sodium 100 mg 07/09/18 10:00 07/09/18 09:49 Colace - PO 100 mg DAILY [facility] Administration Enoxaparin Sodium 40 mg 07/10/18 10:00 Lovenox - SQ DAILY [facility] Furosemide 40 mg 07/09/18 10:00 07/09/18 10:03 Lasix Injection - IVPUSH 40 mg DAILY [facility] Administration Gabapentin 100 mg 07/09/18 10:00 07/09/18 23:34 Neurontin - PO 100 mg BID [facility] Administration Hydralazine HCl 100 mg 07/09/18 06:00 07/10/18 06:50 Apresoline - PO 100 mg TID [facility] Administration Aztreonam 1 gm/ Dextrose 50 mls @ 100 mls/hr 07/09/18 18:00 07/10/18 02:27 IVPB 100 mls/hr Q8H-IV [facility] Administration Insulin Aspart 1 vial 07/09/18 07:00 07/10/18 06:39 Novolog Vial Sliding Scale - SQ Not Given ACHS [facility] Protocol Insulin Detemir 10 units 07/09/18 22:00 07/09/18 22:34 Levemir Vial SQ Not Given HS [facility] Metoprolol Tartrate 25 mg 07/09/18 10:00 07/09/18 09:50 Lopressor - PO 25 mg DAILY [facility] Administration Sertraline HCl 25 mg 07/09/18 10:00 07/09/18 09:50 Zoloft - PO 25 mg DAILY [facility] Administration Solifenacin 5 mg 07/09/18 10:00 07/09/18 09:50 Vesicare - PO 5 mg DAILY [facility] Administration Tiotropium [place] 2 puff 07/09/18 10:00 07/09/18 09:50 Spiriva Respimat IH Not Given DAILY [facility] CBC, BMP 07/10/18 08:00 07/10/18 08:00 cxr: chf ecg: sr,nl intervals, no ischemic changes mibi 2011: no ischemia, nl lvef echo 03/2014: lvh, nl lv/rv, lae, no sig valve path echo 04/2018: mild lvh, nl lv, mild rve, nl rv fcn, lae, no sig valve path a/p: 72 f hx copd, htn, dm, here with sob, cp. acute diastolic chf, sob: -cont lasix 40 iv qd -monitor daily wt, cr, lytes htn: -bp stable -cont home meds cp: -atypical cp -ecg benign -trops negx3 -no signs acs -seems more msk
[2018-07-10] MEDS: ASPIRIN 81 MG CHEWABLE TABLETS PO SCH (11:20)
[2018-07-10] MEDS: DOCUSATE SODIUM 100 MG CAPSULE (FP) PO SCH (11:21)
[2018-07-10] MEDS: FUROSEMIDE 40 MG/4 ML INJECTABLE VIAL IVPUSH SCH (11:21)
[2018-07-10] MEDS: METOPROLOL TARTRATE 25 MG TABLET (FP) PO SCH (11:22)
[2018-07-10] MEDS: ENOXAPARIN NA (PORCINE) 40 MG/0.4 ML DISP.SYRIN SQ SCH (11:22)
[2018-07-10] MEDS: BACLOFEN 10 MG TABLET (FP) PO SCH ×2 (11:22→22:58)
[2018-07-10] MEDS: amLODIPine BESYLATE 10 MG TABLET (FP) PO SCH (11:23)
[2018-07-10] MEDS: GABAPENTIN 100 MG CAPSULE (FP) PO SCH ×2 (11:23→22:58)
[2018-07-10] MEDS: TIOTROPIUM BROMIDE 2.5 MCG (SPIRIVA) RESPIMAT INHALER IH SCH (11:23)
[2018-07-10] MEDS: SERTRALINE HCL 25 MG TABLET (FP) PO SCH (11:24)
[2018-07-10] MEDS: SOLIFENACIN SUCCINATE 5 MG TAB (FP) PO SCH (11:24)
--- NOTE | 2018-07-10 13:39 | PN ---
Progress Note, Physician History of Present Illness: stable still continues to c/o of leg pain - Current Medication List Current Medications: Active Medications Acetaminophen (Tylenol -) 650 mg PO Q6H PRN PRN Reason: PAIN LEVEL 1-5 OR FEVER Albuterol Sulfate (Ventolin 0.083% Nebulizer Soln -) 1 amp NEB RQID [facility] Last Admin: 07/09/18 12:32 Dose: 1 amp Amlodipine Besylate (Norvasc -) 10 mg PO DAILY [facility] Last Admin: 07/10/18 11:23 Dose: 10 mg Aspirin (Asa -) 81 mg PO DAILY [facility] Last Admin: 07/10/18 11:20 Dose: 81 mg Atorvastatin Calcium (Lipitor -) 10 mg PO HS [facility] Last Admin: 07/09/18 23:34 Dose: 10 mg Baclofen (Lioresal -) 10 mg PO BID [facility] Last Admin: 07/10/18 11:22 Dose: 10 mg Budesonide/Formoterol Fumarate (Symbicort 160/4.5mcg -) 1 puff IH BID [facility] Last Admin: 07/10/18 11:23 Dose: 1 puff Docusate Sodium (Colace -) 100 mg PO DAILY [facility] Last Admin: 07/10/18 11:21 Dose: 100 mg Enoxaparin Sodium (Lovenox -) 40 mg SQ DAILY [facility] Last Admin: 07/10/18 11:22 Dose: 40 mg Furosemide (Lasix Injection -) 40 mg IVPUSH DAILY [facility] Last Admin: 07/10/18 11:21 Dose: 40 mg Gabapentin (Neurontin -) 100 mg PO BID [facility] Last Admin: 07/10/18 11:23 Dose: 100 mg Hydralazine HCl (Apresoline -) 100 mg PO TID [facility] Last Admin: 07/10/18 06:50 Dose: 100 mg Aztreonam 1 gm/ Dextrose 50 mls @ 100 mls/hr IVPB Q8H-IV [facility] Last Admin: 07/10/18 11:21 Dose: 100 mls/hr Insulin Aspart (Novolog Vial Sliding Scale -) 1 vial SQ ACHS [facility]; Protocol Last Admin: 07/10/18 12:15 Dose: Not Given Insulin Detemir (Levemir Vial) 10 units SQ HS [facility] Last Admin: 07/09/18 22:34 Dose: Not Given Metoprolol Tartrate (Lopressor -) 25 mg PO DAILY [facility] Last Admin: 07/10/18 11:22 Dose: 25 mg Sertraline HCl (Zoloft -) 25 mg PO DAILY [facility] Last Admin: 07/10/18 11:24 Dose: 25 mg Solifenacin (Vesicare -) 5 mg PO DAILY [facility] Last Admin: 07/10/18 11:24 Dose: 5 mg Tiotropium [place] (Spiriva Respimat) 2 puff IH DAILY [facility] Last Admin: 07/10/18 11:23 Dose: Not Given - Objective Vital Signs: Vital Signs Temperature 98 F 07/10/18 06:00 Pulse Rate 75 07/10/18 06:00 Respiratory Rate 18 07/10/18 06:00 Blood Pressure 145/52 L 07/10/18 06:00 O2 Sat by Pulse Oximetry (%) 100 07/10/18 00:00 Constitutional: Yes: No Distress, Calm Cardiovascular: Yes: S1, S2 Respiratory: Yes: Regular, CTA Bilaterally Gastrointestinal: Yes: Normal Bowel Sounds, Soft Musculoskeletal: Yes: WNL Extremities: Yes: Erythema (improved), Other Neurological: Yes: Alert, Oriented Psychiatric: Yes: Alert, Oriented Labs: CBC, BMP 07/10/18 08:00 07/10/18 08:00 INR, PTT INR 1.13 (0.83-1.09) H 07/08/18 21:24 Assessment/Plan Problem List - Problems (1) Anemia Code(s): D64.9 - ANEMIA, UNSPECIFIED (2) CHF (congestive heart failure) Code(s): I50.9 - HEART FAILURE, UNSPECIFIED (3) COPD (chronic obstructive pulmonary disease) Code(s): J44.9 - CHRONIC OBSTRUCTIVE PULMONARY DISEASE, UNSPECIFIED (4) Venous insufficiency Code(s): I87.2 - VENOUS INSUFFICIENCY (CHRONIC) (PERIPHERAL) (5) HTN (hypertension) Code(s): I10 - ESSENTIAL (PRIMARY) HYPERTENSION (6) Type 2 diabetes mellitus Code(s): E11.9 - TYPE 2 DIABETES MELLITUS WITHOUT COMPLICATIONS 7 mild cellulitis of the leg plan continue current mgmt will see how the patient does tomorrow might change him to oral rest as per the team
--- NOTE | 2018-07-10 13:54 | PN ---
Progress Note, Physician History of Present Illness: pulmonary alert,still c/o sob,-cp - Current Medication List Current Medications: Active Medications Acetaminophen (Tylenol -) 650 mg PO Q6H PRN PRN Reason: PAIN LEVEL 1-5 OR FEVER Albuterol Sulfate (Ventolin 0.083% Nebulizer Soln -) 1 amp NEB RQID [facility] Last Admin: 07/09/18 12:32 Dose: 1 amp Amlodipine Besylate (Norvasc -) 10 mg PO DAILY [facility] Last Admin: 07/10/18 11:23 Dose: 10 mg Aspirin (Asa -) 81 mg PO DAILY [facility] Last Admin: 07/10/18 11:20 Dose: 81 mg Atorvastatin Calcium (Lipitor -) 10 mg PO HS [facility] Last Admin: 07/09/18 23:34 Dose: 10 mg Baclofen (Lioresal -) 10 mg PO BID [facility] Last Admin: 07/10/18 11:22 Dose: 10 mg Budesonide/Formoterol Fumarate (Symbicort 160/4.5mcg -) 1 puff IH BID [facility] Last Admin: 07/10/18 11:23 Dose: 1 puff Docusate Sodium (Colace -) 100 mg PO DAILY [facility] Last Admin: 07/10/18 11:21 Dose: 100 mg Enoxaparin Sodium (Lovenox -) 40 mg SQ DAILY [facility] Last Admin: 07/10/18 11:22 Dose: 40 mg Furosemide (Lasix Injection -) 40 mg IVPUSH DAILY [facility] Last Admin: 07/10/18 11:21 Dose: 40 mg Gabapentin (Neurontin -) 100 mg PO BID [facility] Last Admin: 07/10/18 11:23 Dose: 100 mg Hydralazine HCl (Apresoline -) 100 mg PO TID [facility] Last Admin: 07/10/18 06:50 Dose: 100 mg Aztreonam 1 gm/ Dextrose 50 mls @ 100 mls/hr IVPB Q8H-IV [facility] Last Admin: 07/10/18 11:21 Dose: 100 mls/hr Insulin Aspart (Novolog Vial Sliding Scale -) 1 vial SQ ACHS [facility]; Protocol Last Admin: 07/10/18 12:15 Dose: Not Given Insulin Detemir (Levemir Vial) 10 units SQ HS [facility] Last Admin: 07/09/18 22:34 Dose: Not Given Metoprolol Tartrate (Lopressor -) 25 mg PO DAILY [facility] Last Admin: 07/10/18 11:22 Dose: 25 mg Sertraline HCl (Zoloft -) 25 mg PO DAILY [facility] Last Admin: 07/10/18 11:24 Dose: 25 mg Solifenacin (Vesicare -) 5 mg PO DAILY [facility] Last Admin: 07/10/18 11:24 Dose: 5 mg Tiotropium [place] (Spiriva Respimat) 2 puff IH DAILY [facility] Last Admin: 07/10/18 11:23 Dose: Not Given - Objective Vital Signs: Vital Signs Temperature 98 F 07/10/18 06:00 Pulse Rate 75 07/10/18 06:00 Respiratory Rate 18 07/10/18 06:00 Blood Pressure 145/52 L 07/10/18 06:00 O2 Sat by Pulse Oximetry (%) 100 07/10/18 00:00 Constitutional: Yes: Calm, Obese Eyes: Yes: WNL HENT: Yes: WNL Neck: Yes: WNL Cardiovascular: Yes: Regular Rate and Rhythm, S1, S2 Respiratory: Yes: Rales (bibasilar rales) Gastrointestinal: Yes: Normal Bowel Sounds, Soft Extremities: Yes: WNL Edema: Yes Labs: CBC, BMP 07/10/18 08:00 07/10/18 08:00 INR, PTT INR 1.13 (0.83-1.09) H 07/08/18 21:24 Problem List - Problems (1) COPD (chronic obstructive pulmonary disease) Code(s): J44.9 - CHRONIC OBSTRUCTIVE PULMONARY DISEASE, UNSPECIFIED (2) CHF (congestive heart failure) Code(s): I50.9 - HEART FAILURE, UNSPECIFIED (3) Venous insufficiency Code(s): I87.2 - VENOUS INSUFFICIENCY (CHRONIC) (PERIPHERAL) (4) HTN (hypertension) Code(s): I10 - ESSENTIAL (PRIMARY) HYPERTENSION (5) Diabetes Code(s): E11.9 - TYPE 2 DIABETES MELLITUS WITHOUT COMPLICATIONS (6) Dyslipidemia Code(s): E78.5 - HYPERLIPIDEMIA, UNSPECIFIED (7) Pneumonia Code(s): J18.9 - PNEUMONIA, UNSPECIFIED ORGANISM (8) Tobacco abuse Code(s): Z72.0 - TOBACCO USE (9) Tobacco abuse counseling Code(s): Z71.6 - TOBACCO ABUSE COUNSELING (10) Anemia Code(s): D64.9 - ANEMIA, UNSPECIFIED Assessment/Plan IMP ACUTE HYPOXEMIC RESPIRATORY FAILURE ACUTE ON CHRONIC CHF RUL PNEUMONIA CHEST PAIN ANEMIA COPD ASHD S/P CT HTN DM CKD LIKELY OSAS PLAN LASIX ABX PER ID INHALED BRONCHODILATORS O2 DAILY WT NORMAL TRANSFUSION PROTOCOL MONITOR LYTES,RENAL FUNCTION ECHO F/U CHEST X-RAYS F/U CHEST CT 4-[address] THOMAS Problem List - Problems (1) COPD (chronic obstructive pulmonary disease) Code(s): J44.9 - CHRONIC OBSTRUCTIVE PULMONARY DISEASE, UNSPECIFIED (2) CHF (congestive heart failure) Code(s): I50.9 - HEART FAILURE, UNSPECIFIED (3) Venous insufficiency Code(s): I87.2 - VENOUS INSUFFICIENCY (CHRONIC) (PERIPHERAL) (4) HTN (hypertension) Code(s): I10 - ESSENTIAL (PRIMARY) HYPERTENSION (5) Diabetes Code(s): E11.9 - TYPE 2 DIABETES MELLITUS WITHOUT COMPLICATIONS (6) Dyslipidemia Code(s): E78.5 - HYPERLIPIDEMIA, UNSPECIFIED (7) Pneumonia Code(s): J18.9 - PNEUMONIA, UNSPECIFIED ORGANISM (8) Tobacco abuse Code(s): Z72.0 - TOBACCO USE (9) Tobacco abuse counseling Code(s): Z71.6 - TOBACCO ABUSE COUNSELING (10) Anemia Code(s): D64.9 - ANEMIA, UNSPECIFIED
--- NOTE | 2018-07-10 14:18 | PN ---
Progress Note (short form) - Note Progress Note: pt seen/ examined in er awaiting bed no new issues all f/u noted Discussed with Dr Willett also today Ct chest - Pneumonia/ chf On abx stool for occult blood pending. Pt did not get transfusion -- apparently per new policy of Er = Attending has to take consent while pt in er awake. chronic ill appearance no distress obese denies cp Vital Signs Temp 98 F 07/10/18 06:00 Pulse 75 07/10/18 06:00 Resp 18 07/10/18 06:00 BP 145/52 L 07/10/18 06:00 Pulse Ox 100 07/10/18 00:00 Intake & Output 07/09/18 07/10/18 07/10/18 23:59 11:59 23:59 Other: Voiding Method Bedpan Bedpan Active Medications Acetaminophen (Tylenol -) 650 mg PO Q6H PRN PRN Reason: PAIN LEVEL 1-5 OR FEVER Albuterol Sulfate (Ventolin 0.083% Nebulizer Soln -) 1 amp NEB RQID [facility] Last Admin: 07/09/18 12:32 Dose: 1 amp Amlodipine Besylate (Norvasc -) 10 mg PO DAILY [facility] Last Admin: 07/10/18 11:23 Dose: 10 mg Aspirin (Asa -) 81 mg PO DAILY [facility] Last Admin: 07/10/18 11:20 Dose: 81 mg Atorvastatin Calcium (Lipitor -) 10 mg PO HS [facility] Last Admin: 07/09/18 23:34 Dose: 10 mg Baclofen (Lioresal -) 10 mg PO BID [facility] Last Admin: 07/10/18 11:22 Dose: 10 mg Budesonide/Formoterol Fumarate (Symbicort 160/4.5mcg -) 1 puff IH BID [facility] Last Admin: 07/10/18 11:23 Dose: 1 puff Docusate Sodium (Colace -) 100 mg PO DAILY [facility] Last Admin: 07/10/18 11:21 Dose: 100 mg Enoxaparin Sodium (Lovenox -) 40 mg SQ DAILY [facility] Last Admin: 07/10/18 11:22 Dose: 40 mg Furosemide (Lasix Injection -) 40 mg IVPUSH DAILY [facility] Last Admin: 07/10/18 11:21 Dose: 40 mg Gabapentin (Neurontin -) 100 mg PO BID [facility] Last Admin: 07/10/18 11:23 Dose: 100 mg Hydralazine HCl (Apresoline -) 100 mg PO TID [facility] Last Admin: 07/10/18 13:57 Dose: 100 mg Aztreonam 1 gm/ Dextrose 50 mls @ 100 mls/hr IVPB Q8H-IV [facility] Last Admin: 07/10/18 11:21 Dose: 100 mls/hr Insulin Aspart (Novolog Vial Sliding Scale -) 1 vial SQ ACHS [facility]; Protocol Last Admin: 07/10/18 12:15 Dose: Not Given Insulin Detemir (Levemir Vial) 10 units SQ HS [facility] Last Admin: 07/09/18 22:34 Dose: Not Given Metoprolol Tartrate (Lopressor -) 25 mg PO DAILY [facility] Last Admin: 07/10/18 11:22 Dose: 25 mg Sertraline HCl (Zoloft -) 25 mg PO DAILY [facility] Last Admin: 07/10/18 11:24 Dose: 25 mg Solifenacin (Vesicare -) 5 mg PO DAILY [facility] Last Admin: 07/10/18 11:24 Dose: 5 mg Tiotropium [place] (Spiriva Respimat) 2 puff IH DAILY [facility] Last Admin: 07/10/18 11:23 Dose: Not Given CBC, BMP 07/10/18 08:00 07/10/18 08:00 ct chest - reviewed Stool occult blood -- pending Physical Exam. awake/ obese/ no distress/ chronic ill appearance . heent- no jvd lungs- diminished cvs- s1, s2 rrr abd- soft/ obese ext- chronic venous stasis neuro- aox3 A/P Meds / labs reviewed will transfuse decrease in h/h no obvious bleeding check stool for occult blood iv antibiotics - per i/d monitor bgm pulmonary/ i/d / cardiology on case may transfer to floor Dvt prophylaxis will consult gi also will follow Problem List - Problems (1) Anemia Code(s): D64.9 - ANEMIA, UNSPECIFIED (2) CHF (congestive heart failure) Code(s): I50.9 - HEART FAILURE, UNSPECIFIED (3) COPD (chronic obstructive pulmonary disease) Code(s): J44.9 - CHRONIC OBSTRUCTIVE PULMONARY DISEASE, UNSPECIFIED (4) Venous insufficiency Code(s): I87.2 - VENOUS INSUFFICIENCY (CHRONIC) (PERIPHERAL) (5) HTN (hypertension) Code(s): I10 - ESSENTIAL (PRIMARY) HYPERTENSION (6) Type 2 diabetes mellitus Code(s): E11.9 - TYPE 2 DIABETES MELLITUS WITHOUT COMPLICATIONS
[2018-07-10] MEDS ORDERED: PT OWN MED DRAWER 7, Y5N ONE ×2 (18:32→22:56)
[2018-07-10] MEDS ORDERED: FUROSEMIDE 40 MG/4 ML INJECTABLE VIAL IVPUSH ONE (18:56)
[2018-07-10] MEDS: ALBUTEROL SO4 0.083% IH SOL 2.5 MG/3 ML VIAL.NEB. NEB SCH ×3 (19:00→23:26)
[2018-07-10] MEDS: ACETAMINOPHEN 325 MG TABLET (FP) PO PRN (22:58)
[2018-07-10] MEDS: ATORVASTATIN CA 10 MG TABLET (FP) PO SCH (22:58)
[2018-07-10] MEDS: INSULIN (LEVEMIR) 100 UNITS/ML UNITS SQ SCH (22:59)
[2018-07-11] MEDS: AZTREONAM 1 GM in DEXTROSE 5%-WATER - 50 ML IVPB SCH ×4 (02:53→19:05)
[2018-07-11] MEDS: INSULIN SLIDING SCALE (NOVOLOG) 1 VIAL SQ SCH ×4 (06:16→21:50)
[2018-07-11] MEDS: hydrALAZINE HCL 50 MG TABLET (FP) PO SCH ×3 (06:16→21:50)
[2018-07-11] MEDS ORDERED: INSULIN (NOVOLOG) ASPART 100 UNITS/ML 10ML VIAL ONE (06:43)
[2018-07-11] MEDS ORDERED: PT OWN MED DRAWER 7, Y5N ONE ×3 (06:43→13:26)
[2018-07-11] MEDS: ALBUTEROL SO4 0.083% IH SOL 2.5 MG/3 ML VIAL.NEB. NEB SCH ×4 (07:15→21:20)
[2018-07-11] MEDS: ASPIRIN 81 MG CHEWABLE TABLETS PO SCH (09:37)
[2018-07-11] MEDS: DOCUSATE SODIUM 100 MG CAPSULE (FP) PO SCH (09:37)
[2018-07-11] MEDS: GABAPENTIN 100 MG CAPSULE (FP) PO SCH ×3 (09:37→21:50)
[2018-07-11] MEDS: SOLIFENACIN SUCCINATE 5 MG TAB (FP) PO SCH (09:37)
[2018-07-11] MEDS: METOPROLOL TARTRATE 25 MG TABLET (FP) PO SCH (09:37)
[2018-07-11] MEDS: SERTRALINE HCL 25 MG TABLET (FP) PO SCH (09:37)
[2018-07-11] MEDS: BACLOFEN 10 MG TABLET (FP) PO SCH ×2 (09:38→21:50)
[2018-07-11] MEDS: amLODIPine BESYLATE 10 MG TABLET (FP) PO SCH (09:38)
[2018-07-11] MEDS: FUROSEMIDE 40 MG/4 ML INJECTABLE VIAL IVPUSH SCH (09:38)
[2018-07-11] MEDS: ENOXAPARIN NA (PORCINE) 40 MG/0.4 ML DISP.SYRIN SQ SCH (09:38)
--- NOTE | 2018-07-11 12:05 | PN ---
Progress Note (short form) - Note Progress Note: pt seen/ examined c/c -- legs sore overall looks and feels better got one unit of prbcs last night. denies cp. breathing stable and better no obvious bleeding stool / ob - still pending Vital Signs Temp 98.1 F 07/11/18 06:00 Pulse 64 07/11/18 06:00 Resp 20 07/11/18 06:00 BP 135/60 07/11/18 06:00 Pulse Ox 94 L 07/10/18 21:00 Intake & Output 07/10/18 07/11/18 07/11/18 23:59 11:59 23:59 Intake Total 890 425 Balance 890 425 Weight 286 lb 2 oz 279 lb Intake: IVPB 50 75 Oral 840 Packed Cells 350 Other: Voiding Method Diaper # Unmeasured Voids Void 2 2 Bowel Movement No Weight Measurement Method Built in Bedscale Built in Bedscale Active Medications Acetaminophen (Tylenol -) 650 mg PO Q6H PRN PRN Reason: PAIN LEVEL 1-5 OR FEVER Last Admin: 07/10/18 22:58 Dose: 650 mg Albuterol Sulfate (Ventolin 0.083% Nebulizer Soln -) 1 amp NEB RQID [facility] Last Admin: 07/11/18 11:20 Dose: 1 amp Amlodipine Besylate (Norvasc -) 10 mg PO DAILY [facility] Last Admin: 07/11/18 09:38 Dose: 10 mg Aspirin (Asa -) 81 mg PO DAILY [facility] Last Admin: 07/11/18 09:37 Dose: 81 mg Atorvastatin Calcium (Lipitor -) 10 mg PO HS [facility] Last Admin: 07/10/18 22:58 Dose: 10 mg Baclofen (Lioresal -) 10 mg PO BID [facility] Last Admin: 07/11/18 09:38 Dose: 10 mg Budesonide/Formoterol Fumarate (Symbicort 160/4.5mcg -) 1 puff IH BID [facility] Last Admin: 07/10/18 23:00 Dose: Not Given Docusate Sodium (Colace -) 100 mg PO DAILY [facility] Last Admin: 07/11/18 09:37 Dose: 100 mg Enoxaparin Sodium (Lovenox -) 40 mg SQ DAILY [facility] Last Admin: 07/11/18 09:38 Dose: 40 mg Furosemide (Lasix Injection -) 40 mg IVPUSH DAILY [facility] Last Admin: 07/11/18 09:38 Dose: 40 mg Gabapentin (Neurontin -) 100 mg PO TID [facility] Hydralazine HCl (Apresoline -) 100 mg PO TID [facility] Last Admin: 07/11/18 06:16 Dose: 100 mg Aztreonam 1 gm/ Dextrose 50 mls @ 100 mls/hr IVPB Q8H-IV [facility] Last Admin: 07/11/18 09:38 Dose: 100 mls/hr Insulin Aspart (Novolog Vial Sliding Scale -) 1 vial SQ ACHS [facility]; Protocol Last Admin: 07/11/18 06:16 Dose: Not Given Insulin Detemir (Levemir Vial) 10 units SQ HS [facility] Last Admin: 07/10/18 22:59 Dose: 10 units Metoprolol Tartrate (Lopressor -) 25 mg PO DAILY [facility] Last Admin: 07/11/18 09:37 Dose: 25 mg Sertraline HCl (Zoloft -) 25 mg PO DAILY [facility] Last Admin: 07/11/18 09:37 Dose: 25 mg Solifenacin (Vesicare -) 5 mg PO DAILY [facility] Last Admin: 07/11/18 09:37 Dose: 5 mg Tiotropium [place] (Spiriva Respimat) 2 puff IH DAILY [facility] Last Admin: 07/10/18 11:23 Dose: Not Given CBC, BMP 07/10/18 08:00 07/10/18 08:00 Labs for today - ordered. Physical Exam. awake/ obese/ no distress/ chronic ill appearance . heent- no jvd lungs- diminished at bases cvs- s1, s2 rrr abd- soft/ obese ext- chronic venous stasis neuro- aox3 A/P Better Meds / labs reviewed monitor labs no obvious bleeding check stool for occult blood iv antibiotics - per i/d monitor bgm pulmonary/ i/d / cardiology on case Dvt prophylaxis will consult gi also will follow daily oob - chair Problem List - Problems (1) Anemia Code(s): D64.9 - ANEMIA, UNSPECIFIED (2) CHF (congestive heart failure) Code(s): I50.9 - HEART FAILURE, UNSPECIFIED (3) COPD (chronic obstructive pulmonary disease) Code(s): J44.9 - CHRONIC OBSTRUCTIVE PULMONARY DISEASE, UNSPECIFIED (4) Venous insufficiency Code(s): I87.2 - VENOUS INSUFFICIENCY (CHRONIC) (PERIPHERAL) (5) HTN (hypertension) Code(s): I10 - ESSENTIAL (PRIMARY) HYPERTENSION (6) Type 2 diabetes mellitus Code(s): E11.9 - TYPE 2 DIABETES MELLITUS WITHOUT COMPLICATIONS
--- NOTE | 2018-07-11 13:03 | PN ---
Progress Note (short form) - Note Progress Note: PULMONARY States breathing slightly improved. +nonproductive cough. No fevers or chills. Vital Signs Period Temp Pulse Resp BP Sys/Gates Pulse Ox Last 24 Hr 98 F-99.8 F 64-77 16-20 114-152/49-63 94-98 Gen: NAD at rest Heart: RRR Lung: decreased breath sounds at the bases Abd: soft, nontender Ext: no edema CBC, BMP 07/10/18 08:00 07/10/18 08:00 Active Medications Acetaminophen (Tylenol -) 650 mg PO Q6H PRN PRN Reason: PAIN LEVEL 1-5 OR FEVER Last Admin: 07/10/18 22:58 Dose: 650 mg Albuterol Sulfate (Ventolin 0.083% Nebulizer Soln -) 1 amp NEB RQID [facility] Last Admin: 07/11/18 11:20 Dose: 1 amp Amlodipine Besylate (Norvasc -) 10 mg PO DAILY [facility] Last Admin: 07/11/18 09:38 Dose: 10 mg Aspirin (Asa -) 81 mg PO DAILY [facility] Last Admin: 07/11/18 09:37 Dose: 81 mg Atorvastatin Calcium (Lipitor -) 10 mg PO HS [facility] Last Admin: 07/10/18 22:58 Dose: 10 mg Baclofen (Lioresal -) 10 mg PO BID [facility] Last Admin: 07/11/18 09:38 Dose: 10 mg Budesonide/Formoterol Fumarate (Symbicort 160/4.5mcg -) 1 puff IH BID [facility] Last Admin: 07/10/18 23:00 Dose: Not Given Docusate Sodium (Colace -) 100 mg PO DAILY [facility] Last Admin: 07/11/18 09:37 Dose: 100 mg Enoxaparin Sodium (Lovenox -) 40 mg SQ DAILY [facility] Last Admin: 07/11/18 09:38 Dose: 40 mg Furosemide (Lasix Injection -) 40 mg IVPUSH DAILY [facility] Last Admin: 07/11/18 09:38 Dose: 40 mg Gabapentin (Neurontin -) 100 mg PO TID [facility] Hydralazine HCl (Apresoline -) 100 mg PO TID [facility] Last Admin: 07/11/18 06:16 Dose: 100 mg Aztreonam 1 gm/ Dextrose 50 mls @ 100 mls/hr IVPB Q8H-IV [facility] Last Admin: 07/11/18 09:38 Dose: 100 mls/hr Insulin Aspart (Novolog Vial Sliding Scale -) 1 vial SQ ACHS [facility]; Protocol Last Admin: 07/11/18 06:16 Dose: Not Given Insulin Detemir (Levemir Vial) 10 units SQ HS [facility] Last Admin: 07/10/18 22:59 Dose: 10 units Metoprolol Tartrate (Lopressor -) 25 mg PO DAILY [facility] Last Admin: 07/11/18 09:37 Dose: 25 mg Sertraline HCl (Zoloft -) 25 mg PO DAILY [facility] Last Admin: 07/11/18 09:37 Dose: 25 mg Solifenacin (Vesicare -) 5 mg PO DAILY [facility] Last Admin: 07/11/18 09:37 Dose: 5 mg Tiotropium [place] (Spiriva Respimat) 2 puff IH DAILY [facility] Last Admin: 07/10/18 11:23 Dose: Not Given A/P Acute Hypoxic Respiratory Failure Pneumonia Acute on Chronic Diastolic Heart Failure COPD CAD HTN DM CKD - continue antibiotics - lasix as needed - monitor urine output, creatinine - inhaled bronchodilators - O2 to keep SpO2 >90% - outpt PFTs, PSG - DVT prophylaxis
[2018-07-11 13:28] LABS: BASO % 0.6 % (0-2.0); EOS % 1.7 % (0-4.5); HEMATOCRIT 24.3 % (32.4-45.2); HEMOGLOBIN 7.7 GM/dL (10.7-15.3); LYMPH % 22.2 % (8-40); MCH 25.5 pg (25.7-33.7); MCHC 31.7 g/dl (32.0-36.0); MEAN CELL VOLUME 80.2 fl (80-96); MEAN PLT VOLUME 8.3 fl (7.5-11.1); MONO % 9.5 % (3.8-10.2); PLATELET COUNT 337 K/MM3 (134-434); RBC 3.03 M/mm3 (3.60-5.2); RDW 18.4 % (11.6-15.6); WHITE BLOOD COUNT 9.1 K/mm3 (4.0-10.0)
--- NOTE | 2018-07-11 13:35 | PN ---
Progress Note, Physician History of Present Illness: says she is improving' leg pain has improved ct scan seen and results noted b/l infiltrate - Current Medication List Current Medications: Active Medications Acetaminophen (Tylenol -) 650 mg PO Q6H PRN PRN Reason: PAIN LEVEL 1-5 OR FEVER Last Admin: 07/10/18 22:58 Dose: 650 mg Albuterol Sulfate (Ventolin 0.083% Nebulizer Soln -) 1 amp NEB RQID [facility] Last Admin: 07/11/18 11:20 Dose: 1 amp Amlodipine Besylate (Norvasc -) 10 mg PO DAILY [facility] Last Admin: 07/11/18 09:38 Dose: 10 mg Aspirin (Asa -) 81 mg PO DAILY [facility] Last Admin: 07/11/18 09:37 Dose: 81 mg Atorvastatin Calcium (Lipitor -) 10 mg PO HS [facility] Last Admin: 07/10/18 22:58 Dose: 10 mg Baclofen (Lioresal -) 10 mg PO BID [facility] Last Admin: 07/11/18 09:38 Dose: 10 mg Budesonide/Formoterol Fumarate (Symbicort 160/4.5mcg -) 1 puff IH BID [facility] Last Admin: 07/10/18 23:00 Dose: Not Given Docusate Sodium (Colace -) 100 mg PO DAILY [facility] Last Admin: 07/11/18 09:37 Dose: 100 mg Doxycycline Hyclate (Vibramycin -) 100 mg PO BID@1000,1800 [facility] Enoxaparin Sodium (Lovenox -) 40 mg SQ DAILY [facility] Last Admin: 07/11/18 09:38 Dose: 40 mg Furosemide (Lasix Injection -) 40 mg IVPUSH DAILY [facility] Last Admin: 07/11/18 09:38 Dose: 40 mg Gabapentin (Neurontin -) 100 mg PO TID [facility] Hydralazine HCl (Apresoline -) 100 mg PO TID [facility] Last Admin: 07/11/18 06:16 Dose: 100 mg Insulin Aspart (Novolog Vial Sliding Scale -) 1 vial SQ [facility]; Protocol Last Admin: 07/11/18 06:16 Dose: Not Given Insulin Detemir (Levemir Vial) 10 units SQ [facility] Last Admin: 07/10/18 22:59 Dose: 10 units Metoprolol Tartrate (Lopressor -) 25 mg PO DAILY [facility] Last Admin: 07/11/18 09:37 Dose: 25 mg Sertraline HCl (Zoloft -) 25 mg PO DAILY [facility] Last Admin: 07/11/18 09:37 Dose: 25 mg Solifenacin (Vesicare -) 5 mg PO DAILY [facility] Last Admin: 07/11/18 09:37 Dose: 5 mg Tiotropium [place] (Spiriva Respimat) 2 puff IH DAILY [facility] Last Admin: 07/10/18 11:23 Dose: Not Given - Objective Vital Signs: Vital Signs Temperature 98.5 F 07/11/18 10:00 Pulse Rate 70 07/11/18 10:00 Respiratory Rate 20 07/11/18 10:00 Blood Pressure 152/54 L 07/11/18 10:00 O2 Sat by Pulse Oximetry (%) 94 L 07/11/18 09:00 Constitutional: Yes: No Distress, Calm Cardiovascular: Yes: S1, S2 Respiratory: Yes: Regular, On Nasal O2, Rhonchi Gastrointestinal: Yes: Normal Bowel Sounds, Soft Musculoskeletal: Yes: WNL Extremities: Yes: WNL Neurological: Yes: Alert, Oriented Psychiatric: Yes: Alert, Oriented Labs: CBC, BMP 07/11/18 12:20 INR, PTT INR 1.13 (0.83-1.09) H 07/08/18 21:24 Assessment/Plan Problem List - Problems (1) Anemia Code(s): D64.9 - ANEMIA, UNSPECIFIED (2) CHF (congestive heart failure) Code(s): I50.9 - HEART FAILURE, UNSPECIFIED (3) COPD (chronic obstructive pulmonary disease) Code(s): J44.9 - CHRONIC OBSTRUCTIVE PULMONARY DISEASE, UNSPECIFIED (4) Venous insufficiency Code(s): I87.2 - VENOUS INSUFFICIENCY (CHRONIC) (PERIPHERAL) (5) HTN (hypertension) Code(s): I10 - ESSENTIAL (PRIMARY) HYPERTENSION (6) Type 2 diabetes mellitus Code(s): E11.9 - TYPE 2 DIABETES MELLITUS WITHOUT COMPLICATIONS 7 mild cellulitis of the leg 8 pneumonia plan will continue currnt abx incentive fly will consider changing to oral in a day or so rest as per the team
[2018-07-11] MEDS: BUDESONIDE/FORMETEROL FUMARATE 160/4.5 mcg INHALER IH SCH ×2 (13:39→21:51)
[2018-07-11] MEDS: TIOTROPIUM BROMIDE 2.5 MCG (SPIRIVA) RESPIMAT INHALER IH SCH (13:40)
[2018-07-11 14:09] LABS: ALBUMIN 2.6 g/dl (3.4-5.0); ALK PHOS 67 U/L (45-117); ANION GAP 4 MMOL/L (8-16); BILIRUBIN,TOTAL 0.5 mg/dL (0.2-1); BLOOD UREA NITROGEN 31 mg/dL (7-18); CALCIUM 7.5 mg/dL (8.5-10.1); CHLORIDE 104 mmol/L (98-107); CO2 29 mmol/L (21-32); CREATININE 1.8 mg/dL (0.55-1.3); GLUCOSE,RANDOM 147 mg/dL (74-106); POTASSIUM 4.7 mmol/L (3.5-5.1); SGOT/AST 14 U/L (15-37); SGPT/ALT 12 U/L (13-61); SODIUM 138 mmol/L (136-145)
--- NOTE | 2018-07-11 14:35 | PN ---
Progress Note (short form) - Note Progress Note: Progress Note: s: no cp sob palps dizzy. edema stable. sob improved o: Vital Signs Period Temp Pulse Resp BP Sys/Gates Pulse Ox Last 24 Hr 98 F-99.8 F 64-77 16-20 114-152/49-63 94-98 nad no jvd rrr s1s2 no mrg CTAB, nl eff chronic venous stasis changes le bl, non pitting edema abd nt nd pos bs no jaundice diaphoresis pos dp pt no carotid bruits +chest wall tenderness Current Medications Acetaminophen (Tylenol -) 650 mg PO Q6H PRN PRN Reason: PAIN LEVEL 1-5 OR FEVER Last Admin: 07/10/18 22:58 Dose: 650 mg Albuterol Sulfate (Ventolin 0.083% Nebulizer Soln -) 1 amp NEB RQID [facility] Last Admin: 07/11/18 11:20 Dose: 1 amp Amlodipine Besylate (Norvasc -) 10 mg PO DAILY [facility] Last Admin: 07/11/18 09:38 Dose: 10 mg Aspirin (Asa -) 81 mg PO DAILY [facility] Last Admin: 07/11/18 09:37 Dose: 81 mg Atorvastatin Calcium (Lipitor -) 10 mg PO HS [facility] Last Admin: 07/10/18 22:58 Dose: 10 mg Baclofen (Lioresal -) 10 mg PO BID [facility] Last Admin: 07/11/18 09:38 Dose: 10 mg Budesonide/Formoterol Fumarate (Symbicort 160/4.5mcg -) 1 puff IH BID [facility] Last Admin: 07/11/18 13:39 Dose: 1 puff Docusate Sodium (Colace -) 100 mg PO DAILY [facility] Last Admin: 07/11/18 09:37 Dose: 100 mg Enoxaparin Sodium (Lovenox -) 40 mg SQ DAILY [facility] Last Admin: 07/11/18 09:38 Dose: 40 mg Furosemide (Lasix Injection -) 40 mg IVPUSH DAILY [facility] Last Admin: 07/11/18 09:38 Dose: 40 mg Gabapentin (Neurontin -) 100 mg PO TID [facility] Last Admin: 07/11/18 13:39 Dose: 100 mg Hydralazine HCl (Apresoline -) 100 mg PO TID [facility] Last Admin: 07/11/18 13:39 Dose: 100 mg Aztreonam 1 gm/ Dextrose 50 mls @ 100 mls/hr IVPB Q8H-IV [facility]; Protocol Insulin Aspart (Novolog Vial Sliding Scale -) 1 vial SQ ACHS [facility]; Protocol Last Admin: 07/11/18 06:16 Dose: Not Given Insulin Detemir (Levemir Vial) 10 units SQ HS [facility] Last Admin: 07/10/18 22:59 Dose: 10 units Metoprolol Tartrate (Lopressor -) 25 mg PO DAILY [facility] Last Admin: 07/11/18 09:37 Dose: 25 mg Sertraline HCl (Zoloft -) 25 mg PO DAILY [facility] Last Admin: 07/11/18 09:37 Dose: 25 mg Solifenacin (Vesicare -) 5 mg PO DAILY [facility] Last Admin: 07/11/18 09:37 Dose: 5 mg Tiotropium [place] (Spiriva Respimat) 2 puff IH DAILY [facility] Last Admin: 07/11/18 13:40 Dose: 2 puff cxr: chf ecg: sr,nl intervals, no ischemic changes mibi 2011: no ischemia, nl lvef echo 03/2014: lvh, nl lv/rv, lae, no sig valve path echo 04/2018: mild lvh, nl lv, mild rve, nl rv fcn, lae, no sig valve path a/p: 72 f hx copd, htn, dm, here with sob, cp. acute diastolic chf, sob: - 07/09-13 on lasix 40 mg IV daily - 07/11 Cr inc 1.3->1.8, weight down (bedscale), edema stable with sob improving - hold lasix in AM, monitor Cr -monitor daily wt, cr, lytes htn: -bp stable -cont home meds cp: -atypical cp -ecg benign -trops negx3 -no signs acs -seems more msk
--- NOTE | 2018-07-11 16:05 | CON.GI ---
Consult Consult Specialty:: GI Referred by:: Medicine Reason for Consultation:: anemia - History of Present Illness Chief Complaint: chest pain/SOB History of Present Illness: 72F with h/o CAD/MA, CKD, PAD, DM, HTN, admitted for chest pain and trouble breathing, being treated for PNA and acute diastolic CHF exacerbation. GI consulted for anemia. Per review of record, patient has had hgb in 7's this hospitalization, with MCV 80. Patient denies ever having a colonoscopy. Reports eating well, no N/V, no abdominal pain, normal daily bm without blood. Denies FHx CRC. - History Source History Provided By: Patient Limitations to Obtaining History: No Limitations - Past Medical History Cardio/Vascular: Yes: HTN Pulmonary: Yes: Asthma, COPD ...: No Endocrine: Yes: Diabetes Mellitus - Past Surgical History Past Surgical History: Yes: Appendectomy - Alcohol/Substance Use Hx Alcohol Use: No History of Substance Use: reports: None - Smoking History Smoking history: Former smoker Have you smoked in the past 12 months: No Aproximately how many cigarettes per day: 1 - Social History ADL: Support Services History of Recent Travel: No Home Medications - Allergies Allergies/Adverse Reactions: Allergies Allergy/AdvReac Type Severity Reaction Status Date / Time penicillin G Allergy Intermediate Hives Verified 07/08/18 17:20 benzathine Allergy Mild Rash Uncoded 07/08/18 17:20 tomatoes Allergy Mild Rash Uncoded 07/08/18 17:20 - Home Medications Home Medications: Ambulatory Orders Acetaminophen W/ Codeine #3 [Tylenol # 3 -] 1 tab PO Q4H 07/08/18 Acetaminophen [Acetaminophen ER] 650 mg PO QID 07/08/18 Albuterol 0.083% Nebulizer [place] [Ventolin 0.083%] 1 neb NEB QID 07/08/18 Amlodipine Besylate [Norvasc -] 10 mg PO DAILY 07/08/18 Aspirin 81 mg PO DAILY 07/08/18 Baclofen 10 mg PO BID 07/08/18 Budesonide/Formeterol Fumarate [SYMBICORT 160/4.5mcg -] 1 inh PO BID 07/08/18 Docusate Sodium [Colace] 100 mg PO DAILY 07/08/18 Furosemide [Lasix] 40 mg PO DAILY 07/08/18 Gabapentin 100 mg PO BID 07/08/18 Hydralazine HCl 100 mg PO TID 07/08/18 Insulin Lispro [Humalog] 100 unit SQ ASDIR 07/08/18 Metoprolol Tartrate 25 mg PO DAILY 07/08/18 Mineral Oil/Pet Hy-Phl [Aquaphor] 1 applic TP DAILY 07/08/18 Oxybutynin Chloride [Ditropan Xl] 10 mg PO DAILY 07/08/18 Sertraline HCl [Zoloft] 25 mg PO DAILY 07/08/18 Simvastatin 20 mg PO DAILY 07/08/18 Sodium Phosphate,[place]-Dibasic [Fleet Enema] 133 ml RC TID 07/08/18 Tiotropium [place] [Spiriva] 1 inh PO DAILY 07/08/18 Vit A/Vitamin D3/E/Aloe V/Zinc [Periguard Ointment] 100 gm TP TID 07/08/18 Review of Systems - Review of Systems Constitutional: reports: No Symptoms Eyes: reports: No Symptoms Cardiovascular: reports: Chest Pain Respiratory: reports: SOB Gastrointestinal: reports: No Symptoms. denies: Abdominal Pain, Constipation, Diarrhea, Nausea, Rectal Bleeding, Vomiting Musculoskeletal: reports: No Symptoms Neurological: reports: No Symptoms Hematology/Lymphatic: reports: No Symptoms Physical Exam-GI Vital Signs: Vital Signs Temperature 98.5 F 07/11/18 10:00 Pulse Rate 70 07/11/18 10:00 Respiratory Rate 20 07/11/18 10:00 Blood Pressure 152/54 L 07/11/18 10:00 O2 Sat by Pulse Oximetry (%) 94 L 07/11/18 09:00 Constitutional: Yes: Well Nourished, No Distress Eyes: Yes: Conjunctiva Clear Cardiovascular: Yes: Regular Rate and Rhythm Respiratory: Yes: Rales (bibasilar crackles) Gastrointestinal Inspection: Yes: Scars (RLQ healed scar) ...Auscultate: Yes: Normoactive Bowel Sounds ...Palpate: Yes: Soft, Other (obese). No: Tenderness ...Rectal Exam: Yes: Deferred Musculoskeletal: Yes: WNL Edema: Yes Integumentary: Yes: Venous Stasis Changes Neurological: Yes: WNL, Alert, Oriented Labs: CBC, BMP 07/11/18 12:20 07/11/18 12:20 INR, PTT INR 1.13 (0.83-1.09) H 07/08/18 21:24 Assessment/Plan Borderline microcytic anemia - likely iron deficient, concern for occult GI bleeding, for which there are multiple possible etiologies, including polyp, ectasia, neoplasm, ulcer, etc. Patient still looks volume overloaded at this time. - would check Fe, TIBC, % sat, ferritin, to confirm iron deficiency - if iron deficient, once optimized from a cardiac standpoint, would perform colonoscopy +/- EGD for further evaluation. Will need cardiac clearance for any endoscopic procedures.
[2018-07-11] MEDS ORDERED: DOXYCYCLINE HYCLATE 100 MG CAPSULE PO SCH (18:00)
[2018-07-11] MEDS: INSULIN (LEVEMIR) 100 UNITS/ML UNITS SQ SCH (21:50)
[2018-07-11] MEDS: ATORVASTATIN CA 10 MG TABLET (FP) PO SCH (21:50)
[2018-07-12] MEDS ORDERED: PT OWN MED DRAWER 7, Y5N ONE (01:29)
[2018-07-12] MEDS: AZTREONAM 1 GM in DEXTROSE 5%-WATER - 50 ML IVPB SCH ×3 (01:48→19:30)
[2018-07-12] MEDS: GABAPENTIN 100 MG CAPSULE (FP) PO SCH ×3 (05:55→22:16)
[2018-07-12] MEDS: hydrALAZINE HCL 50 MG TABLET (FP) PO SCH ×3 (05:55→22:15)
[2018-07-12] MEDS: INSULIN SLIDING SCALE (NOVOLOG) 1 VIAL SQ SCH ×4 (06:04→22:16)
[2018-07-12] MEDS: ALBUTEROL SO4 0.083% IH SOL 2.5 MG/3 ML VIAL.NEB. NEB SCH ×4 (08:00→21:24)
[2018-07-12 08:34] LABS: BASO % 0.5 % (0-2.0); EOS % 1.3 % (0-4.5); HEMATOCRIT 26.5 % (32.4-45.2); HEMOGLOBIN 8.3 GM/dL (10.7-15.3); LYMPH % 23.4 % (8-40); MCH 25.3 pg (25.7-33.7); MCHC 31.2 g/dl (32.0-36.0); MEAN PLT VOLUME 8.2 fl (7.5-11.1); MONO % 9.9 % (3.8-10.2); NEUT % 64.9 % (42.8-82.8); PLATELET COUNT 348 K/MM3 (134-434); RBC 3.28 M/mm3 (3.60-5.2); RDW 18.6 % (11.6-15.6); WHITE BLOOD COUNT 11.7 K/mm3 (4.0-10.0)
[2018-07-12 08:59] LABS: ALBUMIN 2.8 g/dl (3.4-5.0); ALK PHOS 73 U/L (45-117); ANION GAP 6 MMOL/L (8-16); BILIRUBIN,TOTAL 0.4 mg/dL (0.2-1); BLOOD UREA NITROGEN 36 mg/dL (7-18); CALCIUM 7.7 mg/dL (8.5-10.1); CHLORIDE 106 mmol/L (98-107); CO2 27 mmol/L (21-32); CREATININE 1.9 mg/dL (0.55-1.3); GLUCOSE,RANDOM 129 mg/dL (74-106); POTASSIUM 4.9 mmol/L (3.5-5.1); SGOT/AST 19 U/L (15-37); SGPT/ALT 14 U/L (13-61); SODIUM 139 mmol/L (136-145); TOT PROT 7.3 g/dl (6.4-8.2)
--- NOTE | 2018-07-12 09:23 | PN ---
Progress Note (short form) - Note Progress Note: events noted pt seen/ examined denies chest pain and SOB no obvious bleeding Vital Signs - 24 hr 07/11/18 07/11/18 07/11/18 10:00 21:00 22:00 Temperature 98.5 F 98.2 F Pulse Rate 70 76 Respiratory 20 20 20 Rate Blood Pressure 152/54 L 132/54 L O2 Sat by Pulse 94 L Oximetry (%) 07/12/18 07/12/18 05:50 08:37 Temperature 99.2 F 98.7 F Pulse Rate 74 78 Respiratory 20 22 H Rate Blood Pressure 145/85 145/60 O2 Sat by Pulse Oximetry (%) Current Medications Generic Name Dose Route Start Last Admin Trade Name Freq PRN Reason Stop Dose Admin Acetaminophen 650 mg 07/09/18 10:00 07/10/18 22:58 Tylenol - PO 650 mg Q6H PRN Administration PAIN LEVEL 1-5 OR FEVER Albuterol Sulfate 1 amp 07/09/18 08:00 07/11/18 21:20 Ventolin 0.083% Nebulizer Soln - NEB 1 amp RQID [facility] Administration Amlodipine Besylate 10 mg 07/09/18 10:00 07/11/18 09:38 Norvasc - PO 10 mg DAILY [facility] Administration Aspirin 81 mg 07/09/18 10:00 07/11/18 09:37 Asa - PO 81 mg DAILY [facility] Administration Atorvastatin Calcium 10 mg 07/09/18 22:00 07/11/18 21:50 Lipitor - PO 10 mg HS [facility] Administration Baclofen 10 mg 07/09/18 10:00 07/11/18 21:50 Lioresal - PO 10 mg BID [facility] Administration Budesonide/Formoterol Fumarate 1 puff 07/09/18 10:00 07/11/18 21:51 Symbicort 160/4.5mcg - IH 1 puff BID [facility] Administration Docusate Sodium 100 mg 07/09/18 10:00 07/11/18 09:37 Colace - PO 100 mg DAILY [facility] Administration Enoxaparin Sodium 40 mg 07/10/18 10:00 07/11/18 09:38 Lovenox - SQ 40 mg DAILY [facility] Administration Gabapentin 100 mg 07/11/18 14:00 07/12/18 05:55 Neurontin - PO 100 mg TID [facility] Administration Hydralazine HCl 100 mg 07/09/18 06:00 07/12/18 05:55 Apresoline - PO 100 mg TID [facility] Administration Aztreonam 1 gm/ Dextrose 50 mls @ 100 mls/hr 07/11/18 18:00 07/12/18 01:48 IVPB 100 mls/hr Q8H-IV [facility] Administration Protocol Insulin Aspart 1 vial 07/09/18 07:00 07/12/18 06:04 Novolog Vial Sliding Scale - SQ Not Given ACHS [facility] Protocol Insulin Detemir 10 units 07/09/18 22:00 07/11/18 21:50 Levemir Vial SQ 10 units HS [facility] Administration Metoprolol Tartrate 25 mg 07/09/18 10:00 07/11/18 09:37 Lopressor - PO 25 mg DAILY [facility] Administration Sertraline HCl 25 mg 07/09/18 10:00 07/11/18 09:37 Zoloft - PO 25 mg DAILY [facility] Administration Solifenacin 5 mg 07/09/18 10:00 07/11/18 09:37 Vesicare - PO 5 mg DAILY [facility] Administration Tiotropium [place] 2 puff 07/09/18 10:00 07/11/18 13:40 Spiriva Respimat IH 2 puff DAILY [facility] Administration Laboratory Results - last 24 hr 07/11/18 07/11/18 07/11/18 12:20 12:20 17:47 WBC 9.1 RBC 3.03 L Hgb 7.7 L Hct 24.3 L MCV 80.2 MCH 25.5 L MCHC 31.7 L RDW 18.4 H Plt Count 337 MPV 8.3 Absolute Neuts (auto) 6.0 Neutrophils % 66.0 Lymphocytes % 22.2 Monocytes % 9.5 Eosinophils % 1.7 Basophils % 0.6 Nucleated RBC % 0 Sodium 138 Potassium 4.7 Chloride 104 Carbon Dioxide 29 Anion Gap 4 L BUN 31 H Creatinine 1.8 H Creat Clearance w eGFR 27.74 POC Glucometer 232 Random Glucose 147 H Calcium 7.5 L Ferritin Total Bilirubin 0.5 AST 14 L ALT 12 L Alkaline Phosphatase 67 Total Protein 7.0 Albumin 2.6 L 07/11/18 07/12/18 07/12/18 21:49 05:54 07:10 WBC RBC Hgb Hct MCV MCH MCHC RDW Plt Count MPV Absolute Neuts (auto) Neutrophils % Lymphocytes % Monocytes % Eosinophils % Basophils % Nucleated RBC % Sodium 139 Potassium 4.9 Chloride 106 Carbon Dioxide 27 Anion Gap 6 L BUN 36 H Creatinine 1.9 H Creat Clearance w eGFR 26.06 POC Glucometer 195 186 Random Glucose 129 H Calcium 7.7 L Ferritin Total Bilirubin 0.4 AST 19 ALT 14 Alkaline Phosphatase 73 Total Protein 7.3 Albumin 2.8 L 07/12/18 07:10 WBC RBC Hgb Hct MCV MCH MCHC RDW Plt Count MPV Absolute Neuts (auto) Neutrophils % Lymphocytes % Monocytes % Eosinophils % Basophils % Nucleated RBC % Sodium Potassium Chloride Carbon Dioxide Anion Gap BUN Creatinine Creat Clearance w eGFR POC Glucometer Random Glucose Calcium Ferritin 23.4 Total Bilirubin AST ALT Alkaline Phosphatase Total Protein Albumin Physical Exam. awake/ obese/ no distress/ chronic ill appearance . heent- no jvd lungs- diminished at bases cvs- s1, s2 rrr abd- soft/ obese ext- chronic venous stasis neuro- aox3 A/P Better dc ASA Meds / labs reviewed monitor labs no obvious bleeding check stool for occult blood iv antibiotics - per i/d monitor bgm pulmonary/ i/d / cardiology on case Dvt prophylaxis GI eval appreciated Problem List - Problems (1) Anemia Code(s): D64.9 - ANEMIA, UNSPECIFIED (2) CHF (congestive heart failure) Code(s): I50.9 - HEART FAILURE, UNSPECIFIED (3) COPD (chronic obstructive pulmonary disease) Code(s): J44.9 - CHRONIC OBSTRUCTIVE PULMONARY DISEASE, UNSPECIFIED (4) Pneumonia Code(s): J18.9 - PNEUMONIA, UNSPECIFIED ORGANISM (5) Venous insufficiency Code(s): I87.2 - VENOUS INSUFFICIENCY (CHRONIC) (PERIPHERAL) (6) DEE (acute kidney injury) Code(s): N17.9 - ACUTE KIDNEY FAILURE, UNSPECIFIED
[2018-07-12] MEDS: DOCUSATE SODIUM 100 MG CAPSULE (FP) PO SCH (10:06)
[2018-07-12] MEDS: SERTRALINE HCL 25 MG TABLET (FP) PO SCH (10:06)
[2018-07-12] MEDS: SOLIFENACIN SUCCINATE 5 MG TAB (FP) PO SCH (10:06)
[2018-07-12] MEDS: BACLOFEN 10 MG TABLET (FP) PO SCH ×2 (10:06→22:16)
[2018-07-12] MEDS: METOPROLOL TARTRATE 25 MG TABLET (FP) PO SCH (10:06)
[2018-07-12] MEDS: amLODIPine BESYLATE 10 MG TABLET (FP) PO SCH (10:06)
[2018-07-12] MEDS: ENOXAPARIN NA (PORCINE) 40 MG/0.4 ML DISP.SYRIN SQ SCH (10:06)
[2018-07-12] MEDS: BUDESONIDE/FORMETEROL FUMARATE 160/4.5 mcg INHALER IH SCH ×2 (10:07→22:18)
[2018-07-12] MEDS: TIOTROPIUM BROMIDE 2.5 MCG (SPIRIVA) RESPIMAT INHALER IH SCH (10:08)
--- NOTE | 2018-07-12 12:26 | PN ---
Progress Note (short form) - Note Progress Note: PULMONARY Breathing better. Still with +nonproductive cough and wheezing. No fevers or chills. Vital Signs Period Temp Pulse Resp BP Sys/Gates Pulse Ox Last 24 Hr 98.2 F-99.2 F 74-78 20-22 132-145/54-85 94 Gen: NAD at rest Heart: RRR Lung: decreased breath sounds at the bases Abd: soft, nontender Ext: no edema CBC, BMP 07/12/18 07:10 07/12/18 07:10 Active Medications Acetaminophen (Tylenol -) 650 mg PO Q6H PRN PRN Reason: PAIN LEVEL 1-5 OR FEVER Last Admin: 07/10/18 22:58 Dose: 650 mg Albuterol Sulfate (Ventolin 0.083% Nebulizer Soln -) 1 amp NEB RQID [facility] Last Admin: 07/11/18 21:20 Dose: 1 amp Amlodipine Besylate (Norvasc -) 10 mg PO DAILY [facility] Last Admin: 07/12/18 10:06 Dose: 10 mg Atorvastatin Calcium (Lipitor -) 10 mg PO HS [facility] Last Admin: 07/11/18 21:50 Dose: 10 mg Baclofen (Lioresal -) 10 mg PO BID [facility] Last Admin: 07/12/18 10:06 Dose: 10 mg Budesonide/Formoterol Fumarate (Symbicort 160/4.5mcg -) 1 puff IH BID [facility] Last Admin: 07/12/18 10:07 Dose: 1 puff Docusate Sodium (Colace -) 100 mg PO DAILY [facility] Last Admin: 07/12/18 10:06 Dose: 100 mg Enoxaparin Sodium (Lovenox -) 40 mg SQ DAILY [facility] Last Admin: 07/12/18 10:06 Dose: 40 mg Gabapentin (Neurontin -) 100 mg PO TID [facility] Last Admin: 07/12/18 05:55 Dose: 100 mg Hydralazine HCl (Apresoline -) 100 mg PO TID [facility] Last Admin: 07/12/18 05:55 Dose: 100 mg Aztreonam 1 gm/ Dextrose 50 mls @ 100 mls/hr IVPB Q8H-IV [facility]; Protocol Last Admin: 07/12/18 10:06 Dose: 100 mls/hr Insulin Aspart (Novolog Vial Sliding Scale -) 1 vial SQ ACHS [facility]; Protocol Last Admin: 07/12/18 12:06 Dose: Not Given Insulin Detemir (Levemir Vial) 10 units SQ HS [facility] Last Admin: 07/11/18 21:50 Dose: 10 units Metoprolol Tartrate (Lopressor -) 25 mg PO DAILY [facility] Last Admin: 07/12/18 10:06 Dose: 25 mg Sertraline HCl (Zoloft -) 25 mg PO DAILY [facility] Last Admin: 07/12/18 10:06 Dose: 25 mg Solifenacin (Vesicare -) 5 mg PO DAILY [facility] Last Admin: 07/12/18 10:06 Dose: 5 mg Tiotropium [place] (Spiriva Respimat) 2 puff IH DAILY [facility] Last Admin: 07/12/18 10:08 Dose: 2 puff A/P Acute Hypoxic Respiratory Failure Pneumonia Acute on Chronic Diastolic Heart Failure COPD CAD HTN DM CKD Likely Obstructive Sleep Apnea - continue antibiotics - lasix as needed - monitor urine output, creatinine - inhaled bronchodilators - O2 to keep SpO2 >90% - outpt PFTs, PSG - DVT prophylaxis
--- NOTE | 2018-07-12 13:25 | PN ---
Progress Note, Physician History of Present Illness: non productive cough wheezing - Current Medication List Current Medications: Active Medications Acetaminophen (Tylenol -) 650 mg PO Q6H PRN PRN Reason: PAIN LEVEL 1-5 OR FEVER Last Admin: 07/10/18 22:58 Dose: 650 mg Albuterol Sulfate (Ventolin 0.083% Nebulizer Soln -) 1 amp NEB RQID [facility] Last Admin: 07/11/18 21:20 Dose: 1 amp Amlodipine Besylate (Norvasc -) 10 mg PO DAILY [facility] Last Admin: 07/12/18 10:06 Dose: 10 mg Atorvastatin Calcium (Lipitor -) 10 mg PO HS [facility] Last Admin: 07/11/18 21:50 Dose: 10 mg Baclofen (Lioresal -) 10 mg PO BID [facility] Last Admin: 07/12/18 10:06 Dose: 10 mg Budesonide/Formoterol Fumarate (Symbicort 160/4.5mcg -) 1 puff IH BID [facility] Last Admin: 07/12/18 10:07 Dose: 1 puff Docusate Sodium (Colace -) 100 mg PO DAILY [facility] Last Admin: 07/12/18 10:06 Dose: 100 mg Enoxaparin Sodium (Lovenox -) 40 mg SQ DAILY [facility] Last Admin: 07/12/18 10:06 Dose: 40 mg Gabapentin (Neurontin -) 100 mg PO TID [facility] Last Admin: 07/12/18 05:55 Dose: 100 mg Hydralazine HCl (Apresoline -) 100 mg PO TID [facility] Last Admin: 07/12/18 05:55 Dose: 100 mg Aztreonam 1 gm/ Dextrose 50 mls @ 100 mls/hr IVPB Q8H-IV [facility]; Protocol Last Admin: 07/12/18 10:06 Dose: 100 mls/hr Insulin Aspart (Novolog Vial Sliding Scale -) 1 vial SQ [facility]; Protocol Last Admin: 07/12/18 12:06 Dose: Not Given Insulin Detemir (Levemir Vial) 10 units SQ HS [facility] Last Admin: 07/11/18 21:50 Dose: 10 units Metoprolol Tartrate (Lopressor -) 25 mg PO DAILY [facility] Last Admin: 07/12/18 10:06 Dose: 25 mg Sertraline HCl (Zoloft -) 25 mg PO DAILY [facility] Last Admin: 07/12/18 10:06 Dose: 25 mg Solifenacin (Vesicare -) 5 mg PO DAILY [facility] Last Admin: 07/12/18 10:06 Dose: 5 mg Tiotropium [place] (Spiriva Respimat) 2 puff IH DAILY [facility] Last Admin: 07/12/18 10:08 Dose: 2 puff - Objective Vital Signs: Vital Signs Temperature 98.7 F 07/12/18 08:37 Pulse Rate 78 07/12/18 08:37 Respiratory Rate 22 H 07/12/18 08:37 Blood Pressure 145/60 07/12/18 08:37 O2 Sat by Pulse Oximetry (%) 94 L 07/11/18 21:00 Constitutional: Yes: No Distress, Calm Cardiovascular: Yes: S1, S2 Respiratory: Yes: Regular, CTA Bilaterally Gastrointestinal: Yes: Normal Bowel Sounds, Soft Musculoskeletal: Yes: WNL Extremities: Yes: Other Neurological: Yes: Alert, Oriented Psychiatric: Yes: Alert, Oriented Labs: CBC, BMP 07/12/18 07:10 07/12/18 07:10 INR, PTT INR 1.13 (0.83-1.09) H 07/08/18 21:24 Assessment/Plan Problem List - Problems (1) Anemia Code(s): D64.9 - ANEMIA, UNSPECIFIED (2) CHF (congestive heart failure) Code(s): I50.9 - HEART FAILURE, UNSPECIFIED (3) COPD (chronic obstructive pulmonary disease) Code(s): J44.9 - CHRONIC OBSTRUCTIVE PULMONARY DISEASE, UNSPECIFIED (4) Venous insufficiency Code(s): I87.2 - VENOUS INSUFFICIENCY (CHRONIC) (PERIPHERAL) (5) HTN (hypertension) Code(s): I10 - ESSENTIAL (PRIMARY) HYPERTENSION (6) Type 2 diabetes mellitus Code(s): E11.9 - TYPE 2 DIABETES MELLITUS WITHOUT COMPLICATIONS 7 mild cellulitis of the leg 8 pneumonia plan will continue current abx incentive fly rest as per the team
--- NOTE | 2018-07-12 14:47 | PN ---
GI Progress Note Subjective: Stated that she "doesn't feel too good". When discussed further, she said her stomach is bothering her and she feels queasy. Says her breathing is a little better. - Objective Vital Signs: Vital Signs Temperature 98.7 F 07/12/18 08:37 Pulse Rate 78 07/12/18 08:37 Respiratory Rate 22 H 07/12/18 08:37 Blood Pressure 145/60 07/12/18 08:37 O2 Sat by Pulse Oximetry (%) 94 L 07/11/18 21:00 Constitutional: Calm Eyes: No: Sclera Icterus Cardiovascular: Yes: Regular Rate and Rhythm, Murmur Respiratory: Yes: Rhonchi (bases b/l with) Gastrointestinal Inspection: Yes: Scars (deep midline pelvic surgical scar). No : Distention ...Auscultate: Yes: Normoactive Bowel Sounds ...Palpate: Yes: Tenderness (TTP right paramedian abdomen) ...Percussion: No: Tympanitic Edema: Yes Edema: LLE: 2+ (w/ stasis), RLE: 2+ (w/ stasis) Labs: CBC, BMP 07/12/18 07:10 07/12/18 07:10 INR, PTT INR 1.13 (0.83-1.09) H 07/08/18 21:24 Problem List - Problems (1) Abdominal pain Assessment/Plan: main complaint this afternoon is abdominal pain with mild mid abdominal TTP on exam today: Advised: Clear liquid diet Ordered CT scan of the abdomen and pelvis with PO contrast Procedures pending results of CT scan and once cleared from cardiopulmonary standpoint Code(s): R10.9 - UNSPECIFIED ABDOMINAL PAIN
[2018-07-12] MEDS: INSULIN (LEVEMIR) 100 UNITS/ML UNITS SQ SCH (22:16)
[2018-07-12] MEDS: ATORVASTATIN CA 10 MG TABLET (FP) PO SCH (22:16)
[2018-07-13] MEDS ORDERED: PT OWN MED DRAWER 7, Y5N ONE (01:48)
[2018-07-13] MEDS: AZTREONAM 1 GM in DEXTROSE 5%-WATER - 50 ML IVPB SCH ×2 (01:53→10:01)
[2018-07-13] MEDS: hydrALAZINE HCL 50 MG TABLET (FP) PO SCH ×4 (05:54→22:08)
[2018-07-13] MEDS: GABAPENTIN 100 MG CAPSULE (FP) PO SCH ×3 (05:54→22:08)
[2018-07-13] MEDS: INSULIN SLIDING SCALE (NOVOLOG) 1 VIAL SQ SCH ×4 (05:59→22:09)
[2018-07-13] MEDS ORDERED: INSULIN (NOVOLOG) ASPART 100 UNITS/ML 10ML VIAL ONE (06:24)
[2018-07-13 08:06] LABS: SERUM IRON SATURATION 6 % (15-55); TOTAL IRON BINDING CAPACITY 376 ug/dL (250-450); UIBC 353 ug/dL (118-369)
[2018-07-13] MEDS: ALBUTEROL SO4 0.083% IH SOL 2.5 MG/3 ML VIAL.NEB. NEB SCH ×2 (08:15→12:00)
[2018-07-13] MEDS: BUDESONIDE/FORMETEROL FUMARATE 160/4.5 mcg INHALER IH SCH (10:01)
[2018-07-13] MEDS: DOCUSATE SODIUM 100 MG CAPSULE (FP) PO SCH (10:01)
[2018-07-13] MEDS: ENOXAPARIN NA (PORCINE) 40 MG/0.4 ML DISP.SYRIN SQ SCH (10:01)
[2018-07-13] MEDS: BACLOFEN 10 MG TABLET (FP) PO SCH ×2 (10:01→22:08)
[2018-07-13] MEDS: TIOTROPIUM BROMIDE 2.5 MCG (SPIRIVA) RESPIMAT INHALER IH SCH (10:01)
[2018-07-13] MEDS: amLODIPine BESYLATE 10 MG TABLET (FP) PO SCH (10:01)
[2018-07-13] MEDS: METOPROLOL TARTRATE 25 MG TABLET (FP) PO SCH (10:01)
[2018-07-13] MEDS: SERTRALINE HCL 25 MG TABLET (FP) PO SCH (10:01)
[2018-07-13] MEDS: SOLIFENACIN SUCCINATE 5 MG TAB (FP) PO SCH (10:01)
--- NOTE | 2018-07-13 10:07 | PN ---
Progress Note, Physician History of Present Illness: patient feels better no abd complaints knee bothering her - Current Medication List Current Medications: Active Medications Acetaminophen (Tylenol -) 650 mg PO Q6H PRN PRN Reason: PAIN LEVEL 1-5 OR FEVER Last Admin: 07/10/18 22:58 Dose: 650 mg Albuterol Sulfate (Ventolin 0.083% Nebulizer Soln -) 1 amp NEB RQID [facility] Last Admin: 07/13/18 08:15 Dose: 1 amp Amlodipine Besylate (Norvasc -) 10 mg PO DAILY [facility] Last Admin: 07/13/18 10:01 Dose: 10 mg Atorvastatin Calcium (Lipitor -) 10 mg PO HS [facility] Last Admin: 07/12/18 22:16 Dose: 10 mg Baclofen (Lioresal -) 10 mg PO BID [facility] Last Admin: 07/13/18 10:01 Dose: 10 mg Budesonide/Formoterol Fumarate (Symbicort 160/4.5mcg -) 1 puff IH BID [facility] Last Admin: 07/13/18 10:01 Dose: 1 puff Docusate Sodium (Colace -) 100 mg PO DAILY [facility] Last Admin: 07/13/18 10:01 Dose: 100 mg Enoxaparin Sodium (Lovenox -) 40 mg SQ DAILY [facility] Last Admin: 07/13/18 10:01 Dose: 40 mg Gabapentin (Neurontin -) 100 mg PO TID [facility] Last Admin: 07/13/18 05:54 Dose: 100 mg Hydralazine HCl (Apresoline -) 100 mg PO TID [facility] Last Admin: 07/13/18 05:54 Dose: 100 mg Aztreonam 1 gm/ Dextrose 50 mls @ 100 mls/hr IVPB Q8H-IV [facility]; Protocol Last Admin: 07/13/18 10:01 Dose: 100 mls/hr Insulin Aspart (Novolog Vial Sliding Scale -) 1 vial SQ [facility]; Protocol Last Admin: 07/13/18 05:59 Dose: Not Given Insulin Detemir (Levemir Vial) 10 units SQ HS [facility] Last Admin: 07/12/18 22:16 Dose: 10 units Metoprolol Tartrate (Lopressor -) 25 mg PO DAILY [facility] Last Admin: 07/13/18 10:01 Dose: 25 mg Sertraline HCl (Zoloft -) 25 mg PO DAILY [facility] Last Admin: 07/13/18 10:01 Dose: 25 mg Solifenacin (Vesicare -) 5 mg PO DAILY [facility] Last Admin: 07/13/18 10:01 Dose: 5 mg Tiotropium [place] (Spiriva Respimat) 2 puff IH DAILY [facility] Last Admin: 07/13/18 10:01 Dose: 2 puff - Objective Vital Signs: Vital Signs Temperature 98.8 F 07/13/18 05:54 Pulse Rate 72 07/13/18 05:54 Respiratory Rate 20 07/13/18 05:54 Blood Pressure 140/72 07/13/18 05:54 O2 Sat by Pulse Oximetry (%) 94 L 07/12/18 21:00 Constitutional: Yes: No Distress, Calm Cardiovascular: Yes: S1, S2 Respiratory: Yes: Regular, On Nasal O2 Gastrointestinal: Yes: Normal Bowel Sounds, Soft Musculoskeletal: Yes: WNL Extremities: Yes: Other (knee pain) Neurological: Yes: Alert, Oriented Psychiatric: Yes: Alert, Oriented Labs: CBC, BMP 07/12/18 07:10 07/12/18 07:10 INR, PTT INR 1.13 (0.83-1.09) H 07/08/18 21:24 Assessment/Plan Problem List - Problems (1) Anemia Code(s): D64.9 - ANEMIA, UNSPECIFIED (2) CHF (congestive heart failure) Code(s): I50.9 - HEART FAILURE, UNSPECIFIED (3) COPD (chronic obstructive pulmonary disease) Code(s): J44.9 - CHRONIC OBSTRUCTIVE PULMONARY DISEASE, UNSPECIFIED (4) Venous insufficiency Code(s): I87.2 - VENOUS INSUFFICIENCY (CHRONIC) (PERIPHERAL) (5) HTN (hypertension) Code(s): I10 - ESSENTIAL (PRIMARY) HYPERTENSION (6) Type 2 diabetes mellitus Code(s): E11.9 - TYPE 2 DIABETES MELLITUS WITHOUT COMPLICATIONS 7 mild cellulitis of the leg 8 pneumonia plan will change to oral contiue current mgmt physio rest as per the team
--- NOTE | 2018-07-13 11:07 | PN ---
Progress Note, Physician Chief Complaint: Anemia History of Present Illness: Pt seen/examined at bedside, feels slightly better today overall, denies abdominal pain, states pain from yesterday has resolved, mild nausea, denies vomiting. Tolerating diet. Breathing slightly improved, denies chest pain. CT abd/pelvis performed yesterday without acute findings. - Current Medication List Current Medications: Active Medications Acetaminophen (Tylenol -) 650 mg PO Q6H PRN PRN Reason: PAIN LEVEL 1-5 OR FEVER Last Admin: 07/10/18 22:58 Dose: 650 mg Albuterol Sulfate (Ventolin 0.083% Nebulizer Soln -) 1 amp NEB RQID [facility] Last Admin: 07/13/18 08:15 Dose: 1 amp Amlodipine Besylate (Norvasc -) 10 mg PO DAILY [facility] Last Admin: 07/13/18 10:01 Dose: 10 mg Atorvastatin Calcium (Lipitor -) 10 mg PO HS [facility] Last Admin: 07/12/18 22:16 Dose: 10 mg Baclofen (Lioresal -) 10 mg PO BID [facility] Last Admin: 07/13/18 10:01 Dose: 10 mg Budesonide/Formoterol Fumarate (Symbicort 160/4.5mcg -) 1 puff IH BID [facility] Last Admin: 07/13/18 10:01 Dose: 1 puff Docusate Sodium (Colace -) 100 mg PO DAILY [facility] Last Admin: 07/13/18 10:01 Dose: 100 mg Doxycycline Hyclate (Vibramycin -) 100 mg PO BID@1000,1800 [facility] Enoxaparin Sodium (Lovenox -) 40 mg SQ DAILY [facility] Last Admin: 07/13/18 10:01 Dose: 40 mg Gabapentin (Neurontin -) 100 mg PO TID [facility] Last Admin: 07/13/18 05:54 Dose: 100 mg Hydralazine HCl (Apresoline -) 100 mg PO TID [facility] Last Admin: 07/13/18 05:54 Dose: 100 mg Insulin Aspart (Novolog Vial Sliding Scale -) 1 vial SQ [facility]; Protocol Last Admin: 07/13/18 05:59 Dose: Not Given Insulin Detemir (Levemir Vial) 10 units SQ [facility] Last Admin: 07/12/18 22:16 Dose: 10 units Metoprolol Tartrate (Lopressor -) 25 mg PO DAILY [facility] Last Admin: 07/13/18 10:01 Dose: 25 mg Sertraline HCl (Zoloft -) 25 mg PO DAILY [facility] Last Admin: 07/13/18 10:01 Dose: 25 mg Solifenacin (Vesicare -) 5 mg PO DAILY [facility] Last Admin: 07/13/18 10:01 Dose: 5 mg Tiotropium [place] (Spiriva Respimat) 2 puff IH DAILY [facility] Last Admin: 07/13/18 10:01 Dose: 2 puff - Objective Vital Signs: Vital Signs Temperature 98.8 F 07/13/18 05:54 Pulse Rate 72 07/13/18 05:54 Respiratory Rate 20 07/13/18 05:54 Blood Pressure 140/72 07/13/18 05:54 O2 Sat by Pulse Oximetry (%) 94 L 07/12/18 21:00 Constitutional: Yes: Well Nourished, Other (Slightly labored breathing, calm) Cardiovascular: Yes: WNL, Regular Rate and Rhythm Respiratory: Yes: WNL, Regular, Other (Decreased A/E bilaterally) Gastrointestinal: Yes: WNL, Normal Bowel Sounds, Soft, Abdomen, Obese, Other ( Nontender, nondistended) Edema: Yes (B/l edema, venous stasis) Labs: CBC, BMP 07/12/18 07:10 07/12/18 07:10 INR, PTT INR 1.13 (0.83-1.09) H 07/08/18 21:24 Problem List - Problems (1) Abdominal pain Assessment/Plan: 72 yo female h/o CAD/KS, CKD, PAD, DM, HTN presenting with chest pain and SOB being treated for PNA and CHF exacerbation consulted for anemia with episode of abdominal pain yesterday s/p CT abd pelvis revealing b/l pleural effusions, gallstones, otherwise no acute GI pathology (see report for complete details). LFTs normal. Pain now resolved. Code(s): R10.9 - UNSPECIFIED ABDOMINAL PAIN (2) Anemia Assessment/Plan: With evidence of iron deficiency (Ferritin 23, iron 23, % sat 6), Hb stable, no overt GI bleeding. No prior reported colonoscopy per pt. -Continue to closely monitor Hb and for evidence of bleeding -While no emergent indication for endoscopy in absence of overt bleeding, pt would require Colonoscopy/EGD for evaluation of iron deficiency once further optimized from a cardiorespiratory standpoint -Timing of procedures to be determined accordingly once cleared from cardio/ resp standpoint Please notify GI if any questions or change in status in the interim Code(s): D64.9 - ANEMIA, UNSPECIFIED
--- NOTE | 2018-07-13 11:18 | PN ---
Progress Note (short form) - Note Progress Note: Progress Note: s: no cp sob palps dizzy. edema stable. sob improved o: Vital Signs Vital Signs Period Temp Pulse Resp BP Sys/Gates Pulse Ox Last 24 Hr 98.3 F-98.8 F 67-72 20-20 130-151/62-72 94 nad no jvd rrr s1s2 no mrg CTAB, nl eff chronic venous stasis changes le bl, non pitting edema abd nt nd pos bs no jaundice diaphoresis pos dp pt no carotid bruits +chest wall tenderness Current Medications Acetaminophen (Tylenol -) 650 mg PO Q6H PRN PRN Reason: PAIN LEVEL 1-5 OR FEVER Last Admin: 07/10/18 22:58 Dose: 650 mg Albuterol Sulfate (Ventolin 0.083% Nebulizer Soln -) 1 amp NEB RQID [facility] Last Admin: 07/13/18 08:15 Dose: 1 amp Amlodipine Besylate (Norvasc -) 10 mg PO DAILY [facility] Last Admin: 07/13/18 10:01 Dose: 10 mg Atorvastatin Calcium (Lipitor -) 10 mg PO HS [facility] Last Admin: 07/12/18 22:16 Dose: 10 mg Baclofen (Lioresal -) 10 mg PO BID [facility] Last Admin: 07/13/18 10:01 Dose: 10 mg Budesonide/Formoterol Fumarate (Symbicort 160/4.5mcg -) 1 puff IH BID [facility] Last Admin: 07/13/18 10:01 Dose: 1 puff Docusate Sodium (Colace -) 100 mg PO DAILY [facility] Last Admin: 07/13/18 10:01 Dose: 100 mg Doxycycline Hyclate (Vibramycin -) 100 mg PO BID@1000,1800 [facility] Enoxaparin Sodium (Lovenox -) 40 mg SQ DAILY [facility] Last Admin: 07/13/18 10:01 Dose: 40 mg Gabapentin (Neurontin -) 100 mg PO TID [facility] Last Admin: 07/13/18 05:54 Dose: 100 mg Hydralazine HCl (Apresoline -) 100 mg PO TID [facility] Last Admin: 07/13/18 05:54 Dose: 100 mg Insulin Aspart (Novolog Vial Sliding Scale -) 1 vial SQ ACHS [facility]; Protocol Last Admin: 07/13/18 05:59 Dose: Not Given Insulin Detemir (Levemir Vial) 10 units SQ HS [facility] Last Admin: 07/12/18 22:16 Dose: 10 units Metoprolol Tartrate (Lopressor -) 25 mg PO DAILY [facility] Last Admin: 07/13/18 10:01 Dose: 25 mg Sertraline HCl (Zoloft -) 25 mg PO DAILY [facility] Last Admin: 07/13/18 10:01 Dose: 25 mg Solifenacin (Vesicare -) 5 mg PO DAILY [facility] Last Admin: 07/13/18 10:01 Dose: 5 mg Tiotropium [place] (Spiriva Respimat) 2 puff IH DAILY [facility] Last Admin: 07/13/18 10:01 Dose: 2 puff cxr: chf ecg: sr,nl intervals, no ischemic changes mibi 2011: no ischemia, nl lvef echo 03/2014: lvh, nl lv/rv, lae, no sig valve path echo 04/2018: mild lvh, nl lv, mild rve, nl rv fcn, lae, no sig valve path CT A/P jud small pleural effusions echo 06/2018 very limited study incomplete exam, Lv nl size, LV function not assessed, mild MR, mild ao sclerosis a/p: 72 f hx copd, htn, dm, here with sob, cp. acute diastolic chf, sob: - 07/09-13 on lasix 40 mg IV daily - 07/11 Cr inc 1.3->1.8, weight down (bedscale), edema stable with sob improving - 07/13 appears euvolemic, sob improved. Cr 1.9, holding lasix -monitor daily wt, cr, lytes - pulm following as well anemia, preop for colo/EGD - appears euvolemic - no cardiac contraindication to colo/EGD htn: -bp stable -cont home meds cp: -atypical cp -ecg benign -trops negx3 -no signs acs -seems more msk
--- NOTE | 2018-07-13 11:55 | PN ---
Progress Note (short form) - Note Progress Note: pt seen/ examined denies chest pain and SOB no obvious bleeding Vital Signs - 24 hr 07/12/18 07/12/18 07/12/18 14:00 18:00 21:00 Temperature 98.4 F 98.7 F Pulse Rate 68 67 Respiratory 20 20 20 Rate Blood Pressure 151/69 133/67 O2 Sat by Pulse 94 L Oximetry (%) 07/12/18 07/13/18 07/13/18 22:00 01:37 05:54 Temperature 98.3 F 98.5 F 98.8 F Pulse Rate 70 72 72 Respiratory 20 20 20 Rate Blood Pressure 130/62 142/68 140/72 O2 Sat by Pulse Oximetry (%) Current Medications Generic Name Dose Route Start Last Admin Trade Name Freq PRN Reason Stop Dose Admin Acetaminophen 650 mg 07/09/18 10:00 07/10/18 22:58 Tylenol - PO 650 mg Q6H PRN Administration PAIN LEVEL 1-5 OR FEVER Albuterol Sulfate 1 amp 07/09/18 08:00 07/13/18 08:15 Ventolin 0.083% Nebulizer Soln - NEB 1 amp RQID [facility] Administration Amlodipine Besylate 10 mg 07/09/18 10:00 07/13/18 10:01 Norvasc - PO 10 mg DAILY [facility] Administration Atorvastatin Calcium 10 mg 07/09/18 22:00 07/12/18 22:16 Lipitor - PO 10 mg HS [facility] Administration Baclofen 10 mg 07/09/18 10:00 07/13/18 10:01 Lioresal - PO 10 mg BID [facility] Administration Budesonide/Formoterol Fumarate 1 puff 07/09/18 10:00 07/13/18 10:01 Symbicort 160/4.5mcg - IH 1 puff BID [facility] Administration Docusate Sodium 100 mg 07/09/18 10:00 07/13/18 10:01 Colace - PO 100 mg DAILY [facility] Administration Doxycycline Hyclate 100 mg 07/13/18 18:00 Vibramycin - PO BID@1000,1800 [facility] Enoxaparin Sodium 40 mg 07/10/18 10:00 07/13/18 10:01 Lovenox - SQ 40 mg DAILY [facility] Administration Gabapentin 100 mg 07/11/18 14:00 07/13/18 05:54 Neurontin - PO 100 mg TID [facility] Administration Hydralazine HCl 100 mg 07/09/18 06:00 07/13/18 05:54 Apresoline - PO 100 mg TID [facility] Administration Insulin Aspart 1 vial 07/09/18 07:00 07/13/18 11:53 Novolog Vial Sliding Scale - SQ Not Given ACHS [facility] Protocol Insulin Detemir 10 units 07/09/18 22:00 07/12/18 22:16 Levemir Vial SQ 10 units HS [facility] Administration Metoprolol Tartrate 25 mg 07/09/18 10:00 07/13/18 10:01 Lopressor - PO 25 mg DAILY [facility] Administration Sertraline HCl 25 mg 07/09/18 10:00 07/13/18 10:01 Zoloft - PO 25 mg DAILY [facility] Administration Solifenacin 5 mg 07/09/18 10:00 07/13/18 10:01 Vesicare - PO 5 mg DAILY [facility] Administration Tiotropium [place] 2 puff 07/09/18 10:00 07/13/18 10:01 Spiriva Respimat IH 2 puff DAILY [facility] Administration Laboratory Results - last 24 hr 07/12/18 07:10 Iron 23 L TIBC 376 Iron Saturation 6 L Physical Exam. awake/ obese/ no distress/ chronic ill appearance . heent- no jvd lungs- diminished at bases cvs- s1, s2 rrr abd- soft/ obese ext- chronic venous stasis neuro- aox3 A/P Better dc ASA Meds / labs reviewed monitor labs no obvious bleeding check stool for occult blood po antibiotics - per i/d monitor bgm spoke with Cardiology-- cleared cardiac medrano for endoscopies Dvt prophylaxis Problem List - Problems (1) Anemia Code(s): D64.9 - ANEMIA, UNSPECIFIED (2) CHF (congestive heart failure) Code(s): I50.9 - HEART FAILURE, UNSPECIFIED (3) COPD (chronic obstructive pulmonary disease) Code(s): J44.9 - CHRONIC OBSTRUCTIVE PULMONARY DISEASE, UNSPECIFIED (4) Pneumonia Code(s): J18.9 - PNEUMONIA, UNSPECIFIED ORGANISM (5) Venous insufficiency Code(s): I87.2 - VENOUS INSUFFICIENCY (CHRONIC) (PERIPHERAL) (6) DEE (acute kidney injury) Code(s): N17.9 - ACUTE KIDNEY FAILURE, UNSPECIFIED
--- NOTE | 2018-07-13 15:24 | PN ---
Progress Note, Physician History of Present Illness: pulmonary oob-chair still c/o sob - Current Medication List Current Medications: Active Medications Acetaminophen (Tylenol -) 650 mg PO Q6H PRN PRN Reason: PAIN LEVEL 1-5 OR FEVER Last Admin: 07/10/18 22:58 Dose: 650 mg Albuterol Sulfate (Ventolin 0.083% Nebulizer Soln -) 1 amp NEB RQID [facility] Last Admin: 07/13/18 08:15 Dose: 1 amp Amlodipine Besylate (Norvasc -) 10 mg PO DAILY [facility] Last Admin: 07/13/18 10:01 Dose: 10 mg Atorvastatin Calcium (Lipitor -) 10 mg PO HS [facility] Last Admin: 07/12/18 22:16 Dose: 10 mg Baclofen (Lioresal -) 10 mg PO BID [facility] Last Admin: 07/13/18 10:01 Dose: 10 mg Budesonide/Formoterol Fumarate (Symbicort 160/4.5mcg -) 1 puff IH BID [facility] Last Admin: 07/13/18 10:01 Dose: 1 puff Docusate Sodium (Colace -) 100 mg PO DAILY [facility] Last Admin: 07/13/18 10:01 Dose: 100 mg Doxycycline Hyclate (Vibramycin -) 100 mg PO BID@1000,1800 [facility] Enoxaparin Sodium (Lovenox -) 40 mg SQ DAILY [facility] Last Admin: 07/13/18 10:01 Dose: 40 mg Gabapentin (Neurontin -) 100 mg PO TID [facility] Last Admin: 07/13/18 13:48 Dose: 100 mg Hydralazine HCl (Apresoline -) 100 mg PO TID [facility] Last Admin: 07/13/18 14:11 Dose: Not Given Insulin Aspart (Novolog Vial Sliding Scale -) 1 vial SQ [facility]; Protocol Last Admin: 07/13/18 11:53 Dose: Not Given Insulin Detemir (Levemir Vial) 10 units SQ [facility] Last Admin: 07/12/18 22:16 Dose: 10 units Metoprolol Tartrate (Lopressor -) 25 mg PO DAILY [facility] Last Admin: 07/13/18 10:01 Dose: 25 mg Sertraline HCl (Zoloft -) 25 mg PO DAILY [facility] Last Admin: 07/13/18 10:01 Dose: 25 mg Solifenacin (Vesicare -) 5 mg PO DAILY [facility] Last Admin: 07/13/18 10:01 Dose: 5 mg Tiotropium [place] (Spiriva Respimat) 2 puff IH DAILY [facility] Last Admin: 07/13/18 10:01 Dose: 2 puff - Objective Vital Signs: Vital Signs Temperature 98.5 F 07/13/18 14:00 Pulse Rate 61 07/13/18 14:00 Respiratory Rate 18 07/13/18 14:00 Blood Pressure 138/61 07/13/18 14:00 O2 Sat by Pulse Oximetry (%) 94 L 07/12/18 21:00 Constitutional: Yes: Well Nourished, Calm Eyes: Yes: WNL, Occular Prosthesis Neck: Yes: WNL Cardiovascular: Yes: Regular Rate and Rhythm, S1, S2 Respiratory: Yes: Wheezes (scattered jud wheezes) Gastrointestinal: Yes: Normal Bowel Sounds, Soft Extremities: Yes: WNL Edema: Yes Labs: CBC, BMP Problem List - Problems (1) COPD (chronic obstructive pulmonary disease) Code(s): J44.9 - CHRONIC OBSTRUCTIVE PULMONARY DISEASE, UNSPECIFIED (2) CHF (congestive heart failure) Code(s): I50.9 - HEART FAILURE, UNSPECIFIED (3) Venous insufficiency Code(s): I87.2 - VENOUS INSUFFICIENCY (CHRONIC) (PERIPHERAL) (4) HTN (hypertension) Code(s): I10 - ESSENTIAL (PRIMARY) HYPERTENSION (5) Diabetes Code(s): E11.9 - TYPE 2 DIABETES MELLITUS WITHOUT COMPLICATIONS (6) Dyslipidemia Code(s): E78.5 - HYPERLIPIDEMIA, UNSPECIFIED (7) Pneumonia Code(s): J18.9 - PNEUMONIA, UNSPECIFIED ORGANISM (8) Tobacco abuse Code(s): Z72.0 - TOBACCO USE (9) Tobacco abuse counseling Code(s): Z71.6 - TOBACCO ABUSE COUNSELING (10) Anemia Code(s): D64.9 - ANEMIA, UNSPECIFIED Assessment/Plan IMP ACUTE HYPOXEMIC RESPIRATORY FAILURE ACUTE ON CHRONIC CHF RUL PNEUMONIA CHEST PAIN ANEMIA COPD ASHD S/P [place] HTN DM CKD LIKELY OSAS PLAN ABX PER ID INHALED BRONCHODILATORS O2 DAILY WT NORMAL TRANSFUSION PROTOCOL MONITOR LYTES,RENAL FUNCTION F/U CHEST X-RAYS F/U CHEST CT 4-[address] THOMAS Problem List - Problems (1) COPD (chronic obstructive pulmonary disease) Code(s): J44.9 - CHRONIC OBSTRUCTIVE PULMONARY DISEASE, UNSPECIFIED (2) CHF (congestive heart failure) Code(s): I50.9 - HEART FAILURE, UNSPECIFIED (3) Venous insufficiency Code(s): I87.2 - VENOUS INSUFFICIENCY (CHRONIC) (PERIPHERAL) (4) HTN (hypertension) Code(s): I10 - ESSENTIAL (PRIMARY) HYPERTENSION (5) Diabetes Code(s): E11.9 - TYPE 2 DIABETES MELLITUS WITHOUT COMPLICATIONS (6) Dyslipidemia Code(s): E78.5 - HYPERLIPIDEMIA, UNSPECIFIED (7) Pneumonia Code(s): J18.9 - PNEUMONIA, UNSPECIFIED ORGANISM (8) Tobacco abuse Code(s): Z72.0 - TOBACCO USE (9) Tobacco abuse counseling Code(s): Z71.6 - TOBACCO ABUSE COUNSELING (10) Anemia Code(s): D64.9 - ANEMIA, UNSPECIFIED
[2018-07-13] MEDS: DOXYCYCLINE HYCLATE 100 MG CAPSULE PO SCH (17:53)
[2018-07-13] MEDS: ARFORMOTEROL TARTRATE 15 MCG/2 ML VIAL NEB SCH (21:36)
[2018-07-13] MEDS: ATORVASTATIN CA 10 MG TABLET (FP) PO SCH (22:08)
[2018-07-13] MEDS: INSULIN (LEVEMIR) 100 UNITS/ML UNITS SQ SCH (22:08)
[2018-07-14] MEDS: INSULIN SLIDING SCALE (NOVOLOG) 1 VIAL SQ SCH ×4 (06:02→21:37)
[2018-07-14] MEDS: GABAPENTIN 100 MG CAPSULE (FP) PO SCH (06:02)
[2018-07-14] MEDS: hydrALAZINE HCL 50 MG TABLET (FP) PO SCH ×3 (06:02→22:08)
[2018-07-14] MEDS ORDERED: INSULIN (NOVOLOG) ASPART 100 UNITS/ML 10ML VIAL ONE (06:42)
[2018-07-14] MEDS: ARFORMOTEROL TARTRATE 15 MCG/2 ML VIAL NEB SCH (07:17)
[2018-07-14 07:20] LABS: HEMATOCRIT 25.5 % (32.4-45.2); HEMOGLOBIN 8.1 GM/dL (10.7-15.3); MCH 25.9 pg (25.7-33.7); MCHC 31.6 g/dl (32.0-36.0); MEAN CELL VOLUME 81.9 fl (80-96); MEAN PLT VOLUME 8.6 fl (7.5-11.1); PLATELET COUNT 273 K/MM3 (134-434); RBC 3.12 M/mm3 (3.60-5.2); RDW 19.3 % (11.6-15.6); WHITE BLOOD COUNT 9.3 K/mm3 (4.0-10.0)
[2018-07-14 07:43] LABS: ANION GAP 6 MMOL/L (8-16); BLOOD UREA NITROGEN 43 mg/dL (7-18); CALCIUM 8.2 mg/dL (8.5-10.1); CHLORIDE 102 mmol/L (98-107); CO2 28 mmol/L (21-32); CREATININE 1.8 mg/dL (0.55-1.3); GLUCOSE,RANDOM 111 mg/dL (74-106); POTASSIUM 5.3 mmol/L (3.5-5.1); SODIUM 136 mmol/L (136-145)
[2018-07-14] MEDS: SOLIFENACIN SUCCINATE 5 MG TAB (FP) PO SCH (10:09)
[2018-07-14] MEDS: SERTRALINE HCL 25 MG TABLET (FP) PO SCH (10:09)
[2018-07-14] MEDS: amLODIPine BESYLATE 10 MG TABLET (FP) PO SCH (10:09)
[2018-07-14] MEDS: ENOXAPARIN NA (PORCINE) 40 MG/0.4 ML DISP.SYRIN SQ SCH (10:09)
[2018-07-14] MEDS: METOPROLOL TARTRATE 25 MG TABLET (FP) PO SCH (10:09)
[2018-07-14] MEDS: DOCUSATE SODIUM 100 MG CAPSULE (FP) PO SCH (10:09)
[2018-07-14] MEDS: DOXYCYCLINE HYCLATE 100 MG CAPSULE PO SCH ×2 (10:09→17:40)
[2018-07-14] MEDS: BACLOFEN 10 MG TABLET (FP) PO SCH (10:09)
[2018-07-14] MEDS: TIOTROPIUM BROMIDE 2.5 MCG (SPIRIVA) RESPIMAT INHALER IH SCH (10:14)
--- NOTE | 2018-07-14 10:38 | PN ---
Progress Note (short form) - Note Progress Note: PULMONARY Breathing continues to improve. nonproductive cough and wheezing. No fevers or chills. Vital Signs Period Temp Pulse Resp BP Sys/Gates Pulse Ox Last 24 Hr 98.2 F-99.5 F 61-88 18-20 133-162/54-98 100 Gen: NAD at rest Heart: RRR Lung: decreased breath sounds at the bases Abd: soft, nontender Ext: no edema CBC, BMP 07/14/18 06:30 07/14/18 06:30 Active Medications Acetaminophen (Tylenol -) 650 mg PO Q6H PRN PRN Reason: PAIN LEVEL 1-5 OR FEVER Last Admin: 07/10/18 22:58 Dose: 650 mg Albuterol Sulfate (Ventolin 0.083% Nebulizer Soln -) 1 amp NEB Q4H PRN PRN Reason: SHORT OF BREATH/WHEEZING Amlodipine Besylate (Norvasc -) 10 mg PO DAILY [facility] Last Admin: 07/14/18 10:09 Dose: 10 mg Arformoterol Tartrate ([place] (Restricted To Pulmonology/Resp) -) 1 amp NEB RBID [facility] Last Admin: 07/14/18 07:17 Dose: 1 amp Atorvastatin Calcium (Lipitor -) 10 mg PO HS [facility] Last Admin: 07/13/18 22:08 Dose: 10 mg Baclofen (Lioresal -) 10 mg PO BID [facility] Last Admin: 07/14/18 10:09 Dose: 10 mg Docusate Sodium (Colace -) 100 mg PO DAILY [facility] Last Admin: 07/14/18 10:09 Dose: 100 mg Doxycycline Hyclate (Vibramycin -) 100 mg PO BID@1000,1800 [facility] Last Admin: 07/14/18 10:09 Dose: 100 mg Enoxaparin Sodium (Lovenox -) 40 mg SQ DAILY [facility] Last Admin: 07/14/18 10:09 Dose: 40 mg Gabapentin (Neurontin -) 100 mg PO TID [facility] Last Admin: 07/14/18 06:02 Dose: 100 mg Hydralazine HCl (Apresoline -) 100 mg PO TID [facility] Last Admin: 07/14/18 06:02 Dose: 100 mg Insulin Aspart (Novolog Vial Sliding Scale -) 1 vial SQ [facility]; Protocol Last Admin: 07/14/18 06:02 Dose: Not Given Insulin Detemir (Levemir Vial) 10 units SQ [facility] Last Admin: 07/13/18 22:08 Dose: 10 units Metoprolol Tartrate (Lopressor -) 25 mg PO DAILY [facility] Last Admin: 07/14/18 10:09 Dose: 25 mg Sertraline HCl (Zoloft -) 25 mg PO DAILY [facility] Last Admin: 07/14/18 10:09 Dose: 25 mg Solifenacin (Vesicare -) 5 mg PO DAILY [facility] Last Admin: 07/14/18 10:09 Dose: 5 mg Tiotropium [place] (Spiriva Respimat) 2 puff IH DAILY [facility] Last Admin: 07/14/18 10:14 Dose: 2 puff A/P Acute Hypoxic Respiratory Failure Pneumonia Acute on Chronic Diastolic Heart Failure COPD CAD HTN DM CKD Likely Obstructive Sleep Apnea - continue antibiotics - lasix as needed - monitor urine output, creatinine - inhaled bronchodilators - O2 to keep SpO2 >90% - outpt PFTs, PSG - DVT prophylaxis - when ready for discharge, will need to check room air SpO2 to assess for home O2
--- NOTE | 2018-07-14 11:46 | PN ---
Progress Note (short form) - Note Progress Note: s: no cp sob palps dizzy, +abd pain o: Vital Signs Period Temp Pulse Resp BP Sys/Gates Pulse Ox Last 24 Hr 98.2 F-99.5 F 61-88 18-20 133-162/54-98 100 nad no jvd rrr s1s2 no mrg crackles at bases, nl eff chronic venous stasis changes le bl, no le edema abd nt nd pos bs no jaundice diaphoresis pos dp pt no carotid bruits +chest wall tenderness Current Medications Generic Name Dose Route Start Last Admin Trade Name Freq PRN Reason Stop Dose Admin Acetaminophen 650 mg 07/09/18 10:00 07/10/18 22:58 Tylenol - PO 650 mg Q6H PRN Administration PAIN LEVEL 1-5 OR FEVER Albuterol Sulfate 1 amp 07/13/18 15:25 Ventolin 0.083% Nebulizer Soln - NEB Q4H PRN SHORT OF BREATH/WHEEZING Amlodipine Besylate 10 mg 07/09/18 10:00 07/14/18 10:09 Norvasc - PO 10 mg DAILY [facility] Administration Arformoterol Tartrate 1 amp 07/13/18 20:00 07/14/18 07:17 [place]vana (Restricted To Pulmonology/Resp) - NEB 1 amp RBID [facility] Administration Atorvastatin Calcium 10 mg 07/09/18 22:00 07/13/18 22:08 Lipitor - PO 10 mg HS [facility] Administration Baclofen 10 mg 07/09/18 10:00 07/14/18 10:09 Lioresal - PO 10 mg BID [facility] Administration Docusate Sodium 100 mg 07/09/18 10:00 07/14/18 10:09 Colace - PO 100 mg DAILY [facility] Administration Doxycycline Hyclate 100 mg 07/13/18 18:00 07/14/18 10:09 Vibramycin - PO 100 mg BID@1000,1800 [facility] Administration Enoxaparin Sodium 40 mg 07/10/18 10:00 07/14/18 10:09 Lovenox - SQ 40 mg DAILY [facility] Administration Gabapentin 100 mg 07/11/18 14:00 07/14/18 06:02 Neurontin - PO 100 mg TID [facility] Administration Hydralazine HCl 100 mg 07/09/18 06:00 07/14/18 06:02 Apresoline - PO 100 mg TID [facility] Administration Insulin Aspart 1 vial 07/09/18 07:00 07/14/18 06:02 Novolog Vial Sliding Scale - SQ Not Given ACHS [facility] Protocol Insulin Detemir 10 units 07/09/18 22:00 07/13/18 22:08 Levemir Vial SQ 10 units HS [facility] Administration Metoprolol Tartrate 25 mg 07/09/18 10:00 07/14/18 10:09 Lopressor - PO 25 mg DAILY [facility] Administration Sertraline HCl 25 mg 07/09/18 10:00 07/14/18 10:09 Zoloft - PO 25 mg DAILY [facility] Administration Solifenacin 5 mg 07/09/18 10:00 07/14/18 10:09 Vesicare - PO 5 mg DAILY [facility] Administration Tiotropium [place] 2 puff 07/09/18 10:00 07/14/18 10:14 Spiriva Respimat IH 2 puff DAILY [facility] Administration CBC, BMP 07/14/18 06:30 07/14/18 06:30 cxr: chf ecg: sr,nl intervals, no ischemic changes mibi 2011: no ischemia, nl lvef echo 03/2014: lvh, nl lv/rv, lae, no sig valve path echo 04/2018: mild lvh, nl lv, mild rve, nl rv fcn, lae, no sig valve path CT A/P jud small pleural effusions echo 06/2018 very limited study incomplete exam, Lv nl size, LV function not assessed, mild MR, mild ao sclerosis a/p: 72 f hx copd, htn, dm, here with sob, cp. acute diastolic chf, sob: - 07/09- on lasix 40 mg IV daily - 07/11 Cr inc 1.3->1.8, weight down (bedscale), edema stable with sob improving - appears euvolemic, sob improved. Cr still up from baseline, holding lasix - pulm following as well anemia, preop for colo/EGD - appears euvolemic - no cardiac contraindication to colo/EGD htn: -bp stable -cont home meds cp: -atypical cp -ecg benign -trops negx3 -no signs acs -seems more msk abd pain: -GI following
[2018-07-14 12:32] LABS: ARTERIAL BLD GAS O2 SATURATION 94.1 % (90-98.9); ARTERIAL BLOOD GAS BASE EXCESS 0.6 meq/l (-2-2); ARTERIAL BLOOD GAS PCO2 59.7 mmHg (35-45); ARTERIAL BLOOD GAS PO2 78.6 mmHg (70-100); ARTERIAL BLOOD GAS pH 7.28 (7.35-7.45)
--- NOTE | 2018-07-14 12:33 | PN ---
Progress Note (short form) - Note Progress Note: pt seen/ examined has progressive weakness of upper arms B/L cough+ low grade temps Vital Signs - 24 hr 07/13/18 07/13/18 07/13/18 14:00 21:00 22:00 Temperature 98.5 F 98.6 F Pulse Rate 61 63 Respiratory 18 20 20 Rate Blood Pressure 138/61 142/54 L O2 Sat by Pulse 100 Oximetry (%) 07/13/18 07/14/18 07/14/18 22:23 02:00 06:00 Temperature 98.2 F 98.2 F 99.5 F Pulse Rate 74 67 75 Respiratory 20 20 20 Rate Blood Pressure 133/98 162/78 160/63 O2 Sat by Pulse Oximetry (%) 07/14/18 08:15 Temperature 99.1 F Pulse Rate 88 Respiratory 20 Rate Blood Pressure 134/94 O2 Sat by Pulse Oximetry (%) Current Medications Generic Name Dose Route Start Last Admin Trade Name Freq PRN Reason Stop Dose Admin Acetaminophen 650 mg 07/09/18 10:00 07/10/18 22:58 Tylenol - PO 650 mg Q6H PRN Administration PAIN LEVEL 1-5 OR FEVER Albuterol Sulfate 1 amp 07/13/18 15:25 Ventolin 0.083% Nebulizer Soln - NEB Q4H PRN SHORT OF BREATH/WHEEZING Amlodipine Besylate 10 mg 07/09/18 10:00 07/14/18 10:09 Norvasc - PO 10 mg DAILY [facility] Administration Arformoterol Tartrate 1 amp 07/13/18 20:00 07/14/18 07:17 Brovana (Restricted To Pulmonology/Resp) - NEB 1 amp RBID [facility] Administration Atorvastatin Calcium 10 mg 07/09/18 22:00 07/13/18 22:08 Lipitor - PO 10 mg HS [facility] Administration Docusate Sodium 100 mg 07/09/18 10:00 07/14/18 10:09 Colace - PO 100 mg DAILY [facility] Administration Doxycycline Hyclate 100 mg 07/13/18 18:00 07/14/18 10:09 Vibramycin - PO 100 mg BID@1000,1800 [facility] Administration Enoxaparin Sodium 40 mg 07/10/18 10:00 07/14/18 10:09 Lovenox - SQ 40 mg DAILY [facility] Administration Hydralazine HCl 100 mg 07/09/18 06:00 07/14/18 06:02 Apresoline - PO 100 mg TID [facility] Administration Insulin Aspart 1 vial 07/09/18 07:00 07/14/18 06:02 Novolog Vial Sliding Scale - SQ Not Given ACHS [facility] Protocol Insulin Detemir 10 units 07/09/18 22:00 07/13/18 22:08 Levemir Vial SQ 10 units HS [facility] Administration Metoprolol Tartrate 25 mg 07/09/18 10:00 07/14/18 10:09 Lopressor - PO 25 mg DAILY [facility] Administration Sertraline HCl 25 mg 07/09/18 10:00 07/14/18 10:09 Zoloft - PO 25 mg DAILY [facility] Administration Solifenacin 5 mg 07/09/18 10:00 07/14/18 10:09 Vesicare - PO 5 mg DAILY [facility] Administration Tiotropium [place] 2 puff 07/09/18 10:00 07/14/18 10:14 Spiriva Respimat IH 2 puff DAILY [facility] Administration Laboratory Results - last 24 hr 07/08/18 07/14/18 07/14/18 21:24 06:30 06:30 WBC 9.3 RBC 3.12 L Hgb 8.1 L Hct 25.5 L MCV 81.9 MCH 25.9 MCHC 31.6 L RDW 19.3 H Plt Count 273 D MPV 8.6 Sodium 136 Potassium 5.3 H Chloride 102 Carbon Dioxide 28 Anion Gap 6 L BUN 43 H Creatinine 1.8 H Creat Clearance w eGFR 27.74 Random Glucose 111 H Calcium 8.2 L Blood Type A POSITIVE Antibody Screen Negative Crossmatch See Detail Physical Exam. awake/ obese/ no distress/ chronic ill appearance . oral mucosa dry heent- no jvd lungs- diminished at bases cvs- s1, s2 rrr abd- soft/ obese ext- chronic venous stasis neuro- aox3 A/P check ABG -- low O2 sat this AM CXR EMG/NCV will dc Neurontin and Baclofen renal function improving no obvious bleeding check stool for occult blood po antibiotics - per i/d monitor bgm Problem List - Problems (1) Anemia Code(s): D64.9 - ANEMIA, UNSPECIFIED (2) CHF (congestive heart failure) Code(s): I50.9 - HEART FAILURE, UNSPECIFIED (3) COPD (chronic obstructive pulmonary disease) Code(s): J44.9 - CHRONIC OBSTRUCTIVE PULMONARY DISEASE, UNSPECIFIED (4) Pneumonia Code(s): J18.9 - PNEUMONIA, UNSPECIFIED ORGANISM (5) Venous insufficiency Code(s): I87.2 - VENOUS INSUFFICIENCY (CHRONIC) (PERIPHERAL) (6) DEE (acute kidney injury) Code(s): N17.9 - ACUTE KIDNEY FAILURE, UNSPECIFIED
[2018-07-14 12:45] LABS: ALLENS TEST POSITIVE
--- NOTE | 2018-07-14 15:08 | PN ---
Progress Note, Physician History of Present Illness: Pt seen and examined. Reported to have low O2 sat this am, currently without respiratory distress. States she is tired but no other specific complaints. - Current Medication List Current Medications: Active Medications Acetaminophen (Tylenol -) 650 mg PO Q6H PRN PRN Reason: PAIN LEVEL 1-5 OR FEVER Last Admin: 07/10/18 22:58 Dose: 650 mg Albuterol Sulfate (Ventolin 0.083% Nebulizer Soln -) 1 amp NEB Q4H PRN PRN Reason: SHORT OF BREATH/WHEEZING Amlodipine Besylate (Norvasc -) 10 mg PO DAILY [facility] Last Admin: 07/14/18 10:09 Dose: 10 mg Arformoterol Tartrate (Brovana (Restricted To Pulmonology/Resp) -) 1 amp NEB RBID [facility] Last Admin: 07/14/18 07:17 Dose: 1 amp Atorvastatin Calcium (Lipitor -) 10 mg PO HS [facility] Last Admin: 07/13/18 22:08 Dose: 10 mg Docusate Sodium (Colace -) 100 mg PO DAILY [facility] Last Admin: 07/14/18 10:09 Dose: 100 mg Doxycycline Hyclate (Vibramycin -) 100 mg PO BID@1000,1800 [facility] Last Admin: 07/14/18 10:09 Dose: 100 mg Enoxaparin Sodium (Lovenox -) 40 mg SQ DAILY [facility] Last Admin: 07/14/18 10:09 Dose: 40 mg Hydralazine HCl (Apresoline -) 100 mg PO TID [facility] Last Admin: 07/14/18 14:49 Dose: 100 mg Insulin Aspart (Novolog Vial Sliding Scale -) 1 vial SQ [facility]; Protocol Last Admin: 07/14/18 12:33 Dose: Not Given Insulin Detemir (Levemir Vial) 10 units SQ HS [facility] Last Admin: 07/13/18 22:08 Dose: 10 units Metoprolol Tartrate (Lopressor -) 25 mg PO DAILY [facility] Last Admin: 07/14/18 10:09 Dose: 25 mg Sertraline HCl (Zoloft -) 25 mg PO DAILY [facility] Last Admin: 07/14/18 10:09 Dose: 25 mg Solifenacin (Vesicare -) 5 mg PO DAILY [facility] Last Admin: 07/14/18 10:09 Dose: 5 mg Tiotropium [place] (Spiriva Respimat) 2 puff IH DAILY [facility] Last Admin: 07/14/18 10:14 Dose: 2 puff - Objective Vital Signs: Vital Signs Temperature 99.3 F 07/14/18 14:57 Pulse Rate 70 07/14/18 14:00 Respiratory Rate 18 07/14/18 14:00 Blood Pressure 143/58 L 07/14/18 14:00 O2 Sat by Pulse Oximetry (%) 100 07/13/18 21:00 Constitutional: Yes: No Distress Eyes: Yes: Conjunctiva Clear Cardiovascular: Yes: Regular Rate and Rhythm Respiratory: Yes: Regular Gastrointestinal: Yes: Normal Bowel Sounds, Soft, Abdomen, Obese Extremities: Yes: Other (mild LE tenderness) Integumentary: Yes: WNL Neurological: Yes: Weakness Labs: CBC, BMP 07/14/18 06:30 07/14/18 06:30 INR, PTT INR 1.13 (0.83-1.09) H 07/08/18 21:24 - ....Imaging Chest X-ray: Pending Problem List - Problems (1) CHF (congestive heart failure) Code(s): I50.9 - HEART FAILURE, UNSPECIFIED (2) COPD (chronic obstructive pulmonary disease) Code(s): J44.9 - CHRONIC OBSTRUCTIVE PULMONARY DISEASE, UNSPECIFIED (3) Pneumonia Code(s): J18.9 - PNEUMONIA, UNSPECIFIED ORGANISM (4) DEE (acute kidney injury) Code(s): N17.9 - ACUTE KIDNEY FAILURE, UNSPECIFIED (5) Cellulitis Code(s): L03.90 - CELLULITIS, UNSPECIFIED (6) Type 2 diabetes mellitus Code(s): E11.9 - TYPE 2 DIABETES MELLITUS WITHOUT COMPLICATIONS Assessment/Plan Pt with mildly elevated temp currently, wbc normal Will order blood cultures F/U CXR results Monitor vitals closely, currently without distress If fever persists will switch back to IV antibiotics
--- NOTE | 2018-07-14 15:50 | CONS ---
DATE OF CONSULTATION: 07/14/2018 PHYSICAL MEDICINE REHABILITATION AND ELECTRODIAGNOSTIC CONSULTATION REFERRING PHYSICIAN: Krys Vivas MD Patient is a 72-year-old woman with past medical history of diabetes, coronary artery disease status post [place], congestive heart failure, underlying COPD, chronic kidney disease who was admitted with chief complaint of left-sided chest pain. Patient is not a good historian, and most of the past medical history is taken from her medical record. Per the patient, she came in yesterday from [facility] and was ambulating yesterday, and she has been in the hospital for 5 days. She does complain of weakness and numbness in her upper extremities. No numbness or tingling in the lower extremities. Patient is being treated for anemia, CHF, and COPD. She was referred for electrodiagnostic evaluation which is now attempted. She does have edema in the upper extremities and has poor tolerance to positioning. REVIEW OF PAST MEDICAL AND SURGICAL HISTORY: As above. Also a history of hypertension, frequent falls. SOCIAL HISTORY: Lives in [facility]. Per the patient, she is able to ambulate. Per the physical therapy evaluation done yesterday, she needed moderate assist and really was only able to stand and not able to ambulate at all. REVIEW OF SYSTEMS: No headache. No lightheadedness or dizziness. No current chest pain or shortness of breath. She does complain of swelling, numbness, tingling, progressive weakness of the upper extremities more than lower extremities. No skin rash. No fever or chills. No weight loss or weight gain. However, again, the patient is not a reliable historian on examination. Morbidly obese woman lying on a stretcher who is in no acute distress. She is resting peacefully but arousable. She tries to cooperate with the examination, but is extremely limited. PHYSICAL EXAMINATION: HEENT: She is normocephalic and atraumatic. Her extraocular muscles appear intact. Neck: Supple. Extremities: Pitting edema in the lower extremities. Diffuse tenderness of the lower extremities. There is also some edema of the upper extremities. She has no sensory deficit on needle electrode exam. She withdraws to pinprick in all 4 extremities, but is diffusely weak in all 4 extremities. No focal weakness noted. RESULTS OF EMG NERVE CONDUCTION STUDIES: Please refer to the report for details. OVERALL IMPRESSION: 1. Extremely limited study due to edema, poor tolerance to positioning, and difficulty cooperating due to weakness. 2. Abnormal study. 3. Probable carpal tunnel syndrome and ulnar neuropathy at the elbow. 4. Probable or possible underlying polyneuropathy but unable to characterize. 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 5. No electrodiagnostic evidence of cervical radiculopathy. 6. Cannot rule out myopathy. 7. Congestive heart failure. 8. History of chronic obstructive pulmonary disease. 9. Obesity. 10. Chronic kidney disease. 11. Diabetes. 12. Falls. PLAN/SUGGESTION: 1. Would repeat study as an outpatient with edema is better controlled and patient is able to cooperative more. 2. Consider neurologic evaluation. 3. Consider imaging of the cervical spine if indeed she is having progressive weakness in the upper extremities to assess for cervical myelopathy. 4. Continue physical therapy. 5. Supportive care. 6. Skin precaution. 7. DVT prophylaxis until more mobile. Patient is on Lovenox. Would continue. Thank you for this referral. Patient is long-term care. MARQUEZ PROCTOR M.D. [id number]
--- NOTE | 2018-07-14 16:04 | PN ---
GI Progress Note Subjective: Patient states that can't breathe well today. She feels that it is worse than yesterday. Denies abdominal pain CT scan revealed gallstones without evidence of acute cholecystitis. - Objective Vital Signs: Vital Signs Temperature 99.3 F 07/14/18 14:57 Pulse Rate 70 07/14/18 14:00 Respiratory Rate 18 07/14/18 14:00 Blood Pressure 143/58 L 07/14/18 14:00 O2 Sat by Pulse Oximetry (%) 100 07/13/18 21:00 Constitutional: Calm Eyes: No: Sclera Icterus Cardiovascular: Yes: Regular Rate and Rhythm Respiratory: Yes: Wheezes (bilaterally) Gastrointestinal Inspection: No: Distention ...Auscultate: Yes: Normoactive Bowel Sounds ...Palpate: No: Tenderness Labs: CBC, BMP 07/14/18 06:30 07/14/18 06:30 INR, PTT INR 1.13 (0.83-1.09) H 07/08/18 21:24 - ....Imaging Cat Scan: Report Reviewed, Image Reviewed Problem List - Problems (1) Abdominal pain Assessment/Plan: No pain today. Advanced to full liquid then as tolerated Code(s): R10.9 - UNSPECIFIED ABDOMINAL PAIN (2) Anemia Assessment/Plan: No overt bleeding Stable When cleared from a cardiopulmonary standpoint, EGD/Colonoscopy can be undertaken for further evaluation Code(s): D64.9 - ANEMIA, UNSPECIFIED
[2018-07-14] MEDS: ALBUTEROL SO4 0.083% IH SOL 2.5 MG/3 ML VIAL.NEB. NEB PRN (16:25)
[2018-07-14] MEDS: PANTOPRAZOLE 20 MG TABLET (FP) PO SCH (17:40)
[2018-07-14] MEDS: ACETAMINOPHEN 325 MG TABLET (FP) PO PRN (17:41)
[2018-07-14] MEDS: ATORVASTATIN CA 10 MG TABLET (FP) PO SCH (22:08)
[2018-07-14] MEDS: INSULIN (LEVEMIR) 100 UNITS/ML UNITS SQ SCH (22:08)
[2018-07-15] MEDS: INSULIN SLIDING SCALE (NOVOLOG) 1 VIAL SQ SCH ×4 (06:19→21:58)
[2018-07-15] MEDS: hydrALAZINE HCL 50 MG TABLET (FP) PO SCH ×3 (06:19→21:58)
[2018-07-15] MEDS: ARFORMOTEROL TARTRATE 15 MCG/2 ML VIAL NEB SCH ×2 (07:35→20:08)
[2018-07-15 07:44] LABS: EOS % 0.9 % (0-4.5); HEMATOCRIT 24.9 % (32.4-45.2); HEMOGLOBIN 7.8 GM/dL (10.7-15.3); LYMPH % 29.9 % (8-40); MCH 25.8 pg (25.7-33.7); MCHC 31.3 g/dl (32.0-36.0); MEAN CELL VOLUME 82.4 fl (80-96); MEAN PLT VOLUME 8.4 fl (7.5-11.1); NEUT % 58.2 % (42.8-82.8); PLATELET COUNT 258 K/MM3 (134-434); RBC 3.02 M/mm3 (3.60-5.2); RDW 19.1 % (11.6-15.6); WHITE BLOOD COUNT 8.5 K/mm3 (4.0-10.0)
[2018-07-15 08:49] LABS: ALBUMIN 2.6 g/dl (3.4-5.0); ALK PHOS 60 U/L (45-117); ANION GAP 1 MMOL/L (8-16); BILIRUBIN,DIRECT 0.3 mg/dL (0.0-0.2); BILIRUBIN,TOTAL 0.4 mg/dL (0.2-1); BLOOD UREA NITROGEN 43 mg/dL (7-18); CALCIUM 7.8 mg/dL (8.5-10.1); CHLORIDE 102 mmol/L (98-107); CO2 31 mmol/L (21-32); CREATININE 1.7 mg/dL (0.55-1.3); GLUCOSE,RANDOM 111 mg/dL (74-106); POTASSIUM 4.9 mmol/L (3.5-5.1); SGOT/AST 12 U/L (15-37); SGPT/ALT 11 U/L (13-61); SODIUM 134 mmol/L (136-145); TOT PROT 6.9 g/dl (6.4-8.2)
[2018-07-15] MEDS: METOPROLOL TARTRATE 25 MG TABLET (FP) PO SCH (09:14)
[2018-07-15] MEDS: PANTOPRAZOLE 20 MG TABLET (FP) PO SCH (09:14)
[2018-07-15] MEDS: DOCUSATE SODIUM 100 MG CAPSULE (FP) PO SCH (09:14)
[2018-07-15] MEDS: ENOXAPARIN NA (PORCINE) 40 MG/0.4 ML DISP.SYRIN SQ SCH (09:14)
[2018-07-15] MEDS: SOLIFENACIN SUCCINATE 5 MG TAB (FP) PO SCH (09:14)
[2018-07-15] MEDS: SERTRALINE HCL 25 MG TABLET (FP) PO SCH (09:14)
[2018-07-15] MEDS: amLODIPine BESYLATE 10 MG TABLET (FP) PO SCH (09:14)
[2018-07-15] MEDS: DOXYCYCLINE HYCLATE 100 MG CAPSULE PO SCH ×2 (09:14→17:35)
[2018-07-15] MEDS: TIOTROPIUM BROMIDE 2.5 MCG (SPIRIVA) RESPIMAT INHALER IH SCH (09:15)
--- NOTE | 2018-07-15 10:34 | ECHO ---
Name: CAMMIE, IRMA Exam:Adult Echocardiogram Study Date: 07/11/2018 10:37 AM Age: 72 yrs Reason For Study: LV Function Height: 71 in Weight: 253 lb BSA: 2.3 m2 MMode/2D Measurements & Calculations IVSd: 1.00 cm ACS: 1.9 cm LVIDd: 4.3 cm LVIDs: 4.0 cm LVPWd: 1.7 cm EDV(Teich): 83.1 ml ESV(Teich): 71.8 ml Procedure A complete two-dimensional transthoracic echocardiogram was performed (2D, M-mode, Doppler and color flow Doppler). Severely limited study. Left Ventricle The left ventricle is normal in size. Regional wall motion abnormality could not be assessed due to p oor acoustic window. Right Ventricle The right ventricle is not well visualized. Atria The left atrium is not well visualized. Right atrium not well visualized. Mitral Valve There is mild mitral annular calcification. There is mild mitral regurgitation. Tricuspid Valve The tricuspid valve is not well visualized. Aortic Valve There is mild aortic sclerosis.;. No aortic regurgitation is present. Pulmonic Valve The pulmonic valve is not well visualized. Great Vessels The aortic root is not well visualized. Pericardium/Pleura There is no pericardial effusion. Interpretation Summary pt unstable, unable to finish exam Severely limited study The left ventricle is normal in size. Regional wall motion abnormality could not be assessed due to poor acoustic window There is mild mitral annular calcification. There is mild mitral regurgitation. The tricuspid valve is not well visualized. There is mild aortic sclerosis.; The right ventricle is not well visualized. The left atrium is not well visualized. Right atrium not well visualized. There is no pericardial effusion. Lloyd Santos MD 07/11/2018 01:12 PM
--- NOTE | 2018-07-15 11:04 | PN ---
Progress Note (short form) - Note Progress Note: pt seen/examined chart reviewed sitting in chair chronic ill appearance Vital Signs Temp 98.2 F 07/15/18 02:00 Pulse 64 07/15/18 02:00 Resp 20 07/14/18 22:00 BP 130/76 07/14/18 22:00 Pulse Ox 90 L 07/14/18 21:00 Intake & Output 07/14/18 07/14/18 07/15/18 11:59 23:59 11:59 Intake Total 800 500 Balance 800 500 Weight 286 lb 1 oz Intake: Oral 800 500 Other: Voiding Method Incontinent Incontinent # Unmeasured Voids Void 2 3 Bowel Movement Yes # Bowel Movements 3 Weight Measurement Method Built in [facility] Active Medications Acetaminophen (Tylenol -) 650 mg PO Q6H PRN PRN Reason: PAIN LEVEL 1-5 OR FEVER Last Admin: 07/14/18 17:41 Dose: 650 mg Albuterol Sulfate (Ventolin 0.083% Nebulizer Soln -) 1 amp NEB Q4H PRN PRN Reason: SHORT OF BREATH/WHEEZING Last Admin: 07/14/18 16:25 Dose: 1 amp Amlodipine Besylate (Norvasc -) 10 mg PO DAILY [facility] Last Admin: 07/15/18 09:14 Dose: 10 mg Arformoterol Tartrate (Brovana (Restricted To Pulmonology/Resp) -) 1 amp NEB RBID [facility] Last Admin: 07/15/18 07:35 Dose: 1 amp Atorvastatin Calcium (Lipitor -) 10 mg PO HS [facility] Last Admin: 07/14/18 22:08 Dose: 10 mg Docusate Sodium (Colace -) 100 mg PO DAILY [facility] Last Admin: 07/15/18 09:14 Dose: 100 mg Doxycycline Hyclate (Vibramycin -) 100 mg PO BID@1000,1800 [facility] Last Admin: 07/15/18 09:14 Dose: 100 mg Enoxaparin Sodium (Lovenox -) 40 mg SQ DAILY [facility] Last Admin: 07/15/18 09:14 Dose: 40 mg Hydralazine HCl (Apresoline -) 100 mg PO TID [facility] Last Admin: 07/15/18 06:19 Dose: 100 mg Insulin Aspart (Novolog Vial Sliding Scale -) 1 vial SQ ACHS [facility]; Protocol Last Admin: 07/15/18 06:19 Dose: Not Given Insulin Detemir (Levemir Vial) 10 units SQ HS [facility] Last Admin: 07/14/18 22:08 Dose: 10 units Metoprolol Tartrate (Lopressor -) 25 mg PO DAILY [facility] Last Admin: 07/15/18 09:14 Dose: 25 mg Pantoprazole Sodium (Protonix -) 20 mg PO DAILY [facility] Last Admin: 07/15/18 09:14 Dose: 20 mg Sertraline HCl (Zoloft -) 25 mg PO DAILY [facility] Last Admin: 07/15/18 09:14 Dose: 25 mg Solifenacin (Vesicare -) 5 mg PO DAILY [facility] Last Admin: 07/15/18 09:14 Dose: 5 mg Tiotropium [place] (Spiriva Respimat) 2 puff IH DAILY [facility] Last Admin: 07/15/18 09:15 Dose: 2 puff CBC, BMP 07/15/18 06:30 07/15/18 06:30 Physical Exam. awake/ obese/ no distress/ chronic ill appearance . heent- no jvd lungs- diminished at bases cvs- s1, s2 rrr abd- soft/ obese ext- chronic venous stasis neuro-alert and awake A/P multiple medical issues but clinically stable Continue present care off antibiotics Cardiology to follow GI follow-up noted--- Not medically stable--- for endoscopically yet Monitor over the weekend We'll follow Further recommendations as per clinical course Problem List - Problems (1) Anemia Code(s): D64.9 - ANEMIA, UNSPECIFIED (2) CHF (congestive heart failure) Code(s): I50.9 - HEART FAILURE, UNSPECIFIED (3) COPD (chronic obstructive pulmonary disease) Code(s): J44.9 - CHRONIC OBSTRUCTIVE PULMONARY DISEASE, UNSPECIFIED (4) Venous insufficiency Code(s): I87.2 - VENOUS INSUFFICIENCY (CHRONIC) (PERIPHERAL) (5) HTN (hypertension) Code(s): I10 - ESSENTIAL (PRIMARY) HYPERTENSION (6) Type 2 diabetes mellitus Code(s): E11.9 - TYPE 2 DIABETES MELLITUS WITHOUT COMPLICATIONS
--- NOTE | 2018-07-15 11:37 | PN ---
Progress Note (short form) - Note Progress Note: s: no cp sob palps dizzy o: Vital Signs Period Temp Pulse Resp BP Sys/Gates Pulse Ox Last 24 Hr 98.2 F-99.5 F 64-76 18-20 124-143/58-76 90-93 nad no jvd rrr s1s2 no mrg crackles at bases, nl eff chronic venous stasis changes le bl, no le edema abd nt nd pos bs no jaundice diaphoresis pos dp pt no carotid bruits +chest wall tenderness Current Medications Generic Name Dose Route Start Last Admin Trade Name Freq PRN Reason Stop Dose Admin Acetaminophen 650 mg 07/09/18 10:00 07/14/18 17:41 Tylenol - PO 650 mg Q6H PRN Administration PAIN LEVEL 1-5 OR FEVER Albuterol Sulfate 1 amp 07/13/18 15:25 07/14/18 16:25 Ventolin 0.083% Nebulizer Soln - NEB 1 amp Q4H PRN Administration SHORT OF BREATH/WHEEZING Amlodipine Besylate 10 mg 07/09/18 10:00 07/15/18 09:14 Norvasc - PO 10 mg DAILY [facility] Administration Arformoterol Tartrate 1 amp 07/13/18 20:00 07/15/18 07:35 Brovana (Restricted To Pulmonology/Resp) - NEB 1 amp RBID [facility] Administration Atorvastatin Calcium 10 mg 07/09/18 22:00 07/14/18 22:08 Lipitor - PO 10 mg HS [facility] Administration Docusate Sodium 100 mg 07/09/18 10:00 07/15/18 09:14 Colace - PO 100 mg DAILY [facility] Administration Doxycycline Hyclate 100 mg 07/13/18 18:00 07/15/18 09:14 Vibramycin - PO 100 mg BID@1000,1800 [facility] Administration Enoxaparin Sodium 40 mg 07/10/18 10:00 07/15/18 09:14 Lovenox - SQ 40 mg DAILY [facility] Administration Hydralazine HCl 100 mg 07/09/18 06:00 07/15/18 06:19 Apresoline - PO 100 mg TID [facility] Administration Insulin Aspart 1 vial 07/09/18 07:00 07/15/18 06:19 Novolog Vial Sliding Scale - SQ Not Given ACHS [facility] Protocol Insulin Detemir 10 units 07/09/18 22:00 07/14/18 22:08 Levemir Vial SQ 10 units HS [facility] Administration Metoprolol Tartrate 25 mg 07/09/18 10:00 07/15/18 09:14 Lopressor - PO 25 mg DAILY [facility] Administration Pantoprazole Sodium 20 mg 07/14/18 16:15 07/15/18 09:14 Protonix - PO 20 mg DAILY [facility] Administration Sertraline HCl 25 mg 07/09/18 10:00 07/15/18 09:14 Zoloft - PO 25 mg DAILY [facility] Administration Solifenacin 5 mg 07/09/18 10:00 07/15/18 09:14 Vesicare - PO 5 mg DAILY [facility] Administration Tiotropium [place] 2 puff 07/09/18 10:00 07/15/18 09:15 Spiriva Respimat IH 2 puff DAILY [facility] Administration CBC, BMP 07/15/18 06:30 07/15/18 06:30 cxr: chf ecg: sr,nl intervals, no ischemic changes mibi 2011: no ischemia, nl lvef echo 03/2014: lvh, nl lv/rv, lae, no sig valve path echo 04/2018: mild lvh, nl lv, mild rve, nl rv fcn, lae, no sig valve path CT A/P jud small pleural effusions echo 06/2018 very limited study incomplete exam, Lv nl size, LV function not assessed, mild MR, mild ao sclerosis a/p: 72 f hx copd, htn, dm, here with sob, cp. acute diastolic chf, sob: - 07/09-13 on lasix 40 mg IV daily - 07/11 Cr inc 1.3->1.8, weight down (bedscale), edema stable with sob improving - 07/13- appears euvolemic, cr still up from baseline, holding lasix still - pulm following as well anemia, preop for colo/EGD - appears euvolemic - no cardiac contraindication to colo/EGD htn: -bp stable -cont home meds cp: -atypical cp -ecg benign -trops negx3 -no signs acs -seems more msk abd pain: -GI following
--- NOTE | 2018-07-15 12:28 | PN ---
Progress Note, Physician History of Present Illness: c/o of burning in both legs and thigh weakness - Current Medication List Current Medications: Active Medications Acetaminophen (Tylenol -) 650 mg PO Q6H PRN PRN Reason: PAIN LEVEL 1-5 OR FEVER Last Admin: 07/14/18 17:41 Dose: 650 mg Albuterol Sulfate (Ventolin 0.083% Nebulizer Soln -) 1 amp NEB Q4H PRN PRN Reason: SHORT OF BREATH/WHEEZING Last Admin: 07/14/18 16:25 Dose: 1 amp Amlodipine Besylate (Norvasc -) 10 mg PO DAILY [facility] Last Admin: 07/15/18 09:14 Dose: 10 mg Arformoterol Tartrate (Brovana (Restricted To Pulmonology/Resp) -) 1 amp NEB RBID [facility] Last Admin: 07/15/18 07:35 Dose: 1 amp Atorvastatin Calcium (Lipitor -) 10 mg PO HS [facility] Last Admin: 07/14/18 22:08 Dose: 10 mg Docusate Sodium (Colace -) 100 mg PO DAILY [facility] Last Admin: 07/15/18 09:14 Dose: 100 mg Doxycycline Hyclate (Vibramycin -) 100 mg PO BID@1000,1800 [facility] Last Admin: 07/15/18 09:14 Dose: 100 mg Enoxaparin Sodium (Lovenox -) 40 mg SQ DAILY [facility] Last Admin: 07/15/18 09:14 Dose: 40 mg Hydralazine HCl (Apresoline -) 100 mg PO TID [facility] Last Admin: 07/15/18 06:19 Dose: 100 mg Insulin Aspart (Novolog Vial Sliding Scale -) 1 vial SQ [facility]; Protocol Last Admin: 07/15/18 11:55 Dose: Not Given Insulin Detemir (Levemir Vial) 10 units SQ [facility] Last Admin: 07/14/18 22:08 Dose: 10 units Metoprolol Tartrate (Lopressor -) 25 mg PO DAILY [facility] Last Admin: 07/15/18 09:14 Dose: 25 mg Pantoprazole Sodium (Protonix -) 20 mg PO DAILY [facility] Last Admin: 07/15/18 09:14 Dose: 20 mg Sertraline HCl (Zoloft -) 25 mg PO DAILY [facility] Last Admin: 07/15/18 09:14 Dose: 25 mg Solifenacin (Vesicare -) 5 mg PO DAILY [facility] Last Admin: 07/15/18 09:14 Dose: 5 mg Tiotropium [place] (Spiriva Respimat) 2 puff IH DAILY [facility] Last Admin: 07/15/18 09:15 Dose: 2 puff - Objective Vital Signs: Vital Signs Temperature 98.7 F 07/15/18 10:00 Pulse Rate 68 07/15/18 10:00 Respiratory Rate 18 07/15/18 10:00 Blood Pressure 137/65 07/15/18 10:00 O2 Sat by Pulse Oximetry (%) 93 L 07/15/18 09:00 Constitutional: Yes: Calm, Mild Distress Cardiovascular: Yes: S1, S2 Respiratory: Yes: Regular, Poor Air Entry (bases) Gastrointestinal: Yes: Normal Bowel Sounds, Soft Musculoskeletal: Yes: Other Extremities: Yes: Other Neurological: Yes: Alert Psychiatric: Yes: Alert Labs: CBC, BMP 07/15/18 06:30 07/15/18 06:30 INR, PTT INR 1.13 (0.83-1.09) H 07/08/18 21:24 Assessment/Plan Problem List - Problems (1) Anemia Code(s): D64.9 - ANEMIA, UNSPECIFIED (2) CHF (congestive heart failure) Code(s): I50.9 - HEART FAILURE, UNSPECIFIED (3) COPD (chronic obstructive pulmonary disease) Code(s): J44.9 - CHRONIC OBSTRUCTIVE PULMONARY DISEASE, UNSPECIFIED (4) Venous insufficiency Code(s): I87.2 - VENOUS INSUFFICIENCY (CHRONIC) (PERIPHERAL) (5) HTN (hypertension) Code(s): I10 - ESSENTIAL (PRIMARY) HYPERTENSION (6) Type 2 diabetes mellitus Code(s): E11.9 - TYPE 2 DIABETES MELLITUS WITHOUT COMPLICATIONS 7 mild cellulitis of the leg 8 pneumonia plan continue current mgmt nutrition rest as per the team doing well
--- NOTE | 2018-07-15 13:47 | PN ---
Progress Note (short form) - Note Progress Note: PULMONARY OOB TO CHAIR COMPLAINING OF VAGINAL ITCH DENIES SOB Gen: NAD at rest Heart: RRR Lung: decreased breath sounds at the bases Abd: soft, nontender Ext: no edema MEDS/LABS/NOTES/IMAGES A/P Acute Hypoxic Respiratory Failure Pneumonia/chf Acute on Chronic Diastolic Heart Failure COPD CAD HTN DM CKD Likely Obstructive Sleep Apnea - continue antibiotics - lasix on hold as per cardiology - monitor urine output, creatinine - inhaled bronchodilators - O2 to keep SpO2 >90% - outpt PFTs, PSG - DVT prophylaxis - when ready for discharge, will need to check room air SpO2 to assess for home O2 Celsa PRADHAN MD
--- NOTE | 2018-07-15 16:49 | PN ---
Progress Note (short form) - Note Progress Note: Please recall when Ms. Yeung is cleared for endoscopic evaluations. Problem List - Problems (1) Abdominal pain Code(s): R10.9 - UNSPECIFIED ABDOMINAL PAIN (2) Anemia Code(s): D64.9 - ANEMIA, UNSPECIFIED
[2018-07-15] MEDS: INSULIN (LEVEMIR) 100 UNITS/ML UNITS SQ SCH (21:57)
[2018-07-15] MEDS: ATORVASTATIN CA 10 MG TABLET (FP) PO SCH (21:58)
[2018-07-16] MEDS: INSULIN SLIDING SCALE (NOVOLOG) 1 VIAL SQ SCH ×4 (06:09→21:38)
[2018-07-16] MEDS: hydrALAZINE HCL 50 MG TABLET (FP) PO SCH ×3 (06:09→21:37)
[2018-07-16] MEDS: ARFORMOTEROL TARTRATE 15 MCG/2 ML VIAL NEB SCH ×2 (07:27→19:54)
[2018-07-16] MEDS: METOPROLOL TARTRATE 25 MG TABLET (FP) PO SCH (09:22)
[2018-07-16] MEDS: SERTRALINE HCL 25 MG TABLET (FP) PO SCH (09:22)
[2018-07-16] MEDS: DOXYCYCLINE HYCLATE 100 MG CAPSULE PO SCH ×2 (09:22→17:06)
[2018-07-16] MEDS: amLODIPine BESYLATE 10 MG TABLET (FP) PO SCH (09:22)
[2018-07-16] MEDS: DOCUSATE SODIUM 100 MG CAPSULE (FP) PO SCH (09:22)
[2018-07-16] MEDS: ENOXAPARIN NA (PORCINE) 40 MG/0.4 ML DISP.SYRIN SQ SCH (09:22)
[2018-07-16] MEDS: SOLIFENACIN SUCCINATE 5 MG TAB (FP) PO SCH (09:22)
[2018-07-16] MEDS: ACETAMINOPHEN 325 MG TABLET (FP) PO PRN (09:22)
[2018-07-16] MEDS: PANTOPRAZOLE 20 MG TABLET (FP) PO SCH (09:23)
[2018-07-16] MEDS: TIOTROPIUM BROMIDE 2.5 MCG (SPIRIVA) RESPIMAT INHALER IH SCH (09:25)
--- NOTE | 2018-07-16 13:14 | PN ---
Progress Note (short form) - Note Progress Note: pt seen/ examined Vital Signs - 24 hr no weakness wants to eat food feels well 07/15/18 07/15/18 07/15/18 14:00 18:00 21:00 Temperature 98.4 F 98.4 F Pulse Rate 62 82 Respiratory 20 20 20 Rate Blood Pressure 140/62 157/65 O2 Sat by Pulse 93 L Oximetry (%) 07/15/18 07/16/18 07/16/18 22:00 02:00 06:00 Temperature 97.9 F 98.7 F 98.7 F Pulse Rate 78 76 83 Respiratory 20 20 Rate Blood Pressure 146/68 147/64 147/54 L O2 Sat by Pulse Oximetry (%) 07/16/18 07/16/18 08:45 10:00 Temperature 98.0 F Pulse Rate 87 Respiratory 20 Rate Blood Pressure 147/62 O2 Sat by Pulse 92 L Oximetry (%) Current Medications Generic Name Dose Route Start Last Admin Trade Name Freq PRN Reason Stop Dose Admin Acetaminophen 650 mg 07/09/18 10:00 07/16/18 09:22 Tylenol - PO 650 mg Q6H PRN Administration PAIN LEVEL 1-5 OR FEVER Albuterol Sulfate 1 amp 07/13/18 15:25 07/14/18 16:25 Ventolin 0.083% Nebulizer Soln - NEB 1 amp Q4H PRN Administration SHORT OF BREATH/WHEEZING Amlodipine Besylate 10 mg 07/09/18 10:00 07/16/18 09:22 Norvasc - PO 10 mg DAILY [facility] Administration Arformoterol Tartrate 1 amp 07/13/18 20:00 07/16/18 07:27 Brovana (Restricted To Pulmonology/Resp) - NEB 1 amp RBID [facility] Administration Atorvastatin Calcium 10 mg 07/09/18 22:00 07/15/18 21:58 Lipitor - PO 10 mg HS [facility] Administration Docusate Sodium 100 mg 07/09/18 10:00 07/16/18 09:22 Colace - PO 100 mg DAILY [facility] Administration Doxycycline Hyclate 100 mg 07/13/18 18:00 07/16/18 09:22 Vibramycin - PO 100 mg BID@1000,1800 [facility] Administration Enoxaparin Sodium 40 mg 07/10/18 10:00 07/16/18 09:22 Lovenox - SQ 40 mg DAILY [facility] Administration Hydralazine HCl 100 mg 07/09/18 06:00 07/16/18 06:09 Apresoline - PO 100 mg TID [facility] Administration Insulin Aspart 1 vial 07/09/18 07:00 07/16/18 11:05 Novolog Vial Sliding Scale - SQ Not Given ACHS [facility] Protocol Insulin Detemir 10 units 07/09/18 22:00 07/15/18 21:57 Levemir Vial SQ 10 units HS [facility] Administration Metoprolol Tartrate 25 mg 07/09/18 10:00 07/16/18 09:22 Lopressor - PO 25 mg DAILY [facility] Administration Pantoprazole Sodium 20 mg 07/14/18 16:15 07/16/18 09:23 Protonix - PO 20 mg DAILY [facility] Administration Sertraline HCl 25 mg 07/09/18 10:00 07/16/18 09:22 Zoloft - PO 25 mg DAILY [facility] Administration Solifenacin 5 mg 07/09/18 10:00 07/16/18 09:22 Vesicare - PO 5 mg DAILY [facility] Administration Tiotropium [place] 2 puff 07/09/18 10:00 07/16/18 09:25 Spiriva Respimat IH 2 puff DAILY [facility] Administration Laboratory Results - last 24 hr 07/12/18 07/12/18 07/13/18 18:04 22:11 05:52 POC Glucometer 151 170 154 07/13/18 07/13/18 07/13/18 11:45 17:39 21:08 POC Glucometer 143 146 174 07/14/18 07/14/18 07/14/18 05:52 11:09 17:39 POC Glucometer 133 154 158 07/14/18 07/15/18 07/15/18 21:36 05:46 10:53 POC Glucometer 135 122 136 07/15/18 07/15/18 07/16/18 16:44 21:56 05:52 POC Glucometer 135 126 137 07/16/18 10:56 POC Glucometer 172 Physical Exam. awake/ obese/ no distress heent- no jvd lungs- diminished at bases cvs- s1, s2 rrr abd- soft/ obese ext- chronic venous stasis neuro- aox2 A/P clinically improving advance diet renal function improving no obvious bleeding check stool for occult blood po antibiotics monitor bgm Problem List - Problems (1) Anemia Code(s): D64.9 - ANEMIA, UNSPECIFIED (2) CHF (congestive heart failure) Code(s): I50.9 - HEART FAILURE, UNSPECIFIED (3) COPD (chronic obstructive pulmonary disease) Code(s): J44.9 - CHRONIC OBSTRUCTIVE PULMONARY DISEASE, UNSPECIFIED (4) Pneumonia Code(s): J18.9 - PNEUMONIA, UNSPECIFIED ORGANISM (5) Venous insufficiency Code(s): I87.2 - VENOUS INSUFFICIENCY (CHRONIC) (PERIPHERAL) (6) DEE (acute kidney injury) Code(s): N17.9 - ACUTE KIDNEY FAILURE, UNSPECIFIED
--- NOTE | 2018-07-16 13:29 | PN ---
Progress Note (short form) - Note Progress Note: PULMONARY Breathing continues to improve. occasional nonproductive cough and wheezing. No fevers or chills. Vital Signs Period Temp Pulse Resp BP Sys/Gates Pulse Ox Last 24 Hr 97.9 F-98.7 F 62-87 20-20 140-157/54-68 92-93 Gen: NAD at rest Heart: RRR Lung: decreased breath sounds at the bases Abd: soft, nontender Ext: no edema CBC, BMP 07/15/18 06:30 07/15/18 06:30 Active Medications Acetaminophen (Tylenol -) 650 mg PO Q6H PRN PRN Reason: PAIN LEVEL 1-5 OR FEVER Last Admin: 07/16/18 09:22 Dose: 650 mg Albuterol Sulfate (Ventolin 0.083% Nebulizer Soln -) 1 amp NEB Q4H PRN PRN Reason: SHORT OF BREATH/WHEEZING Last Admin: 07/14/18 16:25 Dose: 1 amp Alprazolam (Xanax -) 0.25 mg PO Q8H PRN PRN Reason: ANXIETY Amlodipine Besylate (Norvasc -) 10 mg PO DAILY [facility] Last Admin: 07/16/18 09:22 Dose: 10 mg Arformoterol Tartrate (Brovana (Restricted To Pulmonology/Resp) -) 1 amp NEB RBID [facility] Last Admin: 07/16/18 07:27 Dose: 1 amp Atorvastatin Calcium (Lipitor -) 10 mg PO HS [facility] Last Admin: 07/15/18 21:58 Dose: 10 mg Docusate Sodium (Colace -) 100 mg PO DAILY [facility] Last Admin: 07/16/18 09:22 Dose: 100 mg Doxycycline Hyclate (Vibramycin -) 100 mg PO BID@1000,1800 [facility] Last Admin: 07/16/18 09:22 Dose: 100 mg Enoxaparin Sodium (Lovenox -) 40 mg SQ DAILY [facility] Last Admin: 07/16/18 09:22 Dose: 40 mg Hydralazine HCl (Apresoline -) 100 mg PO TID [facility] Last Admin: 07/16/18 06:09 Dose: 100 mg Insulin Aspart (Novolog Vial Sliding Scale -) 1 vial SQ [facility]; Protocol Last Admin: 07/16/18 11:05 Dose: Not Given Insulin Detemir (Levemir Vial) 10 units SQ HS [facility] Last Admin: 07/15/18 21:57 Dose: 10 units Metoprolol Tartrate (Lopressor -) 25 mg PO DAILY [facility] Last Admin: 07/16/18 09:22 Dose: 25 mg Pantoprazole Sodium (Protonix -) 20 mg PO DAILY [facility] Last Admin: 07/16/18 09:23 Dose: 20 mg Sertraline HCl (Zoloft -) 25 mg PO DAILY [facility] Last Admin: 07/16/18 09:22 Dose: 25 mg Solifenacin (Vesicare -) 5 mg PO DAILY [facility] Last Admin: 07/16/18 09:22 Dose: 5 mg Tiotropium [place] (Spiriva Respimat) 2 puff IH DAILY [facility] Last Admin: 07/16/18 09:25 Dose: 2 puff A/P Acute Hypoxic Respiratory Failure Pneumonia Acute on Chronic Diastolic Heart Failure COPD CAD HTN DM CKD Likely Obstructive Sleep Apnea - continue antibiotics - lasix as needed - monitor urine output, creatinine - inhaled bronchodilators - O2 to keep SpO2 >90% - outpt PFTs, PSG - DVT prophylaxis - when ready for discharge, will need to check room air SpO2 to assess for home O2
--- NOTE | 2018-07-16 13:58 | PN ---
Progress Note, Physician History of Present Illness: Pt is alert, denies SOB and no cough noted presently. - Current Medication List Current Medications: Active Medications Acetaminophen (Tylenol -) 650 mg PO Q6H PRN PRN Reason: PAIN LEVEL 1-5 OR FEVER Last Admin: 07/16/18 09:22 Dose: 650 mg Albuterol Sulfate (Ventolin 0.083% Nebulizer Soln -) 1 amp NEB Q4H PRN PRN Reason: SHORT OF BREATH/WHEEZING Last Admin: 07/14/18 16:25 Dose: 1 amp Alprazolam (Xanax -) 0.25 mg PO Q8H PRN PRN Reason: ANXIETY Amlodipine Besylate (Norvasc -) 10 mg PO DAILY [facility] Last Admin: 07/16/18 09:22 Dose: 10 mg Arformoterol Tartrate (Brovana (Restricted To Pulmonology/Resp) -) 1 amp NEB RBID [facility] Last Admin: 07/16/18 07:27 Dose: 1 amp Atorvastatin Calcium (Lipitor -) 10 mg PO HS [facility] Last Admin: 07/15/18 21:58 Dose: 10 mg Docusate Sodium (Colace -) 100 mg PO DAILY [facility] Last Admin: 07/16/18 09:22 Dose: 100 mg Doxycycline Hyclate (Vibramycin -) 100 mg PO BID@1000,1800 [facility] Last Admin: 07/16/18 09:22 Dose: 100 mg Enoxaparin Sodium (Lovenox -) 40 mg SQ DAILY [facility] Last Admin: 07/16/18 09:22 Dose: 40 mg Hydralazine HCl (Apresoline -) 100 mg PO TID [facility] Last Admin: 07/16/18 06:09 Dose: 100 mg Insulin Aspart (Novolog Vial Sliding Scale -) 1 vial SQ [facility]; Protocol Last Admin: 07/16/18 11:05 Dose: Not Given Insulin Detemir (Levemir Vial) 10 units SQ HS [facility] Last Admin: 07/15/18 21:57 Dose: 10 units Metoprolol Tartrate (Lopressor -) 25 mg PO DAILY [facility] Last Admin: 07/16/18 09:22 Dose: 25 mg Pantoprazole Sodium (Protonix -) 20 mg PO DAILY [facility] Last Admin: 07/16/18 09:23 Dose: 20 mg Sertraline HCl (Zoloft -) 25 mg PO DAILY [facility] Last Admin: 07/16/18 09:22 Dose: 25 mg Solifenacin (Vesicare -) 5 mg PO DAILY [facility] Last Admin: 07/16/18 09:22 Dose: 5 mg Tiotropium [place] (Spiriva Respimat) 2 puff IH DAILY [facility] Last Admin: 07/16/18 09:25 Dose: 2 puff - Objective Vital Signs: Vital Signs Temperature 98.0 F 07/16/18 10:00 Pulse Rate 87 07/16/18 10:00 Respiratory Rate 20 07/16/18 10:00 Blood Pressure 147/62 07/16/18 10:00 O2 Sat by Pulse Oximetry (%) 92 L 07/16/18 08:45 Constitutional: Yes: No Distress Cardiovascular: Yes: Regular Rate and Rhythm Respiratory: Yes: Regular Gastrointestinal: Yes: Normal Bowel Sounds, Soft, Abdomen, Obese Neurological: Yes: Alert Labs: CBC, BMP 07/15/18 06:30 07/15/18 06:30 INR, PTT INR 1.13 (0.83-1.09) H 07/08/18 21:24 - ....Imaging X-ray: Report Reviewed Problem List - Problems (1) CHF (congestive heart failure) Code(s): I50.9 - HEART FAILURE, UNSPECIFIED (2) COPD (chronic obstructive pulmonary disease) Code(s): J44.9 - CHRONIC OBSTRUCTIVE PULMONARY DISEASE, UNSPECIFIED (3) Pneumonia Code(s): J18.9 - PNEUMONIA, UNSPECIFIED ORGANISM (4) DEE (acute kidney injury) Code(s): N17.9 - ACUTE KIDNEY FAILURE, UNSPECIFIED (5) Cellulitis Code(s): L03.90 - CELLULITIS, UNSPECIFIED (6) Type 2 diabetes mellitus Code(s): E11.9 - TYPE 2 DIABETES MELLITUS WITHOUT COMPLICATIONS Assessment/Plan Pt afebrile, without distress Continue po antibiotics for now
[2018-07-16] MEDS ORDERED: INSULIN (NOVOLOG) ASPART 100 UNITS/ML 10ML VIAL ONE (20:50)
[2018-07-16] MEDS: INSULIN (LEVEMIR) 100 UNITS/ML UNITS SQ SCH (21:37)
[2018-07-16] MEDS: ALPRAZolam 0.25 MG TABLET PO PRN (21:37)
[2018-07-16] MEDS: ATORVASTATIN CA 10 MG TABLET (FP) PO SCH (21:41)
[2018-07-16] MEDS: ALBUTEROL SO4 0.083% IH SOL 2.5 MG/3 ML VIAL.NEB. NEB PRN (22:48)
[2018-07-17] MEDS: INSULIN SLIDING SCALE (NOVOLOG) 1 VIAL SQ SCH ×4 (07:12→21:11)
[2018-07-17] MEDS: hydrALAZINE HCL 50 MG TABLET (FP) PO SCH ×3 (07:13→21:11)
[2018-07-17] MEDS: ARFORMOTEROL TARTRATE 15 MCG/2 ML VIAL NEB SCH ×2 (07:44→20:38)
[2018-07-17 08:17] LABS: HEMATOCRIT 25.2 % (32.4-45.2); HEMOGLOBIN 7.9 GM/dL (10.7-15.3); MCH 25.9 pg (25.7-33.7); MCHC 31.6 g/dl (32.0-36.0); MEAN CELL VOLUME 81.9 fl (80-96); MEAN PLT VOLUME 8.8 fl (7.5-11.1); PLATELET COUNT 272 K/MM3 (134-434); RBC 3.07 M/mm3 (3.60-5.2); RDW 19.2 % (11.6-15.6); WHITE BLOOD COUNT 9.5 K/mm3 (4.0-10.0)
[2018-07-17] MEDS ORDERED: PT OWN MED DRAWER 7, Y5N ONE (10:09)
[2018-07-17] MEDS: TIOTROPIUM BROMIDE 2.5 MCG (SPIRIVA) RESPIMAT INHALER IH SCH (10:10)
[2018-07-17] MEDS: SERTRALINE HCL 25 MG TABLET (FP) PO SCH (10:12)
[2018-07-17] MEDS: amLODIPine BESYLATE 10 MG TABLET (FP) PO SCH (10:12)
[2018-07-17] MEDS: PANTOPRAZOLE 20 MG TABLET (FP) PO SCH (10:12)
[2018-07-17] MEDS: SOLIFENACIN SUCCINATE 5 MG TAB (FP) PO SCH (10:12)
[2018-07-17] MEDS: DOXYCYCLINE HYCLATE 100 MG CAPSULE PO SCH ×2 (10:12→18:00)
[2018-07-17] MEDS: DOCUSATE SODIUM 100 MG CAPSULE (FP) PO SCH (10:12)
[2018-07-17] MEDS: METOPROLOL TARTRATE 25 MG TABLET (FP) PO SCH (10:12)
[2018-07-17] MEDS: ENOXAPARIN NA (PORCINE) 40 MG/0.4 ML DISP.SYRIN SQ SCH (10:12)
--- NOTE | 2018-07-17 11:29 | PN ---
Progress Note (short form) - Note Progress Note: PULMONARY Breathing continues to improve. Denies cough and wheezing. No fevers or chills. Vital Signs Period Temp Pulse Resp BP Sys/Gates Pulse Ox Last 24 Hr 98.4 F-98.6 F 64-73 18-20 115-151/60-76 94 Gen: NAD at rest Heart: RRR Lung: decreased breath sounds at the bases Abd: soft, nontender Ext: no edema CBC, BMP 07/17/18 07:00 07/15/18 06:30 Active Medications Acetaminophen (Tylenol -) 650 mg PO Q6H PRN PRN Reason: PAIN LEVEL 1-5 OR FEVER Last Admin: 07/16/18 09:22 Dose: 650 mg Albuterol Sulfate (Ventolin 0.083% Nebulizer Soln -) 1 amp NEB Q4H PRN PRN Reason: SHORT OF BREATH/WHEEZING Last Admin: 07/16/18 22:48 Dose: 1 amp Alprazolam (Xanax -) 0.25 mg PO Q8H PRN PRN Reason: ANXIETY Last Admin: 07/16/18 21:37 Dose: 0.25 mg Amlodipine Besylate (Norvasc -) 10 mg PO DAILY [facility] Last Admin: 07/17/18 10:12 Dose: 10 mg Arformoterol Tartrate (Brovana (Restricted To Pulmonology/Resp) -) 1 amp NEB RBID [facility] Last Admin: 07/17/18 07:44 Dose: 1 amp Atorvastatin Calcium (Lipitor -) 10 mg PO HS [facility] Last Admin: 07/16/18 21:41 Dose: 10 mg Docusate Sodium (Colace -) 100 mg PO DAILY [facility] Last Admin: 07/17/18 10:12 Dose: 100 mg Doxycycline Hyclate (Vibramycin -) 100 mg PO BID@1000,1800 [facility] Last Admin: 07/17/18 10:12 Dose: 100 mg Enoxaparin Sodium (Lovenox -) 40 mg SQ DAILY [facility] Last Admin: 07/17/18 10:12 Dose: 40 mg Hydralazine HCl (Apresoline -) 100 mg PO TID [facility] Last Admin: 07/17/18 07:13 Dose: 100 mg Insulin Aspart (Novolog Vial Sliding Scale -) 1 vial SQ [facility]; Protocol Last Admin: 07/17/18 07:12 Dose: Not Given Insulin Detemir (Levemir Vial) 10 units SQ HS [facility] Last Admin: 07/16/18 21:37 Dose: 10 units Metoprolol Tartrate (Lopressor -) 25 mg PO DAILY [facility] Last Admin: 07/17/18 10:12 Dose: 25 mg Pantoprazole Sodium (Protonix -) 20 mg PO DAILY [facility] Last Admin: 07/17/18 10:12 Dose: 20 mg Sertraline HCl (Zoloft -) 25 mg PO DAILY [facility] Last Admin: 07/17/18 10:12 Dose: 25 mg Solifenacin (Vesicare -) 5 mg PO DAILY [facility] Last Admin: 07/17/18 10:12 Dose: 5 mg Tiotropium [place] (Spiriva Respimat) 2 puff IH DAILY [facility] Last Admin: 07/17/18 10:10 Dose: 2 puff A/P Acute Hypoxic Respiratory Failure Pneumonia Acute on Chronic Diastolic Heart Failure COPD CAD HTN DM CKD Likely Obstructive Sleep Apnea - complete antibiotics - lasix as needed - monitor urine output, creatinine - inhaled bronchodilators - O2 to keep SpO2 >90% - outpt PFTs, PSG - DVT prophylaxis
--- NOTE | 2018-07-17 12:08 | PN ---
Progress Note (short form) - Note Progress Note: pt seen/ examined no weakness wants to eat food feels well has dry eyes Vital Signs - 24 hr 07/16/18 07/16/18 07/16/18 21:00 21:43 22:57 Temperature 98.4 F 98.6 F Pulse Rate 66 64 Respiratory 20 20 Rate Blood Pressure 145/66 116/60 O2 Sat by Pulse 94 L Oximetry (%) 07/17/18 07/17/18 07/17/18 02:00 06:00 09:55 Temperature 98.4 F 98.6 F 98.4 F Pulse Rate 70 70 73 Respiratory 20 20 18 Rate Blood Pressure 115/76 150/70 151/61 O2 Sat by Pulse Oximetry (%) Current Medications Generic Name Dose Route Start Last Admin Trade Name Freq PRN Reason Stop Dose Admin Acetaminophen 650 mg 07/09/18 10:00 07/16/18 09:22 Tylenol - PO 650 mg Q6H PRN Administration PAIN LEVEL 1-5 OR FEVER Albuterol Sulfate 1 amp 07/13/18 15:25 07/16/18 22:48 Ventolin 0.083% Nebulizer Soln - NEB 1 amp Q4H PRN Administration SHORT OF BREATH/WHEEZING Alprazolam 0.25 mg 07/16/18 13:14 07/16/18 21:37 Xanax - PO 0.25 mg Q8H PRN Administration ANXIETY Amlodipine Besylate 10 mg 07/09/18 10:00 07/17/18 10:12 Norvasc - PO 10 mg DAILY [facility] Administration Arformoterol Tartrate 1 amp 07/13/18 20:00 07/17/18 07:44 Brovana (Restricted To Pulmonology/Resp) - NEB 1 amp RBID [facility] Administration Artificial Tears 1 drop 07/17/18 12:25 Artificial Tears OU TID PRN DRY EYES Atorvastatin Calcium 10 mg 07/09/18 22:00 07/16/18 21:41 Lipitor - PO 10 mg HS [facility] Administration Docusate Sodium 100 mg 07/09/18 10:00 07/17/18 10:12 Colace - PO 100 mg DAILY [facility] Administration Doxycycline Hyclate 100 mg 07/13/18 18:00 07/17/18 10:12 Vibramycin - PO 100 mg BID@1000,1800 [facility] Administration Enoxaparin Sodium 40 mg 07/10/18 10:00 07/17/18 10:12 Lovenox - SQ 40 mg DAILY [facility] Administration Hydralazine HCl 100 mg 07/09/18 06:00 07/17/18 07:13 Apresoline - PO 100 mg TID [facility] Administration Insulin Aspart 1 vial 07/09/18 07:00 07/17/18 11:54 Novolog Vial Sliding Scale - SQ Not Given ACHS [facility] Protocol Insulin Detemir 10 units 07/09/18 22:00 07/16/18 21:37 Levemir Vial SQ 10 units HS [facility] Administration Metoprolol Tartrate 25 mg 07/09/18 10:00 07/17/18 10:12 Lopressor - PO 25 mg DAILY [facility] Administration Pantoprazole Sodium 20 mg 07/14/18 16:15 07/17/18 10:12 Protonix - PO 20 mg DAILY [facility] Administration Sertraline HCl 25 mg 07/09/18 10:00 07/17/18 10:12 Zoloft - PO 25 mg DAILY [facility] Administration Solifenacin 5 mg 07/09/18 10:00 07/17/18 10:12 Vesicare - PO 5 mg DAILY [facility] Administration Tiotropium [place] 2 puff 07/09/18 10:00 07/17/18 10:10 Spiriva Respimat IH 2 puff DAILY [facility] Administration Laboratory Results - last 24 hr 07/16/18 07/16/18 07/17/18 15:41 21:36 07:00 WBC 9.5 RBC 3.07 L Hgb 7.9 L Hct 25.2 L MCV 81.9 MCH 25.9 MCHC 31.6 L RDW 19.2 H Plt Count 272 MPV 8.8 POC Glucometer 141 132 07/17/18 07/17/18 07:12 11:50 WBC RBC Hgb Hct MCV MCH MCHC RDW Plt Count MPV POC Glucometer 110 157 Physical Exam. awake/ obese/ no distress heent- no jvd lungs- diminished at bases cvs- s1, s2 rrr abd- soft/ obese ext- chronic venous stasis neuro- aox2 A/P clinically improving will transfuse one unit today pt tolerating diet renal function improving no obvious bleeding po antibiotics monitor bgm pt is cleared to undergo endoscopic procedures from medical point of view Problem List - Problems (1) Anemia Code(s): D64.9 - ANEMIA, UNSPECIFIED (2) CHF (congestive heart failure) Code(s): I50.9 - HEART FAILURE, UNSPECIFIED (3) COPD (chronic obstructive pulmonary disease) Code(s): J44.9 - CHRONIC OBSTRUCTIVE PULMONARY DISEASE, UNSPECIFIED (4) Pneumonia Code(s): J18.9 - PNEUMONIA, UNSPECIFIED ORGANISM (5) Venous insufficiency Code(s): I87.2 - VENOUS INSUFFICIENCY (CHRONIC) (PERIPHERAL) (6) DEE (acute kidney injury) Code(s): N17.9 - ACUTE KIDNEY FAILURE, UNSPECIFIED
[2018-07-17] MEDS ORDERED: ARTIFICIAL TEARS (POLYVINYL ALCOHOL) OPTH DROPS OU PRN (12:25)
--- NOTE | 2018-07-17 13:22 | PN ---
Progress Note, Physician History of Present Illness: Pt states she feels well. s/p transfusion. Denies shortness of breath, cough. Remains afebrile. - Current Medication List Current Medications: Active Medications Acetaminophen (Tylenol -) 650 mg PO Q6H PRN PRN Reason: PAIN LEVEL 1-5 OR FEVER Last Admin: 07/16/18 09:22 Dose: 650 mg Albuterol Sulfate (Ventolin 0.083% Nebulizer Soln -) 1 amp NEB Q4H PRN PRN Reason: SHORT OF BREATH/WHEEZING Last Admin: 07/16/18 22:48 Dose: 1 amp Alprazolam (Xanax -) 0.25 mg PO Q8H PRN PRN Reason: ANXIETY Last Admin: 07/16/18 21:37 Dose: 0.25 mg Amlodipine Besylate (Norvasc -) 10 mg PO DAILY [facility] Last Admin: 07/17/18 10:12 Dose: 10 mg Arformoterol Tartrate (Brovana (Restricted To Pulmonology/Resp) -) 1 amp NEB RBID [facility] Last Admin: 07/17/18 07:44 Dose: 1 amp Artificial Tears (Artificial Tears) 1 drop OU TID PRN PRN Reason: DRY EYES Atorvastatin Calcium (Lipitor -) 10 mg PO HS [facility] Last Admin: 07/16/18 21:41 Dose: 10 mg Docusate Sodium (Colace -) 100 mg PO DAILY [facility] Last Admin: 07/17/18 10:12 Dose: 100 mg Doxycycline Hyclate (Vibramycin -) 100 mg PO BID@1000,1800 [facility] Last Admin: 07/17/18 10:12 Dose: 100 mg Enoxaparin Sodium (Lovenox -) 40 mg SQ DAILY [facility] Last Admin: 07/17/18 10:12 Dose: 40 mg Hydralazine HCl (Apresoline -) 100 mg PO TID [facility] Last Admin: 07/17/18 07:13 Dose: 100 mg Insulin Aspart (Novolog Vial Sliding Scale -) 1 vial SQ [facility]; Protocol Last Admin: 07/17/18 11:54 Dose: Not Given Insulin Detemir (Levemir Vial) 10 units SQ [facility] Last Admin: 07/16/18 21:37 Dose: 10 units Metoprolol Tartrate (Lopressor -) 25 mg PO DAILY [facility] Last Admin: 07/17/18 10:12 Dose: 25 mg Pantoprazole Sodium (Protonix -) 20 mg PO DAILY [facility] Last Admin: 07/17/18 10:12 Dose: 20 mg Sertraline HCl (Zoloft -) 25 mg PO DAILY [facility] Last Admin: 07/17/18 10:12 Dose: 25 mg Solifenacin (Vesicare -) 5 mg PO DAILY [facility] Last Admin: 07/17/18 10:12 Dose: 5 mg Tiotropium [place] (Spiriva Respimat) 2 puff IH DAILY [facility] Last Admin: 07/17/18 10:10 Dose: 2 puff - Objective Vital Signs: Vital Signs Temperature 98.4 F 07/17/18 09:55 Pulse Rate 73 07/17/18 09:55 Respiratory Rate 18 07/17/18 09:55 Blood Pressure 151/61 07/17/18 09:55 O2 Sat by Pulse Oximetry (%) 94 L 07/16/18 21:00 Constitutional: Yes: No Distress, Calm Cardiovascular: Yes: Regular Rate and Rhythm Respiratory: Yes: Diminished (slightly in bases) Gastrointestinal: Yes: Normal Bowel Sounds, Soft, Abdomen, Obese Neurological: Yes: Alert Labs: CBC, BMP 07/17/18 07:00 07/15/18 06:30 INR, PTT INR 1.13 (0.83-1.09) H 07/08/18 21:24 Problem List - Problems (1) CHF (congestive heart failure) Code(s): I50.9 - HEART FAILURE, UNSPECIFIED (2) COPD (chronic obstructive pulmonary disease) Code(s): J44.9 - CHRONIC OBSTRUCTIVE PULMONARY DISEASE, UNSPECIFIED (3) Pneumonia Code(s): J18.9 - PNEUMONIA, UNSPECIFIED ORGANISM (4) DEE (acute kidney injury) Code(s): N17.9 - ACUTE KIDNEY FAILURE, UNSPECIFIED (5) Cellulitis Code(s): L03.90 - CELLULITIS, UNSPECIFIED (6) Type 2 diabetes mellitus Code(s): E11.9 - TYPE 2 DIABETES MELLITUS WITHOUT COMPLICATIONS Assessment/Plan PNA LE cellulitis Clinically improving Will d/c antibiotics after tomorrow's doses Pt afebrile, without distress
[2018-07-17] MEDS: ALBUTEROL SO4 0.083% IH SOL 2.5 MG/3 ML VIAL.NEB. NEB PRN ×2 (17:04→22:53)
[2018-07-17] MEDS: ATORVASTATIN CA 10 MG TABLET (FP) PO SCH (21:11)
[2018-07-17] MEDS: INSULIN (LEVEMIR) 100 UNITS/ML UNITS SQ SCH (21:11)
[2018-07-17] MEDS: ALPRAZolam 0.25 MG TABLET PO PRN (21:12)
[2018-07-18] MEDS: INSULIN SLIDING SCALE (NOVOLOG) 1 VIAL SQ SCH ×4 (05:59→21:49)
[2018-07-18] MEDS: hydrALAZINE HCL 50 MG TABLET (FP) PO SCH ×3 (05:59→21:47)
[2018-07-18] MEDS: ALBUTEROL SO4 0.083% IH SOL 2.5 MG/3 ML VIAL.NEB. NEB PRN ×3 (06:10→15:53)
[2018-07-18] MEDS: ARFORMOTEROL TARTRATE 15 MCG/2 ML VIAL NEB SCH ×2 (07:20→19:47)
--- NOTE | 2018-07-18 09:37 | PN ---
Progress Note (short form) - Note Progress Note: Overall breathing continues to improve. No significant cough or wheezing. No fevers or chills. Intake & Output 07/15/18 07/16/18 07/17/18 07/18/18 23:59 23:59 23:59 23:59 Intake Total 1800 1300 2500 Balance 1800 1300 2500 Weight 286 lb 283 lb 11.2 oz 282 lb 9.6 oz 280 lb Last Vital Signs Temp Pulse Resp BP Pulse Ox 98.2 F 72 18 146/62 96 07/18/18 06:00 07/18/18 06:00 07/18/18 06:00 07/18/18 06:00 07/17/18 21:00 Active Medications Acetaminophen (Tylenol -) 650 mg PO Q6H PRN PRN Reason: PAIN LEVEL 1-5 OR FEVER Last Admin: 07/16/18 09:22 Dose: 650 mg Albuterol Sulfate (Ventolin 0.083% Nebulizer Soln -) 1 amp NEB Q4H PRN PRN Reason: SHORT OF BREATH/WHEEZING Last Admin: 07/18/18 06:10 Dose: 1 amp Alprazolam (Xanax -) 0.25 mg PO Q8H PRN PRN Reason: ANXIETY Last Admin: 07/17/18 21:12 Dose: 0.25 mg Amlodipine Besylate (Norvasc -) 10 mg PO DAILY [facility] Last Admin: 07/17/18 10:12 Dose: 10 mg Arformoterol Tartrate (Brovana (Restricted To Pulmonology/Resp) -) 1 amp NEB RBID [facility] Last Admin: 07/18/18 07:20 Dose: 1 amp Artificial Tears (Artificial Tears) 1 drop OU TID PRN PRN Reason: DRY EYES Atorvastatin Calcium (Lipitor -) 10 mg PO HS [facility] Last Admin: 07/17/18 21:11 Dose: 10 mg Docusate Sodium (Colace -) 100 mg PO DAILY [facility] Last Admin: 07/17/18 10:12 Dose: 100 mg Doxycycline Hyclate (Vibramycin -) 100 mg PO BID@1000,1800 [facility] Last Admin: 07/17/18 18:00 Dose: 100 mg Enoxaparin Sodium (Lovenox -) 40 mg SQ DAILY [facility] Last Admin: 07/17/18 10:12 Dose: 40 mg Hydralazine HCl (Apresoline -) 100 mg PO TID [facility] Last Admin: 07/18/18 05:59 Dose: 100 mg Insulin Aspart (Novolog Vial Sliding Scale -) 1 vial SQ [facility]; Protocol Last Admin: 07/18/18 05:59 Dose: Not Given Insulin Detemir (Levemir Vial) 10 units SQ HS [facility] Last Admin: 07/17/18 21:11 Dose: 10 units Metoprolol Tartrate (Lopressor -) 25 mg PO DAILY [facility] Last Admin: 07/17/18 10:12 Dose: 25 mg Pantoprazole Sodium (Protonix -) 20 mg PO DAILY [facility] Last Admin: 07/17/18 10:12 Dose: 20 mg Sertraline HCl (Zoloft -) 25 mg PO DAILY [facility] Last Admin: 07/17/18 10:12 Dose: 25 mg Solifenacin (Vesicare -) 5 mg PO DAILY [facility] Last Admin: 07/17/18 10:12 Dose: 5 mg Tiotropium [place] (Spiriva Respimat) 2 puff IH DAILY [facility] Last Admin: 07/17/18 10:10 Dose: 2 puff Gen: NAD at rest Heart: RRR Lung: decreased breath sounds at the bases Abd: soft, nontender Ext: no edema Laboratory Results - last 24 hr 07/17/18 07/17/18 07/17/18 11:50 12:45 17:20 POC Glucometer 157 132 Blood Type A POSITIVE Antibody Screen Negative Crossmatch See Detail 07/17/18 07/18/18 21:10 05:54 POC Glucometer 116 107 Blood Type Antibody Screen Crossmatch A/P Acute Hypoxic Respiratory Failure Pneumonia Acute on Chronic Diastolic Heart Failure COPD CAD HTN DM CKD Likely Obstructive Sleep Apnea - complete antibiotics - lasix as needed - monitor urine output, creatinine - inhaled bronchodilators - O2 to keep SpO2 >90% - outpt PFTs, PSG - DVT prophylaxis - D/C planning Dr Cuevas
[2018-07-18] MEDS: DOXYCYCLINE HYCLATE 100 MG CAPSULE PO SCH (10:32)
[2018-07-18] MEDS: SOLIFENACIN SUCCINATE 5 MG TAB (FP) PO SCH (10:32)
[2018-07-18] MEDS: SERTRALINE HCL 25 MG TABLET (FP) PO SCH (10:32)
[2018-07-18] MEDS: ENOXAPARIN NA (PORCINE) 40 MG/0.4 ML DISP.SYRIN SQ SCH (10:32)
[2018-07-18] MEDS: amLODIPine BESYLATE 10 MG TABLET (FP) PO SCH (10:32)
[2018-07-18] MEDS: TIOTROPIUM BROMIDE 2.5 MCG (SPIRIVA) RESPIMAT INHALER IH SCH (10:32)
[2018-07-18] MEDS: METOPROLOL TARTRATE 25 MG TABLET (FP) PO SCH (10:32)
[2018-07-18] MEDS: PANTOPRAZOLE 20 MG TABLET (FP) PO SCH (10:32)
[2018-07-18] MEDS: DOCUSATE SODIUM 100 MG CAPSULE (FP) PO SCH (10:32)
--- NOTE | 2018-07-18 10:33 | PN ---
GI Progress Note Subjective: No acute events States breathing improved Cleared medically for procedures by Dr. Vivas over the weekend. No overt bleeding Low serum iron, ferritin lower level normal, normal TIBC Anemia from at least mid 05/15 - Objective Vital Signs: Vital Signs Temperature 98.2 F 07/18/18 06:00 Pulse Rate 72 07/18/18 06:00 Respiratory Rate 18 07/18/18 06:00 Blood Pressure 146/62 07/18/18 06:00 O2 Sat by Pulse Oximetry (%) 96 07/17/18 21:00 Constitutional: Calm Eyes: No: Sclera Icterus Cardiovascular: Yes: Regular Rate and Rhythm Respiratory: Yes: Diminished (at bases bilaterally) Gastrointestinal Inspection: No: Distention ...Auscultate: Yes: Normoactive Bowel Sounds ...Palpate: No: Tenderness Edema: Yes Edema: LLE: 2+ (w/ stasis), RLE: 2+ (w/ stasis) Neurological: Yes: Alert Labs: CBC, BMP 07/17/18 07:00 07/15/18 06:30 INR, PTT INR 1.13 (0.83-1.09) H 07/08/18 21:24 Problem List - Problems (1) Anemia Assessment/Plan: Discussed EGD/COlonoscopy with Ms. Yeung to further evaluate her anemia and exclude potential sources in the intestinal tract such as bleeding blood vessels , polyps, ulcers, tumors such as colon cancer. Discussed potential risks of the procedures like but not limitedt to bleeding, perforation requiring surgery to repair, infection, sedation medication effects all of which could be potentially life threatening. She has agreed to the procedures. Clear in AM, bowel prep tomorrow, procedures Wed 07/20 Code(s): D64.9 - ANEMIA, UNSPECIFIED Qualifiers: Anemia type: unspecified type Qualified Code(s): D64.9 - Anemia, unspecified
--- NOTE | 2018-07-18 11:05 | PN ---
Progress Note (short form) - Note Progress Note: pt seen/ examined chart reviewed awake/ comfortable. looks and feels better Vital Signs Temp 98.2 F 07/18/18 06:00 Pulse 72 07/18/18 06:00 Resp 18 07/18/18 06:00 BP 146/62 07/18/18 06:00 Pulse Ox 96 07/17/18 21:00 Intake & Output 07/17/18 07/17/18 07/18/18 11:59 23:59 11:59 Intake Total 750 1750 Balance 750 1750 Weight 282 lb 9.6 oz 280 lb Intake: IVPB 100 Oral 750 1300 Packed Cells 350 Other: Voiding Method Incontinent Incontinent # Unmeasured Voids Void 3 3 3 Bowel Movement No No No Weight Measurement Method Built in [facility]scale [facility] Active Medications Acetaminophen (Tylenol -) 650 mg PO Q6H PRN PRN Reason: PAIN LEVEL 1-5 OR FEVER Last Admin: 07/16/18 09:22 Dose: 650 mg Albuterol Sulfate (Ventolin 0.083% Nebulizer Soln -) 1 amp NEB Q4H PRN PRN Reason: SHORT OF BREATH/WHEEZING Last Admin: 07/18/18 06:10 Dose: 1 amp Alprazolam (Xanax -) 0.25 mg PO Q8H PRN PRN Reason: ANXIETY Last Admin: 07/17/18 21:12 Dose: 0.25 mg Amlodipine Besylate (Norvasc -) 10 mg PO DAILY [facility] Last Admin: 07/18/18 10:32 Dose: 10 mg Arformoterol Tartrate (Brovana (Restricted To Pulmonology/Resp) -) 1 amp NEB RBID [facility] Last Admin: 07/18/18 07:20 Dose: 1 amp Artificial Tears (Artificial Tears) 1 drop OU TID PRN PRN Reason: DRY EYES Atorvastatin Calcium (Lipitor -) 10 mg PO HS [facility] Last Admin: 07/17/18 21:11 Dose: 10 mg Bisacodyl (Dulcolax -) 20 mg PO ONCE ONE Stop: 07/19/18 11:01 Doxycycline Hyclate (Vibramycin -) 100 mg PO BID@1000,1800 [facility] Last Admin: 07/18/18 10:32 Dose: 100 mg Enoxaparin Sodium (Lovenox -) 40 mg SQ DAILY [facility] Last Admin: 07/18/18 10:32 Dose: 40 mg Hydralazine HCl (Apresoline -) 100 mg PO TID [facility] Last Admin: 07/18/18 05:59 Dose: 100 mg Insulin Aspart (Novolog Vial Sliding Scale -) 1 vial SQ ACHS [facility]; Protocol Last Admin: 07/18/18 05:59 Dose: Not Given Insulin Detemir (Levemir Vial) 10 units SQ HS [facility] Last Admin: 07/17/18 21:11 Dose: 10 units Metoprolol Tartrate (Lopressor -) 25 mg PO DAILY [facility] Last Admin: 07/18/18 10:32 Dose: 25 mg Pantoprazole Sodium (Protonix -) 20 mg PO DAILY [facility] Last Admin: 07/18/18 10:32 Dose: 20 mg Sertraline HCl (Zoloft -) 25 mg PO DAILY [facility] Last Admin: 07/18/18 10:32 Dose: 25 mg Solifenacin (Vesicare -) 5 mg PO DAILY [facility] Last Admin: 07/18/18 10:32 Dose: 5 mg Tiotropium [place] (Spiriva Respimat) 2 puff IH DAILY [facility] Last Admin: 07/18/18 10:32 Dose: 2 puff CBC, BMP 07/17/18 07:00 07/15/18 06:30 Physical Exam. awake/ obese/ no distress. heent- no jvd lungs- diminished at bases cvs- s1, s2 rrr abd- soft/ obese ext- chronic venous stasis neuro-Alert and awake A/P clinically improving continue present care Antibiotics--as per ID--- likely to be discontinued today no obvious bleeding monitor bgm pt is cleared to undergo endoscopic procedures from medical point of view. discussed with Dr. Richard also . will follow. Problem List - Problems (1) Anemia Code(s): D64.9 - ANEMIA, UNSPECIFIED Qualifiers: Anemia type: unspecified type Qualified Code(s): D64.9 - Anemia, unspecified (2) CHF (congestive heart failure) Code(s): I50.9 - HEART FAILURE, UNSPECIFIED (3) COPD (chronic obstructive pulmonary disease) Code(s): J44.9 - CHRONIC OBSTRUCTIVE PULMONARY DISEASE, UNSPECIFIED (4) Venous insufficiency Code(s): I87.2 - VENOUS INSUFFICIENCY (CHRONIC) (PERIPHERAL) (5) HTN (hypertension) Code(s): I10 - ESSENTIAL (PRIMARY) HYPERTENSION (6) Type 2 diabetes mellitus Code(s): E11.9 - TYPE 2 DIABETES MELLITUS WITHOUT COMPLICATIONS
--- NOTE | 2018-07-18 12:50 | PN ---
Progress Note (short form) - Note Progress Note: Progress Note: s: no cp sob palps dizzy o: Vital Signs Period Temp Pulse Resp BP Sys/Gates Pulse Ox Last 24 Hr 98.2 F-98.6 F 62-83 18-22 140-156/62-75 96-96 nad no jvd rrr s1s2 no mrg crackles at bases, nl eff chronic venous stasis changes le bl, no le edema abd nt nd pos bs no jaundice diaphoresis pos dp pt no carotid bruits +chest wall tenderness Current Medications Acetaminophen (Tylenol -) 650 mg PO Q6H PRN PRN Reason: PAIN LEVEL 1-5 OR FEVER Last Admin: 07/16/18 09:22 Dose: 650 mg Albuterol Sulfate (Ventolin 0.083% Nebulizer Soln -) 1 amp NEB Q4H PRN PRN Reason: SHORT OF BREATH/WHEEZING Last Admin: 07/18/18 11:20 Dose: 1 amp Alprazolam (Xanax -) 0.25 mg PO Q8H PRN PRN Reason: ANXIETY Last Admin: 07/17/18 21:12 Dose: 0.25 mg Amlodipine Besylate (Norvasc -) 10 mg PO DAILY [facility] Last Admin: 07/18/18 10:32 Dose: 10 mg Arformoterol Tartrate (Brovana (Restricted To Pulmonology/Resp) -) 1 amp NEB RBID [facility] Last Admin: 07/18/18 07:20 Dose: 1 amp Artificial Tears (Artificial Tears) 1 drop OU TID PRN PRN Reason: DRY EYES Atorvastatin Calcium (Lipitor -) 10 mg PO HS [facility] Last Admin: 07/17/18 21:11 Dose: 10 mg Bisacodyl (Dulcolax -) 20 mg PO ONCE ONE Stop: 07/19/18 11:01 Doxycycline Hyclate (Vibramycin -) 100 mg PO BID@1000,1800 [facility] Last Admin: 07/18/18 10:32 Dose: 100 mg Enoxaparin Sodium (Lovenox -) 40 mg SQ DAILY [facility] Last Admin: 07/18/18 10:32 Dose: 40 mg Hydralazine HCl (Apresoline -) 100 mg PO TID [facility] Last Admin: 07/18/18 05:59 Dose: 100 mg Insulin Aspart (Novolog Vial Sliding Scale -) 1 vial SQ ACHS [facility]; Protocol Last Admin: 07/18/18 11:17 Dose: Not Given Insulin Detemir (Levemir Vial) 10 units SQ HS [facility] Last Admin: 07/17/18 21:11 Dose: 10 units Metoprolol Tartrate (Lopressor -) 25 mg PO DAILY [facility] Last Admin: 07/18/18 10:32 Dose: 25 mg Pantoprazole Sodium (Protonix -) 20 mg PO DAILY [facility] Last Admin: 07/18/18 10:32 Dose: 20 mg Sertraline HCl (Zoloft -) 25 mg PO DAILY [facility] Last Admin: 07/18/18 10:32 Dose: 25 mg Solifenacin (Vesicare -) 5 mg PO DAILY [facility] Last Admin: 07/18/18 10:32 Dose: 5 mg Tiotropium [place] (Spiriva Respimat) 2 puff IH DAILY [facility] Last Admin: 07/18/18 10:32 Dose: 2 puff cxr: chf ecg: sr,nl intervals, no ischemic changes mibi 2011: no ischemia, nl lvef echo 03/2014: lvh, nl lv/rv, lae, no sig valve path echo 04/2018: mild lvh, nl lv, mild rve, nl rv fcn, lae, no sig valve path CT A/P jud small pleural effusions echo 06/2018 very limited study incomplete exam, Lv nl size, LV function not assessed, mild MR, mild ao sclerosis a/p: 72 f hx copd, htn, dm, here with sob, cp. acute diastolic chf, sob: - 07/09-13 on lasix 40 mg IV daily - 07/11 Cr inc 1.3->1.8, weight down (bedscale), edema stable with sob improving - 07/13-18, appears euvolemic, cr still up from baseline, holding lasix still - pulm following as well anemia, preop for colo/EGD - appears euvolemic - no cardiac contraindication to colo/EGD htn: -bp stable -cont home meds cp: -atypical cp -ecg benign -trops negx3 -no signs acs -seems more msk abd pain: -GI following
--- NOTE | 2018-07-18 13:44 | PN ---
Progress Note, Physician History of Present Illness: patient stable no new issues - Current Medication List Current Medications: Active Medications Acetaminophen (Tylenol -) 650 mg PO Q6H PRN PRN Reason: PAIN LEVEL 1-5 OR FEVER Last Admin: 07/16/18 09:22 Dose: 650 mg Albuterol Sulfate (Ventolin 0.083% Nebulizer Soln -) 1 amp NEB Q4H PRN PRN Reason: SHORT OF BREATH/WHEEZING Last Admin: 07/18/18 11:20 Dose: 1 amp Alprazolam (Xanax -) 0.25 mg PO Q8H PRN PRN Reason: ANXIETY Last Admin: 07/17/18 21:12 Dose: 0.25 mg Amlodipine Besylate (Norvasc -) 10 mg PO DAILY [facility] Last Admin: 07/18/18 10:32 Dose: 10 mg Arformoterol Tartrate (Brovana (Restricted To Pulmonology/Resp) -) 1 amp NEB RBID [facility] Last Admin: 07/18/18 07:20 Dose: 1 amp Artificial Tears (Artificial Tears) 1 drop OU TID PRN PRN Reason: DRY EYES Atorvastatin Calcium (Lipitor -) 10 mg PO HS [facility] Last Admin: 07/17/18 21:11 Dose: 10 mg Bisacodyl (Dulcolax -) 20 mg PO ONCE ONE Stop: 07/19/18 11:01 Enoxaparin Sodium (Lovenox -) 40 mg SQ DAILY [facility] Last Admin: 07/18/18 10:32 Dose: 40 mg Hydralazine HCl (Apresoline -) 100 mg PO TID [facility] Last Admin: 07/18/18 05:59 Dose: 100 mg Insulin Aspart (Novolog Vial Sliding Scale -) 1 vial SQ [facility]; Protocol Last Admin: 07/18/18 11:17 Dose: Not Given Insulin Detemir (Levemir Vial) 10 units SQ [facility] Last Admin: 07/17/18 21:11 Dose: 10 units Metoprolol Tartrate (Lopressor -) 25 mg PO DAILY [facility] Last Admin: 07/18/18 10:32 Dose: 25 mg Pantoprazole Sodium (Protonix -) 20 mg PO DAILY [facility] Last Admin: 07/18/18 10:32 Dose: 20 mg Sertraline HCl (Zoloft -) 25 mg PO DAILY [facility] Last Admin: 07/18/18 10:32 Dose: 25 mg Solifenacin (Vesicare -) 5 mg PO DAILY [facility] Last Admin: 07/18/18 10:32 Dose: 5 mg Tiotropium [place] (Spiriva Respimat) 2 puff IH DAILY [facility] Last Admin: 07/18/18 10:32 Dose: 2 puff - Objective Vital Signs: Vital Signs Temperature 98.2 F 07/18/18 06:00 Pulse Rate 83 07/18/18 10:00 Respiratory Rate 20 07/18/18 10:00 Blood Pressure 156/68 07/18/18 10:00 O2 Sat by Pulse Oximetry (%) 96 07/18/18 09:00 Constitutional: Yes: No Distress, Calm Cardiovascular: Yes: S1, S2 Respiratory: Yes: Regular, CTA Bilaterally Gastrointestinal: Yes: Normal Bowel Sounds, Soft Musculoskeletal: Yes: Other Extremities: Yes: Other Neurological: Yes: Alert, Oriented Psychiatric: Yes: Alert, Oriented Labs: CBC, BMP 07/17/18 07:00 07/15/18 06:30 INR, PTT INR 1.13 (0.83-1.09) H 07/08/18 21:24 Assessment/Plan Problem List - Problems (1) Anemia Code(s): D64.9 - ANEMIA, UNSPECIFIED (2) CHF (congestive heart failure) Code(s): I50.9 - HEART FAILURE, UNSPECIFIED (3) COPD (chronic obstructive pulmonary disease) Code(s): J44.9 - CHRONIC OBSTRUCTIVE PULMONARY DISEASE, UNSPECIFIED (4) Venous insufficiency Code(s): I87.2 - VENOUS INSUFFICIENCY (CHRONIC) (PERIPHERAL) (5) HTN (hypertension) Code(s): I10 - ESSENTIAL (PRIMARY) HYPERTENSION (6) Type 2 diabetes mellitus Code(s): E11.9 - TYPE 2 DIABETES MELLITUS WITHOUT COMPLICATIONS 7 mild cellulitis of the leg 8 pneumonia plan continue current mgmt nutrition rest as per the team doing well will stop abx
[2018-07-18] MEDS: ATORVASTATIN CA 10 MG TABLET (FP) PO SCH (21:47)
[2018-07-18] MEDS: INSULIN (LEVEMIR) 100 UNITS/ML UNITS SQ SCH (21:49)
[2018-07-19] MEDS: hydrALAZINE HCL 50 MG TABLET (FP) PO SCH ×3 (05:53→21:35)
[2018-07-19] MEDS: INSULIN SLIDING SCALE (NOVOLOG) 1 VIAL SQ SCH ×4 (06:25→21:51)
[2018-07-19] MEDS: ARFORMOTEROL TARTRATE 15 MCG/2 ML VIAL NEB SCH ×2 (07:01→19:40)
[2018-07-19 07:48] LABS: BASO % 0.7 % (0-2.0); EOS % 0.4 % (0-4.5); HEMATOCRIT 26.4 % (32.4-45.2); HEMOGLOBIN 8.3 GM/dL (10.7-15.3); MCHC 31.4 g/dl (32.0-36.0); MEAN CELL VOLUME 82.7 fl (80-96); MEAN PLT VOLUME 8.7 fl (7.5-11.1); MONO % 8.3 % (3.8-10.2); NEUT % 78.6 % (42.8-82.8); PLATELET COUNT 242 K/MM3 (134-434); RBC 3.19 M/mm3 (3.60-5.2); RDW 19.2 % (11.6-15.6); WHITE BLOOD COUNT 8.9 K/mm3 (4.0-10.0)
[2018-07-19 08:09] LABS: ALK PHOS 54 U/L (45-117); ANION GAP 7 MMOL/L (8-16); BILIRUBIN,TOTAL 0.6 mg/dL (0.2-1); BLOOD UREA NITROGEN 27 mg/dL (7-18); CALCIUM 8.1 mg/dL (8.5-10.1); CHLORIDE 103 mmol/L (98-107); CO2 28 mmol/L (21-32); CREATININE 1.1 mg/dL (0.55-1.3); GLUCOSE,RANDOM 110 mg/dL (74-106); POTASSIUM 4.7 mmol/L (3.5-5.1); SGOT/AST 20 U/L (15-37); SGPT/ALT 13 U/L (13-61); SODIUM 138 mmol/L (136-145); TOT PROT 7.3 g/dl (6.4-8.2)
--- NOTE | 2018-07-19 10:02 | PN ---
Progress Note (short form) - Note Progress Note: No acute events overnight. Feels slightly more SOB but she took off her O2 this AM. Some dry cough. No wheezing. No fevers or chills. Intake & Output 07/16/18 07/17/18 07/18/18 07/19/18 23:59 23:59 23:59 23:59 Intake Total 1300 2500 770 0 Balance 1300 2500 770 0 Weight 283 lb 11.2 oz 282 lb 9.6 oz 280 lb 284 lb 4 oz Last Vital Signs Temp Pulse Resp BP Pulse Ox 98.4 F 82 16 145/73 95 07/19/18 06:00 07/19/18 06:00 07/19/18 06:00 07/19/18 06:00 07/18/18 21:00 Active Medications Acetaminophen (Tylenol -) 650 mg PO Q6H PRN PRN Reason: PAIN LEVEL 1-5 OR FEVER Last Admin: 07/16/18 09:22 Dose: 650 mg Alprazolam (Xanax -) 0.25 mg PO Q8H PRN PRN Reason: ANXIETY Last Admin: 07/17/18 21:12 Dose: 0.25 mg Amlodipine Besylate (Norvasc -) 10 mg PO DAILY [facility] Last Admin: 07/18/18 10:32 Dose: 10 mg Arformoterol Tartrate (Brovana (Restricted To Pulmonology/Resp) -) 1 amp NEB RBID [facility] Last Admin: 07/19/18 07:01 Dose: 1 amp Artificial Tears (Artificial Tears) 1 drop OU TID PRN PRN Reason: DRY EYES Atorvastatin Calcium (Lipitor -) 10 mg PO [facility] Last Admin: 07/18/18 21:47 Dose: 10 mg Bisacodyl (Dulcolax -) 20 mg PO ONCE ONE Stop: 07/19/18 11:01 Enoxaparin Sodium (Lovenox -) 40 mg SQ DAILY [facility] Last Admin: 07/18/18 10:32 Dose: 40 mg Hydralazine HCl (Apresoline -) 100 mg PO TID [facility] Last Admin: 07/19/18 05:53 Dose: 100 mg Insulin Aspart (Novolog Vial Sliding Scale -) 1 vial SQ [facility]; Protocol Last Admin: 07/19/18 06:25 Dose: Not Given Insulin Detemir (Levemir Vial) 10 units [address] [facility] Last Admin: 07/18/18 21:49 Dose: 10 unit Metoprolol Tartrate (Lopressor -) 25 mg PO DAILY [facility] Last Admin: 07/18/18 10:32 Dose: 25 mg Pantoprazole Sodium (Protonix -) 20 mg PO DAILY [facility] Last Admin: 07/18/18 10:32 Dose: 20 mg Sertraline HCl (Zoloft -) 25 mg PO DAILY [facility] Last Admin: 07/18/18 10:32 Dose: 25 mg Solifenacin (Vesicare -) 5 mg PO DAILY [facility] Last Admin: 07/18/18 10:32 Dose: 5 mg Tiotropium [place] (Spiriva Respimat) 2 puff IH DAILY [facility] Last Admin: 07/18/18 10:32 Dose: 2 puff Gen: NAD at rest Heart: RRR Lung: decreased breath sounds at the bases Abd: soft, nontender Ext: no edema Laboratory Results - last 24 hr 07/18/18 07/18/18 07/18/18 11:03 16:08 21:48 WBC RBC Hgb Hct MCV MCH MCHC RDW Plt Count MPV Absolute Neuts (auto) Neutrophils % Lymphocytes % Monocytes % Eosinophils % Basophils % Nucleated RBC % Sodium Potassium Chloride Carbon Dioxide Anion Gap BUN Creatinine Creat Clearance w eGFR POC Glucometer 125 163 140 Random Glucose Calcium Total Bilirubin AST ALT Alkaline Phosphatase Total Protein Albumin 07/19/18 07/19/18 07/19/18 06:04 07:00 07:00 WBC 8.9 RBC 3.19 L Hgb 8.3 L Hct 26.4 L MCV 82.7 MCH 26.0 MCHC 31.4 L RDW 19.2 H Plt Count 242 MPV 8.7 Absolute Neuts (auto) 7.0 Neutrophils % 78.6 D Lymphocytes % 12.0 D Monocytes % 8.3 Eosinophils % 0.4 Basophils % 0.7 Nucleated RBC % 0 Sodium 138 Potassium 4.7 Chloride 103 Carbon Dioxide 28 Anion Gap 7 L BUN 27 H Creatinine 1.1 Creat Clearance w eGFR 48.96 POC Glucometer 121 Random Glucose 110 H Calcium 8.1 L Total Bilirubin 0.6 AST 20 ALT 13 Alkaline Phosphatase 54 Total Protein 7.3 Albumin 3.0 L A/P Acute Hypoxic Respiratory Failure Pneumonia Acute on Chronic Diastolic Heart Failure COPD CAD HTN DM CKD Likely Obstructive Sleep Apnea - Noted consideration for Endoscopic evaluation: due to overall condition, may be prudent to defer any procedures unless deemed that the benefit outweighs the potential risks - completed antibiotics - lasix as needed - monitor urine output, creatinine - inhaled bronchodilators - O2 to keep SpO2 >90% - outpt PFTs, PSG - DVT prophylaxis Dr Cuevas
--- NOTE | 2018-07-19 10:13 | PN ---
Progress Note (short form) - Note Progress Note: Had d/w Dr. Cuevas. Concern for respiratory status and procedures. he feels she would be high risk for procedures at this time and that there is room for optimization prior to invasive testing. Will defer endoscopic evaluations at this time. Can follow-up as outpatient once optimized from cardiopulmonary standpoint. Problem List - Problems (1) Anemia Code(s): D64.9 - ANEMIA, UNSPECIFIED Qualifiers: Anemia type: unspecified type Qualified Code(s): D64.9 - Anemia, unspecified
[2018-07-19] MEDS: SOLIFENACIN SUCCINATE 5 MG TAB (FP) PO SCH (10:43)
[2018-07-19] MEDS: amLODIPine BESYLATE 10 MG TABLET (FP) PO SCH (10:43)
[2018-07-19] MEDS: METOPROLOL TARTRATE 25 MG TABLET (FP) PO SCH (10:43)
[2018-07-19] MEDS: PANTOPRAZOLE 20 MG TABLET (FP) PO SCH (10:43)
[2018-07-19] MEDS: SERTRALINE HCL 25 MG TABLET (FP) PO SCH (10:43)
[2018-07-19] MEDS: ENOXAPARIN NA (PORCINE) 40 MG/0.4 ML DISP.SYRIN SQ SCH (10:43)
[2018-07-19] MEDS: TIOTROPIUM BROMIDE 2.5 MCG (SPIRIVA) RESPIMAT INHALER IH SCH (10:44)
[2018-07-19] MEDS ORDERED: BISACODYL 5 MG TABLET.DR (FP) PO ONE (11:00)
[2018-07-19] MEDS ORDERED: PEG3350/SOD SULF,BICARB,CL/KCL 4,000 ML SOLN.RECON PO ONE (12:00)
--- NOTE | 2018-07-19 12:37 | PN ---
Progress Note, Physician History of Present Illness: c/o of pain in the legs otherwise no issues - Current Medication List Current Medications: Active Medications Acetaminophen (Tylenol -) 650 mg PO Q6H PRN PRN Reason: PAIN LEVEL 1-5 OR FEVER Last Admin: 07/16/18 09:22 Dose: 650 mg Alprazolam (Xanax -) 0.25 mg PO Q8H PRN PRN Reason: ANXIETY Last Admin: 07/17/18 21:12 Dose: 0.25 mg Amlodipine Besylate (Norvasc -) 10 mg PO DAILY [facility] Last Admin: 07/19/18 10:43 Dose: 10 mg Arformoterol Tartrate (Brovana (Restricted To Pulmonology/Resp) -) 1 amp NEB RBID [facility] Last Admin: 07/19/18 07:01 Dose: 1 amp Artificial Tears (Artificial Tears) 1 drop OU TID PRN PRN Reason: DRY EYES Atorvastatin Calcium (Lipitor -) 10 mg PO HS [facility] Last Admin: 07/18/18 21:47 Dose: 10 mg Enoxaparin Sodium (Lovenox -) 40 mg SQ DAILY [facility] Last Admin: 07/19/18 10:43 Dose: 40 mg Hydralazine HCl (Apresoline -) 100 mg PO TID [facility] Last Admin: 07/19/18 05:53 Dose: 100 mg Insulin Aspart (Novolog Vial Sliding Scale -) 1 vial SQ [facility]; Protocol Last Admin: 07/19/18 12:27 Dose: Not Given Insulin Detemir (Levemir Vial) 10 units SQ [facility] Last Admin: 07/18/18 21:49 Dose: 10 unit Metoprolol Tartrate (Lopressor -) 25 mg PO DAILY [facility] Last Admin: 07/19/18 10:43 Dose: 25 mg Pantoprazole Sodium (Protonix -) 20 mg PO DAILY [facility] Last Admin: 07/19/18 10:43 Dose: 20 mg Sertraline HCl (Zoloft -) 25 mg PO DAILY [facility] Last Admin: 07/19/18 10:43 Dose: 25 mg Solifenacin (Vesicare -) 5 mg PO DAILY [facility] Last Admin: 07/19/18 10:43 Dose: 5 mg Tiotropium [place] (Spiriva Respimat) 2 puff IH DAILY [facility] Last Admin: 07/19/18 10:44 Dose: 2 puff - Objective Vital Signs: Vital Signs Temperature 98.4 F 07/19/18 06:00 Pulse Rate 86 07/19/18 10:00 Respiratory Rate 22 H 07/19/18 10:00 Blood Pressure 146/80 07/19/18 10:00 O2 Sat by Pulse Oximetry (%) 95 07/19/18 09:00 Constitutional: Yes: No Distress, Calm Cardiovascular: Yes: S1, S2 Respiratory: Yes: Regular, On Nasal O2 Gastrointestinal: Yes: Normal Bowel Sounds, Soft Musculoskeletal: Yes: WNL Extremities: Yes: Other Neurological: Yes: Alert, Oriented Psychiatric: Yes: Alert, Oriented Labs: CBC, BMP 07/19/18 07:00 07/19/18 07:00 INR, PTT INR 1.13 (0.83-1.09) H 07/08/18 21:24 Assessment/Plan Problem List - Problems (1) Anemia Code(s): D64.9 - ANEMIA, UNSPECIFIED (2) CHF (congestive heart failure) Code(s): I50.9 - HEART FAILURE, UNSPECIFIED (3) COPD (chronic obstructive pulmonary disease) Code(s): J44.9 - CHRONIC OBSTRUCTIVE PULMONARY DISEASE, UNSPECIFIED (4) Venous insufficiency Code(s): I87.2 - VENOUS INSUFFICIENCY (CHRONIC) (PERIPHERAL) (5) HTN (hypertension) Code(s): I10 - ESSENTIAL (PRIMARY) HYPERTENSION (6) Type 2 diabetes mellitus Code(s): E11.9 - TYPE 2 DIABETES MELLITUS WITHOUT COMPLICATIONS 7 mild cellulitis of the leg 8 pneumonia plan continue current mgmt nutrition rest as per the team doing well monitor off of abx
--- NOTE | 2018-07-19 14:40 | PN ---
Progress Note (short form) - Note Progress Note: pt seen/ examined no weakness wants to eat food no complaints spoke with Pulmonary -- her O2 sat decreased off oxygen- pt high risk for endoscopic procedures , may need to get intubated if she undergoes EGD / colonoscopy Vital Signs - 24 hr 07/18/18 07/18/18 07/18/18 14:55 18:00 21:00 Temperature 98.4 F 98.6 F Pulse Rate 69 86 Respiratory 20 20 Rate Blood Pressure 136/92 145/86 O2 Sat by Pulse 95 Oximetry (%) 07/18/18 07/19/18 07/19/18 22:00 06:00 09:00 Temperature 98.3 F 98.4 F Pulse Rate 71 82 Respiratory 18 16 Rate Blood Pressure 166/76 145/73 O2 Sat by Pulse 95 Oximetry (%) 07/19/18 07/19/18 10:00 13:59 Temperature 98.0 F Pulse Rate 86 112 H Respiratory 22 H Rate Blood Pressure 146/80 150/74 O2 Sat by Pulse Oximetry (%) Current Medications Generic Name Dose Route Start Last Admin Trade Name Freq PRN Reason Stop Dose Admin Acetaminophen 650 mg 07/09/18 10:00 07/16/18 09:22 Tylenol - PO 650 mg Q6H PRN Administration PAIN LEVEL 1-5 OR FEVER Amlodipine Besylate 10 mg 07/09/18 10:00 07/19/18 10:43 Norvasc - PO 10 mg DAILY [facility] Administration Arformoterol Tartrate 1 amp 07/13/18 20:00 07/19/18 07:01 Brovana (Restricted To Pulmonology/Resp) - NEB 1 amp RBID [facility] Administration Artificial Tears 1 drop 07/17/18 12:25 Artificial Tears OU TID PRN DRY EYES Atorvastatin Calcium 10 mg 07/09/18 22:00 07/18/18 21:47 Lipitor - PO 10 mg HS [facility] Administration Enoxaparin Sodium 40 mg 07/10/18 10:00 07/19/18 10:43 Lovenox - SQ 40 mg DAILY [facility] Administration Hydralazine HCl 100 mg 07/09/18 06:00 07/19/18 13:51 Apresoline - PO 100 mg TID [facility] Administration Insulin Aspart 1 vial 07/09/18 07:00 07/19/18 12:27 Novolog Vial Sliding Scale - SQ Not Given ACHS [facility] Protocol Insulin Detemir 10 units 07/09/18 22:00 07/18/18 21:49 Levemir Vial SQ 10 unit HS [facility] Administration Metoprolol Tartrate 25 mg 07/09/18 10:00 07/19/18 10:43 Lopressor - PO 25 mg DAILY [facility] Administration Pantoprazole Sodium 20 mg 07/14/18 16:15 07/19/18 10:43 Protonix - PO 20 mg DAILY [facility] Administration Sertraline HCl 25 mg 07/09/18 10:00 07/19/18 10:43 Zoloft - PO 25 mg DAILY [facility] Administration Solifenacin 5 mg 07/09/18 10:00 07/19/18 10:43 Vesicare - PO 5 mg DAILY [facility] Administration Tiotropium Angier 2 puff 07/09/18 10:00 07/19/18 10:44 Spiriva Respimat IH 2 puff DAILY [facility] Administration Laboratory Results - last 24 hr 07/18/18 07/18/18 07/19/18 16:08 21:48 06:04 WBC RBC Hgb Hct MCV MCH MCHC RDW Plt Count MPV Absolute Neuts (auto) Neutrophils % Lymphocytes % Monocytes % Eosinophils % Basophils % Nucleated RBC % Sodium Potassium Chloride Carbon Dioxide Anion Gap BUN Creatinine Creat Clearance w eGFR POC Glucometer 163 140 121 Random Glucose Calcium Total Bilirubin AST ALT Alkaline Phosphatase Total Protein Albumin 07/19/18 07/19/18 07/19/18 07:00 07:00 11:10 WBC 8.9 RBC 3.19 L Hgb 8.3 L Hct 26.4 L MCV 82.7 MCH 26.0 MCHC 31.4 L RDW 19.2 H Plt Count 242 MPV 8.7 Absolute Neuts (auto) 7.0 Neutrophils % 78.6 D Lymphocytes % 12.0 D Monocytes % 8.3 Eosinophils % 0.4 Basophils % 0.7 Nucleated RBC % 0 Sodium 138 Potassium 4.7 Chloride 103 Carbon Dioxide 28 Anion Gap 7 L BUN 27 H Creatinine 1.1 Creat Clearance w eGFR 48.96 POC Glucometer 120 Random Glucose 110 H Calcium 8.1 L Total Bilirubin 0.6 AST 20 ALT 13 Alkaline Phosphatase 54 Total Protein 7.3 Albumin 3.0 L Physical Exam. awake/ obese/ no distress heent- no jvd lungs- diminished at bases cvs- s1, s2 rrr abd- soft/ obese ext- chronic venous stasis neuro- aox2 A/P clinically improving s/p PRBC pt tolerating diet renal function improving no obvious bleeding po antibiotics -- dc yesterday remains afebrile will dc pt back to [facility] monitor bgm monitor H/HCT Problem List - Problems (1) Anemia Code(s): D64.9 - ANEMIA, UNSPECIFIED Qualifiers: Anemia type: unspecified type Qualified Code(s): D64.9 - Anemia, unspecified (2) CHF (congestive heart failure) Code(s): I50.9 - HEART FAILURE, UNSPECIFIED (3) COPD (chronic obstructive pulmonary disease) Code(s): J44.9 - CHRONIC OBSTRUCTIVE PULMONARY DISEASE, UNSPECIFIED (4) Pneumonia Code(s): J18.9 - PNEUMONIA, UNSPECIFIED ORGANISM (5) Venous insufficiency Code(s): I87.2 - VENOUS INSUFFICIENCY (CHRONIC) (PERIPHERAL) (6) DEE (acute kidney injury) Code(s): N17.9 - ACUTE KIDNEY FAILURE, UNSPECIFIED
[2018-07-19 18:23] VITALS: BMI 39.6
[2018-07-19] MEDS: ATORVASTATIN CA 10 MG TABLET (FP) PO SCH (21:35)
[2018-07-19] MEDS: INSULIN (LEVEMIR) 100 UNITS/ML UNITS SQ SCH (21:35)
[2018-07-20] MEDS: ACETAMINOPHEN 325 MG TABLET (FP) PO PRN (05:18)
[2018-07-20] MEDS: hydrALAZINE HCL 50 MG TABLET (FP) PO SCH (05:46)
[2018-07-20] MEDS: INSULIN SLIDING SCALE (NOVOLOG) 1 VIAL SQ SCH ×2 (06:47→11:58)
[2018-07-20] MEDS: ARFORMOTEROL TARTRATE 15 MCG/2 ML VIAL NEB SCH (07:55)
[2018-07-20 09:12] VITALS: BP 133/60; PULSE 69; TEMP 98.3
[2018-07-20] MEDS: METOPROLOL TARTRATE 25 MG TABLET (FP) PO SCH (09:47)
[2018-07-20] MEDS: amLODIPine BESYLATE 10 MG TABLET (FP) PO SCH (09:47)
[2018-07-20] MEDS: PANTOPRAZOLE 20 MG TABLET (FP) PO SCH (09:47)
[2018-07-20] MEDS: SERTRALINE HCL 25 MG TABLET (FP) PO SCH (09:47)
[2018-07-20] MEDS: TIOTROPIUM BROMIDE 2.5 MCG (SPIRIVA) RESPIMAT INHALER IH SCH (09:47)
[2018-07-20] MEDS: SOLIFENACIN SUCCINATE 5 MG TAB (FP) PO SCH (09:47)
--- NOTE | 2018-07-20 10:58 | PN ---
Progress Note, Physician History of Present Illness: c/o of pain in the legs otherwise no issues - Current Medication List Current Medications: Active Medications Acetaminophen (Tylenol -) 650 mg PO Q6H PRN PRN Reason: PAIN LEVEL 1-5 OR FEVER Last Admin: 07/20/18 05:18 Dose: 650 mg Amlodipine Besylate (Norvasc -) 10 mg PO DAILY [facility] Last Admin: 07/20/18 09:47 Dose: 10 mg Arformoterol Tartrate (Brovana (Restricted To Pulmonology/Resp) -) 1 amp NEB RBID [facility] Last Admin: 07/20/18 07:55 Dose: 1 amp Artificial Tears (Artificial Tears) 1 drop OU TID PRN PRN Reason: DRY EYES Atorvastatin Calcium (Lipitor -) 10 mg PO HS [facility] Last Admin: 07/19/18 21:35 Dose: 10 mg Enoxaparin Sodium (Lovenox -) 40 mg SQ DAILY [facility] Last Admin: 07/19/18 10:43 Dose: 40 mg Hydralazine HCl (Apresoline -) 100 mg PO TID [facility] Last Admin: 07/20/18 05:46 Dose: 100 mg Insulin Aspart (Novolog Vial Sliding Scale -) 1 vial SQ [facility]; Protocol Last Admin: 07/20/18 06:47 Dose: Not Given Insulin Detemir (Levemir Vial) 10 units SQ [facility] Last Admin: 07/19/18 21:35 Dose: 10 unit Metoprolol Tartrate (Lopressor -) 25 mg PO DAILY [facility] Last Admin: 07/20/18 09:47 Dose: 25 mg Pantoprazole Sodium (Protonix -) 20 mg PO DAILY [facility] Last Admin: 07/20/18 09:47 Dose: 20 mg Sertraline HCl (Zoloft -) 25 mg PO DAILY [facility] Last Admin: 07/20/18 09:47 Dose: 25 mg Solifenacin (Vesicare -) 5 mg PO DAILY [facility] Last Admin: 07/20/18 09:47 Dose: 5 mg Tiotropium Gay (Spiriva Respimat) 2 puff IH DAILY [facility] Last Admin: 07/20/18 09:47 Dose: 2 puff - Objective Vital Signs: Vital Signs Temperature 98.3 F 07/20/18 09:11 Pulse Rate 69 07/20/18 09:11 Respiratory Rate 20 07/20/18 09:11 Blood Pressure 133/60 07/20/18 09:11 O2 Sat by Pulse Oximetry (%) 96 07/20/18 07:25 Constitutional: Yes: No Distress, Calm Cardiovascular: Yes: S1, S2 Gastrointestinal: Yes: Normal Bowel Sounds, Soft Musculoskeletal: Yes: WNL Extremities: Yes: Other Neurological: Yes: Alert, Oriented Psychiatric: Yes: Alert, Oriented Labs: CBC, BMP 07/19/18 07:00 07/19/18 07:00 INR, PTT INR 1.13 (0.83-1.09) H 07/08/18 21:24 Assessment/Plan Problem List - Problems (1) Anemia Code(s): D64.9 - ANEMIA, UNSPECIFIED (2) CHF (congestive heart failure) Code(s): I50.9 - HEART FAILURE, UNSPECIFIED (3) COPD (chronic obstructive pulmonary disease) Code(s): J44.9 - CHRONIC OBSTRUCTIVE PULMONARY DISEASE, UNSPECIFIED (4) Venous insufficiency Code(s): I87.2 - VENOUS INSUFFICIENCY (CHRONIC) (PERIPHERAL) (5) HTN (hypertension) Code(s): I10 - ESSENTIAL (PRIMARY) HYPERTENSION (6) Type 2 diabetes mellitus Code(s): E11.9 - TYPE 2 DIABETES MELLITUS WITHOUT COMPLICATIONS 7 mild cellulitis of the leg 8 pneumonia plan continue current mgmt nutrition rest as per the team doing well monitor off of abx
--- NOTE | 2018-07-20 12:05 | PN ---
Progress Note (short form) - Note Progress Note: Progress Note: s: no cp sob palps dizzy o: Vital Signs Period Temp Pulse Resp BP Sys/Gates Pulse Ox Last 24 Hr 98.0 F-98.6 F 69-112 20-20 133-155/60-80 95-96 nad no jvd rrr s1s2 no mrg CTA nl eff chronic venous stasis changes le bl, no le edema abd nt nd pos bs no jaundice diaphoresis pos dp pt no carotid bruits +chest wall tenderness Current Medications Acetaminophen (Tylenol -) 650 mg PO Q6H PRN PRN Reason: PAIN LEVEL 1-5 OR FEVER Last Admin: 07/20/18 05:18 Dose: 650 mg Amlodipine Besylate (Norvasc -) 10 mg PO DAILY [facility] Last Admin: 07/20/18 09:47 Dose: 10 mg Arformoterol Tartrate (Brovana (Restricted To Pulmonology/Resp) -) 1 amp NEB RBID [facility] Last Admin: 07/20/18 07:55 Dose: 1 amp Artificial Tears (Artificial Tears) 1 drop OU TID PRN PRN Reason: DRY EYES Atorvastatin Calcium (Lipitor -) 10 mg PO [facility] Last Admin: 07/19/18 21:35 Dose: 10 mg Enoxaparin Sodium (Lovenox -) 40 mg SQ DAILY [facility] Last Admin: 07/19/18 10:43 Dose: 40 mg Hydralazine HCl (Apresoline -) 100 mg PO TID [facility] Last Admin: 07/20/18 05:46 Dose: 100 mg Insulin Aspart (Novolog Vial Sliding Scale -) 1 vial SQ [facility]; Protocol Last Admin: 07/20/18 11:58 Dose: Not Given Insulin Detemir (Levemir Vial) 10 units SQ [facility] Last Admin: 07/19/18 21:35 Dose: 10 unit Metoprolol Tartrate (Lopressor -) 25 mg PO DAILY [facility] Last Admin: 07/20/18 09:47 Dose: 25 mg Pantoprazole Sodium (Protonix -) 20 mg PO DAILY [facility] Last Admin: 07/20/18 09:47 Dose: 20 mg Sertraline HCl (Zoloft -) 25 mg PO DAILY [facility] Last Admin: 07/20/18 09:47 Dose: 25 mg Solifenacin (Vesicare -) 5 mg PO DAILY [facility] Last Admin: 07/20/18 09:47 Dose: 5 mg Tiotropium Clay (Spiriva Respimat) 2 puff IH DAILY [facility] Last Admin: 07/20/18 09:47 Dose: 2 puff cxr: chf ecg: sr,nl intervals, no ischemic changes mibi 2011: no ischemia, nl lvef echo 03/2014: lvh, nl lv/rv, lae, no sig valve path echo 04/2018: mild lvh, nl lv, mild rve, nl rv fcn, lae, no sig valve path CT A/P jud small pleural effusions echo 06/2018 very limited study incomplete exam, Lv nl size, LV function not assessed, mild MR, mild ao sclerosis a/p: 72 f hx copd, htn, dm, here with sob, cp. acute diastolic chf, sob: - 07/09-13 on lasix 40 mg IV daily - 07/11 Cr inc 1.3->1.8, weight down (bedscale), edema stable with sob improving - 16-18, 21, 23 appears euvolemic, holding lasix - pulm following as well anemia, preop for colo/EGD - appears euvolemic - no cardiac contraindication to colo/EGD htn: -bp stable -cont home meds cp: -atypical cp -ecg benign -trops negx3 -no signs acs -seems more msk abd pain: -GI following
--- NOTE | 2018-07-20 15:26 | DS ---
Physical Examination Vital Signs: Vital Signs Temperature 98.3 F 07/20/18 09:11 Pulse Rate 69 07/20/18 09:11 Respiratory Rate 20 07/20/18 09:11 Blood Pressure 133/60 07/20/18 09:11 O2 Sat by Pulse Oximetry (%) 96 07/20/18 07:25 Constitutional: Yes: No Distress, Calm Cardiovascular: Yes: Regular Rate and Rhythm Respiratory: Yes: Diminished Gastrointestinal: Yes: Normal Bowel Sounds, Soft. No: Tenderness Edema: Yes Labs: CBC, BMP 07/19/18 07:00 07/19/18 07:00 Discharge Summary Reason For Visit: CONGESTIVE HEART FAILURE Hospital Course: see progress note Condition: Improved - Instructions Referrals: Duane Davidson MD [Primary Care Provider] - Disposition: INTERMEDIATE FACILITY - Home Medications Comprehensive Discharge Medication List: Ambulatory Orders Acetaminophen [Acetaminophen ER] 650 mg PO QID 07/08/18 Amlodipine Besylate [Norvasc -] 10 mg PO DAILY 07/08/18 Docusate Sodium [Colace] 100 mg PO DAILY 07/08/18 Hydralazine HCl 100 mg PO TID 07/08/18 Metoprolol Tartrate 25 mg PO DAILY 07/08/18 Sertraline HCl [Zoloft] 25 mg PO DAILY 07/08/18 Simvastatin 20 mg PO DAILY 07/08/18 Tiotropium Henriette [Spiriva] 1 inh PO DAILY 07/08/18 Albuterol 0.083% Nebulizer Maribel [Ventolin 0.083% Nebulizer Soln -] 1 amp NEB Q4H PRN #20 amp 07/19/18 Pantoprazole Sodium [Protonix -] 20 mg PO DAILY #60 tablet.ec 07/19/18 Solifenacin Succinate [Vesicare -] 5 mg PO DAILY #60 tab 07/19/18
== END 2018-07-20 12:59 | DRG 291 ==
LOC: JER 17:05 → JERBED 23:01 → J6S 07-10 17:53
PROVIDERS: ADMIT Internal Medicine; ATTEND Internal Medicine
PROC: 30233N1 Transfusion of Nonautologous Red Blood Cells into Peripheral Vein, Percutaneous Approach (ICD-10-PCS; principal; 2018-07-10)
DX: I13.0 Hypertensive heart and chronic kidney disease with heart failure and stage 1 through stage 4 chronic kidney disease, or unspecified chronic kidney disease (principal); J18.9 Pneumonia, unspecified organism; J96.01 Acute respiratory failure with hypoxia; I50.33 Acute on chronic diastolic (congestive) heart failure; L03.116 Cellulitis of left lower limb; L03.115 Cellulitis of right lower limb; J44.1 Chronic obstructive pulmonary disease with (acute) exacerbation; N18.9 Chronic kidney disease, unspecified; E11.22 Type 2 diabetes mellitus with diabetic chronic kidney disease; E11.69 Type 2 diabetes mellitus with other specified complication; Z79.4 Long term (current) use of insulin; R07.89 Other chest pain; D50.9 Iron deficiency anemia, unspecified; E66.9 Obesity, unspecified; Z68.39 Body mass index [BMI] 39.0-39.9, adult; I25.10 Atherosclerotic heart disease of native coronary artery without angina pectoris; I25.2 Old myocardial infarction; K80.20 Calculus of gallbladder without cholecystitis without obstruction; I87.2 Venous insufficiency (chronic) (peripheral); F17.210 Nicotine dependence, cigarettes, uncomplicated; Z91.81 History of falling; G47.33 Obstructive sleep apnea (adult) (pediatric)
CPT/HCPCS: 36415; 36430; 36600; 71045-TC-FY; 71260-TC; 74176-TC; 80048; 80053; 80061; 80076; 81003; 81015; 82140; 82272; 82550; 82728; 82803; 82962; 83036; 83540; 83550; 83721; 83735; 83880; 84443; 84484; 85025; 85027; 85610; 85651; 85730; 86850; 86900; 86901; 86922; 93005; 93010; 93306-TC; 93925-TC; 94640; 95860-TC; 97116-GP; 97161-GP; 99285-25; J0475; P9038; P9058; Q9967